=== PATIENT | female | born 1960 | race American Indian/Alaskan Native ===

== ENCOUNTER 2018-07-23 20:44 | Inpatient (IN) | payer MEDICAID ==
--- NOTE | 2018-07-23 21:13 | ED PDOC ---
Arrival/HPI - General Time Seen by Provider: 07/23/18 20:47 Historian: Family, EMS - History of Present Illness Narrative History of Present Illness (Text): 07/23/18 21:05 57 year old female, whose past medical history includes throat cancer, Hypertension, IDDM, hypercholesterolemia, COPD, nonbstructive CAD by cath, presents to the emergency department via EMS s/p witnessed seizure. On route to the ER, patient began seizing for 5-6 minutes and was administered 5mg of Versed. As per family, patient was complaining of a headache all day. HPI and ROS limited due to patient's acuity of condition. Symptom Onset: Sudden Symptom Course: Improving Activities at Onset: Light Context: Home Past Medical History - Provider Review Nursing Documentation Reviewed: Yes - Cardiac Hx Cardiac Disorders: Yes (CAD) Hx Hypertension: Yes - Pulmonary Hx Chronic Obstructive Pulmonary Disease (COPD): Yes - Neurological Hx Neurological Disorder: No - HEENT Hx HEENT Disorder: Yes (hoarseness) Hx Cataracts: Yes Other/Comment: HX: VOVAL CORD LESION - Renal Hx Renal Disorder: No - Endocrine/Metabolic Hx Diabetes Mellitus Type 2: Yes - Hematological/Oncological Hx Blood Disorders: Yes Hx Anemia: Yes Hx Blood Transfusions: Yes Hx Blood Transfusion Reaction: No - Integumentary Hx Dermatological Disorder: No - Musculoskeletal/Rheumatological Hx Musculoskeletal Disorders: Yes Hx Osteoporosis: Yes - Gastrointestinal Hx Gastrointestinal Disorders: Yes Hx Gastroesophageal Reflux: Yes HX Swallowing Problems: Yes - Genitourinary/Gynecological Hx Genitourinary Disorders: No - Psychiatric Hx Psychophysiologic Disorder: No Hx Substance Use: No - Surgical History Hx Cardiac Catheterization: Yes - Anesthesia Hx Anesthesia: Yes Hx Anesthesia Reactions: No Hx Malignant Hyperthermia: No - Suicidal Assessment Feels Threatened In Home Enviroment: No Family/Social History - Physician Review Nursing Documentation Reviewed: Yes Family/Social History: No Known Family HX Smoking Status: Former Smoker Hx Alcohol Use: Yes (stopped drining 5 yrs ago) Hx Substance Use: No Allergies/Home Meds Allergies/Adverse Reactions: Allergies peanut Allergy (Severe, Verified 07/23/18 20:49) SWELLING hydromorphone [From Dilaudid] Allergy (Mild, Verified 07/23/18 20:49) ITCHING Home Medications: Home Meds Medication Instructions Recorded Confirmed RX: Aspirin [Aspirin Chewable] 81 mg PO DAILY 05/22/13 07/23/18 RX: Digoxin 0.25 mg PO DAILY 05/22/13 07/23/18 Review of Systems - Physician Review All systems were reviewed & negative as marked: Yes - Review of Systems Systems not reviewed;Unavailable: Acuity of Condition Neurological: Headache Physical Exam Vital Signs Reviewed: Yes Temperature: Afebrile Blood Pressure: Hypertensive Pulse: Tachycardic Respiratory Rate: Normal Appearance: Positive for: Well-Appearing, Non-Toxic, Comfortable Pain Distress: None Mental Status: Positive for: other (unresponsive, but moving extremities) Finger Stick Blood Glucose: 179 - Systems Exam Head: Present: Atraumatic, Normocephalic Pupils: Present: PERRL Extroacular Muscles: Present: EOMI Conjunctiva: Present: Normal Mouth: Present: Moist Mucous Membranes Neck: Present: Normal Range of Motion, Other (Tracheotomy noted) Respiratory/Chest: Present: Clear to Auscultation, Good Air Exchange. No: Respiratory Distress, Accessory Muscle Use Cardiovascular: Present: Regular Rate and Rhythm, Normal S1, S2. No: Murmurs Abdomen: No: Distention, Peritoneal Signs Back: Present: Normal Inspection Upper Extremity: Present: Normal Inspection. No: Cyanosis, Edema Lower Extremity: Present: Normal Inspection. No: Edema Neurological: Present: GCS=15, CN II-XII Intact Skin: Present: Warm, Dry, Normal Color. No: Rashes Psychiatric: Present: Normal Insight, Normal Concentration, Other (unresponsive, but moving extremities) Medical Decision Making ED Course and Treatment: 07/23/18 21:05 Impression: 57 year old female presents s/p witnessed seizure. Patient was complaining of a headache earlier. Plan: -- CT Head w/o Contrast -- Labs -- EKG -- IV Fluids -- Reassess and disposition Prior Visits: Notes and results from previous visits were reviewed. Progress Notes: 07/23/18 20:47 EMS alerted staff that incoming patient was a code stroke. Code Stroke Called. pt to ctscan on return Patient was seen and evaluated and did not meet code stroke criteria pt was dx with hyponatremia and seizure 07/23/18 21:03 EKG shows Sinus rhythm at 85 BPM with non-specific ST/T segment changes. Interpreted by me EXAM: CT Head without Intravenous Contrast. Electronically signed on Jul 23, 2018 9:09:18 PM EST by: Sulaiman Randolph M.D. IMPRESSION: No acute intracranial abnormality. Basal ganglia calcifications present. 07/23/18 21:49 Patient is noted to be seizing. 1mg Ativan ordered. 07/23/18 22:02 Labs reviewed. Sodium 115. Ordered Hypetonic Saline 07/23/18 22:[address] Javier who is aware and agrees with the plan. Accepts patient. 07/23/18 22:12 Patient noted to have another seizure. Ordered 1mg Ativan. 07/24/18 21:03 - Lab Interpretations I have reviewed the lab results: Yes - RAD Interpretation Radiology Orders: 07/23/18 20:50 HEAD W/O (CODE STROKE) [CT] Stat CHEST ONE VIEW [RAD] Stat - EKG Interpretation Interpreted by ED Physician: Yes Type: 12 lead EKG - Medication Orders Current Medication Orders: Sodium Chloride (Sodium Chloride 0.9%) 1,000 mls @ 100 mls/hr IV .Q10H RENATO - Scribe Statement The provider has reviewed the documentation as recorded by the Yessica Martinez Provider Scribe Attestation: All medical record entries made by the Scribe were at my direction and personally dictated by me. I have reviewed the chart and agree that the record accurately reflects my personal performance of the history, physical exam, medical decision making, and the department course for this patient. I have also personally directed, reviewed, and agree with the discharge instructions and disposition. Disposition/Present on Arrival - Present on Arrival Any Indicators Present on Arrival: No History of DVT/PE: No History of Uncontrolled Diabetes: No Urinary Catheter: No History Surgical Site Infection Following: None - Disposition Have Diagnosis and Disposition been Completed?: Yes Diagnosis: Hyponatremia, Seizure Disposition: HOSPITALIZED Disposition Time: 23:00 Condition: FAIR
[2018-07-23] MEDS: Sodium Chloride 0.9% 1,000 ML IV SCH (21:30)
[2018-07-23 21:50] LABS: BASO # 0.01 K/mm3 (0.0-2.0); BASO % 0.1 % (0.0-3.0); EOS # 0.1 (0.0-0.7); EOS % 0.5 % (1.5-5.0); GRAN # 7.23 (1.4-6.5); GRAN % 73.4 % (50.0-68.0); HEMOGLOBIN 10.3 g/dL (12.0-16.0); LYMPH # 1.7 (1.2-3.4); LYMPH % 17.5 % (22.0-35.0); MEAN CELL VOLUME 70.4 fl (80.0-105.0); MEAN CORPUSCULAR HGB CONC 35.5 g/dl (31.0-37.0); MEAN PLATELET VOLUME 8.7 fl (7.0-11.0); MONO # 0.8 (0.1-0.6); MONO % 8.5 % (1.0-6.0); RBC 4.12 10^6/uL (3.5-6.1); WHITE BLOOD COUNT 9.9 10^3/uL (4.5-11.0)
[2018-07-23 22:00] LABS: INR 0.92; PROTHROMBIN TIME 10.5 SECONDS (9.4-12.5)
[2018-07-23 22:01] LABS: ALB/GLOB RATIO 1.1 (1.1-1.8); ALBUMIN 4.4 g/dL (3.0-4.8); ALT/SGPT 31 U/L (7-56); AST/SGOT 33 U/L (14-36); BLOOD UREA NITROGEN 16 mg/dL (7-21); GFR NON-AFRICAN AMERICAN 51; HDL CHOLESTEROL 68 mg/dL (29-60)
[2018-07-23 22:04] LABS: ARTERIAL BLOOD GAS HCO3 15.6 mmol/L (21-28); ARTERIAL BLOOD GAS O2 CAPACITY 13.8 mL/dl (16-24); ARTERIAL BLOOD GAS O2 SAT 72.6 % (95-98); ARTERIAL BLOOD GAS PCO2 71 mm/Hg (35-45); ARTERIAL BLOOD GAS TCO2 17.8 mmol.L (22-28)
[2018-07-23 22:05] LABS: LDL CHOLESTEROL 123 mg/dL (0-129)
[2018-07-23 22:09] LABS: B-TYPE NATRIURETIC PEPTIDE 246 pg/mL (0-450); TROPONIN I 0.02 ng/mL
[2018-07-23] MEDS ORDERED: Sodium Chloride 3% 500 ML IV SCH (22:15)
[2018-07-23 22:21] LABS: ARTERIAL BLOOD GAS PH 6.95 (7.35-7.45)
[2018-07-23 22:49] LABS: PARTIAL THROMBOPLASTIN TIME 24.7 Seconds (25.1-36.5)
--- NOTE | 2018-07-24 00:12 | CP.PCM.HP ---
History of Present Illness - History of Present Illness History of Present Illness: Alejandro Miller PGY1 History and Physical for Dr Leonel Napier Pt is a 57 yo female, with a PMH which includes throat cancer, HTN, DM, HLD, RAPID OUTSOLE STITCHER D, CAD, presents to the emergency department via EMS after a witnessed seizure. On route to the ER, patient began seizing for 5-6 minutes and was administered 5mg of Versed. Pt has had a history of seizures. Pt unresponsive during the history and physical, most of the information was obtained from the pt sister and nephew. Pt reportedly started shaking, feel off of the bed and hit the side of her face. As per family, patient was complaining of a headache all day. HPI and ROS limited due to patient's acuity of condition. PMH: HTN, IDDM, HLD, COPD, CAD PSH: umbilical hernia repair (2014) SH: pt is a former smoker 2 ppd for more than 30 years, pt quit etoh 5 year ago (drank five 40 oz beers per day), denies illicit drug use Home meds: contact [facility] tomorrow Allergies: peanuts, hydromorphone PMD: [facility] Cardio: [facility] in [place] Present on Admission - Present on Admission Any Indicators Present on Admission: No Review of Systems - Review of Systems Review of Systems: limited due to pt mental status Past Patient History - Past Medical History & Family History Past Medical History?: Yes - Past Social History Smoking Status: Former Smoker - CARDIAC Hx Cardiac Disorders: Yes (CAD) Hx Hypertension: Yes - PULMONARY Hx Chronic Obstructive Pulmonary Disease (COPD): Yes - NEUROLOGICAL Hx Neurological Disorder: No - HEENT Hx HEENT Problems: Yes (hoarseness) Hx Cataracts: Yes Other/Comment: HX: VOVAL CORD LESION - RENAL Hx Chronic Kidney Disease: No - ENDOCRINE/METABOLIC Hx Diabetes Mellitus Type 2: Yes - HEMATOLOGICAL/ONCOLOGICAL Hx Blood Disorders: Yes Hx Anemia: Yes Hx Blood Transfusions: Yes Hx Blood Transfusion Reaction: No - INTEGUMENTARY Hx Dermatological Problems: No - MUSCULOSKELETAL/RHEUMATOLOGICAL Hx Musculoskeletal Disorders: Yes Hx Osteoporosis: Yes - GASTROINTESTINAL Hx Gastrointestinal Disorders: Yes Hx Gastroesophageal Reflux: Yes HX Swallowing Problems: Yes - GENITOURINARY/GYNECOLOGICAL Hx Genitourinary Disorders: No - PSYCHIATRIC Hx Psychophysiologic Disorder: No Hx Substance Use: No - SURGICAL HISTORY Hx Cardiac Catheterization: Yes - ANESTHESIA Hx Anesthesia: Yes Hx Anesthesia Reactions: No Hx Malignant Hyperthermia: No Meds Allergies/Adverse Reactions: Allergies Allergy/AdvReac Type Severity Reaction Status Date / Time peanut Allergy Severe SWELLING Verified 07/23/18 20:49 hydromorphone [From Dilaudid] Allergy Mild ITCHING Verified 07/23/18 20:49 Physical Exam - Head Exam Additional comments: periorbital swelling due to pt falling during seizure - Eye Exam Eye Exam: EOMI, PERRL - ENT Exam ENT Exam: Mucous Membranes Moist - Neck Exam Neck exam: Positive for: Full Rom - Respiratory Exam Respiratory Exam: Clear to Auscultation Bilateral, NORMAL BREATHING PATTERN. a bsent: Accessory Muscle Use, Wheezes, Respiratory Distress - Cardiovascular Exam Cardiovascular Exam: RRR, +S1, +S2. absent: Diastolic murmur, Systolic Murmur - GI/Abdominal Exam GI & Abdominal Exam: Normal Bowel Sounds, Soft - Extremities Exam Extremities exam: Negative for: pedal edema Additional comments: LE no muscle tone - Neurological Exam Neurological exam: Altered - Skin Skin Exam: Dry, Intact, Warm Results - Vital Signs Recent Vital Signs: Last Vital Signs Temp 97.5 F L 07/23/18 20:45 Pulse 89 07/23/18 23:41 Resp 18 07/23/18 23:41 BP 150/95 H 07/23/18 23:41 Pulse Ox 100 07/23/18 23:41 - Labs Result Diagrams: 07/23/18 21:34 07/23/18 21:34 Labs: Laboratory Results - last 24 hr 07/23/18 07/23/18 07/23/18 21:34 21:34 21:34 WBC 9.9 RBC 4.12 Hgb 10.3 L Hct 29.0 L MCV 70.4 L MCH 25.0 MCHC 35.5 RDW 15.0 H Plt Count 404 MPV 8.7 Gran % 73.4 H Lymph % (Auto) 17.5 L [place] % (Auto) 8.5 H Eos % (Auto) 0.5 L Baso % (Auto) 0.1 Gran # 7.23 H Lymph # (Auto) 1.7 [place] # (Auto) 0.8 H Eos # (Auto) 0.1 Baso # (Auto) 0.01 PT 10.5 INR 0.92 APTT 24.7 L pCO2 pO2 HCO3 ABG pH ABG Total CO2 ABG O2 Saturation ABG O2 Content ABG Base Excess ABG Hemoglobin ABG Carboxyhemoglobin POC ABG HHb (Measured) ABG Methemoglobin ABG O2 Capacity Hgb O2 Saturation FiO2 Sodium 115 L* Potassium 4.8 Chloride 75 L D Carbon Dioxide 21 Anion Gap 23 H BUN 16 Creatinine 1.1 Est GFR ( Amer) > 60 Est GFR (Non-Af Amer) 51 Random Glucose 198 H Serum Osmolality Calcium 9.0 Total Bilirubin 0.6 AST 33 ALT 31 Alkaline Phosphatase 80 Troponin I 0.02 NT-Pro-B Natriuret Pep 246 Total Protein 8.3 Albumin 4.4 Globulin 3.9 Albumin/Globulin Ratio 1.1 Triglycerides 164 H Cholesterol 209 H LDL Cholesterol Direct 123 HDL Cholesterol 68 H Blood Type Antibody Screen BBK History Checked 07/23/18 07/23/18 07/23/18 21:34 21:54 22:30 WBC RBC Hgb Hct MCV MCH MCHC RDW Plt Count MPV Gran % Lymph % (Auto) [place] % (Auto) Eos % (Auto) Baso % (Auto) Gran # Lymph # (Auto) [place] # (Auto) Eos # (Auto) Baso # (Auto) PT INR APTT pCO2 71 H* pO2 50.0 L HCO3 15.6 L ABG pH 6.95 L* ABG Total CO2 17.8 L ABG O2 Saturation 72.6 L ABG O2 Content 10.0 L ABG Base Excess -16.4 L ABG Hemoglobin 10.0 L ABG Carboxyhemoglobin 1.4 POC ABG HHb (Measured) 26.9 H ABG Methemoglobin 0.6 ABG O2 Capacity 13.8 L Hgb O2 Saturation 71.1 L FiO2 28.0 Sodium Potassium Chloride Carbon Dioxide Anion Gap BUN Creatinine Est GFR ( Amer) Est GFR (Non-Af Amer) Random Glucose Serum Osmolality 240 L Calcium Total Bilirubin AST ALT Alkaline Phosphatase Troponin I NT-Pro-B Natriuret Pep Total Protein Albumin Globulin Albumin/Globulin Ratio Triglycerides Cholesterol LDL Cholesterol Direct HDL Cholesterol Blood Type AB POSITIVE Antibody Screen Negative BBK History Checked No verified bt Assessment & Plan - Assessment and Plan (Free Text) Assessment: Pt is a 57 yo female, with a PMH which includes throat cancer, HTN, DM, HLD, COPD, CAD, presents to the emergency department via EMS after a witnessed seizure. Plan: Acute Symptomatic Hyponatremia - Na 115 on admission - anion gap 19 - continue 3% Saline, 30ml/hr, will discontinue when Na 135 - follow up BMP Q2 - neuro checks - will try to correct hyponatremia at a rate of 1/ hr - follow up urine osms, Na - follow up serum osm - follow up blood cultures - follow up troponins - head CT shows no abnormalities Vocal Cord Cancer - continue current management - pt receiving daily radiation treatments Respiratory and Metabolic Acidosis - ABG pH 6.95 on admission - pCO2 71 - pO2 50 - pt placed on ventilator: TV400, RR16, PEEP5, FiO2 40 - give 1 amp of bicarb if pH is still under 7 on next ABG - ABG q4 DM - ISS high ACHS - Fingersticks ACHS - HA1C HLD - lipid panel: [id number], TC209, [id number], HDL68 HTN - hydralazine 10mg PRN give if systolic BP over 160 - continue to monitor Anemia - Hgb 10.3, close to pt baseline - continue to follow Ppx - protonix - heparin Pt seen, examined, assessment and plan discussed with Dr Leonel Miller PGY1 Internal Medicine Resident - Date & Time Date: 07/24/18 Time: 00:17
[2018-07-24 01:12] LABS: ARTERIAL BLOOD GAS HCO3 21.1 mmol/L (21-28); ARTERIAL BLOOD GAS HEMOGLOBIN 9.3 g/dL (11.7-17.4); ARTERIAL BLOOD GAS O2 CAPACITY 13.4 mL/dl (16-24); ARTERIAL BLOOD GAS O2 CONTENT 13.4 ML/dl (15-23); ARTERIAL BLOOD GAS O2 SAT 100.1 % (95-98); ARTERIAL BLOOD GAS PCO2 29 mm/Hg (35-45); ARTERIAL BLOOD GAS PH 7.47 (7.35-7.45)
[2018-07-24 01:52] LABS: CALCIUM 8.5 mg/dL (8.4-10.5)
[2018-07-24 01:54] LABS: TROPONIN I 1.68 ng/mL
[2018-07-24] MEDS ORDERED: Sodium Chloride 3% 500 ML IV SCH (02:00)
[2018-07-24] MEDS: Heparin25000 units/250ml 1/2NS 25,000 UNITS/250 ML BAG IV SCH (06:05)
[2018-07-24 06:17] LABS: BLOOD UREA NITROGEN 15 mg/dL (7-21); CALCIUM 8.7 mg/dL (8.4-10.5); GFR NON-AFRICAN AMERICAN 51
[2018-07-24] MEDS: Albuterol-Ipratrop 3 mg / 0.5 (3 ml) UD IH SCH ×3 (08:12→20:17)
[2018-07-24 08:29] VITALS: BMI 22.1
[2018-07-24] MEDS ORDERED: Pneumococcal 23-Valent Vaccine IM ONE (08:29)
[2018-07-24] MEDS ORDERED: Influenza Vaccine 60 mcg/0.5 mL SYR (4YR UP) IM ONE (08:29)
[2018-07-24 09:00] LABS: BLOOD UREA NITROGEN 14 mg/dL (7-21); CALCIUM 8.4 mg/dL (8.4-10.5); GFR NON-AFRICAN AMERICAN 51
--- NOTE | 2018-07-24 09:03 | RAD ---
Date of service: 07/23/2018 PROCEDURE: CHEST RADIOGRAPH, 1 VIEW HISTORY: Code Stroke COMPARISON: None available. FINDINGS: LUNGS: Clear. PLEURA: No pneumothorax or pleural fluid seen. CARDIOVASCULAR: Normal. OSSEOUS STRUCTURES: No significant abnormalities. VISUALIZED UPPER ABDOMEN: Normal. OTHER FINDINGS: Tracheostomy IMPRESSION: No active disease.
--- NOTE | 2018-07-24 09:24 | CT ---
Date of service: 07/23/2018 PROCEDURE: CT HEAD WITHOUT CONTRAST. HISTORY: Code Stroke COMPARISON: None available. TECHNIQUE: Axial computed tomography images were obtained through the head/brain without intravenous contrast. Radiation dose: Total exam DLP = 746.52 mGy-cm. This CT exam was performed using one or more of the following dose reduction techniques: Automated exposure control, adjustment of the mA and/or kV according to patient size, and/or use of iterative reconstruction technique. FINDINGS: HEMORRHAGE: No intracranial hemorrhage. BRAIN: No mass effect or edema. No atrophy or chronic microvascular ischemic changes. VENTRICLES: Unremarkable. No hydrocephalus. CALVARIUM: Unremarkable. PARANASAL SINUSES: Unremarkable as visualized. No significant inflammatory changes. MASTOID AIR CELLS: Unremarkable as visualized. No inflammatory changes. OTHER FINDINGS: The report concurs with the preliminary [facility] report IMPRESSION: No acute findings
[2018-07-24] MEDS ORDERED: Midazolam 2 MG/2 ML VIAL ONE (09:25)
[2018-07-24] MEDS ORDERED: Midazolam 2 MG/2 ML VIAL IVP STA (09:46)
--- NOTE | 2018-07-24 10:08 | CARD ---
APPROVED REPORT Date of service: 07/24/2018 EKG Measurement Heart [id number] <Conclusion> Sinus tachycardia Biatrial enlargement Left anterior fascicular block Left ventricular hypertrophy Inferior infarct, age undetermined Anteroseptal infarct, age undetermined Abnormal ECG
--- NOTE | 2018-07-24 10:10 | CARD ---
APPROVED REPORT Date of service: 07/23/2018 EKG Measurement Heart [id number] <Conclusion> Sinus rhythm with marked sinus arrhythmia Possible Left atrial enlargement Left anterior fascicular block Left ventricular hypertrophy
[2018-07-24] MEDS: Insulin Reg-MEDIUM-Coverage SC SCH ×3 (11:39→22:41)
[2018-07-24 11:40] LABS: OSMOLALITY,URINE 327 mosm/kg (300-1000)
[2018-07-24] MEDS: Sodium Chloride 0.9% 1,000 ML IV SCH ×2 (11:43→17:09)
--- NOTE | 2018-07-24 12:18 | CP.PCM.CON ---
<Berna Dan - Last Filed: 07/24/18 17:38> History of Present Illness - History of Present Illness History of Present Illness: CRITICAL CARE CONSULT NOTE FOR DR. RATNA Dan PGY-1 57 y/o F with PMHx of recently diagnosed laryngeal cancer s/p tracheostomy, alcohol abuse, COPD, HTN, HLD, DM, seizures admitted to [facility] after she sustained a witnessed seizure. EMS was called by her boyfriend. She was brought in to ED and was lethargic, non-responsive to questions and agitated. As per family members, pt had been undergoing radiation therapy with Dr. Carmichael, her oncologist, and was at her 10/24 week. She was instructed to eat a blended food diet after her tracheostomy was placed. She had ate chicken/mashed potatoes when she subsequently experienced a "seizure" episode and developed dyspnea/shortness of breath. EMS was subsequently called and brought in to ED after another seizure episode occurred. She has been followed by Dr. Car, and has been diagnosed with seizures as a child. She was prescribed phenobarbitol but had stopped taking her medications. Per family, she has not drank and smoked in the past 5 years. 12 point ROS in unattainable as patient is not responding to questions. PMH: HTN, IDDM, HLD, COPD, CAD PSH: umbilical hernia repair (2015) SH: pt is a former smoker 2 ppd for more than 30 years, pt quit etoh 5 year ago (drank five 40 oz beers per day), denies illicit drug use Allergies: peanuts, hydromorphone PMD: L[place] Cardio: [place] in [place] Review of Systems - Review of Systems Review of Systems: as per HPI Past Patient History - Past Medical History & Family History Past Medical History?: Yes - Past Social History Smoking Status: Former Smoker - CARDIAC Hx Pacemaker: No - PULMONARY Hx Chronic Obstructive Pulmonary Disease (COPD): Yes - NEUROLOGICAL Hx Neurological Disorder: No - HEENT Hx HEENT Problems: Yes (hoarseness) Hx Cataracts: Yes Other/Comment: HX: VOVAL CORD LESION - RENAL Hx Chronic Kidney Disease: No - ENDOCRINE/METABOLIC Hx Diabetes Mellitus Type 2: Yes - HEMATOLOGICAL/ONCOLOGICAL Hx Cancer: No - INTEGUMENTARY Hx Dermatological Problems: No - MUSCULOSKELETAL/RHEUMATOLOGICAL Hx Musculoskeletal Disorders: Yes Hx Osteoporosis: Yes - GASTROINTESTINAL Hx Gastrointestinal Disorders: Yes Hx Gastroesophageal Reflux: Yes HX Swallowing Problems: Yes - GENITOURINARY/GYNECOLOGICAL Hx Genitourinary Disorders: No - PSYCHIATRIC Hx Psychophysiologic Disorder: No Hx Substance Use: No - SURGICAL HISTORY Hx Mastectomy: No - ANESTHESIA Hx Anesthesia: Yes Hx Anesthesia Reactions: No Hx Malignant Hyperthermia: No Meds Allergies/Adverse Reactions: Allergies Allergy/AdvReac Type Severity Reaction Status Date / Time peanut Allergy Severe SWELLING Verified 07/23/18 20:49 hydromorphone [From Dilaudid] Allergy Mild ITCHING Verified 07/23/18 20:49 - Medications Medications: Current Medications Albuterol/Ipratropium (Duoneb 3 Mg/0.5 Mg (3 Ml) Ud) 3 ml IH TIDRESP [facility] Last Admin: 07/24/18 08:12 Dose: 3 ml Aspirin (Aspirin Chewable) 81 mg PO DAILY [facility] Last Admin: 07/24/18 10:28 Dose: Not Given Aspirin (Aspirin Supp) 300 mg RC DAILY [facility] Last Admin: 07/24/18 11:38 Dose: 300 mg Atorvastatin Calcium (Lipitor) 40 mg PO DIN RENATO Digoxin (Lanoxin) 0.25 mg PO 1400 [facility] Hydralazine HCl (Apresoline) 10 mg IVP Q6H PRN PRN Reason: Systolic Blood Pressure Last Admin: 07/24/18 11:48 Dose: 10 mg Sodium Chloride (Sodium Chloride 0.9%) 1,000 mls @ 100 mls/hr IV .Q10H [facility] Last Admin: 07/24/18 11:43 Dose: 100 mls/hr Heparin Sodium/Sodium Chloride (Heparin 54438 Units/250ml 1/2 Normal Saline) 25,000 units in 250 mls @ 7.457 mls/hr IV .Q24H [facility]; Protocol Last Admin: 07/24/18 06:05 Dose: 12 units/kg/hr, 7.457 mls/hr Acetaminophen (Ofirmev) 1,000 mg in 100 mls @ 400 mls/hr IVPB Q6H PRN PRN Reason: Temperature Stop: 07/26/18 11:06 Last Admin: 07/24/18 11:38 Dose: 400 mls/hr Insulin Human Regular (Humulin R Med) 0 units SC ACHS [facility]; Protocol Last Admin: 07/24/18 11:39 Dose: 5 u Lorazepam (Ativan) 1 mg IVP ONCE PRN; Protocol PRN Reason: Seizure activity Pantoprazole Sodium (Protonix Inj) 40 mg IVP DAILY RENATO Last Admin: 07/24/18 11:42 Dose: 40 mg Physical Exam - Constitutional Appears: Non-toxic, Chronically Ill - Head Exam Head Exam: ATRAUMATIC, NORMOCEPHALIC - Eye Exam Eye Exam: Normal appearance - Neck Exam Neck exam: Positive for: Normal Inspection - Respiratory Exam Respiratory Exam: Clear to Auscultation Bilateral, NORMAL BREATHING PATTERN - Cardiovascular Exam Cardiovascular Exam: Tachycardia, +S1, +S2 - GI/Abdominal Exam GI & Abdominal Exam: Soft. absent: Distended - Extremities Exam Extremities exam: Positive for: normal inspection. Negative for: calf tenderness - Back Exam Back exam: NORMAL INSPECTION Results - Vital Signs Recent Vital Signs: Last Vital Signs Temp 100.8 F H 07/24/18 11:38 Pulse 136 H 07/24/18 11:48 Resp 33 H 07/24/18 08:00 BP 216/84 H 07/24/18 11:48 Pulse Ox 100 07/24/18 08:00 - Labs Result Diagrams: 07/23/18 21:34 07/24/18 16:44 Labs: Laboratory Results - last 24 hr 07/23/18 07/23/18 07/23/18 21:34 21:34 21:34 WBC 9.9 RBC 4.12 Hgb 10.3 L Hct 29.0 L MCV 70.4 L MCH 25.0 MCHC 35.5 RDW 15.0 H Plt Count 404 MPV 8.7 Gran % 73.4 H Lymph % (Auto) 17.5 L Bland % (Auto) 8.5 H Eos % (Auto) 0.5 L Baso % (Auto) 0.1 Gran # 7.23 H Lymph # (Auto) 1.7 Bland # (Auto) 0.8 H Eos # (Auto) 0.1 Baso # (Auto) 0.01 PT 10.5 INR 0.92 APTT 24.7 L pCO2 pO2 HCO3 ABG pH ABG Total CO2 ABG O2 Saturation ABG O2 Content ABG Base Excess ABG Hemoglobin ABG Carboxyhemoglobin POC ABG HHb (Measured) ABG Methemoglobin ABG O2 Capacity Hgb O2 Saturation FiO2 Sodium 115 L* Potassium 4.8 Chloride 75 L D Carbon Dioxide 21 Anion Gap 23 H BUN 16 Creatinine 1.1 Est GFR ( Amer) > 60 Est GFR (Non-Af Amer) 51 POC Glucose (mg/dL) Random Glucose 198 H Hemoglobin A1c Serum Osmolality Calcium 9.0 Total Bilirubin 0.6 AST 33 ALT 31 Alkaline Phosphatase 80 Troponin I 0.02 NT-Pro-B Natriuret Pep 246 Total Protein 8.3 Albumin 4.4 Globulin 3.9 Albumin/Globulin Ratio 1.1 Triglycerides 164 H Cholesterol 209 H LDL Cholesterol Direct 123 HDL Cholesterol 68 H Urine Osmolality Ur Random Sodium Blood Type Blood Type Confirm Antibody Screen BBK History Checked 07/23/18 07/23/18 07/23/18 21:34 21:34 21:54 WBC RBC Hgb Hct MCV MCH MCHC RDW Plt Count MPV Gran % Lymph % (Auto) Bland % (Auto) Eos % (Auto) Baso % (Auto) Gran # Lymph # (Auto) Bland # (Auto) Eos # (Auto) Baso # (Auto) PT INR APTT pCO2 71 H* pO2 50.0 L HCO3 15.6 L ABG pH 6.95 L* ABG Total CO2 17.8 L ABG O2 Saturation 72.6 L ABG O2 Content 10.0 L ABG Base Excess -16.4 L ABG Hemoglobin 10.0 L ABG Carboxyhemoglobin 1.4 POC ABG HHb (Measured) 26.9 H ABG Methemoglobin 0.6 ABG O2 Capacity 13.8 L Hgb O2 Saturation 71.1 L FiO2 28.0 Sodium Potassium Chloride Carbon Dioxide Anion Gap BUN Creatinine Est GFR ( Amer) Est GFR (Non-Af Amer) POC Glucose (mg/dL) Random Glucose Hemoglobin A1c 7.5 H Serum Osmolality 240 L Calcium Total Bilirubin AST ALT Alkaline Phosphatase Troponin I NT-Pro-B Natriuret Pep Total Protein Albumin Globulin Albumin/Globulin Ratio Triglycerides Cholesterol LDL Cholesterol Direct HDL Cholesterol Urine Osmolality Ur Random Sodium Blood Type Blood Type Confirm Antibody Screen BBK History Checked 07/23/18 07/23/18 07/24/18 22:30 23:00 00:50 WBC RBC Hgb Hct MCV MCH MCHC RDW Plt Count MPV Gran % Lymph % (Auto) Bland % (Auto) Eos % (Auto) Baso % (Auto) Gran # Lymph # (Auto) Bland # (Auto) Eos # (Auto) Baso # (Auto) PT INR APTT pCO2 29 L pO2 257.0 H HCO3 21.1 ABG pH 7.47 H ABG Total CO2 22.0 ABG O2 Saturation 100.1 H ABG O2 Content 13.4 L ABG Base Excess -1.9 ABG Hemoglobin 9.3 L ABG Carboxyhemoglobin 1.4 POC ABG HHb (Measured) -0.1 L ABG Methemoglobin 1.1 ABG O2 Capacity 13.4 L Hgb O2 Saturation 97.6 FiO2 28.0 Sodium Potassium Chloride Carbon Dioxide Anion Gap BUN Creatinine Est GFR ( Amer) Est GFR (Non-Af Amer) POC Glucose (mg/dL) Random Glucose Hemoglobin A1c Serum Osmolality Calcium Total Bilirubin AST ALT Alkaline Phosphatase Troponin I NT-Pro-B Natriuret Pep Total Protein Albumin Globulin Albumin/Globulin Ratio Triglycerides Cholesterol LDL Cholesterol Direct HDL Cholesterol Urine Osmolality Ur Random Sodium Blood Type AB POSITIVE Blood Type Confirm AB POSITIVE Antibody Screen Negative BBK History Checked No verified bt 07/24/18 07/24/18 07/24/18 01:13 01:13 05:35 WBC RBC Hgb Hct MCV MCH MCHC RDW Plt Count MPV Gran % Lymph % (Auto) Bland % (Auto) Eos % (Auto) Baso % (Auto) Gran # Lymph # (Auto) Bland # (Auto) Eos # (Auto) Baso # (Auto) PT INR APTT pCO2 pO2 HCO3 ABG pH ABG Total CO2 ABG O2 Saturation ABG O2 Content ABG Base Excess ABG Hemoglobin ABG Carboxyhemoglobin POC ABG HHb (Measured) ABG Methemoglobin ABG O2 Capacity Hgb O2 Saturation FiO2 Sodium 115 L* Potassium 4.5 Chloride 77 L Carbon Dioxide 21 Anion Gap 22 H BUN 15 Creatinine 1.2 Est GFR ( Amer) 56 Est GFR (Non-Af Amer) 46 POC Glucose (mg/dL) Random Glucose 263 H Hemoglobin A1c Serum Osmolality 252 L 256 L Calcium 8.5 Total Bilirubin AST ALT Alkaline Phosphatase Troponin I 1.68 H* D NT-Pro-B Natriuret Pep Total Protein Albumin Globulin Albumin/Globulin Ratio Triglycerides Cholesterol LDL Cholesterol Direct HDL Cholesterol Urine Osmolality Ur Random Sodium Blood Type Blood Type Confirm Antibody Screen BBK History Checked 07/24/18 07/24/18 07/24/18 05:35 07:17 08:30 WBC RBC Hgb Hct MCV MCH MCHC RDW Plt Count MPV Gran % Lymph % (Auto) Bland % (Auto) Eos % (Auto) Baso % (Auto) Gran # Lymph # (Auto) Bland # (Auto) Eos # (Auto) Baso # (Auto) PT INR APTT pCO2 pO2 HCO3 ABG pH ABG Total CO2 ABG O2 Saturation ABG O2 Content ABG Base Excess ABG Hemoglobin ABG Carboxyhemoglobin POC ABG HHb (Measured) ABG Methemoglobin ABG O2 Capacity Hgb O2 Saturation FiO2 Sodium 118 L* Potassium 4.2 Chloride 81 L Carbon Dioxide 17 L Anion Gap 24 H BUN 15 Creatinine 1.1 Est GFR ( Amer) > 60 Est GFR (Non-Af Amer) 51 POC Glucose (mg/dL) 282 H Random Glucose 287 H Hemoglobin A1c Serum Osmolality 253 L Calcium 8.7 Total Bilirubin AST ALT Alkaline Phosphatase Troponin I 4.60 H* D NT-Pro-B Natriuret Pep Total Protein Albumin Globulin Albumin/Globulin Ratio Triglycerides Cholesterol LDL Cholesterol Direct HDL Cholesterol Urine Osmolality Ur Random Sodium Blood Type Blood Type Confirm Antibody Screen BBK History Checked 07/24/18 07/24/18 08:30 10:45 WBC RBC Hgb Hct MCV MCH MCHC RDW Plt Count MPV Gran % Lymph % (Auto) Bland % (Auto) Eos % (Auto) Baso % (Auto) Gran # Lymph # (Auto) Bland # (Auto) Eos # (Auto) Baso # (Auto) PT INR APTT pCO2 pO2 HCO3 ABG pH ABG Total CO2 ABG O2 Saturation ABG O2 Content ABG Base Excess ABG Hemoglobin ABG Carboxyhemoglobin POC ABG HHb (Measured) ABG Methemoglobin ABG O2 Capacity Hgb O2 Saturation FiO2 Sodium 120 L Potassium 3.9 Chloride 85 L Carbon Dioxide 18 L Anion Gap 21 H BUN 14 Creatinine 1.1 Est GFR ( Amer) > 60 Est GFR (Non-Af Amer) 51 POC Glucose (mg/dL) Random Glucose 272 H Hemoglobin A1c Serum Osmolality Calcium 8.4 Total Bilirubin AST ALT Alkaline Phosphatase Troponin I NT-Pro-B Natriuret Pep Total Protein Albumin Globulin Albumin/Globulin Ratio Triglycerides Cholesterol LDL Cholesterol Direct HDL Cholesterol Urine Osmolality 327 Ur Random Sodium 90 Blood Type Blood Type Confirm Antibody Screen BBK History Checked Assessment & Plan - Assessment and Plan (Free Text) Assessment: 57 y/o F admitted to ICU with severe hyponatremia and NSTEMI s/p witnessed fabricio quispe. Plan: Neuro: Pt sedated, arousable but not awake Reorient as necessary Monitor for FND with correction of hyponatremia Hx of seizures loading dose of keppra dilantin/valproate continue anti-epileptics f/u prolactin seizure precautions Consult neurology Head Ct: no acute findings video EEG per neuro recs. r/u status epilepticus/seizures Cardiovascular: Tachycardic Hypertensive Lopressor IVP q6h prn Maintain MAP >65 NSTEMI troponin elevation Trend troponins x 3 overnight continue on heparin drip consult cardiology Pulm: Lungs CTA metabolic acidosis resolved after Na correction repeat ABG tracheostomy collar in place PRVC ventilator prn Oral hygiene pulmonary toilet aspiration precautions GI: Soft/non-distended /Renal Hyponatremia resolving. D/c hypertonic saline Continue IVF with NS goal of correction not more than 6-8 meq/24 hrs. BMP q4h f/u urine studies Supplement lytes prn Maintain MAP>65 Strict I/Os No acute need for renal replacement therapy at this time. Avoid hypotension. Patient not on ACEI/ARB, will consider later once pt stable. Monitor daily weights and renal function with basic metabolic panel Dose meds/antibiotics for reduced GFR. Avoid fleets enema/magnesium based laxatives. Avoid nephrotoxins/NSAIDs/ iodinated contrast (unless needed emergently) Glycemic control ID: Febrile No leukocytosis Empric vancomycin/zosyn f/u blood/urine cultures f/u procalcitonin Endo: Maintain euglycemia Monitor for seizure-like activity Heme: H/H stable transfuse prn Case seen, examined and discussed with attending physician, Dr. Napier <Phil Napier - Last Filed: 07/24/18 18:02> Meds - Medications Medications: Current Medications Albuterol/Ipratropium (Duoneb 3 Mg/0.5 Mg (3 Ml) Ud) 3 ml IH TIDRESP [facility] Last Admin: 07/24/18 13:39 Dose: Not Given Aspirin (Aspirin Chewable) 81 mg PO DAILY [facility] Last Admin: 07/24/18 10:28 Dose: Not Given Aspirin (Aspirin Supp) 300 mg RC DAILY [facility] Last Admin: 07/24/18 11:38 Dose: 300 mg Atorvastatin Calcium (Lipitor) 40 mg PO DIN RENATO Digoxin (Lanoxin) 0.25 mg IVP 1400 RENATO Sodium Chloride (Sodium Chloride 0.9%) 1,000 mls @ 100 mls/hr IV .Q10H R[facility] Last Admin: 07/24/18 17:09 Dose: 100 mls/hr Heparin Sodium/Sodium Chloride (Heparin 99754 Units/250ml 1/2 Normal Saline) 25,000 units in 250 mls @ 7.457 mls/hr IV .Q24H [facility]; Protocol Last Admin: 07/24/18 06:05 Dose: 12 units/kg/hr, 7.457 mls/hr Acetaminophen (Ofirmev) 1,000 mg in 100 mls @ 400 mls/hr IVPB Q6H PRN PRN Reason: Temperature Stop: 07/26/18 11:06 Last Admin: 07/24/18 11:38 Dose: 400 mls/hr Vancomycin HCl (Vancomycin 1gm) 1 gm in 250 mls @ 167 mls/hr IVPB DAILY [facility]; Protocol Last Admin: 07/24/18 17:03 Dose: 167 mls/hr Piperacillin Sod/Tazobactam Sod (Zosyn 3.375 In Ns 100ml) 100 mls @ 25 mls/hr IVPB Q8 [facility]; Protocol Stop: 07/25/18 01:59 Last Admin: 07/24/18 17:08 Dose: 25 mls/hr Valproate Sodium 1,000 mg/ (Sodium Chloride) 110 mls @ 100 mls/hr IVPB Q8 [facility] Last Admin: 07/24/18 13:59 Dose: 100 mls/hr Phenytoin 100 mg/ Sodium (Chloride) 52 mls @ 104 mls/hr IVPB Q8 [facility] Levetiracetam 1,500 mg/ Sodium (Chloride) 115 mls @ 460 mls/hr IV Q12 [facility] Insulin Human Regular (Humulin R Med) 0 units SC ACHS [facility]; Protocol Last Admin: 07/24/18 17:05 Dose: Not Given Lorazepam (Ativan) 1 mg IVP ONCE PRN; Protocol PRN Reason: Seizure activity Lorazepam (Ativan) 2 mg IVP Q6H PRN; Protocol PRN Reason: Anxiety Metoprolol Tartrate (Lopressor) 5 mg IVP Q6H PRN PRN Reason: Systolic Blood Pressure Pantoprazole Sodium (Protonix Inj) 40 mg IVP DAILY R[facility]AT[facility] Last Admin: 07/24/18 11:42 Dose: 40 mg Results - Vital Signs Recent Vital Signs: Last Vital Signs Temp 100.1 F H 07/24/18 16:30 Pulse 128 H 07/24/18 16:30 Resp 31 H 07/24/18 16:30 BP 166/100 H 07/24/18 16:30 Pulse Ox 100 07/24/18 16:30 - Labs Result Diagrams: 07/23/18 21:34 07/24/18 16:44 Labs: Laboratory Results - last 24 hr 07/23/18 07/23/18 07/23/18 21:34 21:34 21:34 WBC 9.9 RBC 4.12 Hgb 10.3 L Hct 29.0 L MCV 70.4 L MCH 25.0 MCHC 35.5 RDW 15.0 H Plt Count 404 MPV 8.7 Gran % 73.4 H Lymph % (Auto) 17.5 L Bland % (Auto) 8.5 H Eos % (Auto) 0.5 L Baso % (Auto) 0.1 Gran # 7.23 H Lymph # (Auto) 1.7 Bland # (Auto) 0.8 H Eos # (Auto) 0.1 Baso # (Auto) 0.01 PT 10.5 INR 0.92 APTT 24.7 L pCO2 pO2 HCO3 ABG pH ABG Total CO2 ABG O2 Saturation ABG O2 Content ABG Base Excess ABG Hemoglobin ABG Carboxyhemoglobin POC ABG HHb (Measured) ABG Methemoglobin ABG O2 Capacity Hgb O2 Saturation FiO2 Sodium 115 L* Potassium 4.8 Chloride 75 L D Carbon Dioxide 21 Anion Gap 23 H BUN 16 Creatinine 1.1 Est GFR ( Amer) > 60 Est GFR (Non-Af Amer) 51 POC Glucose (mg/dL) Random Glucose 198 H Hemoglobin A1c Serum Osmolality Lactic Acid Uric Acid Calcium 9.0 Phosphorus Magnesium Total Bilirubin 0.6 AST 33 ALT 31 Alkaline Phosphatase 80 Total Creatine Kinase CK-MB (CK-2) CK-MB (CK-2) % Troponin I 0.02 NT-Pro-B Natriuret Pep 246 Total Protein 8.3 Albumin 4.4 Globulin 3.9 Albumin/Globulin Ratio 1.1 Triglycerides 164 H Cholesterol 209 H LDL Cholesterol Direct 123 HDL Cholesterol 68 H TSH 3rd Generation Urine Osmolality Ur Random Sodium Salicylates Alcohol, Quantitative Blood Type Blood Type Confirm Antibody Screen BBK History Checked 07/23/18 07/23/18 07/23/18 21:34 21:34 21:54 WBC RBC Hgb Hct MCV MCH MCHC RDW Plt Count MPV Gran % Lymph % (Auto) Bland % (Auto) Eos % (Auto) Baso % (Auto) Gran # Lymph # (Auto) Bland # (Auto) Eos # (Auto) Baso # (Auto) PT INR APTT pCO2 71 H* pO2 50.0 L HCO3 15.6 L ABG pH 6.95 L* ABG Total CO2 17.8 L ABG O2 Saturation 72.6 L ABG O2 Content 10.0 L ABG Base Excess -16.4 L ABG Hemoglobin 10.0 L ABG Carboxyhemoglobin 1.4 POC ABG HHb (Measured) 26.9 H ABG Methemoglobin 0.6 ABG O2 Capacity 13.8 L Hgb O2 Saturation 71.1 L FiO2 28.0 Sodium Potassium Chloride Carbon Dioxide Anion Gap BUN Creatinine Est GFR ( Amer) Est GFR (Non-Af Amer) POC Glucose (mg/dL) Random Glucose Hemoglobin A1c 7.5 H Serum Osmolality 240 L Lactic Acid Uric Acid Calcium Phosphorus Magnesium Total Bilirubin AST ALT Alkaline Phosphatase Total Creatine Kinase CK-MB (CK-2) CK-MB (CK-2) % Troponin I NT-Pro-B Natriuret Pep Total Protein Albumin Globulin Albumin/Globulin Ratio Triglycerides Cholesterol LDL Cholesterol Direct HDL Cholesterol TSH 3rd Generation Urine Osmolality Ur Random Sodium Salicylates Alcohol, Quantitative Blood Type Blood Type Confirm Antibody Screen BBK History Checked 07/23/18 07/23/18 07/24/18 22:30 23:00 00:50 WBC RBC Hgb Hct MCV MCH MCHC RDW Plt Count MPV Gran % Lymph % (Auto) Bland % (Auto) Eos % (Auto) Baso % (Auto) Gran # Lymph # (Auto) Bland # (Auto) Eos # (Auto) Baso # (Auto) PT INR APTT pCO2 29 L pO2 257.0 H HCO3 21.1 ABG pH 7.47 H ABG Total CO2 22.0 ABG O2 Saturation 100.1 H ABG O2 Content 13.4 L ABG Base Excess -1.9 ABG Hemoglobin 9.3 L ABG Carboxyhemoglobin 1.4 POC ABG HHb (Measured) -0.1 L ABG Methemoglobin 1.1 ABG O2 Capacity 13.4 L Hgb O2 Saturation 97.6 FiO2 28.0 Sodium Potassium Chloride Carbon Dioxide Anion Gap BUN Creatinine Est GFR ( Amer) Est GFR (Non-Af Amer) POC Glucose (mg/dL) Random Glucose Hemoglobin A1c Serum Osmolality Lactic Acid Uric Acid Calcium Phosphorus Magnesium Total Bilirubin AST ALT Alkaline Phosphatase Total Creatine Kinase CK-MB (CK-2) CK-MB (CK-2) % Troponin I NT-Pro-B Natriuret Pep Total Protein Albumin Globulin Albumin/Globulin Ratio Triglycerides Cholesterol LDL Cholesterol Direct HDL Cholesterol TSH 3rd Generation Urine Osmolality Ur Random Sodium Salicylates Alcohol, Quantitative Blood Type AB POSITIVE Blood Type Confirm AB POSITIVE Antibody Screen Negative BBK History Checked No verified bt 07/24/18 07/24/18 07/24/18 01:13 01:13 05:35 WBC RBC Hgb Hct MCV MCH MCHC RDW Plt Count MPV Gran % Lymph % (Auto) Bland % (Auto) Eos % (Auto) Baso % (Auto) Gran # Lymph # (Auto) Bland # (Auto) Eos # (Auto) Baso # (Auto) PT INR APTT pCO2 pO2 HCO3 ABG pH ABG Total CO2 ABG O2 Saturation ABG O2 Content ABG Base Excess ABG Hemoglobin ABG Carboxyhemoglobin POC ABG HHb (Measured) ABG Methemoglobin ABG O2 Capacity Hgb O2 Saturation FiO2 Sodium 115 L* Potassium 4.5 Chloride 77 L Carbon Dioxide 21 Anion Gap 22 H BUN 15 Creatinine 1.2 Est GFR ( Amer) 56 Est GFR (Non-Af Amer) 46 POC Glucose (mg/dL) Random Glucose 263 H Hemoglobin A1c Serum Osmolality 252 L 256 L Lactic Acid Uric Acid Calcium 8.5 Phosphorus Magnesium Total Bilirubin AST ALT Alkaline Phosphatase Total Creatine Kinase CK-MB (CK-2) CK-MB (CK-2) % Troponin I 1.68 H* D NT-Pro-B Natriuret Pep Total Protein Albumin Globulin Albumin/Globulin Ratio Triglycerides Cholesterol LDL Cholesterol Direct HDL Cholesterol TSH 3rd Generation Urine Osmolality Ur Random Sodium Salicylates Alcohol, Quantitative Blood Type Blood Type Confirm Antibody Screen BBK History Checked 07/24/18 07/24/18 07/24/18 05:35 07:17 08:30 WBC RBC Hgb Hct MCV MCH MCHC RDW Plt Count MPV Gran % Lymph % (Auto) Bland % (Auto) Eos % (Auto) Baso % (Auto) Gran # Lymph # (Auto) Bland # (Auto) Eos # (Auto) Baso # (Auto) PT INR APTT pCO2 pO2 HCO3 ABG pH ABG Total CO2 ABG O2 Saturation ABG O2 Content ABG Base Excess ABG Hemoglobin ABG Carboxyhemoglobin POC ABG HHb (Measured) ABG Methemoglobin ABG O2 Capacity Hgb O2 Saturation FiO2 Sodium 118 L* Potassium 4.2 Chloride 81 L Carbon Dioxide 17 L Anion Gap 24 H BUN 15 Creatinine 1.1 Est GFR ( Amer) > 60 Est GFR (Non-Af Amer) 51 POC Glucose (mg/dL) 282 H Random Glucose 287 H Hemoglobin A1c Serum Osmolality 253 L Lactic Acid Uric Acid Calcium 8.7 Phosphorus Magnesium Total Bilirubin AST ALT Alkaline Phosphatase Total Creatine Kinase CK-MB (CK-2) CK-MB (CK-2) % Troponin I 4.60 H* D NT-Pro-B Natriuret Pep Total Protein Albumin Globulin Albumin/Globulin Ratio Triglycerides Cholesterol LDL Cholesterol Direct HDL Cholesterol TSH 3rd Generation Urine Osmolality Ur Random Sodium Salicylates Alcohol, Quantitative Blood Type Blood Type Confirm Antibody Screen BBK History Checked 07/24/18 07/24/18 07/24/18 08:30 10:45 11:00 WBC RBC Hgb Hct MCV MCH MCHC RDW Plt Count MPV Gran % Lymph % (Auto) Bland % (Auto) Eos % (Auto) Baso % (Auto) Gran # Lymph # (Auto) Bland # (Auto) Eos # (Auto) Baso # (Auto) PT INR APTT pCO2 pO2 HCO3 ABG pH ABG Total CO2 ABG O2 Saturation ABG O2 Content ABG Base Excess ABG Hemoglobin ABG Carboxyhemoglobin POC ABG HHb (Measured) ABG Methemoglobin ABG O2 Capacity Hgb O2 Saturation FiO2 Sodium 120 L Potassium 3.9 Chloride 85 L Carbon Dioxide 18 L Anion Gap 21 H BUN 14 Creatinine 1.1 Est GFR ( Amer) > 60 Est GFR (Non-Af Amer) 51 POC Glucose (mg/dL) Random Glucose 272 H Hemoglobin A1c Serum Osmolality Lactic Acid Uric Acid Calcium 8.4 Phosphorus Magnesium Total Bilirubin AST ALT Alkaline Phosphatase Total Creatine Kinase CK-MB (CK-2) CK-MB (CK-2) % Troponin I NT-Pro-B Natriuret Pep Total Protein Albumin Globulin Albumin/Globulin Ratio Triglycerides Cholesterol LDL Cholesterol Direct HDL Cholesterol TSH 3rd Generation Urine Osmolality 327 Ur Random Sodium 90 Salicylates < 1 L Alcohol, Quantitative Blood Type Blood Type Confirm Antibody Screen BBK History Checked 07/24/18 07/24/18 07/24/18 11:04 12:00 12:30 WBC RBC Hgb Hct MCV MCH MCHC RDW Plt Count MPV Gran % Lymph % (Auto) Bland % (Auto) Eos % (Auto) Baso % (Auto) Gran # Lymph # (Auto) Bland # (Auto) Eos # (Auto) Baso # (Auto) PT INR APTT pCO2 pO2 HCO3 ABG pH ABG Total CO2 ABG O2 Saturation ABG O2 Content ABG Base Excess ABG Hemoglobin ABG Carboxyhemoglobin POC ABG HHb (Measured) ABG Methemoglobin ABG O2 Capacity Hgb O2 Saturation FiO2 Sodium Cancelled Potassium Cancelled Chloride Cancelled Carbon Dioxide Cancelled Anion Gap Cancelled BUN Cancelled Creatinine Est GFR ( Amer) Cancelled Est GFR (Non-Af Amer) Cancelled POC Glucose (mg/dL) 253 H Random Glucose Cancelled Hemoglobin A1c Serum Osmolality 261 L Lactic Acid Uric Acid 8.1 H Calcium Cancelled Phosphorus Magnesium Total Bilirubin AST ALT Alkaline Phosphatase Total Creatine Kinase 2249 H CK-MB (CK-2) 27.3 H CK-MB (CK-2) % 1.2 L Troponin I 7.89 H* D NT-Pro-B Natriuret Pep Total Protein Albumin Globulin Albumin/Globulin Ratio Triglycerides Cholesterol LDL Cholesterol Direct HDL Cholesterol TSH 3rd Generation Urine Osmolality Ur Random Sodium Salicylates Alcohol, Quantitative Blood Type Blood Type Confirm Antibody Screen BBK History Checked 07/24/18 07/24/18 07/24/18 12:45 12:45 12:45 WBC RBC Hgb Hct MCV MCH MCHC RDW Plt Count MPV Gran % Lymph % (Auto) Bland % (Auto) Eos % (Auto) Baso % (Auto) Gran # Lymph # (Auto) Bland # (Auto) Eos # (Auto) Baso # (Auto) PT INR APTT pCO2 pO2 HCO3 ABG pH ABG Total CO2 ABG O2 Saturation ABG O2 Content ABG Base Excess ABG Hemoglobin ABG Carboxyhemoglobin POC ABG HHb (Measured) ABG Methemoglobin ABG O2 Capacity Hgb O2 Saturation FiO2 Sodium 120 L Potassium 4.0 Chloride 85 L Carbon Dioxide 17 L Anion Gap 21 H BUN 13 Creatinine 1.2 Est GFR ( Amer) 56 Est GFR (Non-Af Amer) 46 POC Glucose (mg/dL) Random Glucose 256 H Hemoglobin A1c Serum Osmolality Lactic Acid 2.4 H Uric Acid Calcium 8.5 Phosphorus 1.7 L Magnesium 0.8 L* Total Bilirubin AST ALT Alkaline Phosphatase Total Creatine Kinase CK-MB (CK-2) CK-MB (CK-2) % Troponin I NT-Pro-B Natriuret Pep Total Protein Albumin Globulin Albumin/Globulin Ratio Triglycerides Cholesterol LDL Cholesterol Direct HDL Cholesterol TSH 3rd Generation 0.13 L Urine Osmolality Ur Random Sodium Salicylates Alcohol, Quantitative < 10 Blood Type Blood Type Confirm Antibody Screen BBK History Checked 07/24/18 07/24/18 07/24/18 12:45 16:23 16:44 WBC RBC Hgb Hct MCV MCH MCHC RDW Plt Count MPV Gran % Lymph % (Auto) [place] % (Auto) Eos % (Auto) Baso % (Auto) Gran # Lymph # (Auto) [place] # (Auto) Eos # (Auto) Baso # (Auto) PT INR APTT 32.2 pCO2 pO2 HCO3 ABG pH ABG Total CO2 ABG O2 Saturation ABG O2 Content ABG Base Excess ABG Hemoglobin ABG Carboxyhemoglobin POC ABG HHb (Measured) ABG Methemoglobin ABG O2 Capacity Hgb O2 Saturation FiO2 Sodium Potassium Chloride Carbon Dioxide Anion Gap BUN Creatinine Est GFR ( Amer) Est GFR (Non-Af Amer) POC Glucose (mg/dL) 124 H Random Glucose Hemoglobin A1c Serum Osmolality 257 L Lactic Acid Uric Acid Calcium Phosphorus Magnesium Total Bilirubin AST ALT Alkaline Phosphatase Total Creatine Kinase CK-MB (CK-2) CK-MB (CK-2) % Troponin I NT-Pro-B Natriuret Pep Total Protein Albumin Globulin Albumin/Globulin Ratio Triglycerides Cholesterol LDL Cholesterol Direct HDL Cholesterol TSH 3rd Generation Urine Osmolality Ur Random Sodium Salicylates Alcohol, Quantitative Blood Type Blood Type Confirm Antibody Screen BBK History Checked 07/24/18 16:44 WBC RBC Hgb Hct MCV MCH MCHC RDW Plt Count MPV Gran % Lymph % (Auto) [place] % (Auto) Eos % (Auto) Baso % (Auto) Gran # Lymph # (Auto) [place] # (Auto) Eos # (Auto) Baso # (Auto) PT INR APTT pCO2 pO2 HCO3 ABG pH ABG Total CO2 ABG O2 Saturation ABG O2 Content ABG Base Excess ABG Hemoglobin ABG Carboxyhemoglobin POC ABG HHb (Measured) ABG Methemoglobin ABG O2 Capacity Hgb O2 Saturation FiO2 Sodium 122 L Potassium 4.2 Chloride 88 L Carbon Dioxide 20 L Anion Gap 19 BUN 13 Creatinine 1.3 H Est GFR ( Amer) 51 Est GFR (Non-Af Amer) 42 POC Glucose (mg/dL) Random Glucose 134 H Hemoglobin A1c Serum Osmolality Lactic Acid Uric Acid Calcium 8.7 Phosphorus Magnesium Total Bilirubin AST ALT Alkaline Phosphatase Total Creatine Kinase CK-MB (CK-2) CK-MB (CK-2) % Troponin I NT-Pro-B Natriuret Pep Total Protein Albumin Globulin Albumin/Globulin Ratio Triglycerides Cholesterol LDL Cholesterol Direct HDL Cholesterol TSH 3rd Generation Urine Osmolality Ur Random Sodium Salicylates Alcohol, Quantitative Blood Type Blood Type Confirm Antibody Screen BBK History Checked Addendum Addendum: 07/24/18 18:02 ICU Attending Addendum Patient seen and examined. Case reviewed on round with housestaff. Agree with resident note above with the following additions/exceptions: 57F admitted to the ICU with severe hypoNa and seizures. She has a hx of COPD, etoh abuse, and most recently dx with laryngeal Ca. She was admitted 04/29 - 05/11 where she has a laryngoscopy done to evaluate a large supra glottic and infra glottic mass. During the procedure, she coded and was intubated via tracheostomy. She remains on trach collar at home. During that admission she also had a cardiac cath done which showed single- vessel disease (no report of stent being placed). On this admission she was severely hyponatremia. Etiology unclear. She appears to be euvolemic. Her calculated serum osm is 261 and measured matches at 260. 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 She was started on 3% NA, Na came up to 120 which is good for now as we do not want to correct more than 8meq over 24 hours. Nephro following managing fluids. 3% was stopped and now on NS @ 100cc/hr During my exam she appeared to be in status. CT Stat ordered with larisa whitten depakote and ortega. Neuro Dr Duckworth at bedside as well managing seizures. Video EEG to be done after CT. For now, resp status is stable however will place her on the vent. Will start with pressue support for now. She has a cuffed trach. Check ABG 1 hour after on PS TNI rising likely from known stenotic lesions. On hep drip. Cont ASA if CT Head neg. tend TNI. Cardio consulted. Low grade temps, empiricallyh over for HCAP follow cultures Replaced Mg and Phos Duonebs for COPD hx DVT ppx - on hep drip GI ppx on PPI Rest of care as above Phil Napier MD Pulmonary, Critical Care and Sleep Medicine Critical Care TIme 47 mins
--- NOTE | 2018-07-24 12:36 | RAD ---
Date of service: 07/24/2018 HISTORY: picc placement COMPARISON: No prior. FINDINGS: LUNGS: No active pulmonary disease. PLEURA: No significant pleural effusion identified, no pneumothorax apparent. CARDIOVASCULAR: Aortic calcification Normal cardiac size. No pulmonary vascular congestion. OSSEOUS STRUCTURES: No significant abnormalities. VISUALIZED UPPER ABDOMEN: Normal. OTHER FINDINGS: Tracheostomy present IMPRESSION: Left-sided PICC line terminates at the junction of the SVC and right atrium.
[2018-07-24] MEDS ORDERED: levETIRAcetam 1,500 MG in Sodium Chloride 0.9% 100 ML IV ONE (12:41)
[2018-07-24 13:09] LABS: CALCIUM 8.5 mg/dL (8.4-10.5)
[2018-07-24] MEDS ORDERED: Metoprolol 1 mg/ml Inj IVP STA (13:17)
[2018-07-24] MEDS ORDERED: Magnesium Sulfate 2 gm/50 ml 2 GM/50 ML BAG IVPB ONE (13:23)
[2018-07-24 13:39] LABS: URIC ACID 8.1 mg/dL (2.5-6.2)
[2018-07-24] MEDS: Valproate 1,000 MG in Sodium Chloride 0.9% 100 ML IVPB SCH ×2 (13:59→23:00)
[2018-07-24 14:00] LABS: TROPONIN I 7.89 ng/mL
[2018-07-24] MEDS ORDERED: Digoxin 250 mcg (0.25 mg) Tab PO SCH (14:00)
--- NOTE | 2018-07-24 14:29 | CP.PCM.CON ---
History of Present Illness - History of Present Illness History of Present Illness: Nephrology Consultation Note: Assessment: critical Hyponatremia hypo-osmolar ? etiology seizure, AMS HAGMA acute respi and metabolic acidosis HTN emergency CA throat, DM, anemia NSTEMI CKD 2 Plan No acute need for renal replacement therapy at this time. . Hypertension control with meds as ordered. Maintain hemodynamics stable. Avoid hypotension. Patient not on ACEI/ARB, will consider later once pt stable. Monitor Input/Output, daily weights and renal function with basic metabolic panel d/c hypertonic saline and continue with IVF as NS. goal of correction not more than 6-8 meq/24 hrs. monitor Na levl q4 supplements lytes as needed respi support as per ICU. work up for hyponatremia and HAGMA as ordered Dose meds/antibiotics for reduced GFR. Avoid fleets enema/magnesium based laxatives. Avoid nephrotoxins/NSAIDs/ iodinated contrast (unless needed emergently) Glycemic control Further work up/management as per primary team Thanks for allowing me to participate in care of your patient. Will follow patient with you. Please call if any Qs. had d/w team Dr Jong Dennis Office: [phone] source of Info; EMR Chief Complaint; seizure Reason for consult: hyponatremia HPI: Pt is a 57 F with hx of diabetes Mellitus ( years), hypertension (years) CA throat, seizure presented with complaints of seizure and AMS. pt was admitted to ICU and renal consult for hyponatremia. she received hypertonic saline overnight no known OTC/herbal meds or NSAIDs No recent iodinated contrast exposure. No obvious episodes of low BP. baseline cr 1.1-1.2 suggestive of CKD 2 ROS: unable to obtain from pt Physical Examination: General Appearance: unresponsive ill appearing Vitals reviewed and noted as below Head; Atraumatic, normocephalic ENT: unable EYES: Pupils are equal, round and reactive to light accommodation. Eye muscles and extraocular movement intact. Sclera is anicteric. Neck; had trach, no thyromegaly or bruit Lungs: Increased respiratory rate/effort. Breath sounds bilateral diminished at bases Heart: Increased rate. s1s2 normal. No rub or gallop. Extremities: no edema. No varicose veins Neurological: Patient is unresponsive and comatose Skin: Warm and dry. Normal turgor. No rash. Palpitation: Normal elasticity for age Abdomen: Abdomen is soft. Bowel sounds +. There is no abdominal tenderness, no guarding/rigidity no organomegaly Psych: unable MSK: no joint tenderness or swelling. Digits and nails normal, no deformity : kidney or bladder not palpable Labs/imaging reviewed. Past medical history, past surgical history, family history, social history, allergy reviewed and noted as below Family hx: no hx of CKD. Rest non-contributory Past Patient History - Past Medical History & Family History Past Medical History?: Yes - Past Social History Smoking Status: Former Smoker - CARDIAC Hx Pacemaker: No - PULMONARY Hx Chronic Obstructive Pulmonary Disease (COPD): Yes - NEUROLOGICAL Hx Neurological Disorder: No - HEENT Hx HEENT Problems: Yes (hoarseness) Hx Cataracts: Yes Other/Comment: HX: VOVAL CORD LESION - RENAL Hx Chronic Kidney Disease: No - ENDOCRINE/METABOLIC Hx Diabetes Mellitus Type 2: Yes - HEMATOLOGICAL/ONCOLOGICAL Hx Cancer: No - INTEGUMENTARY Hx Dermatological Problems: No - MUSCULOSKELETAL/RHEUMATOLOGICAL Hx Musculoskeletal Disorders: Yes Hx Osteoporosis: Yes - GASTROINTESTINAL Hx Gastrointestinal Disorders: Yes Hx Gastroesophageal Reflux: Yes HX Swallowing Problems: Yes - GENITOURINARY/GYNECOLOGICAL Hx Genitourinary Disorders: No - PSYCHIATRIC Hx Psychophysiologic Disorder: No Hx Substance Use: No - SURGICAL HISTORY Hx Mastectomy: No - ANESTHESIA Hx Anesthesia: Yes Hx Anesthesia Reactions: No Hx Malignant Hyperthermia: No Meds Allergies/Adverse Reactions: Allergies Allergy/AdvReac Type Severity Reaction Status Date / Time peanut Allergy Severe SWELLING Verified 07/23/18 20:49 hydromorphone [From Dilaudid] Allergy Mild ITCHING Verified 07/23/18 20:49 - Medications Medications: Current Medications Albuterol/Ipratropium (Duoneb 3 Mg/0.5 Mg (3 Ml) Ud) 3 ml IH TIDRESP [facility] Last Admin: 07/24/18 13:39 Dose: Not Given Aspirin (Aspirin Chewable) 81 mg PO DAILY [facility] Last Admin: 07/24/18 10:28 Dose: Not Given Aspirin (Aspirin Supp) 300 mg RC DAILY [facility] Last Admin: 07/24/18 11:38 Dose: 300 mg Atorvastatin Calcium (Lipitor) 40 mg PO DIN [facility] Digoxin (Lanoxin) 0.25 mg PO 1400 [facility] Hydralazine HCl (Apresoline) 10 mg IVP Q6H PRN PRN Reason: Systolic Blood Pressure Last Admin: 07/24/18 11:48 Dose: 10 mg Sodium Chloride (Sodium Chloride 0.9%) 1,000 mls @ 100 mls/hr IV .Q10H [facility] Last Admin: 07/24/18 11:43 Dose: 100 mls/hr Heparin Sodium/Sodium Chloride (Heparin 73561 Units/250ml 1/2 Normal Saline) 25,000 units in 250 mls @ 7.457 mls/hr IV .Q24H [facility]; Protocol Last Admin: 07/24/18 06:05 Dose: 12 units/kg/hr, 7.457 mls/hr Acetaminophen (Ofirmev) 1,000 mg in 100 mls @ 400 mls/hr IVPB Q6H PRN PRN Reason: Temperature Stop: 07/26/18 11:06 Last Admin: 07/24/18 11:38 Dose: 400 mls/hr Vancomycin HCl (Vancomycin 1gm) 1 gm in 250 mls @ 167 mls/hr IVPB DAILY [facility]; Protocol Piperacillin Sod/Tazobactam Sod (Zosyn 3.375 In Ns 100ml) 100 mls @ 25 mls/hr IVPB Q8 [facility]; Protocol Stop: 07/25/18 01:59 Magnesium Sulfate (Magnesium Sulfate 2 Gm/50 Ml Water) 2 gm in 50 mls @ 50 mls/hr IVPB ONCE ONE Stop: 07/24/18 14:22 Last Admin: 07/24/18 13:34 Dose: 50 mls/hr Valproate Sodium 1,000 mg/ (Sodium Chloride) 110 mls @ 100 mls/hr IVPB Q8 [facility] Last Admin: 07/24/18 13:59 Dose: 100 mls/hr Insulin Human Regular (Humulin R Med) 0 units SC ACHS [facility]; Protocol Last Admin: 07/24/18 11:39 Dose: 5 u Lorazepam (Ativan) 1 mg IVP ONCE PRN; Protocol PRN Reason: Seizure activity Pantoprazole Sodium (Protonix Inj) 40 mg IVP DAILY [facility] Last Admin: 07/24/18 11:42 Dose: 40 mg Results - Vital Signs Recent Vital Signs: Last Vital Signs Temp 100.8 F H 07/24/18 11:38 Pulse 152 H 07/24/18 13:33 Resp 33 H 07/24/18 08:00 BP 189/94 H 07/24/18 13:33 Pulse Ox 100 07/24/18 08:00 - Labs Result Diagrams: 07/23/18 21:34 07/24/18 12:45 Labs: Laboratory Results - last 24 hr 07/23/18 07/23/18 07/23/18 21:34 21:34 21:34 WBC 9.9 RBC 4.12 Hgb 10.3 L Hct 29.0 L MCV 70.4 L MCH 25.0 MCHC 35.5 RDW 15.0 H Plt Count 404 MPV 8.7 Gran % 73.4 H Lymph % (Auto) 17.5 L [place] % (Auto) 8.5 H Eos % (Auto) 0.5 L Baso % (Auto) 0.1 Gran # 7.23 H Lymph # (Auto) 1.7 [place] # (Auto) 0.8 H Eos # (Auto) 0.1 Baso # (Auto) 0.01 PT 10.5 INR 0.92 APTT 24.7 L pCO2 pO2 HCO3 ABG pH ABG Total CO2 ABG O2 Saturation ABG O2 Content ABG Base Excess ABG Hemoglobin ABG Carboxyhemoglobin POC ABG HHb (Measured) ABG Methemoglobin ABG O2 Capacity Hgb O2 Saturation FiO2 Sodium 115 L* Potassium 4.8 Chloride 75 L D Carbon Dioxide 21 Anion Gap 23 H BUN 16 Creatinine 1.1 Est GFR ( Amer) > 60 Est GFR (Non-Af Amer) 51 POC Glucose (mg/dL) Random Glucose 198 H Hemoglobin A1c Serum Osmolality Lactic Acid Uric Acid Calcium 9.0 Phosphorus Magnesium Total Bilirubin 0.6 AST 33 ALT 31 Alkaline Phosphatase 80 Total Creatine Kinase Troponin I 0.02 NT-Pro-B Natriuret Pep 246 Total Protein 8.3 Albumin 4.4 Globulin 3.9 Albumin/Globulin Ratio 1.1 Triglycerides 164 H Cholesterol 209 H LDL Cholesterol Direct 123 HDL Cholesterol 68 H TSH 3rd Generation Urine Osmolality Ur Random Sodium Salicylates Alcohol, Quantitative Blood Type Blood Type Confirm Antibody Screen BBK History Checked 07/23/18 07/23/18 07/23/18 21:34 21:34 21:54 WBC RBC Hgb Hct MCV MCH MCHC RDW Plt Count MPV Gran % Lymph % (Auto) [place] % (Auto) Eos % (Auto) Baso % (Auto) Gran # Lymph # (Auto) [place] # (Auto) Eos # (Auto) Baso # (Auto) PT INR APTT pCO2 71 H* pO2 50.0 L HCO3 15.6 L ABG pH 6.95 L* ABG Total CO2 17.8 L ABG O2 Saturation 72.6 L ABG O2 Content 10.0 L ABG Base Excess -16.4 L ABG Hemoglobin 10.0 L ABG Carboxyhemoglobin 1.4 POC ABG HHb (Measured) 26.9 H ABG Methemoglobin 0.6 ABG O2 Capacity 13.8 L Hgb O2 Saturation 71.1 L FiO2 28.0 Sodium Potassium Chloride Carbon Dioxide Anion Gap BUN Creatinine Est GFR ( Amer) Est GFR (Non-Af Amer) POC Glucose (mg/dL) Random Glucose Hemoglobin A1c 7.5 H Serum Osmolality 240 L Lactic Acid Uric Acid Calcium Phosphorus Magnesium Total Bilirubin AST ALT Alkaline Phosphatase Total Creatine Kinase Troponin I NT-Pro-B Natriuret Pep Total Protein Albumin Globulin Albumin/Globulin Ratio Triglycerides Cholesterol LDL Cholesterol Direct HDL Cholesterol TSH 3rd Generation Urine Osmolality Ur Random Sodium Salicylates Alcohol, Quantitative Blood Type Blood Type Confirm Antibody Screen BBK History Checked 07/23/18 07/23/18 07/24/18 22:30 23:00 00:50 WBC RBC Hgb Hct MCV MCH MCHC RDW Plt Count MPV Gran % Lymph % (Auto) [place] % (Auto) Eos % (Auto) Baso % (Auto) Gran # Lymph # (Auto) [place] # (Auto) Eos # (Auto) Baso # (Auto) PT INR APTT pCO2 29 L pO2 257.0 H HCO3 21.1 ABG pH 7.47 H ABG Total CO2 22.0 ABG O2 Saturation 100.1 H ABG O2 Content 13.4 L ABG Base Excess -1.9 ABG Hemoglobin 9.3 L ABG Carboxyhemoglobin 1.4 POC ABG HHb (Measured) -0.1 L ABG Methemoglobin 1.1 ABG O2 Capacity 13.4 L Hgb O2 Saturation 97.6 FiO2 28.0 Sodium Potassium Chloride Carbon Dioxide Anion Gap BUN Creatinine Est GFR ( Amer) Est GFR (Non-Af Amer) POC Glucose (mg/dL) Random Glucose Hemoglobin A1c Serum Osmolality Lactic Acid Uric Acid Calcium Phosphorus Magnesium Total Bilirubin AST ALT Alkaline Phosphatase Total Creatine Kinase Troponin I NT-Pro-B Natriuret Pep Total Protein Albumin Globulin Albumin/Globulin Ratio Triglycerides Cholesterol LDL Cholesterol Direct HDL Cholesterol TSH 3rd Generation Urine Osmolality Ur Random Sodium Salicylates Alcohol, Quantitative Blood Type AB POSITIVE Blood Type Confirm AB POSITIVE Antibody Screen Negative BBK History Checked No verified bt 07/24/18 07/24/18 07/24/18 01:13 01:13 05:35 WBC RBC Hgb Hct MCV MCH MCHC RDW Plt Count MPV Gran % Lymph % (Auto) [place] % (Auto) Eos % (Auto) Baso % (Auto) Gran # Lymph # (Auto) [place] # (Auto) Eos # (Auto) Baso # (Auto) PT INR APTT pCO2 pO2 HCO3 ABG pH ABG Total CO2 ABG O2 Saturation ABG O2 Content ABG Base Excess ABG Hemoglobin ABG Carboxyhemoglobin POC ABG HHb (Measured) ABG Methemoglobin ABG O2 Capacity Hgb O2 Saturation FiO2 Sodium 115 L* Potassium 4.5 Chloride 77 L Carbon Dioxide 21 Anion Gap 22 H BUN 15 Creatinine 1.2 Est GFR ( Amer) 56 Est GFR (Non-Af Amer) 46 POC Glucose (mg/dL) Random Glucose 263 H Hemoglobin A1c Serum Osmolality 252 L 256 L Lactic Acid Uric Acid Calcium 8.5 Phosphorus Magnesium Total Bilirubin AST ALT Alkaline Phosphatase Total Creatine Kinase Troponin I 1.68 H* D NT-Pro-B Natriuret Pep Total Protein Albumin Globulin Albumin/Globulin Ratio Triglycerides Cholesterol LDL Cholesterol Direct HDL Cholesterol TSH 3rd Generation Urine Osmolality Ur Random Sodium Salicylates Alcohol, Quantitative Blood Type Blood Type Confirm Antibody Screen BBK History Checked 07/24/18 07/24/18 07/24/18 05:35 07:17 08:30 WBC RBC Hgb Hct MCV MCH MCHC RDW Plt Count MPV Gran % Lymph % (Auto) [place] % (Auto) Eos % (Auto) Baso % (Auto) Gran # Lymph # (Auto) [place] # (Auto) Eos # (Auto) Baso # (Auto) PT INR APTT pCO2 pO2 HCO3 ABG pH ABG Total CO2 ABG O2 Saturation ABG O2 Content ABG Base Excess ABG Hemoglobin ABG Carboxyhemoglobin POC ABG HHb (Measured) ABG Methemoglobin ABG O2 Capacity Hgb O2 Saturation FiO2 Sodium 118 L* Potassium 4.2 Chloride 81 L Carbon Dioxide 17 L Anion Gap 24 H BUN 15 Creatinine 1.1 Est GFR ( Amer) > 60 Est GFR (Non-Af Amer) 51 POC Glucose (mg/dL) 282 H Random Glucose 287 H Hemoglobin A1c Serum Osmolality 253 L Lactic Acid Uric Acid Calcium 8.7 Phosphorus Magnesium Total Bilirubin AST ALT Alkaline Phosphatase Total Creatine Kinase Troponin I 4.60 H* D NT-Pro-B Natriuret Pep Total Protein Albumin Globulin Albumin/Globulin Ratio Triglycerides Cholesterol LDL Cholesterol Direct HDL Cholesterol TSH 3rd Generation Urine Osmolality Ur Random Sodium Salicylates Alcohol, Quantitative Blood Type Blood Type Confirm Antibody Screen BBK History Checked 07/24/18 07/24/18 07/24/18 08:30 10:45 11:00 WBC RBC Hgb Hct MCV MCH MCHC RDW Plt Count MPV Gran % Lymph % (Auto) [place] % (Auto) Eos % (Auto) Baso % (Auto) Gran # Lymph # (Auto) [place] # (Auto) Eos # (Auto) Baso # (Auto) PT INR APTT pCO2 pO2 HCO3 ABG pH ABG Total CO2 ABG O2 Saturation ABG O2 Content ABG Base Excess ABG Hemoglobin ABG Carboxyhemoglobin POC ABG HHb (Measured) ABG Methemoglobin ABG O2 Capacity Hgb O2 Saturation FiO2 Sodium 120 L Potassium 3.9 Chloride 85 L Carbon Dioxide 18 L Anion Gap 21 H BUN 14 Creatinine 1.1 Est GFR ( Amer) > 60 Est GFR (Non-Af Amer) 51 POC Glucose (mg/dL) Random Glucose 272 H Hemoglobin A1c Serum Osmolality Lactic Acid Uric Acid Calcium 8.4 Phosphorus Magnesium Total Bilirubin AST ALT Alkaline Phosphatase Total Creatine Kinase Troponin I NT-Pro-B Natriuret Pep Total Protein Albumin Globulin Albumin/Globulin Ratio Triglycerides Cholesterol LDL Cholesterol Direct HDL Cholesterol TSH 3rd Generation Urine Osmolality 327 Ur Random Sodium 90 Salicylates < 1 L Alcohol, Quantitative Blood Type Blood Type Confirm Antibody Screen BBK History Checked 07/24/18 07/24/18 07/24/18 12:00 12:30 12:45 WBC RBC Hgb Hct MCV MCH MCHC RDW Plt Count MPV Gran % Lymph % (Auto) [place] % (Auto) Eos % (Auto) Baso % (Auto) Gran # Lymph # (Auto) [place] # (Auto) Eos # (Auto) Baso # (Auto) PT INR APTT pCO2 pO2 HCO3 ABG pH ABG Total CO2 ABG O2 Saturation ABG O2 Content ABG Base Excess ABG Hemoglobin ABG Carboxyhemoglobin POC ABG HHb (Measured) ABG Methemoglobin ABG O2 Capacity Hgb O2 Saturation FiO2 Sodium Cancelled Potassium Cancelled Chloride Cancelled Carbon Dioxide Cancelled Anion Gap Cancelled BUN Cancelled Creatinine Est GFR ( Amer) Cancelled Est GFR (Non-Af Amer) Cancelled POC Glucose (mg/dL) Random Glucose Cancelled Hemoglobin A1c Serum Osmolality 261 L Lactic Acid 2.4 H Uric Acid 8.1 H Calcium Cancelled Phosphorus Magnesium Total Bilirubin AST ALT Alkaline Phosphatase Total Creatine Kinase 2249 H Troponin I 7.89 H* D NT-Pro-B Natriuret Pep Total Protein Albumin Globulin Albumin/Globulin Ratio Triglycerides Cholesterol LDL Cholesterol Direct HDL Cholesterol TSH 3rd Generation Urine Osmolality Ur Random Sodium Salicylates Alcohol, Quantitative Blood Type Blood Type Confirm Antibody Screen BBK History Checked 07/24/18 07/24/18 07/24/18 12:45 12:45 12:45 WBC RBC Hgb Hct MCV MCH MCHC RDW Plt Count MPV Gran % Lymph % (Auto) [place] % (Auto) Eos % (Auto) Baso % (Auto) Gran # Lymph # (Auto) [place] # (Auto) Eos # (Auto) Baso # (Auto) PT INR APTT 32.2 pCO2 pO2 HCO3 ABG pH ABG Total CO2 ABG O2 Saturation ABG O2 Content ABG Base Excess ABG Hemoglobin ABG Carboxyhemoglobin POC ABG HHb (Measured) ABG Methemoglobin ABG O2 Capacity Hgb O2 Saturation FiO2 Sodium 120 L Potassium 4.0 Chloride 85 L Carbon Dioxide 17 L Anion Gap 21 H BUN 13 Creatinine 1.2 Est GFR ( Amer) 56 Est GFR (Non-Af Amer) 46 POC Glucose (mg/dL) Random Glucose 256 H Hemoglobin A1c Serum Osmolality Lactic Acid Uric Acid Calcium 8.5 Phosphorus 1.7 L Magnesium 0.8 L* Total Bilirubin AST ALT Alkaline Phosphatase Total Creatine Kinase Troponin I NT-Pro-B Natriuret Pep Total Protein Albumin Globulin Albumin/Globulin Ratio Triglycerides Cholesterol LDL Cholesterol Direct HDL Cholesterol TSH 3rd Generation 0.13 L Urine Osmolality Ur Random Sodium Salicylates Alcohol, Quantitative < 10 Blood Type Blood Type Confirm Antibody Screen BBK History Checked
[2018-07-24 14:47] LABS: CK MB% 1.2 % (2.5-3.0); CK-MB 27.3 ng/mL (0.0-3.6)
--- NOTE | 2018-07-24 15:14 | CT ---
Date of service: 07/24/2018 PROCEDURE: CT HEAD WITHOUT CONTRAST. HISTORY: r/o herniation COMPARISON: 07/23/2018 TECHNIQUE: Axial computed tomography images were obtained through the head/brain without intravenous contrast. Radiation dose: Total exam DLP = 1807.58 mGy-cm. This CT exam was performed using one or more of the following dose reduction techniques: Automated exposure control, adjustment of the mA and/or kV according to patient size, and/or use of iterative reconstruction technique. FINDINGS: HEMORRHAGE: No intracranial hemorrhage. BRAIN: No mass effect or edema. No atrophy or chronic microvascular ischemic changes. VENTRICLES: Unremarkable. No hydrocephalus. CALVARIUM: Unremarkable. PARANASAL SINUSES: Unremarkable as visualized. No significant inflammatory changes. MASTOID AIR CELLS: Unremarkable as visualized. No inflammatory changes. OTHER FINDINGS: None. IMPRESSION: No acute intracranial findings
[2018-07-24] MEDS ORDERED: Metoprolol 1 mg/ml Inj IVP PRN (15:59)
[2018-07-24 17:00] LABS: CALCIUM 8.7 mg/dL (8.4-10.5)
[2018-07-24] MEDS: Vancomycin 1gm in NS 250ml 1 GM/250 ML BAG IVPB SCH (17:03)
[2018-07-24] MEDS: Piperacillin/Tazobact 3.375 gm 100 ML IVPB SCH ×2 (17:08→23:23)
[2018-07-24] MEDS ORDERED: Digoxin 500 mcg/2ml (0.5 mg/2ml) Inj IVP SCH (17:42)
[2018-07-24] MEDS ORDERED: Divalproex 250 mg DR (BID formulation) PO SCH (18:00)
[2018-07-24 19:51] LABS: URINE BILIRUBIN NEGATIVE (NEGATIVE); URINE BLOOD MODERATE (NEGATIVE); URINE GLUCOSE (UA) >=1000 mg/dL (NEGATIVE); URINE LEUKOCYTE ESTERASE NEGATIVE Leu/uL (NEGATIVE); URINE PROTEIN 30 mg/dL (<30 mg/dL); URINE UROBILINOGEN 0.2 E.U./dL (<1 E.U./dL)
[2018-07-24 20:10] LABS: URINE APPEARANCE SL CLOUDY (CLEAR); URINE COLOR YELLOW (YELLOW)
[2018-07-24 21:07] LABS: URINE RBC 15 - 20 /hpf (0-2)
[2018-07-24 21:08] LABS: URINE BACTERIA MOD (NEG)
[2018-07-24 21:40] LABS: ARTERIAL BLOOD GAS HCO3 18.5 mmol/L (21-28); ARTERIAL BLOOD GAS PCO2 26 mm/Hg (35-45); ARTERIAL BLOOD GAS PH 7.46 (7.35-7.45); ARTERIAL BLOOD GAS TCO2 19.3 mmol.L (22-28)
[2018-07-24] MEDS: levETIRAcetam 1,500 MG in Sodium Chloride 0.9% 100 ML IV SCH (23:01)
[2018-07-25 00:32] LABS: CALCIUM 8.1 mg/dL (8.4-10.5)
[2018-07-25 00:51] LABS: TROPONIN I 4.75 ng/mL
[2018-07-25 04:31] LABS: BASO # 0.01 K/mm3 (0.0-2.0); BASO % 0.1 % (0.0-3.0); GRAN # 7.91 (1.4-6.5); GRAN % 80.1 % (50.0-68.0); HEMOGLOBIN 9.8 g/dL (12.0-16.0); LYMPH # 0.9 (1.2-3.4); MEAN CELL VOLUME 69.9 fl (80.0-105.0); MEAN CORPUSCULAR HEMOGLOBIN 24.8 pg (25.0-35.0); MEAN CORPUSCULAR HGB CONC 35.5 g/dl (31.0-37.0); MEAN PLATELET VOLUME 8.6 fl (7.0-11.0); MONO # 1.1 (0.1-0.6); MONO % 10.8 % (1.0-6.0); RBC 3.95 10^6/uL (3.5-6.1); RED CELL DISTRIBUTION WIDTH 15.1 % (11.5-14.5); WHITE BLOOD COUNT 9.9 10^3/uL (4.5-11.0)
[2018-07-25 04:39] LABS: CALCIUM 7.9 mg/dL (8.4-10.5)
[2018-07-25] MEDS ORDERED: Valproate 0 MG in Sodium Chloride 0.9% 100 ML IVPB SCH (06:00)
[2018-07-25] MEDS: Valproate 1,000 MG in Sodium Chloride 0.9% 100 ML IVPB SCH ×2 (06:50→22:22)
[2018-07-25] MEDS: Heparin25000 units/250ml 1/2NS 25,000 UNITS/250 ML BAG IV SCH (07:00)
--- NOTE | 2018-07-25 07:10 | CP.PCM.PN ---
<Ronal Riggs - Last Filed: 07/25/18 16:35> Subjective - Date & Time of Evaluation Date of Evaluation: 07/25/18 Time of Evaluation: 07:10 - Subjective Subjective: PGY-1 Medicine Progress Note for Dr. Del Valle Patient seen and examined at bedside this AM in ICU. No acute overnight events reported. Patient remains somnolent, arousable to sternal rub but non-verbal at this time. Overnight video EEG ongoing. ROS unattainable due to patient's clinical status. Objective - Vital Signs/Intake and Output Vital Signs (last 24 hours): Temp Pulse Resp BP Pulse Ox 98.5 F 99 H 20 110/69 100 07/25/18 00:00 07/25/18 04:59 07/25/18 04:59 07/25/18 05:00 07/25/18 04:59 Intake and Output: 07/25/18 07/25/18 06:59 18:59 Intake Total 128 Balance 128 - Medications Medications: Current Medications Albuterol/Ipratropium (Duoneb 3 Mg/0.5 Mg (3 Ml) Ud) 3 ml IH TIDRESP [facility] Last Admin: 07/24/18 20:17 Dose: 3 ml Aspirin (Aspirin Chewable) 81 mg PO DAILY [facility] Last Admin: 07/24/18 10:28 Dose: Not Given Aspirin (Aspirin Supp) 300 mg RC DAILY [facility] Last Admin: 07/24/18 11:38 Dose: 300 mg Atorvastatin Calcium (Lipitor) 40 mg PO DIN [facility] Digoxin (Lanoxin) 0.25 mg IVP 1400 [facility] Sodium Chloride (Sodium Chloride 0.9%) 1,000 mls @ 100 mls/hr IV .Q10H [facility] Last Admin: 07/24/18 17:09 Dose: 100 mls/hr Heparin Sodium/Sodium Chloride (Heparin 75736 Units/250ml 1/2 Normal Saline) 25,000 units in 250 mls @ 7.457 mls/hr IV .Q24H RENATO; Protocol Last Titration: 07/24/18 23:25 Dose: 7 units/kg/hr, 4.35 mls/hr Acetaminophen (Ofirmev) 1,000 mg in 100 mls @ 400 mls/hr IVPB Q6H PRN PRN Reason: Temperature Stop: 07/26/18 11:06 Last Admin: 07/24/18 11:38 Dose: 400 mls/hr Vancomycin HCl (Vancomycin 1gm) 1 gm in 250 mls @ 167 mls/hr IVPB DAILY [facility]; Protocol Last Admin: 07/24/18 17:03 Dose: 167 mls/hr Valproate Sodium 1,000 mg/ (Sodium Chloride) 110 mls @ 100 mls/hr IVPB Q8 [facility] Last Admin: 07/25/18 06:50 Dose: 100 mls/hr Phenytoin 100 mg/ Sodium (Chloride) 52 mls @ 104 mls/hr IVPB Q8 [facility] Last Admin: 07/25/18 06:50 Dose: 104 mls/hr Levetiracetam 1,500 mg/ Sodium (Chloride) 115 mls @ 460 mls/hr IV Q12 [facility] Last Admin: 07/24/18 23:01 Dose: 460 mls/hr Insulin Human Regular (Humulin R Med) 0 units SC ACHS [facility]; Protocol Last Admin: 07/24/18 22:41 Dose: Not Given Lorazepam (Ativan) 2 mg IVP Q6H PRN; Protocol PRN Reason: Anxiety Metoprolol Tartrate (Lopressor) 5 mg IVP Q6H PRN PRN Reason: Systolic Blood Pressure Pantoprazole Sodium (Protonix Inj) 40 mg IVP DAILY [facility] Last Admin: 07/24/18 11:42 Dose: 40 mg - Labs Labs: 07/25/18 04:00 07/25/18 04:00 PT 10.5 SECONDS (9.4-12.5) 07/23/18 21:34 INR 0.92 07/23/18 21:34 APTT 137.5 Seconds (25.1-36.5) H* 07/24/18 21:14 - Eye Exam Eye Exam: Periorbital swelling (R due to patient falling 2/2 seizure) - ENT Exam ENT Exam: Mucous Membranes Moist, Normal Exam - Neck Exam Neck Exam: Normal Inspection - Respiratory Exam Respiratory Exam: NORMAL BREATHING PATTERN - Cardiovascular Exam Cardiovascular Exam: REGULAR RHYTHM, +S1, +S2 - GI/Abdominal Exam GI & Abdominal Exam: Soft, Normal Bowel Sounds. absent: Distended, Firm, Guarding, Tenderness - Extremities Exam Extremities Exam: Normal Capillary Refill, Normal Inspection. absent: Joint Swelling, Pedal Edema - Neurological Exam Additional comments: patient is not awake, not alert, does not respond to verbal stimuli, and does not follow commands - Skin Skin Exam: Dry, Intact, Warm Assessment and Plan - Assessment and Plan (Free Text) Assessment: 57 year old female with a PMHx which includes laryngeal cancer s/p tracheostomy, alcohol abuse, COPD, HTN, HLD, DM, seizures who was admitted for evaluation and treatment of altered mental status secondary to seizure like activity. Plan: Acute Symptomatic Hyponatremia - Na 115 on admission, currently 125 (07/25) - AG 14 - currently on NS IVF @ 100cc/hr, per Nephro recs -Na correction 6-8 mEq/24 hrs -BMP q4h -Supplement lytes prn -Maintain MAP>65 -Strict I/Os -Avoid ACEI/ARB, will consider later once pt stable. -Monitor daily weights and renal function with basic metabolic panel -Dose meds/antibiotics for reduced GFR. -Avoid fleets enema/magnesium based laxatives. -Avoid nephrotoxins/NSAIDs/ iodinated contrast (unless needed emergently) -Glycemic control -Neuro recs (Dr. Duckworth) appreciated -atlarisa walker, harrison -d/c dilantin -overnight video eeg: no seizure activity -ICU recs appreciated -etiology of severe hyponatremia unlcear -appears euvolemic -calculated serum osm 261 matches measured at 260 -urine Na, urine osm high suggesting likely SIADH NSTEMI -Lopressor IVP q6h prn -Maintain MAP >65 -on heparin drip -continue ASA -Cardio recs (Dr. Pettit) appreciated -NSTEMI likely 2/2 hypotension during seizure episode -c/w anticoagulation and treating NSTEMI medically Respiratory and Metabolic Acidosis -metabolic acidosis resolved after Na correction -tracheostomy collar in place -Ventilator prn. Pressure support -Duonebs for hx of COPD -Oral hygiene -pulmonary toilet -aspiration precautions DM - ISS high ACHS - Fingersticks ACHS - HA1C: 7.5 HLD - lipid panel: [id number], TC209, AAI331, HDL68 Anemia - Hb/Hct stable, transfuse prn PPx, Diet, Disposition -GI ppx: protonix -DVT ppx: heparin Case discussed with Dr. Eligio Riggs DO, PGY-1 <Razia Del Valle - Last Filed: 07/25/18 17:08> Objective - Vital Signs/Intake and Output Vital Signs (last 24 hours): Temp Pulse Resp BP Pulse Ox 98.4 F 95 H 21 104/52 L 100 07/25/18 07:00 07/25/18 07:50 07/25/18 07:50 07/25/18 07:00 07/25/18 07:50 Intake and Output: 07/25/18 07/25/18 06:59 18:59 Intake Total 128 94 Balance 128 94 - Medications Medications: Current Medications Albuterol/Ipratropium (Duoneb 3 Mg/0.5 Mg (3 Ml) Ud) 3 ml IH TIDRESP [facility] Last Admin: 07/25/18 13:15 Dose: 3 ml Aspirin (Aspirin Supp) 300 mg RC DAILY [facility] Last Admin: 07/25/18 09:14 Dose: 300 mg Atorvastatin Calcium (Lipitor) 40 mg PO DIN [facility] Digoxin (Lanoxin) 0.25 mg IVP 1400 [facility] Last Admin: 07/25/18 13:49 Dose: 0.25 mg Sodium Chloride (Sodium Chloride 0.9%) 1,000 mls @ 100 mls/hr IV .Q10H [facility] Last Admin: 07/25/18 13:50 Dose: 100 mls/hr Heparin Sodium/Sodium Chloride (Heparin 24720 Units/250ml 1/2 Normal Saline) 25,000 units in 250 mls @ 7.457 mls/hr IV .Q24H [facility]AT[facility]; Protocol Last Titration: 07/25/18 14:00 Dose: 11 units/kg/hr, 6.836 mls/hr Acetaminophen (Ofirmev) 1,000 mg in 100 mls @ 400 mls/hr IVPB Q6H PRN PRN Reason: Temperature Stop: 07/26/18 11:06 Last Admin: 07/24/18 11:38 Dose: 400 mls/hr Vancomycin HCl (Vancomycin 1gm) 1 gm in 250 mls @ 167 mls/hr IVPB DAILY [facility]; Protocol Last Admin: 07/25/18 09:14 Dose: 167 mls/hr Thiamine HCl 100 mg/ Sodium (Chloride) 51 mls @ 102 mls/hr IV DAILY [facility] Stop: 07/31/18 10:01 Last Admin: 07/25/18 13:47 Dose: 102 mls/hr Valproate Sodium 1,000 mg/ (Sodium Chloride) 110 mls @ 100 mls/hr IVPB Q12 [facility] Levetiracetam 1,000 mg/ Sodium (Chloride) 110 mls @ 460 mls/hr IV Q12 [facility] Insulin Human Regular (Humulin R Med) 0 units SC ACHS [facility]; Protocol Last Admin: 07/25/18 13:48 Dose: Not Given Lorazepam (Ativan) 2 mg IVP Q6H PRN; Protocol PRN Reason: Anxiety Metoprolol Tartrate (Lopressor) 5 mg IVP Q6H PRN PRN Reason: Systolic Blood Pressure Pantoprazole Sodium (Protonix Inj) 40 mg IVP DAILY [facility] Last Admin: 07/25/18 09:14 Dose: 40 mg - Labs Labs: 07/25/18 04:00 07/25/18 13:23 PT 10.5 SECONDS (9.4-12.5) 07/23/18 21:34 INR 0.92 07/23/18 21:34 APTT 66.8 Seconds (25.1-36.5) H 07/25/18 13:23 Attending/Attestation - Attestation I have personally seen and examined this patient.: Yes I have fully participated in the care of the patient.: Yes I have reviewed all pertinent clinical information, including history, physical exam and plan: Yes Notes (Text): 07/25/18 17:04 57 year old female with past medical history of laryngeal cancer s/p tracheostomy, alcohol abuse, COPD, hypertension, diabetes and seizures who presented with seizures; found to have significant hyponatremia and NSTEMI. Sodium level has been improving. Continue with fluids as per nephrology. Case was discussed with Dr. Dennis today. Cardiology is following for NSTEMI and patient is currently on aspirin, statin and heparin drip. Neurology evaluation was also appreciated; MRI brain was ordered and patient was on video EEG. She is currently on keppra, depakote and ativan. Dilantin was discontinued. Patient is DNR. Prognosis is guarded. Razia Del Valle MD Hospitalist.
[2018-07-25] MEDS: Insulin Reg-MEDIUM-Coverage SC SCH ×4 (08:27→22:22)
--- NOTE | 2018-07-25 08:47 | CP.CCUPN ---
<Berna Dan - Last Filed: 07/25/18 10:03> CCU Subjective - Physician Review Subjective (Free Text): CRITICAL CARE PROGRESS NOTE FOR DR. RATNA Dan PGY-1 Pt seen and examined at bedside this am. Pt is still somnolent and asleep. She is arousable to sternal rub, however does not wake up to answer questions. She has been on video EEG overnight, which did not show seizures per neurology. She has not been CCU Objective - Vital Signs / Intake & Output Vital Signs (Last 4 hours): Vital Signs Temp Pulse Resp BP Pulse Ox 07/25/18 07:50 95 H 21 100 07/25/18 07:40 95 H 22 100 07/25/18 07:30 97 H 21 100 07/25/18 07:20 94 H 22 100 07/25/18 07:10 98 H 22 100 07/25/18 07:00 98.4 F 98 H 23 104/52 L 100 07/25/18 06:50 100 H 25 H 100 07/25/18 06:40 111 H 18 100 07/25/18 06:30 102 H 23 100 07/25/18 06:20 97 H 22 100 07/25/18 06:10 97 H 23 100 07/25/18 06:00 114/71 07/25/18 05:59 97 H 20 100 07/25/18 05:50 96 H 22 100 07/25/18 05:40 94 H 20 100 07/25/18 05:30 95 H 20 100 07/25/18 05:20 102 H 22 100 07/25/18 05:10 98 H 21 100 07/25/18 05:00 110/69 07/25/18 04:59 99 H 20 100 07/25/18 04:50 102 H 18 100 Intake and Output (Last 8hrs): Intake & Output 07/24/18 07/25/18 07/25/18 22:59 06:59 14:59 Intake Total 1968 0 66 Balance 1968 0 66 Intake: IV 1968 0 66 Left Forearm 1840 Other: # Voids Urethral (Peck) 1,050 # Bowel Movements 0 - Physical Exam Head: Positive for: Atraumatic, Normocephalic Pupils: Positive for: PERRL Extroacular Muscles: Positive for: EOMI Conjunctiva: Positive for: Normal Mouth: Positive for: Moist Mucous Membranes Neck: Positive for: Normal Range of Motion, Other (Tracheotomy noted) Respiratory/Chest: Positive for: Clear to Auscultation, Good Air Exchange. Negative for: Respiratory Distress, Accessory Muscle Use Cardiovascular: Positive for: Regular Rate and Rhythm, Normal S1, S2. Negative for: Murmurs Abdomen: Negative for: Distention, Peritoneal Signs Back: Positive for: Normal Inspection Upper Extremity: Positive for: Normal Inspection. Negative for: Cyanosis, Edema Lower Extremity: Positive for: Normal Inspection. Negative for: Edema Neurological: Positive for: GCS=15, CN II-XII Intact Skin: Positive for: Warm, Dry, Normal Color. Negative for: Rashes Psychiatric: Positive for: Normal Insight, Normal Concentration, Other (unresponsive, but moving extremities) - Medications Active Medications: Active Medications Generic Name Dose Route Start Last Admin Trade Name Freq PRN Reason Stop Dose Admin Albuterol/Ipratropium 3 ml 07/24/18 08:00 07/24/18 20:17 Duoneb 3 Mg/0.5 Mg (3 Ml) Ud IH 3 ml TIDRESP RENATO Administration Aspirin 81 mg 07/24/18 10:00 07/24/18 10:28 Aspirin Chewable PO Not Given DAILY RENATO Aspirin 300 mg 07/24/18 10:45 07/24/18 11:38 Aspirin Supp RC 300 mg DAILY RENATO Administration Atorvastatin Calcium 40 mg 07/26/18 17:00 Lipitor PO DIN RENATO Digoxin 0.25 mg 07/24/18 17:42 Lanoxin IVP 1400 RENATO Sodium Chloride 1,000 mls @ 100 mls/hr 07/23/18 21:00 07/24/18 17:09 Sodium Chloride 0.9% IV 100 mls/hr .Q10H RENATO Administration Heparin Sodium/Sodium Chloride 25,000 units in 250 mls @ 7.457 mls/hr 07/24/18 05:00 07/25/18 07:00 Heparin 10690 Units/250ml 1/2 Normal Saline IV 7 units/kg/hr .Q24H RENATO 4.35 mls/hr Administration Protocol 12 UNITS/KG/HR Acetaminophen 1,000 mg in 100 mls @ 400 mls/hr 07/24/18 11:05 07/24/18 11:38 Ofirmev IVPB 07/26/18 11:06 400 mls/hr Q6H PRN Administration Temperature Vancomycin HCl 1 gm in 250 mls @ 167 mls/hr 07/24/18 13:30 07/24/18 17:03 Vancomycin 1gm IVPB 167 mls/hr DAILY RENATO Administration Protocol Valproate Sodium 1,000 mg/ 110 mls @ 100 mls/hr 07/24/18 14:00 07/25/18 06:50 Sodium Chloride IVPB 100 mls/hr Q8 RENATO Administration Phenytoin 100 mg/ Sodium 52 mls @ 104 mls/hr 07/24/18 22:00 07/25/18 06:50 Chloride IVPB 104 mls/hr Q8 RENATO Administration Levetiracetam 1,500 mg/ Sodium 115 mls @ 460 mls/hr 07/24/18 22:00 07/24/18 23:01 Chloride IV 460 mls/hr Q12 RENATO Administration Insulin Human Regular 0 units 07/24/18 11:30 07/25/18 08:27 Humulin R Med SC Not Given ACHS RENATO Protocol Lorazepam 2 mg 07/24/18 17:25 Ativan IVP Q6H PRN Anxiety Protocol Metoprolol Tartrate 5 mg 07/24/18 15:59 Lopressor IVP Q6H PRN Systolic Blood Pressure Pantoprazole Sodium 40 mg 07/24/18 10:00 07/24/18 11:42 Protonix Inj IVP 40 mg DAILY RENATO Administration - Patient Studies Lab Studies: Microbiology Studies 07/24/18 00:00 Blood Culture - Preliminary Blood NO GROWTH AFTER 24 HOURS 07/23/18 23:45 Blood Culture - Preliminary Blood NO GROWTH AFTER 24 HOURS Lab Studies 07/25/18 07/25/18 07/25/18 Range/Units 07:43 05:10 04:00 WBC (4.5-11.0) 10^3/uL RBC (3.5-6.1) 10^6/uL Hgb (12.0-16.0) g/dL Hct (36.0-48.0) % MCV (80.0-105.0) fl MCH (25.0-35.0) pg MCHC (31.0-37.0) g/dl RDW (11.5-14.5) % Plt Count (120.0-450.0) 10^3/uL MPV (7.0-11.0) fl Gran % (50.0-68.0) % Lymph % (Auto) (22.0-35.0) % Barren % (Auto) (1.0-6.0) % Eos % (Auto) (1.5-5.0) % Baso % (Auto) (0.0-3.0) % Gran # (1.4-6.5) Lymph # (Auto) (1.2-3.4) Barren # (Auto) (0.1-0.6) Eos # (Auto) (0.0-0.7) Baso # (Auto) (0.0-2.0) K/mm3 APTT 25.9 (25.1-36.5) Seconds pCO2 (35-45) mm/Hg pO2 (80-100) mm/Hg HCO3 (21-28) mmol/L ABG pH (7.35-7.45) ABG Total CO2 (22-28) mmol.L ABG O2 Saturation (95-98) % ABG Base Excess (-2.0-3.0) mmol/L ABG Potassium (3.6-5.2) mmol/L Glucose (65-105) mg/dl Lactate (0.7-2.1) mmol/L FiO2 % Sodium (132-148) mmol/L Potassium (3.6-5.0) mmol/L Chloride (98-107) mmol/L Carbon Dioxide (21-33) mmol/L Anion Gap (10-20) BUN (7-21) mg/dL Creatinine (0.7-1.2) mg/dl Est GFR ( Amer) Est GFR (Non-Af Amer) POC Glucose (mg/dL) 178 H (65-110) mg/dL Random Glucose (70-110) mg/dL Hemoglobin A1c (4.2-6.5) % Serum Osmolality (272-300) mosm/kg Lactic Acid (0.7-2.1) mmol/L Uric Acid (2.5-6.2) mg/dL Calcium (8.4-10.5) mg/dL Phosphorus 2.1 L (2.5-4.5) mg/dL Magnesium 1.6 L (1.7-2.2) mg/dL Total Creatine Kinase (35-230) U/L CK-MB (CK-2) (0.0-3.6) ng/mL CK-MB (CK-2) % (2.5-3.0) % Troponin I 3.00 H* D ng/mL TSH 3rd Generation (0.46-4.68) mIU/mL Arterial Blood Potassium (3.6-5.2) mmol/L Urine Color (YELLOW) Urine Appearance (CLEAR) Urine pH (4.7-8.0) Ur Specific [place] (1.005-1.035) Urine Protein (<30 mg/dL) mg/dL Urine Glucose (UA) (NEGATIVE) mg/dL Urine Ketones (NEGATIVE) mg/dL Urine Blood (NEGATIVE) Urine Nitrate (NEGATIVE) Urine Bilirubin (NEGATIVE) Urine Urobilinogen (<1 E.U./dL) E.U./dL Ur Leukocyte Esterase (NEGATIVE) Katerine/uL Urine RBC (0-2) /hpf Urine WBC (0-6) /hpf Ur Epithelial Cells (0-5) /hpf Urine Bacteria (NEG) Urine Osmolality (300-1000) mosm/kg Ur Random Sodium meq/L Salicylates (2.0-20.0) mg/dL Alcohol, Quantitative (0-10) mg/dL 07/25/18 07/25/18 07/25/18 Range/Units 04:00 04:00 00:10 WBC 9.9 (4.5-11.0) 10^3/uL RBC 3.95 (3.5-6.1) 10^6/uL Hgb 9.8 L (12.0-16.0) g/dL Hct 27.6 L (36.0-48.0) % MCV 69.9 L (80.0-105.0) fl MCH 24.8 L (25.0-35.0) pg MCHC 35.5 (31.0-37.0) g/dl RDW 15.1 H (11.5-14.5) % Plt Count 314 (120.0-450.0) 10^3/uL MPV 8.6 (7.0-11.0) fl Gran % 80.1 H (50.0-68.0) % Lymph % (Auto) 9.0 L (22.0-35.0) % Barren % (Auto) 10.8 H (1.0-6.0) % Eos % (Auto) 0.0 L (1.5-5.0) % Baso % (Auto) 0.1 (0.0-3.0) % Gran # 7.91 H (1.4-6.5) Lymph # (Auto) 0.9 L (1.2-3.4) Barren # (Auto) 1.1 H (0.1-0.6) Eos # (Auto) 0.0 (0.0-0.7) Baso # (Auto) 0.01 (0.0-2.0) K/mm3 APTT (25.1-36.5) Seconds pCO2 (35-45) mm/Hg pO2 (80-100) mm/Hg HCO3 (21-28) mmol/L ABG pH (7.35-7.45) ABG Total CO2 (22-28) mmol.L ABG O2 Saturation (95-98) % ABG Base Excess (-2.0-3.0) mmol/L ABG Potassium (3.6-5.2) mmol/L Glucose (65-105) mg/dl Lactate (0.7-2.1) mmol/L FiO2 % Sodium 125 L 123 L (132-148) mmol/L Potassium 4.0 3.9 (3.6-5.0) mmol/L Chloride 93 L 91 L (98-107) mmol/L Carbon Dioxide 21 21 (21-33) mmol/L Anion Gap 14 15 (10-20) BUN 11 12 (7-21) mg/dL Creatinine 1.3 H 1.3 H (0.7-1.2) mg/dl Est GFR ( Amer) 51 51 Est GFR (Non-Af Amer) 42 42 POC Glucose (mg/dL) (65-110) mg/dL Random Glucose 181 H 212 H (70-110) mg/dL Hemoglobin A1c (4.2-6.5) % Serum Osmolality (272-300) mosm/kg Lactic Acid (0.7-2.1) mmol/L Uric Acid (2.5-6.2) mg/dL Calcium 7.9 L 8.1 L (8.4-10.5) mg/dL Phosphorus (2.5-4.5) mg/dL Magnesium (1.7-2.2) mg/dL Total Creatine Kinase (35-230) U/L CK-MB (CK-2) (0.0-3.6) ng/mL CK-MB (CK-2) % (2.5-3.0) % Troponin I 4.75 H* D ng/mL TSH 3rd Generation (0.46-4.68) mIU/mL Arterial Blood Potassium (3.6-5.2) mmol/L Urine Color (YELLOW) Urine Appearance (CLEAR) Urine pH (4.7-8.0) Ur Specific [place] (1.005-1.035) Urine Protein (<30 mg/dL) mg/dL Urine Glucose (UA) (NEGATIVE) mg/dL Urine Ketones (NEGATIVE) mg/dL Urine Blood (NEGATIVE) Urine Nitrate (NEGATIVE) Urine Bilirubin (NEGATIVE) Urine Urobilinogen (<1 E.U./dL) E.U./dL Ur Leukocyte Esterase (NEGATIVE) Katerine/uL Urine RBC (0-2) /hpf Urine WBC (0-6) /hpf Ur Epithelial Cells (0-5) /hpf Urine Bacteria (NEG) Urine Osmolality (300-1000) mosm/kg Ur Random Sodium meq/L Salicylates (2.0-20.0) mg/dL Alcohol, Quantitative (0-10) mg/dL 07/24/18 07/24/18 07/24/18 Range/Units 21:36 21:34 21:14 WBC (4.5-11.0) 10^3/uL RBC (3.5-6.1) 10^6/uL Hgb (12.0-16.0) g/dL Hct (36.0-48.0) % MCV (80.0-105.0) fl MCH (25.0-35.0) pg MCHC (31.0-37.0) g/dl RDW (11.5-14.5) % Plt Count (120.0-450.0) 10^3/uL MPV (7.0-11.0) fl Gran % (50.0-68.0) % Lymph % (Auto) (22.0-35.0) % Barren % (Auto) (1.0-6.0) % Eos % (Auto) (1.5-5.0) % Baso % (Auto) (0.0-3.0) % Gran # (1.4-6.5) Lymph # (Auto) (1.2-3.4) Barren # (Auto) (0.1-0.6) Eos # (Auto) (0.0-0.7) Baso # (Auto) (0.0-2.0) K/mm3 APTT 137.5 H* (25.1-36.5) Seconds pCO2 26 L (35-45) mm/Hg pO2 115.0 H (80-100) mm/Hg HCO3 18.5 L (21-28) mmol/L ABG pH 7.46 H (7.35-7.45) ABG Total CO2 19.3 L (22-28) mmol.L ABG O2 Saturation 100.0 H (95-98) % ABG Base Excess -3.8 L (-2.0-3.0) mmol/L ABG Potassium 3.9 (3.6-5.2) mmol/L Glucose 221 H (65-105) mg/dl Lactate 1.9 (0.7-2.1) mmol/L FiO2 28.0 % Sodium 124.0 L (132-148) mmol/L Potassium (3.6-5.0) mmol/L Chloride 95.0 L (98-107) mmol/L Carbon Dioxide (21-33) mmol/L Anion Gap (10-20) BUN (7-21) mg/dL Creatinine (0.7-1.2) mg/dl Est GFR ( Amer) Est GFR (Non-Af Amer) POC Glucose (mg/dL) 231 H (65-110) mg/dL Random Glucose (70-110) mg/dL Hemoglobin A1c (4.2-6.5) % Serum Osmolality (272-300) mosm/kg Lactic Acid (0.7-2.1) mmol/L Uric Acid (2.5-6.2) mg/dL Calcium (8.4-10.5) mg/dL Phosphorus (2.5-4.5) mg/dL Magnesium (1.7-2.2) mg/dL Total Creatine Kinase (35-230) U/L CK-MB (CK-2) (0.0-3.6) ng/mL CK-MB (CK-2) % (2.5-3.0) % Troponin I ng/mL TSH 3rd Generation (0.46-4.68) mIU/mL Arterial Blood Potassium 3.9 (3.6-5.2) mmol/L Urine Color (YELLOW) Urine Appearance (CLEAR) Urine pH (4.7-8.0) Ur Specific [place] (1.005-1.035) Urine Protein (<30 mg/dL) mg/dL Urine Glucose (UA) (NEGATIVE) mg/dL Urine Ketones (NEGATIVE) mg/dL Urine Blood (NEGATIVE) Urine Nitrate (NEGATIVE) Urine Bilirubin (NEGATIVE) Urine Urobilinogen (<1 E.U./dL) E.U./dL Ur Leukocyte Esterase (NEGATIVE) Katerine/uL Urine RBC (0-2) /hpf Urine WBC (0-6) /hpf Ur Epithelial Cells (0-5) /hpf Urine Bacteria (NEG) Urine Osmolality (300-1000) mosm/kg Ur Random Sodium meq/L Salicylates (2.0-20.0) mg/dL Alcohol, Quantitative (0-10) mg/dL 07/24/18 07/24/18 07/24/18 Range/Units 21:14 19:45 16:44 WBC (4.5-11.0) 10^3/uL RBC (3.5-6.1) 10^6/uL Hgb (12.0-16.0) g/dL Hct (36.0-48.0) % MCV (80.0-105.0) fl MCH (25.0-35.0) pg MCHC (31.0-37.0) g/dl RDW (11.5-14.5) % Plt Count (120.0-450.0) 10^3/uL MPV (7.0-11.0) fl Gran % (50.0-68.0) % Lymph % (Auto) (22.0-35.0) % Barren % (Auto) (1.0-6.0) % Eos % (Auto) (1.5-5.0) % Baso % (Auto) (0.0-3.0) % Gran # (1.4-6.5) Lymph # (Auto) (1.2-3.4) Barren # (Auto) (0.1-0.6) Eos # (Auto) (0.0-0.7) Baso # (Auto) (0.0-2.0) K/mm3 APTT (25.1-36.5) Seconds pCO2 (35-45) mm/Hg pO2 (80-100) mm/Hg HCO3 (21-28) mmol/L ABG pH (7.35-7.45) ABG Total CO2 (22-28) mmol.L ABG O2 Saturation (95-98) % ABG Base Excess (-2.0-3.0) mmol/L ABG Potassium (3.6-5.2) mmol/L Glucose (65-105) mg/dl Lactate (0.7-2.1) mmol/L FiO2 % Sodium (132-148) mmol/L Potassium (3.6-5.0) mmol/L Chloride (98-107) mmol/L Carbon Dioxide (21-33) mmol/L Anion Gap (10-20) BUN (7-21) mg/dL Creatinine (0.7-1.2) mg/dl Est GFR ( Amer) Est GFR (Non-Af Amer) POC Glucose (mg/dL) (65-110) mg/dL Random Glucose (70-110) mg/dL Hemoglobin A1c (4.2-6.5) % Serum Osmolality 260 L (272-300) mosm/kg Lactic Acid (0.7-2.1) mmol/L Uric Acid (2.5-6.2) mg/dL Calcium (8.4-10.5) mg/dL Phosphorus (2.5-4.5) mg/dL Magnesium (1.7-2.2) mg/dL Total Creatine Kinase (35-230) U/L CK-MB (CK-2) (0.0-3.6) ng/mL CK-MB (CK-2) % (2.5-3.0) % Troponin I 8.35 H* ng/mL TSH 3rd Generation (0.46-4.68) mIU/mL Arterial Blood Potassium (3.6-5.2) mmol/L Urine Color Yellow (YELLOW) Urine Appearance Sl cloudy (CLEAR) Urine pH 6.0 (4.7-8.0) Ur Specific [place] 1.015 (1.005-1.035) Urine Protein 30 H (<30 mg/dL) mg/dL Urine Glucose (UA) >=1000 (NEGATIVE) mg/dL Urine Ketones 15 H (NEGATIVE) mg/dL Urine Blood Moderate H (NEGATIVE) Urine Nitrate Negative (NEGATIVE) Urine Bilirubin Negative (NEGATIVE) Urine Urobilinogen 0.2 (<1 E.U./dL) E.U./dL Ur Leukocyte Esterase Negative (NEGATIVE) Katerine/uL Urine RBC 15 - 20 (0-2) /hpf Urine WBC 5 - 10 (0-6) /hpf Ur Epithelial Cells 6 - 8 (0-5) /hpf Urine Bacteria Mod (NEG) Urine Osmolality (300-1000) mosm/kg Ur Random Sodium meq/L Salicylates (2.0-20.0) mg/dL Alcohol, Quantitative (0-10) mg/dL 07/24/18 07/24/18 07/24/18 Range/Units 16:44 16:44 16:23 WBC (4.5-11.0) 10^3/uL RBC (3.5-6.1) 10^6/uL Hgb (12.0-16.0) g/dL Hct (36.0-48.0) % MCV (80.0-105.0) fl MCH (25.0-35.0) pg MCHC (31.0-37.0) g/dl RDW (11.5-14.5) % Plt Count (120.0-450.0) 10^3/uL MPV (7.0-11.0) fl Gran % (50.0-68.0) % Lymph % (Auto) (22.0-35.0) % Barren % (Auto) (1.0-6.0) % Eos % (Auto) (1.5-5.0) % Baso % (Auto) (0.0-3.0) % Gran # (1.4-6.5) Lymph # (Auto) (1.2-3.4) Barren # (Auto) (0.1-0.6) Eos # (Auto) (0.0-0.7) Baso # (Auto) (0.0-2.0) K/mm3 APTT (25.1-36.5) Seconds pCO2 (35-45) mm/Hg pO2 (80-100) mm/Hg HCO3 (21-28) mmol/L ABG pH (7.35-7.45) ABG Total CO2 (22-28) mmol.L ABG O2 Saturation (95-98) % ABG Base Excess (-2.0-3.0) mmol/L ABG Potassium (3.6-5.2) mmol/L Glucose (65-105) mg/dl Lactate (0.7-2.1) mmol/L FiO2 % Sodium 122 L (132-148) mmol/L Potassium 4.2 (3.6-5.0) mmol/L Chloride 88 L (98-107) mmol/L Carbon Dioxide 20 L (21-33) mmol/L Anion Gap 19 (10-20) BUN 13 (7-21) mg/dL Creatinine 1.3 H (0.7-1.2) mg/dl Est GFR ( Amer) 51 Est GFR (Non-Af Amer) 42 POC Glucose (mg/dL) 124 H (65-110) mg/dL Random Glucose 134 H (70-110) mg/dL Hemoglobin A1c (4.2-6.5) % Serum Osmolality 257 L (272-300) mosm/kg Lactic Acid (0.7-2.1) mmol/L Uric Acid (2.5-6.2) mg/dL Calcium 8.7 (8.4-10.5) mg/dL Phosphorus (2.5-4.5) mg/dL Magnesium (1.7-2.2) mg/dL Total Creatine Kinase (35-230) U/L CK-MB (CK-2) (0.0-3.6) ng/mL CK-MB (CK-2) % (2.5-3.0) % Troponin I ng/mL TSH 3rd Generation (0.46-4.68) mIU/mL Arterial Blood Potassium (3.6-5.2) mmol/L Urine Color (YELLOW) Urine Appearance (CLEAR) Urine pH (4.7-8.0) Ur Specific [place] (1.005-1.035) Urine Protein (<30 mg/dL) mg/dL Urine Glucose (UA) (NEGATIVE) mg/dL Urine Ketones (NEGATIVE) mg/dL Urine Blood (NEGATIVE) Urine Nitrate (NEGATIVE) Urine Bilirubin (NEGATIVE) Urine Urobilinogen (<1 E.U./dL) E.U./dL Ur Leukocyte Esterase (NEGATIVE) Katerine/uL Urine RBC (0-2) /hpf Urine WBC (0-6) /hpf Ur Epithelial Cells (0-5) /hpf Urine Bacteria (NEG) Urine Osmolality (300-1000) mosm/kg Ur Random Sodium meq/L Salicylates (2.0-20.0) mg/dL Alcohol, Quantitative (0-10) mg/dL 07/24/18 07/24/18 07/24/18 Range/Units 12:45 12:45 12:45 WBC (4.5-11.0) 10^3/uL RBC (3.5-6.1) 10^6/uL Hgb (12.0-16.0) g/dL Hct (36.0-48.0) % MCV (80.0-105.0) fl MCH (25.0-35.0) pg MCHC (31.0-37.0) g/dl RDW (11.5-14.5) % Plt Count (120.0-450.0) 10^3/uL MPV (7.0-11.0) fl Gran % (50.0-68.0) % Lymph % (Auto) (22.0-35.0) % Barren % (Auto) (1.0-6.0) % Eos % (Auto) (1.5-5.0) % Baso % (Auto) (0.0-3.0) % Gran # (1.4-6.5) Lymph # (Auto) (1.2-3.4) Barren # (Auto) (0.1-0.6) Eos # (Auto) (0.0-0.7) Baso # (Auto) (0.0-2.0) K/mm3 APTT 32.2 (25.1-36.5) Seconds pCO2 (35-45) mm/Hg pO2 (80-100) mm/Hg HCO3 (21-28) mmol/L ABG pH (7.35-7.45) ABG Total CO2 (22-28) mmol.L ABG O2 Saturation (95-98) % ABG Base Excess (-2.0-3.0) mmol/L ABG Potassium (3.6-5.2) mmol/L Glucose (65-105) mg/dl Lactate (0.7-2.1) mmol/L FiO2 % Sodium 120 L (132-148) mmol/L Potassium 4.0 (3.6-5.0) mmol/L Chloride 85 L (98-107) mmol/L Carbon Dioxide 17 L (21-33) mmol/L Anion Gap 21 H (10-20) BUN 13 (7-21) mg/dL Creatinine 1.2 (0.7-1.2) mg/dl Est GFR ( Amer) 56 Est GFR (Non-Af Amer) 46 POC Glucose (mg/dL) (65-110) mg/dL Random Glucose 256 H (70-110) mg/dL Hemoglobin A1c (4.2-6.5) % Serum Osmolality (272-300) mosm/kg Lactic Acid (0.7-2.1) mmol/L Uric Acid (2.5-6.2) mg/dL Calcium 8.5 (8.4-10.5) mg/dL Phosphorus 1.7 L (2.5-4.5) mg/dL Magnesium 0.8 L* (1.7-2.2) mg/dL Total Creatine Kinase (35-230) U/L CK-MB (CK-2) (0.0-3.6) ng/mL CK-MB (CK-2) % (2.5-3.0) % Troponin I ng/mL TSH 3rd Generation 0.13 L (0.46-4.68) mIU/mL Arterial Blood Potassium (3.6-5.2) mmol/L Urine Color (YELLOW) Urine Appearance (CLEAR) Urine pH (4.7-8.0) Ur Specific [place] (1.005-1.035) Urine Protein (<30 mg/dL) mg/dL Urine Glucose (UA) (NEGATIVE) mg/dL Urine Ketones (NEGATIVE) mg/dL Urine Blood (NEGATIVE) Urine Nitrate (NEGATIVE) Urine Bilirubin (NEGATIVE) Urine Urobilinogen (<1 E.U./dL) E.U./dL Ur Leukocyte Esterase (NEGATIVE) Katerine/uL Urine RBC (0-2) /hpf Urine WBC (0-6) /hpf Ur Epithelial Cells (0-5) /hpf Urine Bacteria (NEG) Urine Osmolality (300-1000) mosm/kg Ur Random Sodium meq/L Salicylates (2.0-20.0) mg/dL Alcohol, Quantitative < 10 (0-10) mg/dL 07/24/18 07/24/18 07/24/18 Range/Units 12:45 12:30 12:00 WBC (4.5-11.0) 10^3/uL RBC (3.5-6.1) 10^6/uL Hgb (12.0-16.0) g/dL Hct (36.0-48.0) % MCV (80.0-105.0) fl MCH (25.0-35.0) pg MCHC (31.0-37.0) g/dl RDW (11.5-14.5) % Plt Count (120.0-450.0) 10^3/uL MPV (7.0-11.0) fl Gran % (50.0-68.0) % Lymph % (Auto) (22.0-35.0) % Barren % (Auto) (1.0-6.0) % Eos % (Auto) (1.5-5.0) % Baso % (Auto) (0.0-3.0) % Gran # (1.4-6.5) Lymph # (Auto) (1.2-3.4) Barren # (Auto) (0.1-0.6) Eos # (Auto) (0.0-0.7) Baso # (Auto) (0.0-2.0) K/mm3 APTT (25.1-36.5) Seconds pCO2 (35-45) mm/Hg pO2 (80-100) mm/Hg HCO3 (21-28) mmol/L ABG pH (7.35-7.45) ABG Total CO2 (22-28) mmol.L ABG O2 Saturation (95-98) % ABG Base Excess (-2.0-3.0) mmol/L ABG Potassium (3.6-5.2) mmol/L Glucose (65-105) mg/dl Lactate (0.7-2.1) mmol/L FiO2 % Sodium Cancelled (132-148) mmol/L Potassium Cancelled (3.6-5.0) mmol/L Chloride Cancelled (98-107) mmol/L Carbon Dioxide Cancelled (21-33) mmol/L Anion Gap Cancelled (10-20) BUN Cancelled (7-21) mg/dL Creatinine (0.7-1.2) mg/dl Est GFR ( Amer) Cancelled Est GFR (Non-Af Amer) Cancelled POC Glucose (mg/dL) (65-110) mg/dL Random Glucose Cancelled (70-110) mg/dL Hemoglobin A1c (4.2-6.5) % Serum Osmolality 261 L (272-300) mosm/kg Lactic Acid 2.4 H (0.7-2.1) mmol/L Uric Acid 8.1 H (2.5-6.2) mg/dL Calcium Cancelled (8.4-10.5) mg/dL Phosphorus (2.5-4.5) mg/dL Magnesium (1.7-2.2) mg/dL Total Creatine Kinase 2249 H (35-230) U/L CK-MB (CK-2) 27.3 H (0.0-3.6) ng/mL CK-MB (CK-2) % 1.2 L (2.5-3.0) % Troponin I 7.89 H* D ng/mL TSH 3rd Generation (0.46-4.68) mIU/mL Arterial Blood Potassium (3.6-5.2) mmol/L Urine Color (YELLOW) Urine Appearance (CLEAR) Urine pH (4.7-8.0) Ur Specific [place] (1.005-1.035) Urine Protein (<30 mg/dL) mg/dL Urine Glucose (UA) (NEGATIVE) mg/dL Urine Ketones (NEGATIVE) mg/dL Urine Blood (NEGATIVE) Urine Nitrate (NEGATIVE) Urine Bilirubin (NEGATIVE) Urine Urobilinogen (<1 E.U./dL) E.U./dL Ur Leukocyte Esterase (NEGATIVE) Katerine/uL Urine RBC (0-2) /hpf Urine WBC (0-6) /hpf Ur Epithelial Cells (0-5) /hpf Urine Bacteria (NEG) Urine Osmolality (300-1000) mosm/kg Ur Random Sodium meq/L Salicylates (2.0-20.0) mg/dL Alcohol, Quantitative (0-10) mg/dL 07/24/18 07/24/18 07/24/18 Range/Units 11:04 11:00 10:45 WBC (4.5-11.0) 10^3/uL RBC (3.5-6.1) 10^6/uL Hgb (12.0-16.0) g/dL Hct (36.0-48.0) % MCV (80.0-105.0) fl MCH (25.0-35.0) pg MCHC (31.0-37.0) g/dl RDW (11.5-14.5) % Plt Count (120.0-450.0) 10^3/uL MPV (7.0-11.0) fl Gran % (50.0-68.0) % Lymph % (Auto) (22.0-35.0) % Barren % (Auto) (1.0-6.0) % Eos % (Auto) (1.5-5.0) % Baso % (Auto) (0.0-3.0) % Gran # (1.4-6.5) Lymph # (Auto) (1.2-3.4) Barren # (Auto) (0.1-0.6) Eos # (Auto) (0.0-0.7) Baso # (Auto) (0.0-2.0) K/mm3 APTT (25.1-36.5) Seconds pCO2 (35-45) mm/Hg pO2 (80-100) mm/Hg HCO3 (21-28) mmol/L ABG pH (7.35-7.45) ABG Total CO2 (22-28) mmol.L ABG O2 Saturation (95-98) % ABG Base Excess (-2.0-3.0) mmol/L ABG Potassium (3.6-5.2) mmol/L Glucose (65-105) mg/dl Lactate (0.7-2.1) mmol/L FiO2 % Sodium (132-148) mmol/L Potassium (3.6-5.0) mmol/L Chloride (98-107) mmol/L Carbon Dioxide (21-33) mmol/L Anion Gap (10-20) BUN (7-21) mg/dL Creatinine (0.7-1.2) mg/dl Est GFR ( Amer) Est GFR (Non-Af Amer) POC Glucose (mg/dL) 253 H (65-110) mg/dL Random Glucose (70-110) mg/dL Hemoglobin A1c (4.2-6.5) % Serum Osmolality (272-300) mosm/kg Lactic Acid (0.7-2.1) mmol/L Uric Acid (2.5-6.2) mg/dL Calcium (8.4-10.5) mg/dL Phosphorus (2.5-4.5) mg/dL Magnesium (1.7-2.2) mg/dL Total Creatine Kinase (35-230) U/L CK-MB (CK-2) (0.0-3.6) ng/mL CK-MB (CK-2) % (2.5-3.0) % Troponin I ng/mL TSH 3rd Generation (0.46-4.68) mIU/mL Arterial Blood Potassium (3.6-5.2) mmol/L Urine Color (YELLOW) Urine Appearance (CLEAR) Urine pH (4.7-8.0) Ur Specific [place] (1.005-1.035) Urine Protein (<30 mg/dL) mg/dL Urine Glucose (UA) (NEGATIVE) mg/dL Urine Ketones (NEGATIVE) mg/dL Urine Blood (NEGATIVE) Urine Nitrate (NEGATIVE) Urine Bilirubin (NEGATIVE) Urine Urobilinogen (<1 E.U./dL) E.U./dL Ur Leukocyte Esterase (NEGATIVE) Katerine/uL Urine RBC (0-2) /hpf Urine WBC (0-6) /hpf Ur Epithelial Cells (0-5) /hpf Urine Bacteria (NEG) Urine Osmolality 327 (300-1000) mosm/kg Ur Random Sodium 90 meq/L Salicylates < 1 L (2.0-20.0) mg/dL Alcohol, Quantitative (0-10) mg/dL 07/24/18 07/24/18 07/24/18 Range/Units 08:30 08:30 07:17 WBC (4.5-11.0) 10^3/uL RBC (3.5-6.1) 10^6/uL Hgb (12.0-16.0) g/dL Hct (36.0-48.0) % MCV (80.0-105.0) fl MCH (25.0-35.0) pg MCHC (31.0-37.0) g/dl RDW (11.5-14.5) % Plt Count (120.0-450.0) 10^3/uL MPV (7.0-11.0) fl Gran % (50.0-68.0) % Lymph % (Auto) (22.0-35.0) % Barren % (Auto) (1.0-6.0) % Eos % (Auto) (1.5-5.0) % Baso % (Auto) (0.0-3.0) % Gran # (1.4-6.5) Lymph # (Auto) (1.2-3.4) Barren # (Auto) (0.1-0.6) Eos # (Auto) (0.0-0.7) Baso # (Auto) (0.0-2.0) K/mm3 APTT (25.1-36.5) Seconds pCO2 (35-45) mm/Hg pO2 (80-100) mm/Hg HCO3 (21-28) mmol/L ABG pH (7.35-7.45) ABG Total CO2 (22-28) mmol.L ABG O2 Saturation (95-98) % ABG Base Excess (-2.0-3.0) mmol/L ABG Potassium (3.6-5.2) mmol/L Glucose (65-105) mg/dl Lactate (0.7-2.1) mmol/L FiO2 % Sodium 120 L (132-148) mmol/L Potassium 3.9 (3.6-5.0) mmol/L Chloride 85 L (98-107) mmol/L Carbon Dioxide 18 L (21-33) mmol/L Anion Gap 21 H (10-20) BUN 14 (7-21) mg/dL Creatinine 1.1 (0.7-1.2) mg/dl Est GFR ( Amer) > 60 Est GFR (Non-Af Amer) 51 POC Glucose (mg/dL) 282 H (65-110) mg/dL Random Glucose 272 H (70-110) mg/dL Hemoglobin A1c (4.2-6.5) % Serum Osmolality 253 L (272-300) mosm/kg Lactic Acid (0.7-2.1) mmol/L Uric Acid (2.5-6.2) mg/dL Calcium 8.4 (8.4-10.5) mg/dL Phosphorus (2.5-4.5) mg/dL Magnesium (1.7-2.2) mg/dL Total Creatine Kinase (35-230) U/L CK-MB (CK-2) (0.0-3.6) ng/mL CK-MB (CK-2) % (2.5-3.0) % Troponin I ng/mL TSH 3rd Generation (0.46-4.68) mIU/mL Arterial Blood Potassium (3.6-5.2) mmol/L Urine Color (YELLOW) Urine Appearance (CLEAR) Urine pH (4.7-8.0) Ur Specific [place] (1.005-1.035) Urine Protein (<30 mg/dL) mg/dL Urine Glucose (UA) (NEGATIVE) mg/dL Urine Ketones (NEGATIVE) mg/dL Urine Blood (NEGATIVE) Urine Nitrate (NEGATIVE) Urine Bilirubin (NEGATIVE) Urine Urobilinogen (<1 E.U./dL) E.U./dL Ur Leukocyte Esterase (NEGATIVE) Katerine/uL Urine RBC (0-2) /hpf Urine WBC (0-6) /hpf Ur Epithelial Cells (0-5) /hpf Urine Bacteria (NEG) Urine Osmolality (300-1000) mosm/kg Ur Random Sodium meq/L Salicylates (2.0-20.0) mg/dL Alcohol, Quantitative (0-10) mg/dL 07/23/18 Range/Units 21:34 WBC (4.5-11.0) 10^3/uL RBC (3.5-6.1) 10^6/uL Hgb (12.0-16.0) g/dL Hct (36.0-48.0) % MCV (80.0-105.0) fl MCH (25.0-35.0) pg MCHC (31.0-37.0) g/dl RDW (11.5-14.5) % Plt Count (120.0-450.0) 10^3/uL MPV (7.0-11.0) fl Gran % (50.0-68.0) % Lymph % (Auto) (22.0-35.0) % Barren % (Auto) (1.0-6.0) % Eos % (Auto) (1.5-5.0) % Baso % (Auto) (0.0-3.0) % Gran # (1.4-6.5) Lymph # (Auto) (1.2-3.4) Barren # (Auto) (0.1-0.6) Eos # (Auto) (0.0-0.7) Baso # (Auto) (0.0-2.0) K/mm3 APTT (25.1-36.5) Seconds pCO2 (35-45) mm/Hg pO2 (80-100) mm/Hg HCO3 (21-28) mmol/L ABG pH (7.35-7.45) ABG Total CO2 (22-28) mmol.L ABG O2 Saturation (95-98) % ABG Base Excess (-2.0-3.0) mmol/L ABG Potassium (3.6-5.2) mmol/L Glucose (65-105) mg/dl Lactate (0.7-2.1) mmol/L FiO2 % Sodium (132-148) mmol/L Potassium (3.6-5.0) mmol/L Chloride (98-107) mmol/L Carbon Dioxide (21-33) mmol/L Anion Gap (10-20) BUN (7-21) mg/dL Creatinine (0.7-1.2) mg/dl Est GFR ( Amer) Est GFR (Non-Af Amer) POC Glucose (mg/dL) (65-110) mg/dL Random Glucose (70-110) mg/dL Hemoglobin A1c 7.5 H (4.2-6.5) % Serum Osmolality (272-300) mosm/kg Lactic Acid (0.7-2.1) mmol/L Uric Acid (2.5-6.2) mg/dL Calcium (8.4-10.5) mg/dL Phosphorus (2.5-4.5) mg/dL Magnesium (1.7-2.2) mg/dL Total Creatine Kinase (35-230) U/L CK-MB (CK-2) (0.0-3.6) ng/mL CK-MB (CK-2) % (2.5-3.0) % Troponin I ng/mL TSH 3rd Generation (0.46-4.68) mIU/mL Arterial Blood Potassium (3.6-5.2) mmol/L Urine Color (YELLOW) Urine Appearance (CLEAR) Urine pH (4.7-8.0) Ur Specific [place] (1.005-1.035) Urine Protein (<30 mg/dL) mg/dL Urine Glucose (UA) (NEGATIVE) mg/dL Urine Ketones (NEGATIVE) mg/dL Urine Blood (NEGATIVE) Urine Nitrate (NEGATIVE) Urine Bilirubin (NEGATIVE) Urine Urobilinogen (<1 E.U./dL) E.U./dL Ur Leukocyte Esterase (NEGATIVE) Katerine/uL Urine RBC (0-2) /hpf Urine WBC (0-6) /hpf Ur Epithelial Cells (0-5) /hpf Urine Bacteria (NEG) Urine Osmolality (300-1000) mosm/kg Ur Random Sodium meq/L Salicylates (2.0-20.0) mg/dL Alcohol, Quantitative (0-10) mg/dL Laboratory Results - last 24 hr 07/23/18 07/24/18 07/24/18 21:34 07:17 08:30 WBC RBC Hgb Hct MCV MCH MCHC RDW Plt Count MPV Gran % Lymph % (Auto) Barren % (Auto) Eos % (Auto) Baso % (Auto) Gran # Lymph # (Auto) Barren # (Auto) Eos # (Auto) Baso # (Auto) APTT pCO2 pO2 HCO3 ABG pH ABG Total CO2 ABG O2 Saturation ABG Base Excess ABG Potassium Glucose Lactate FiO2 Sodium Potassium Chloride Carbon Dioxide Anion Gap BUN Creatinine Est GFR ( Amer) Est GFR (Non-Af Amer) POC Glucose (mg/dL) 282 H Random Glucose Hemoglobin A1c 7.5 H Serum Osmolality 253 L Lactic Acid Uric Acid Calcium Phosphorus Magnesium Total Creatine Kinase CK-MB (CK-2) CK-MB (CK-2) % Troponin I TSH 3rd Generation Arterial Blood Potassium Urine Color Urine Appearance Urine pH Ur Specific [place] Urine Protein Urine Glucose (UA) Urine Ketones Urine Blood Urine Nitrate Urine Bilirubin Urine Urobilinogen Ur Leukocyte Esterase Urine RBC Urine WBC Ur Epithelial Cells Urine Bacteria Urine Osmolality Ur Random Sodium Salicylates Alcohol, Quantitative 07/24/18 07/24/18 07/24/18 08:30 10:45 11:00 WBC RBC Hgb Hct MCV MCH MCHC RDW Plt Count MPV Gran % Lymph % (Auto) Barren % (Auto) Eos % (Auto) Baso % (Auto) Gran # Lymph # (Auto) Barren # (Auto) Eos # (Auto) Baso # (Auto) APTT pCO2 pO2 HCO3 ABG pH ABG Total CO2 ABG O2 Saturation ABG Base Excess ABG Potassium Glucose Lactate FiO2 Sodium 120 L Potassium 3.9 Chloride 85 L Carbon Dioxide 18 L Anion Gap 21 H BUN 14 Creatinine 1.1 Est GFR ( Amer) > 60 Est GFR (Non-Af Amer) 51 POC Glucose (mg/dL) Random Glucose 272 H Hemoglobin A1c Serum Osmolality Lactic Acid Uric Acid Calcium 8.4 Phosphorus Magnesium Total Creatine Kinase CK-MB (CK-2) CK-MB (CK-2) % Troponin I TSH 3rd Generation Arterial Blood Potassium Urine Color Urine Appearance Urine pH Ur Specific [place] Urine Protein Urine Glucose (UA) Urine Ketones Urine Blood Urine Nitrate Urine Bilirubin Urine Urobilinogen Ur Leukocyte Esterase Urine RBC Urine WBC Ur Epithelial Cells Urine Bacteria Urine Osmolality 327 Ur Random Sodium 90 Salicylates < 1 L Alcohol, Quantitative 07/24/18 07/24/18 07/24/18 11:04 12:00 12:30 WBC RBC Hgb Hct MCV MCH MCHC RDW Plt Count MPV Gran % Lymph % (Auto) Barren % (Auto) Eos % (Auto) Baso % (Auto) Gran # Lymph # (Auto) Barren # (Auto) Eos # (Auto) Baso # (Auto) APTT pCO2 pO2 HCO3 ABG pH ABG Total CO2 ABG O2 Saturation ABG Base Excess ABG Potassium Glucose Lactate FiO2 Sodium Cancelled Potassium Cancelled Chloride Cancelled Carbon Dioxide Cancelled Anion Gap Cancelled BUN Cancelled Creatinine Est GFR ( Amer) Cancelled Est GFR (Non-Af Amer) Cancelled POC Glucose (mg/dL) 253 H Random Glucose Cancelled Hemoglobin A1c Serum Osmolality 261 L Lactic Acid Uric Acid 8.1 H Calcium Cancelled Phosphorus Magnesium Total Creatine Kinase 2249 H CK-MB (CK-2) 27.3 H CK-MB (CK-2) % 1.2 L Troponin I 7.89 H* D TSH 3rd Generation Arterial Blood Potassium Urine Color Urine Appearance Urine pH Ur Specific [place] Urine Protein Urine Glucose (UA) Urine Ketones Urine Blood Urine Nitrate Urine Bilirubin Urine Urobilinogen Ur Leukocyte Esterase Urine RBC Urine WBC Ur Epithelial Cells Urine Bacteria Urine Osmolality Ur Random Sodium Salicylates Alcohol, Quantitative 07/24/18 07/24/18 07/24/18 12:45 12:45 12:45 WBC RBC Hgb Hct MCV MCH MCHC RDW Plt Count MPV Gran % Lymph % (Auto) Barren % (Auto) Eos % (Auto) Baso % (Auto) Gran # Lymph # (Auto) Barren # (Auto) Eos # (Auto) Baso # (Auto) APTT pCO2 pO2 HCO3 ABG pH ABG Total CO2 ABG O2 Saturation ABG Base Excess ABG Potassium Glucose Lactate FiO2 Sodium 120 L Potassium 4.0 Chloride 85 L Carbon Dioxide 17 L Anion Gap 21 H BUN 13 Creatinine 1.2 Est GFR ( Amer) 56 Est GFR (Non-Af Amer) 46 POC Glucose (mg/dL) Random Glucose 256 H Hemoglobin A1c Serum Osmolality Lactic Acid 2.4 H Uric Acid Calcium 8.5 Phosphorus 1.7 L Magnesium 0.8 L* Total Creatine Kinase CK-MB (CK-2) CK-MB (CK-2) % Troponin I TSH 3rd Generation 0.13 L Arterial Blood Potassium Urine Color Urine Appearance Urine pH Ur Specific [place] Urine Protein Urine Glucose (UA) Urine Ketones Urine Blood Urine Nitrate Urine Bilirubin Urine Urobilinogen Ur Leukocyte Esterase Urine RBC Urine WBC Ur Epithelial Cells Urine Bacteria Urine Osmolality Ur Random Sodium Salicylates Alcohol, Quantitative < 10 07/24/18 07/24/18 07/24/18 12:45 16:23 16:44 WBC RBC Hgb Hct MCV MCH MCHC RDW Plt Count MPV Gran % Lymph % (Auto) Barren % (Auto) Eos % (Auto) Baso % (Auto) Gran # Lymph # (Auto) Barren # (Auto) Eos # (Auto) Baso # (Auto) APTT 32.2 pCO2 pO2 HCO3 ABG pH ABG Total CO2 ABG O2 Saturation ABG Base Excess ABG Potassium Glucose Lactate FiO2 Sodium Potassium Chloride Carbon Dioxide Anion Gap BUN Creatinine Est GFR ( Amer) Est GFR (Non-Af Amer) POC Glucose (mg/dL) 124 H Random Glucose Hemoglobin A1c Serum Osmolality 257 L Lactic Acid Uric Acid Calcium Phosphorus Magnesium Total Creatine Kinase CK-MB (CK-2) CK-MB (CK-2) % Troponin I TSH 3rd Generation Arterial Blood Potassium Urine Color Urine Appearance Urine pH Ur Specific [place] Urine Protein Urine Glucose (UA) Urine Ketones Urine Blood Urine Nitrate Urine Bilirubin Urine Urobilinogen Ur Leukocyte Esterase Urine RBC Urine WBC Ur Epithelial Cells Urine Bacteria Urine Osmolality Ur Random Sodium Salicylates Alcohol, Quantitative 07/24/18 07/24/18 07/24/18 16:44 16:44 19:45 WBC RBC Hgb Hct MCV MCH MCHC RDW Plt Count MPV Gran % Lymph % (Auto) Barren % (Auto) Eos % (Auto) Baso % (Auto) Gran # Lymph # (Auto) Barren # (Auto) Eos # (Auto) Baso # (Auto) APTT pCO2 pO2 HCO3 ABG pH ABG Total CO2 ABG O2 Saturation ABG Base Excess ABG Potassium Glucose Lactate FiO2 Sodium 122 L Potassium 4.2 Chloride 88 L Carbon Dioxide 20 L Anion Gap 19 BUN 13 Creatinine 1.3 H Est GFR ( Amer) 51 Est GFR (Non-Af Amer) 42 POC Glucose (mg/dL) Random Glucose 134 H Hemoglobin A1c Serum Osmolality Lactic Acid Uric Acid Calcium 8.7 Phosphorus Magnesium Total Creatine Kinase CK-MB (CK-2) CK-MB (CK-2) % Troponin I 8.35 H* TSH 3rd Generation Arterial Blood Potassium Urine Color Yellow Urine Appearance Sl cloudy Urine pH 6.0 Ur Specific [place] 1.015 Urine Protein 30 H Urine Glucose (UA) >=1000 Urine Ketones 15 H Urine Blood Moderate H Urine Nitrate Negative Urine Bilirubin Negative Urine Urobilinogen 0.2 Ur Leukocyte Esterase Negative Urine RBC 15 - 20 Urine WBC 5 - 10 Ur Epithelial Cells 6 - 8 Urine Bacteria Mod Urine Osmolality Ur Random Sodium Salicylates Alcohol, Quantitative 07/24/18 07/24/18 07/24/18 21:14 21:14 21:34 WBC RBC Hgb Hct MCV MCH MCHC RDW Plt Count MPV Gran % Lymph % (Auto) Barren % (Auto) Eos % (Auto) Baso % (Auto) Gran # Lymph # (Auto) Barren # (Auto) Eos # (Auto) Baso # (Auto) APTT 137.5 H* pCO2 pO2 HCO3 ABG pH ABG Total CO2 ABG O2 Saturation ABG Base Excess ABG Potassium Glucose Lactate FiO2 Sodium Potassium Chloride Carbon Dioxide Anion Gap BUN Creatinine Est GFR ( Amer) Est GFR (Non-Af Amer) POC Glucose (mg/dL) 231 H Random Glucose Hemoglobin A1c Serum Osmolality 260 L Lactic Acid Uric Acid Calcium Phosphorus Magnesium Total Creatine Kinase CK-MB (CK-2) CK-MB (CK-2) % Troponin I TSH 3rd Generation Arterial Blood Potassium Urine Color Urine Appearance Urine pH Ur Specific [place] Urine Protein Urine Glucose (UA) Urine Ketones Urine Blood Urine Nitrate Urine Bilirubin Urine Urobilinogen Ur Leukocyte Esterase Urine RBC Urine WBC Ur Epithelial Cells Urine Bacteria Urine Osmolality Ur Random Sodium Salicylates Alcohol, Quantitative 07/24/18 07/25/18 07/25/18 21:36 00:10 04:00 WBC RBC Hgb Hct MCV MCH MCHC RDW Plt Count MPV Gran % Lymph % (Auto) Barren % (Auto) Eos % (Auto) Baso % (Auto) Gran # Lymph # (Auto) Barren # (Auto) Eos # (Auto) Baso # (Auto) APTT pCO2 26 L pO2 115.0 H HCO3 18.5 L ABG pH 7.46 H ABG Total CO2 19.3 L ABG O2 Saturation 100.0 H ABG Base Excess -3.8 L ABG Potassium 3.9 Glucose 221 H Lactate 1.9 FiO2 28.0 Sodium 124.0 L 123 L 125 L Potassium 3.9 4.0 Chloride 95.0 L 91 L 93 L Carbon Dioxide 21 21 Anion Gap 15 14 BUN 12 11 Creatinine 1.3 H 1.3 H Est GFR ( Amer) 51 51 Est GFR (Non-Af Amer) 42 42 POC Glucose (mg/dL) Random Glucose 212 H 181 H Hemoglobin A1c Serum Osmolality Lactic Acid Uric Acid Calcium 8.1 L 7.9 L Phosphorus Magnesium Total Creatine Kinase CK-MB (CK-2) CK-MB (CK-2) % Troponin I 4.75 H* D TSH 3rd Generation Arterial Blood Potassium 3.9 Urine Color Urine Appearance Urine pH Ur Specific [place] Urine Protein Urine Glucose (UA) Urine Ketones Urine Blood Urine Nitrate Urine Bilirubin Urine Urobilinogen Ur Leukocyte Esterase Urine RBC Urine WBC Ur Epithelial Cells Urine Bacteria Urine Osmolality Ur Random Sodium Salicylates Alcohol, Quantitative 07/25/18 07/25/18 07/25/18 04:00 04:00 05:10 WBC 9.9 RBC 3.95 Hgb 9.8 L Hct 27.6 L MCV 69.9 L MCH 24.8 L MCHC 35.5 RDW 15.1 H Plt Count 314 MPV 8.6 Gran % 80.1 H Lymph % (Auto) 9.0 L Barren % (Auto) 10.8 H Eos % (Auto) 0.0 L Baso % (Auto) 0.1 Gran # 7.91 H Lymph # (Auto) 0.9 L Barren # (Auto) 1.1 H Eos # (Auto) 0.0 Baso # (Auto) 0.01 APTT 25.9 pCO2 pO2 HCO3 ABG pH ABG Total CO2 ABG O2 Saturation ABG Base Excess ABG Potassium Glucose Lactate FiO2 Sodium Potassium Chloride Carbon Dioxide Anion Gap BUN Creatinine Est GFR ( Amer) Est GFR (Non-Af Amer) POC Glucose (mg/dL) Random Glucose Hemoglobin A1c Serum Osmolality Lactic Acid Uric Acid Calcium Phosphorus 2.1 L Magnesium 1.6 L Total Creatine Kinase CK-MB (CK-2) CK-MB (CK-2) % Troponin I 3.00 H* D TSH 3rd Generation Arterial Blood Potassium Urine Color Urine Appearance Urine pH Ur Specific [place] Urine Protein Urine Glucose (UA) Urine Ketones Urine Blood Urine Nitrate Urine Bilirubin Urine Urobilinogen Ur Leukocyte Esterase Urine RBC Urine WBC Ur Epithelial Cells Urine Bacteria Urine Osmolality Ur Random Sodium Salicylates Alcohol, Quantitative 07/25/18 07:43 WBC RBC Hgb Hct MCV MCH MCHC RDW Plt Count MPV Gran % Lymph % (Auto) Barren % (Auto) Eos % (Auto) Baso % (Auto) Gran # Lymph # (Auto) Barren # (Auto) Eos # (Auto) Baso # (Auto) APTT pCO2 pO2 HCO3 ABG pH ABG Total CO2 ABG O2 Saturation ABG Base Excess ABG Potassium Glucose Lactate FiO2 Sodium Potassium Chloride Carbon Dioxide Anion Gap BUN Creatinine Est GFR ( Amer) Est GFR (Non-Af Amer) POC Glucose (mg/dL) 178 H Random Glucose Hemoglobin A1c Serum Osmolality Lactic Acid Uric Acid Calcium Phosphorus Magnesium Total Creatine Kinase CK-MB (CK-2) CK-MB (CK-2) % Troponin I TSH 3rd Generation Arterial Blood Potassium Urine Color Urine Appearance Urine pH Ur Specific [place] Urine Protein Urine Glucose (UA) Urine Ketones Urine Blood Urine Nitrate Urine Bilirubin Urine Urobilinogen Ur Leukocyte Esterase Urine RBC Urine WBC Ur Epithelial Cells Urine Bacteria Urine Osmolality Ur Random Sodium Salicylates Alcohol, Quantitative EKG/Cardiology Studies: Cardiology / EKG Studies 07/24/18 20:49 EKG [ELECTROCARDIOGRAM] Stat Comment: Reason For Exam: troponin increasing Fingerstick Blood Sugar Results: 178 Assessment/Plan - Assessment and Plan (Free Text) Assessment: 57 y/o F with PMHx of COPD, etoh abuse, 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 Plan: Neuro: Pt sedated, arousable but not awake Video EEG overnight revealed no seizures per neurology Monitor for FND with correction of hyponatremia Hx of seizures loading dose of keppra dilantin/valproate empiric anti-epileptics for tx of status epilepticus f/u prolactin seizure precautions Consult neurology Head Ct: no acute findings Cardiovascular: Tachycardic Hypertensive Lopressor IVP q6h prn Maintain MAP >65 NSTEMI troponin downtrending continue on heparin drip continue aspirin trend troponin likely secondary from known stenotic lesion consult cardiology Pulm: Lungs CTA metabolic acidosis resolved after Na correction repeat ABG tracheostomy collar in place Ventilator prn. Pressure support Duoneb for hx of COPD Oral hygiene pulmonary toilet aspiration precautions GI: Soft/non-distended /Renal Severe hyponatremia resolving, etiology unknown. D/c hypertonic saline Appears euvolemic Measured serum osm: 261, calculated serum osm: 260 Urine Na: 90, increased. Urine osm increased. Likely SIADH Continue IVF with NS goal of correction not more than 6-8 meq/24 hrs. BMP q4h Supplement lytes prn Maintain MAP>65 Strict I/Os No acute need for renal replacement therapy at this time. Avoid hypotension. Patient not on ACEI/ARB, will consider later once pt stable. Monitor daily weights and renal function with basic metabolic panel Dose meds/antibiotics for reduced GFR. Avoid fleets enema/magnesium based laxatives. Avoid nephrotoxins/NSAIDs/ iodinated contrast (unless needed emergently) Glycemic control ID: Current afebrile No leukocytosis Empric coverage for HCAP vancomycin/zosyn f/u blood/urine cultures. NG @ 24 hrs lactate wnl f/u procalcitonin Endo: Maintain euglycemia Monitor for seizure-like activity Heme: H/H stable transfuse prn DVT/GI PPx: Hep drip/protonix IVP Case seen, examined and discussed with attending physician, Dr. Napier <Phil Napier - Last Filed: 07/25/18 17:18> CCU Objective - Vital Signs / Intake & Output Intake and Output (Last 8hrs): Intake & Output 07/25/18 07/25/18 07/25/18 06:59 14:59 22:59 Intake Total 0 94 Balance 0 94 Intake: IV 0 94 - Medications Active Medications: Active Medications Generic Name Dose Route Start Last Admin Trade Name Freq PRN Reason Stop Dose Admin Albuterol/Ipratropium 3 ml 07/24/18 08:00 07/25/18 13:15 Duoneb 3 Mg/0.5 Mg (3 Ml) Ud IH 3 ml TIDRESP RENATO Administration Aspirin 300 mg 07/24/18 10:45 07/25/18 09:14 Aspirin Supp RC 300 mg DAILY RENATO Administration Atorvastatin Calcium 40 mg 07/26/18 17:00 Lipitor PO DIN RENATO Digoxin 0.25 mg 07/24/18 17:42 07/25/18 13:49 Lanoxin IVP 0.25 mg 1400 RENATO Administration Sodium Chloride 1,000 mls @ 100 mls/hr 07/23/18 21:00 07/25/18 13:50 Sodium Chloride 0.9% IV 100 mls/hr .Q10H RENATO Administration Heparin Sodium/Sodium Chloride 25,000 units in 250 mls @ 7.457 mls/hr 07/24/18 05:00 07/25/18 14:00 Heparin 36805 Units/250ml 1/2 Normal Saline IV 11 units/kg/hr .Q24H RENATO 6.836 mls/hr Titration Protocol 12 UNITS/KG/HR Acetaminophen 1,000 mg in 100 mls @ 400 mls/hr 07/24/18 11:05 07/24/18 11:38 Ofirmev IVPB 07/26/18 11:06 400 mls/hr Q6H PRN Administration Temperature Vancomycin HCl 1 gm in 250 mls @ 167 mls/hr 07/24/18 13:30 07/25/18 09:14 Vancomycin 1gm IVPB 167 mls/hr DAILY RENATO Administration Protocol Thiamine HCl 100 mg/ Sodium 51 mls @ 102 mls/hr 07/25/18 11:00 07/25/18 13:47 Chloride IV 07/31/18 10:01 102 mls/hr DAILY RENATO Administration Valproate Sodium 1,000 mg/ 110 mls @ 100 mls/hr 07/25/18 22:00 Sodium Chloride IVPB Q12 RENATO Levetiracetam 1,000 mg/ Sodium 110 mls @ 460 mls/hr 07/25/18 12:42 Chloride IV Q12 RENATO Insulin Human Regular 0 units 07/24/18 11:30 07/25/18 17:03 Humulin R Med SC Not Given ACHS RENATO Protocol Lorazepam 2 mg 07/24/18 17:25 Ativan IVP Q6H PRN Anxiety Protocol Metoprolol Tartrate 5 mg 07/24/18 15:59 Lopressor IVP Q6H PRN Systolic Blood Pressure Pantoprazole Sodium 40 mg 07/24/18 10:00 07/25/18 09:14 Protonix Inj IVP 40 mg DAILY RENATO Administration - Patient Studies Lab Studies: Microbiology Studies 07/24/18 01:30 MRSA Culture (Admit) - Final Nose MRSA NOT DETECTED 07/24/18 00:00 Blood Culture - Preliminary Blood NO GROWTH AFTER 24 HOURS 07/23/18 23:45 Blood Culture - Preliminary Blood NO GROWTH AFTER 24 HOURS Lab Studies 07/25/18 07/25/18 07/25/18 Range/Units 17:02 13:23 13:23 WBC (4.5-11.0) 10^3/uL RBC (3.5-6.1) 10^6/uL Hgb (12.0-16.0) g/dL Hct (36.0-48.0) % MCV (80.0-105.0) fl MCH (25.0-35.0) pg MCHC (31.0-37.0) g/dl RDW (11.5-14.5) % Plt Count (120.0-450.0) 10^3/uL MPV (7.0-11.0) fl Gran % (50.0-68.0) % Lymph % (Auto) (22.0-35.0) % Barren % (Auto) (1.0-6.0) % Eos % (Auto) (1.5-5.0) % Baso % (Auto) (0.0-3.0) % Gran # (1.4-6.5) Lymph # (Auto) (1.2-3.4) Barren # (Auto) (0.1-0.6) Eos # (Auto) (0.0-0.7) Baso # (Auto) (0.0-2.0) K/mm3 APTT (25.1-36.5) Seconds pCO2 (35-45) mm/Hg pO2 (80-100) mm/Hg HCO3 (21-28) mmol/L ABG pH (7.35-7.45) ABG Total CO2 (22-28) mmol.L ABG O2 Saturation (95-98) % ABG Base Excess (-2.0-3.0) mmol/L ABG Potassium (3.6-5.2) mmol/L Sodium (132-148) mmol/L Chloride (98-107) mmol/L Glucose (65-105) mg/dl Lactate (0.7-2.1) mmol/L FiO2 % Potassium (3.6-5.0) mmol/L Carbon Dioxide (21-33) mmol/L Anion Gap (10-20) BUN (7-21) mg/dL Creatinine (0.7-1.2) mg/dl Est GFR ( Amer) Est GFR (Non-Af Amer) POC Glucose (mg/dL) 143 H (65-110) mg/dL Random Glucose (70-110) mg/dL Serum Osmolality (272-300) mosm/kg Calcium (8.4-10.5) mg/dL Phosphorus (2.5-4.5) mg/dL Magnesium (1.7-2.2) mg/dL Troponin I ng/mL TSH 3rd Generation (0.46-4.68) mIU/mL Prolactin (3.0-18.9) ng/mL Arterial Blood Potassium (3.6-5.2) mmol/L Urine Color (YELLOW) Urine Appearance (CLEAR) Urine pH (4.7-8.0) Ur Specific [place] (1.005-1.035) Urine Protein (<30 mg/dL) mg/dL Urine Glucose (UA) (NEGATIVE) mg/dL Urine Ketones (NEGATIVE) mg/dL Urine Blood (NEGATIVE) Urine Nitrate (NEGATIVE) Urine Bilirubin (NEGATIVE) Urine Urobilinogen (<1 E.U./dL) E.U./dL Ur Leukocyte Esterase (NEGATIVE) Katerine/uL Urine RBC (0-2) /hpf Urine WBC (0-6) /hpf Ur Epithelial Cells (0-5) /hpf Urine Bacteria (NEG) Digoxin 0.5 L (0.8-2.0) ng/mL Valproic Acid 60 (50.0-100.0) ug/mL 07/25/18 07/25/18 07/25/18 Range/Units 13:23 13:23 13:23 WBC (4.5-11.0) 10^3/uL RBC (3.5-6.1) 10^6/uL Hgb (12.0-16.0) g/dL Hct (36.0-48.0) % MCV (80.0-105.0) fl MCH (25.0-35.0) pg MCHC (31.0-37.0) g/dl RDW (11.5-14.5) % Plt Count (120.0-450.0) 10^3/uL MPV (7.0-11.0) fl Gran % (50.0-68.0) % Lymph % (Auto) (22.0-35.0) % Barren % (Auto) (1.0-6.0) % Eos % (Auto) (1.5-5.0) % Baso % (Auto) (0.0-3.0) % Gran # (1.4-6.5) Lymph # (Auto) (1.2-3.4) Barren # (Auto) (0.1-0.6) Eos # (Auto) (0.0-0.7) Baso # (Auto) (0.0-2.0) K/mm3 APTT 66.8 H (25.1-36.5) Seconds pCO2 (35-45) mm/Hg pO2 (80-100) mm/Hg HCO3 (21-28) mmol/L ABG pH (7.35-7.45) ABG Total CO2 (22-28) mmol.L ABG O2 Saturation (95-98) % ABG Base Excess (-2.0-3.0) mmol/L ABG Potassium (3.6-5.2) mmol/L Sodium 128 L (132-148) mmol/L Chloride 98 (98-107) mmol/L Glucose (65-105) mg/dl Lactate (0.7-2.1) mmol/L FiO2 % Potassium 4.0 (3.6-5.0) mmol/L Carbon Dioxide 22 (21-33) mmol/L Anion Gap 12 (10-20) BUN 12 (7-21) mg/dL Creatinine 1.3 H (0.7-1.2) mg/dl Est GFR ( Amer) 51 Est GFR (Non-Af Amer) 42 POC Glucose (mg/dL) (65-110) mg/dL Random Glucose 133 H (70-110) mg/dL Serum Osmolality (272-300) mosm/kg Calcium 7.6 L (8.4-10.5) mg/dL Phosphorus (2.5-4.5) mg/dL Magnesium (1.7-2.2) mg/dL Troponin I ng/mL TSH 3rd Generation 0.15 L (0.46-4.68) mIU/mL Prolactin (3.0-18.9) ng/mL Arterial Blood Potassium (3.6-5.2) mmol/L Urine Color (YELLOW) Urine Appearance (CLEAR) Urine pH (4.7-8.0) Ur Specific [place] (1.005-1.035) Urine Protein (<30 mg/dL) mg/dL Urine Glucose (UA) (NEGATIVE) mg/dL Urine Ketones (NEGATIVE) mg/dL Urine Blood (NEGATIVE) Urine Nitrate (NEGATIVE) Urine Bilirubin (NEGATIVE) Urine Urobilinogen (<1 E.U./dL) E.U./dL Ur Leukocyte Esterase (NEGATIVE) Katerine/uL Urine RBC (0-2) /hpf Urine WBC (0-6) /hpf Ur Epithelial Cells (0-5) /hpf Urine Bacteria (NEG) Digoxin (0.8-2.0) ng/mL Valproic Acid (50.0-100.0) ug/mL 07/25/18 07/25/18 07/25/18 Range/Units 11:26 07:43 05:10 WBC (4.5-11.0) 10^3/uL RBC (3.5-6.1) 10^6/uL Hgb (12.0-16.0) g/dL Hct (36.0-48.0) % MCV (80.0-105.0) fl MCH (25.0-35.0) pg MCHC (31.0-37.0) g/dl RDW (11.5-14.5) % Plt Count (120.0-450.0) 10^3/uL MPV (7.0-11.0) fl Gran % (50.0-68.0) % Lymph % (Auto) (22.0-35.0) % Barren % (Auto) (1.0-6.0) % Eos % (Auto) (1.5-5.0) % Baso % (Auto) (0.0-3.0) % Gran # (1.4-6.5) Lymph # (Auto) (1.2-3.4) Barren # (Auto) (0.1-0.6) Eos # (Auto) (0.0-0.7) Baso # (Auto) (0.0-2.0) K/mm3 APTT 25.9 (25.1-36.5) Seconds pCO2 (35-45) mm/Hg pO2 (80-100) mm/Hg HCO3 (21-28) mmol/L ABG pH (7.35-7.45) ABG Total CO2 (22-28) mmol.L ABG O2 Saturation (95-98) % ABG Base Excess (-2.0-3.0) mmol/L ABG Potassium (3.6-5.2) mmol/L Sodium (132-148) mmol/L Chloride (98-107) mmol/L Glucose (65-105) mg/dl Lactate (0.7-2.1) mmol/L FiO2 % Potassium (3.6-5.0) mmol/L Carbon Dioxide (21-33) mmol/L Anion Gap (10-20) BUN (7-21) mg/dL Creatinine (0.7-1.2) mg/dl Est GFR ( Amer) Est GFR (Non-Af Amer) POC Glucose (mg/dL) 156 H 178 H (65-110) mg/dL Random Glucose (70-110) mg/dL Serum Osmolality (272-300) mosm/kg Calcium (8.4-10.5) mg/dL Phosphorus (2.5-4.5) mg/dL Magnesium (1.7-2.2) mg/dL Troponin I ng/mL TSH 3rd Generation (0.46-4.68) mIU/mL Prolactin (3.0-18.9) ng/mL Arterial Blood Potassium (3.6-5.2) mmol/L Urine Color (YELLOW) Urine Appearance (CLEAR) Urine pH (4.7-8.0) Ur Specific [place] (1.005-1.035) Urine Protein (<30 mg/dL) mg/dL Urine Glucose (UA) (NEGATIVE) mg/dL Urine Ketones (NEGATIVE) mg/dL Urine Blood (NEGATIVE) Urine Nitrate (NEGATIVE) Urine Bilirubin (NEGATIVE) Urine Urobilinogen (<1 E.U./dL) E.U./dL Ur Leukocyte Esterase (NEGATIVE) Katerine/uL Urine RBC (0-2) /hpf Urine WBC (0-6) /hpf Ur Epithelial Cells (0-5) /hpf Urine Bacteria (NEG) Digoxin (0.8-2.0) ng/mL Valproic Acid (50.0-100.0) ug/mL 07/25/18 07/25/18 07/25/18 Range/Units 04:00 04:00 04:00 WBC 9.9 (4.5-11.0) 10^3/uL RBC 3.95 (3.5-6.1) 10^6/uL Hgb 9.8 L (12.0-16.0) g/dL Hct 27.6 L (36.0-48.0) % MCV 69.9 L (80.0-105.0) fl MCH 24.8 L (25.0-35.0) pg MCHC 35.5 (31.0-37.0) g/dl RDW 15.1 H (11.5-14.5) % Plt Count 314 (120.0-450.0) 10^3/uL MPV 8.6 (7.0-11.0) fl Gran % 80.1 H (50.0-68.0) % Lymph % (Auto) 9.0 L (22.0-35.0) % Barren % (Auto) 10.8 H (1.0-6.0) % Eos % (Auto) 0.0 L (1.5-5.0) % Baso % (Auto) 0.1 (0.0-3.0) % Gran # 7.91 H (1.4-6.5) Lymph # (Auto) 0.9 L (1.2-3.4) Barren # (Auto) 1.1 H (0.1-0.6) Eos # (Auto) 0.0 (0.0-0.7) Baso # (Auto) 0.01 (0.0-2.0) K/mm3 APTT (25.1-36.5) Seconds pCO2 (35-45) mm/Hg pO2 (80-100) mm/Hg HCO3 (21-28) mmol/L ABG pH (7.35-7.45) ABG Total CO2 (22-28) mmol.L ABG O2 Saturation (95-98) % ABG Base Excess (-2.0-3.0) mmol/L ABG Potassium (3.6-5.2) mmol/L Sodium 125 L (132-148) mmol/L Chloride 93 L (98-107) mmol/L Glucose (65-105) mg/dl Lactate (0.7-2.1) mmol/L FiO2 % Potassium 4.0 (3.6-5.0) mmol/L Carbon Dioxide 21 (21-33) mmol/L Anion Gap 14 (10-20) BUN 11 (7-21) mg/dL Creatinine 1.3 H (0.7-1.2) mg/dl Est GFR ( Amer) 51 Est GFR (Non-Af Amer) 42 POC Glucose (mg/dL) (65-110) mg/dL Random Glucose 181 H (70-110) mg/dL Serum Osmolality (272-300) mosm/kg Calcium 7.9 L (8.4-10.5) mg/dL Phosphorus 2.1 L (2.5-4.5) mg/dL Magnesium 1.6 L (1.7-2.2) mg/dL Troponin I 3.00 H* D ng/mL TSH 3rd Generation (0.46-4.68) mIU/mL Prolactin (3.0-18.9) ng/mL Arterial Blood Potassium (3.6-5.2) mmol/L Urine Color (YELLOW) Urine Appearance (CLEAR) Urine pH (4.7-8.0) Ur Specific [place] (1.005-1.035) Urine Protein (<30 mg/dL) mg/dL Urine Glucose (UA) (NEGATIVE) mg/dL Urine Ketones (NEGATIVE) mg/dL Urine Blood (NEGATIVE) Urine Nitrate (NEGATIVE) Urine Bilirubin (NEGATIVE) Urine Urobilinogen (<1 E.U./dL) E.U./dL Ur Leukocyte Esterase (NEGATIVE) Katerine/uL Urine RBC (0-2) /hpf Urine WBC (0-6) /hpf Ur Epithelial Cells (0-5) /hpf Urine Bacteria (NEG) Digoxin (0.8-2.0) ng/mL Valproic Acid (50.0-100.0) ug/mL 07/25/18 07/24/18 07/24/18 Range/Units 00:10 21:36 21:34 WBC (4.5-11.0) 10^3/uL RBC (3.5-6.1) 10^6/uL Hgb (12.0-16.0) g/dL Hct (36.0-48.0) % MCV (80.0-105.0) fl MCH (25.0-35.0) pg MCHC (31.0-37.0) g/dl RDW (11.5-14.5) % Plt Count (120.0-450.0) 10^3/uL MPV (7.0-11.0) fl Gran % (50.0-68.0) % Lymph % (Auto) (22.0-35.0) % Barren % (Auto) (1.0-6.0) % Eos % (Auto) (1.5-5.0) % Baso % (Auto) (0.0-3.0) % Gran # (1.4-6.5) Lymph # (Auto) (1.2-3.4) Barren # (Auto) (0.1-0.6) Eos # (Auto) (0.0-0.7) Baso # (Auto) (0.0-2.0) K/mm3 APTT (25.1-36.5) Seconds pCO2 26 L (35-45) mm/Hg pO2 115.0 H (80-100) mm/Hg HCO3 18.5 L (21-28) mmol/L ABG pH 7.46 H (7.35-7.45) ABG Total CO2 19.3 L (22-28) mmol.L ABG O2 Saturation 100.0 H (95-98) % ABG Base Excess -3.8 L (-2.0-3.0) mmol/L ABG Potassium 3.9 (3.6-5.2) mmol/L Sodium 123 L 124.0 L (132-148) mmol/L Chloride 91 L 95.0 L (98-107) mmol/L Glucose 221 H (65-105) mg/dl Lactate 1.9 (0.7-2.1) mmol/L FiO2 28.0 % Potassium 3.9 (3.6-5.0) mmol/L Carbon Dioxide 21 (21-33) mmol/L Anion Gap 15 (10-20) BUN 12 (7-21) mg/dL Creatinine 1.3 H (0.7-1.2) mg/dl Est GFR ( Amer) 51 Est GFR (Non-Af Amer) 42 POC Glucose (mg/dL) 231 H (65-110) mg/dL Random Glucose 212 H (70-110) mg/dL Serum Osmolality (272-300) mosm/kg Calcium 8.1 L (8.4-10.5) mg/dL Phosphorus (2.5-4.5) mg/dL Magnesium (1.7-2.2) mg/dL Troponin I 4.75 H* D ng/mL TSH 3rd Generation (0.46-4.68) mIU/mL Prolactin (3.0-18.9) ng/mL Arterial Blood Potassium 3.9 (3.6-5.2) mmol/L Urine Color (YELLOW) Urine Appearance (CLEAR) Urine pH (4.7-8.0) Ur Specific [place] (1.005-1.035) Urine Protein (<30 mg/dL) mg/dL Urine Glucose (UA) (NEGATIVE) mg/dL Urine Ketones (NEGATIVE) mg/dL Urine Blood (NEGATIVE) Urine Nitrate (NEGATIVE) Urine Bilirubin (NEGATIVE) Urine Urobilinogen (<1 E.U./dL) E.U./dL Ur Leukocyte Esterase (NEGATIVE) Katerine/uL Urine RBC (0-2) /hpf Urine WBC (0-6) /hpf Ur Epithelial Cells (0-5) /hpf Urine Bacteria (NEG) Digoxin (0.8-2.0) ng/mL Valproic Acid (50.0-100.0) ug/mL 07/24/18 07/24/18 07/24/18 Range/Units 21:14 21:14 19:45 WBC (4.5-11.0) 10^3/uL RBC (3.5-6.1) 10^6/uL Hgb (12.0-16.0) g/dL Hct (36.0-48.0) % MCV (80.0-105.0) fl MCH (25.0-35.0) pg MCHC (31.0-37.0) g/dl RDW (11.5-14.5) % Plt Count (120.0-450.0) 10^3/uL MPV (7.0-11.0) fl Gran % (50.0-68.0) % Lymph % (Auto) (22.0-35.0) % Barren % (Auto) (1.0-6.0) % Eos % (Auto) (1.5-5.0) % Baso % (Auto) (0.0-3.0) % Gran # (1.4-6.5) Lymph # (Auto) (1.2-3.4) Barren # (Auto) (0.1-0.6) Eos # (Auto) (0.0-0.7) Baso # (Auto) (0.0-2.0) K/mm3 APTT 137.5 H* (25.1-36.5) Seconds pCO2 (35-45) mm/Hg pO2 (80-100) mm/Hg HCO3 (21-28) mmol/L ABG pH (7.35-7.45) ABG Total CO2 (22-28) mmol.L ABG O2 Saturation (95-98) % ABG Base Excess (-2.0-3.0) mmol/L ABG Potassium (3.6-5.2) mmol/L Sodium (132-148) mmol/L Chloride (98-107) mmol/L Glucose (65-105) mg/dl Lactate (0.7-2.1) mmol/L FiO2 % Potassium (3.6-5.0) mmol/L Carbon Dioxide (21-33) mmol/L Anion Gap (10-20) BUN (7-21) mg/dL Creatinine (0.7-1.2) mg/dl Est GFR ( Amer) Est GFR (Non-Af Amer) POC Glucose (mg/dL) (65-110) mg/dL Random Glucose (70-110) mg/dL Serum Osmolality 260 L (272-300) mosm/kg Calcium (8.4-10.5) mg/dL Phosphorus (2.5-4.5) mg/dL Magnesium (1.7-2.2) mg/dL Troponin I ng/mL TSH 3rd Generation (0.46-4.68) mIU/mL Prolactin (3.0-18.9) ng/mL Arterial Blood Potassium (3.6-5.2) mmol/L Urine Color Yellow (YELLOW) Urine Appearance Sl cloudy (CLEAR) Urine pH 6.0 (4.7-8.0) Ur Specific [place] 1.015 (1.005-1.035) Urine Protein 30 H (<30 mg/dL) mg/dL Urine Glucose (UA) >=1000 (NEGATIVE) mg/dL Urine Ketones 15 H (NEGATIVE) mg/dL Urine Blood Moderate H (NEGATIVE) Urine Nitrate Negative (NEGATIVE) Urine Bilirubin Negative (NEGATIVE) Urine Urobilinogen 0.2 (<1 E.U./dL) E.U./dL Ur Leukocyte Esterase Negative (NEGATIVE) Katerine/uL Urine RBC 15 - 20 (0-2) /hpf Urine WBC 5 - 10 (0-6) /hpf Ur Epithelial Cells 6 - 8 (0-5) /hpf Urine Bacteria Mod (NEG) Digoxin (0.8-2.0) ng/mL Valproic Acid (50.0-100.0) ug/mL 07/24/18 07/24/18 07/24/18 Range/Units 16:44 16:44 16:23 WBC (4.5-11.0) 10^3/uL RBC (3.5-6.1) 10^6/uL Hgb (12.0-16.0) g/dL Hct (36.0-48.0) % MCV (80.0-105.0) fl MCH (25.0-35.0) pg MCHC (31.0-37.0) g/dl RDW (11.5-14.5) % Plt Count (120.0-450.0) 10^3/uL MPV (7.0-11.0) fl Gran % (50.0-68.0) % Lymph % (Auto) (22.0-35.0) % Barren % (Auto) (1.0-6.0) % Eos % (Auto) (1.5-5.0) % Baso % (Auto) (0.0-3.0) % Gran # (1.4-6.5) Lymph # (Auto) (1.2-3.4) Barren # (Auto) (0.1-0.6) Eos # (Auto) (0.0-0.7) Baso # (Auto) (0.0-2.0) K/mm3 APTT (25.1-36.5) Seconds pCO2 (35-45) mm/Hg pO2 (80-100) mm/Hg HCO3 (21-28) mmol/L ABG pH (7.35-7.45) ABG Total CO2 (22-28) mmol.L ABG O2 Saturation (95-98) % ABG Base Excess (-2.0-3.0) mmol/L ABG Potassium (3.6-5.2) mmol/L Sodium (132-148) mmol/L Chloride (98-107) mmol/L Glucose (65-105) mg/dl Lactate (0.7-2.1) mmol/L FiO2 % Potassium (3.6-5.0) mmol/L Carbon Dioxide (21-33) mmol/L Anion Gap (10-20) BUN (7-21) mg/dL Creatinine (0.7-1.2) mg/dl Est GFR ( Amer) Est GFR (Non-Af Amer) POC Glucose (mg/dL) 124 H (65-110) mg/dL Random Glucose (70-110) mg/dL Serum Osmolality 257 L (272-300) mosm/kg Calcium (8.4-10.5) mg/dL Phosphorus (2.5-4.5) mg/dL Magnesium (1.7-2.2) mg/dL Troponin I 8.35 H* ng/mL TSH 3rd Generation (0.46-4.68) mIU/mL Prolactin (3.0-18.9) ng/mL Arterial Blood Potassium (3.6-5.2) mmol/L Urine Color (YELLOW) Urine Appearance (CLEAR) Urine pH (4.7-8.0) Ur Specific [place] (1.005-1.035) Urine Protein (<30 mg/dL) mg/dL Urine Glucose (UA) (NEGATIVE) mg/dL Urine Ketones (NEGATIVE) mg/dL Urine Blood (NEGATIVE) Urine Nitrate (NEGATIVE) Urine Bilirubin (NEGATIVE) Urine Urobilinogen (<1 E.U./dL) E.U./dL Ur Leukocyte Esterase (NEGATIVE) Katerine/uL Urine RBC (0-2) /hpf Urine WBC (0-6) /hpf Ur Epithelial Cells (0-5) /hpf Urine Bacteria (NEG) Digoxin (0.8-2.0) ng/mL Valproic Acid (50.0-100.0) ug/mL 07/24/18 Range/Units 12:45 WBC (4.5-11.0) 10^3/uL RBC (3.5-6.1) 10^6/uL Hgb (12.0-16.0) g/dL Hct (36.0-48.0) % MCV (80.0-105.0) fl MCH (25.0-35.0) pg MCHC (31.0-37.0) g/dl RDW (11.5-14.5) % Plt Count (120.0-450.0) 10^3/uL MPV (7.0-11.0) fl Gran % (50.0-68.0) % Lymph % (Auto) (22.0-35.0) % Barren % (Auto) (1.0-6.0) % Eos % (Auto) (1.5-5.0) % Baso % (Auto) (0.0-3.0) % Gran # (1.4-6.5) Lymph # (Auto) (1.2-3.4) Barren # (Auto) (0.1-0.6) Eos # (Auto) (0.0-0.7) Baso # (Auto) (0.0-2.0) K/mm3 APTT (25.1-36.5) Seconds pCO2 (35-45) mm/Hg pO2 (80-100) mm/Hg HCO3 (21-28) mmol/L ABG pH (7.35-7.45) ABG Total CO2 (22-28) mmol.L ABG O2 Saturation (95-98) % ABG Base Excess (-2.0-3.0) mmol/L ABG Potassium (3.6-5.2) mmol/L Sodium (132-148) mmol/L Chloride (98-107) mmol/L Glucose (65-105) mg/dl Lactate (0.7-2.1) mmol/L FiO2 % Potassium (3.6-5.0) mmol/L Carbon Dioxide (21-33) mmol/L Anion Gap (10-20) BUN (7-21) mg/dL Creatinine (0.7-1.2) mg/dl Est GFR ( Amer) Est GFR (Non-Af Amer) POC Glucose (mg/dL) (65-110) mg/dL Random Glucose (70-110) mg/dL Serum Osmolality (272-300) mosm/kg Calcium (8.4-10.5) mg/dL Phosphorus (2.5-4.5) mg/dL Magnesium (1.7-2.2) mg/dL Troponin I ng/mL TSH 3rd Generation (0.46-4.68) mIU/mL Prolactin 8.4 (3.0-18.9) ng/mL Arterial Blood Potassium (3.6-5.2) mmol/L Urine Color (YELLOW) Urine Appearance (CLEAR) Urine pH (4.7-8.0) Ur Specific [place] (1.005-1.035) Urine Protein (<30 mg/dL) mg/dL Urine Glucose (UA) (NEGATIVE) mg/dL Urine Ketones (NEGATIVE) mg/dL Urine Blood (NEGATIVE) Urine Nitrate (NEGATIVE) Urine Bilirubin (NEGATIVE) Urine Urobilinogen (<1 E.U./dL) E.U./dL Ur Leukocyte Esterase (NEGATIVE) Katerine/uL Urine RBC (0-2) /hpf Urine WBC (0-6) /hpf Ur Epithelial Cells (0-5) /hpf Urine Bacteria (NEG) Digoxin (0.8-2.0) ng/mL Valproic Acid (50.0-100.0) ug/mL Laboratory Results - last 24 hr 07/24/18 07/24/18 07/24/18 12:45 16:23 16:44 WBC RBC Hgb Hct MCV MCH MCHC RDW Plt Count MPV Gran % Lymph % (Auto) Barren % (Auto) Eos % (Auto) Baso % (Auto) Gran # Lymph # (Auto) Barren # (Auto) Eos # (Auto) Baso # (Auto) APTT pCO2 pO2 HCO3 ABG pH ABG Total CO2 ABG O2 Saturation ABG Base Excess ABG Potassium Sodium Chloride Glucose Lactate FiO2 Potassium Carbon Dioxide Anion Gap BUN Creatinine Est GFR ( Amer) Est GFR (Non-Af Amer) POC Glucose (mg/dL) 124 H Random Glucose Serum Osmolality 257 L Calcium Phosphorus Magnesium Troponin I TSH 3rd Generation Prolactin 8.4 Arterial Blood Potassium Urine Color Urine Appearance Urine pH Ur Specific [place] Urine Protein Urine Glucose (UA) Urine Ketones Urine Blood Urine Nitrate Urine Bilirubin Urine Urobilinogen Ur Leukocyte Esterase Urine RBC Urine WBC Ur Epithelial Cells Urine Bacteria Digoxin Valproic Acid 07/24/18 07/24/18 07/24/18 16:44 19:45 21:14 WBC RBC Hgb Hct MCV MCH MCHC RDW Plt Count MPV Gran % Lymph % (Auto) Barren % (Auto) Eos % (Auto) Baso % (Auto) Gran # Lymph # (Auto) Barren # (Auto) Eos # (Auto) Baso # (Auto) APTT pCO2 pO2 HCO3 ABG pH ABG Total CO2 ABG O2 Saturation ABG Base Excess ABG Potassium Sodium Chloride Glucose Lactate FiO2 Potassium Carbon Dioxide Anion Gap BUN Creatinine Est GFR ( Amer) Est GFR (Non-Af Amer) POC Glucose (mg/dL) Random Glucose Serum Osmolality 260 L Calcium Phosphorus Magnesium Troponin I 8.35 H* TSH 3rd Generation Prolactin Arterial Blood Potassium Urine Color Yellow Urine Appearance Sl cloudy Urine pH 6.0 Ur Specific [place] 1.015 Urine Protein 30 H Urine Glucose (UA) >=1000 Urine Ketones 15 H Urine Blood Moderate H Urine Nitrate Negative Urine Bilirubin Negative Urine Urobilinogen 0.2 Ur Leukocyte Esterase Negative Urine RBC 15 - 20 Urine WBC 5 - 10 Ur Epithelial Cells 6 - 8 Urine Bacteria Mod Digoxin Valproic Acid 07/24/18 07/24/18 07/24/18 21:14 21:34 21:36 WBC RBC Hgb Hct MCV MCH MCHC RDW Plt Count MPV Gran % Lymph % (Auto) Barren % (Auto) Eos % (Auto) Baso % (Auto) Gran # Lymph # (Auto) Barren # (Auto) Eos # (Auto) Baso # (Auto) APTT 137.5 H* pCO2 26 L pO2 115.0 H HCO3 18.5 L ABG pH 7.46 H ABG Total CO2 19.3 L ABG O2 Saturation 100.0 H ABG Base Excess -3.8 L ABG Potassium 3.9 Sodium 124.0 L Chloride 95.0 L Glucose 221 H Lactate 1.9 FiO2 28.0 Potassium Carbon Dioxide Anion Gap BUN Creatinine Est GFR ( Amer) Est GFR (Non-Af Amer) POC Glucose (mg/dL) 231 H Random Glucose Serum Osmolality Calcium Phosphorus Magnesium Troponin I TSH 3rd Generation Prolactin Arterial Blood Potassium 3.9 Urine Color Urine Appearance Urine pH Ur Specific [place] Urine Protein Urine Glucose (UA) Urine Ketones Urine Blood Urine Nitrate Urine Bilirubin Urine Urobilinogen Ur Leukocyte Esterase Urine RBC Urine WBC Ur Epithelial Cells Urine Bacteria Digoxin Valproic Acid 07/25/18 07/25/18 07/25/18 00:10 04:00 04:00 WBC 9.9 RBC 3.95 Hgb 9.8 L Hct 27.6 L MCV 69.9 L MCH 24.8 L MCHC 35.5 RDW 15.1 H Plt Count 314 MPV 8.6 Gran % 80.1 H Lymph % (Auto) 9.0 L Barren % (Auto) 10.8 H Eos % (Auto) 0.0 L Baso % (Auto) 0.1 Gran # 7.91 H Lymph # (Auto) 0.9 L Barren # (Auto) 1.1 H Eos # (Auto) 0.0 Baso # (Auto) 0.01 APTT pCO2 pO2 HCO3 ABG pH ABG Total CO2 ABG O2 Saturation ABG Base Excess ABG Potassium Sodium 123 L 125 L Chloride 91 L 93 L Glucose Lactate FiO2 Potassium 3.9 4.0 Carbon Dioxide 21 21 Anion Gap 15 14 BUN 12 11 Creatinine 1.3 H 1.3 H Est GFR ( Amer) 51 51 Est GFR (Non-Af Amer) 42 42 POC Glucose (mg/dL) Random Glucose 212 H 181 H Serum Osmolality Calcium 8.1 L 7.9 L Phosphorus Magnesium Troponin I 4.75 H* D TSH 3rd Generation Prolactin Arterial Blood Potassium Urine Color Urine Appearance Urine pH Ur Specific [place] Urine Protein Urine Glucose (UA) Urine Ketones Urine Blood Urine Nitrate Urine Bilirubin Urine Urobilinogen Ur Leukocyte Esterase Urine RBC Urine WBC Ur Epithelial Cells Urine Bacteria Digoxin Valproic Acid 07/25/18 07/25/18 07/25/18 04:00 05:10 07:43 WBC RBC Hgb Hct MCV MCH MCHC RDW Plt Count MPV Gran % Lymph % (Auto) Barren % (Auto) Eos % (Auto) Baso % (Auto) Gran # Lymph # (Auto) Barren # (Auto) Eos # (Auto) Baso # (Auto) APTT 25.9 pCO2 pO2 HCO3 ABG pH ABG Total CO2 ABG O2 Saturation ABG Base Excess ABG Potassium Sodium Chloride Glucose Lactate FiO2 Potassium Carbon Dioxide Anion Gap BUN Creatinine Est GFR ( Amer) Est GFR (Non-Af Amer) POC Glucose (mg/dL) 178 H Random Glucose Serum Osmolality Calcium Phosphorus 2.1 L Magnesium 1.6 L Troponin I 3.00 H* D TSH 3rd Generation Prolactin Arterial Blood Potassium Urine Color Urine Appearance Urine pH Ur Specific [place] Urine Protein Urine Glucose (UA) Urine Ketones Urine Blood Urine Nitrate Urine Bilirubin Urine Urobilinogen Ur Leukocyte Esterase Urine RBC Urine WBC Ur Epithelial Cells Urine Bacteria Digoxin Valproic Acid 07/25/18 07/25/18 07/25/18 11:26 13:23 13:23 WBC RBC Hgb Hct MCV MCH MCHC RDW Plt Count MPV Gran % Lymph % (Auto) Barren % (Auto) Eos % (Auto) Baso % (Auto) Gran # Lymph # (Auto) Barren # (Auto) Eos # (Auto) Baso # (Auto) APTT 66.8 H pCO2 pO2 HCO3 ABG pH ABG Total CO2 ABG O2 Saturation ABG Base Excess ABG Potassium Sodium 128 L Chloride 98 Glucose Lactate FiO2 Potassium 4.0 Carbon Dioxide 22 Anion Gap 12 BUN 12 Creatinine 1.3 H Est GFR ( Amer) 51 Est GFR (Non-Af Amer) 42 POC Glucose (mg/dL) 156 H Random Glucose 133 H Serum Osmolality Calcium 7.6 L Phosphorus Magnesium Troponin I TSH 3rd Generation Prolactin Arterial Blood Potassium Urine Color Urine Appearance Urine pH Ur Specific [place] Urine Protein Urine Glucose (UA) Urine Ketones Urine Blood Urine Nitrate Urine Bilirubin Urine Urobilinogen Ur Leukocyte Esterase Urine RBC Urine WBC Ur Epithelial Cells Urine Bacteria Digoxin Valproic Acid 07/25/18 07/25/18 07/25/18 13:23 13:23 13:23 WBC RBC Hgb Hct MCV MCH MCHC RDW Plt Count MPV Gran % Lymph % (Auto) Barren % (Auto) Eos % (Auto) Baso % (Auto) Gran # Lymph # (Auto) Barren # (Auto) Eos # (Auto) Baso # (Auto) APTT pCO2 pO2 HCO3 ABG pH ABG Total CO2 ABG O2 Saturation ABG Base Excess ABG Potassium Sodium Chloride Glucose Lactate FiO2 Potassium Carbon Dioxide Anion Gap BUN Creatinine Est GFR ( Amer) Est GFR (Non-Af Amer) POC Glucose (mg/dL) Random Glucose Serum Osmolality Calcium Phosphorus Magnesium Troponin I TSH 3rd Generation 0.15 L Prolactin Arterial Blood Potassium Urine Color Urine Appearance Urine pH Ur Specific [place] Urine Protein Urine Glucose (UA) Urine Ketones Urine Blood Urine Nitrate Urine Bilirubin Urine Urobilinogen Ur Leukocyte Esterase Urine RBC Urine WBC Ur Epithelial Cells Urine Bacteria Digoxin 0.5 L Valproic Acid 60 07/25/18 17:02 WBC RBC Hgb Hct MCV MCH MCHC RDW Plt Count MPV Gran % Lymph % (Auto) Barren % (Auto) Eos % (Auto) Baso % (Auto) Gran # Lymph # (Auto) Barren # (Auto) Eos # (Auto) Baso # (Auto) APTT pCO2 pO2 HCO3 ABG pH ABG Total CO2 ABG O2 Saturation ABG Base Excess ABG Potassium Sodium Chloride Glucose Lactate FiO2 Potassium Carbon Dioxide Anion Gap BUN Creatinine Est GFR ( Amer) Est GFR (Non-Af Amer) POC Glucose (mg/dL) 143 H Random Glucose Serum Osmolality Calcium Phosphorus Magnesium Troponin I TSH 3rd Generation Prolactin Arterial Blood Potassium Urine Color Urine Appearance Urine pH Ur Specific [place] Urine Protein Urine Glucose (UA) Urine Ketones Urine Blood Urine Nitrate Urine Bilirubin Urine Urobilinogen Ur Leukocyte Esterase Urine RBC Urine WBC Ur Epithelial Cells Urine Bacteria Digoxin Valproic Acid EKG/Cardiology Studies: Cardiology / EKG Studies 07/24/18 20:49 EKG [ELECTROCARDIOGRAM] Stat Comment: Reason For Exam: troponin increasing Addendum Addendum: 07/25/18 17:14 ICU Attending Addendum Patient seen and examined. Case reviewed on round with housestaff. Agree with resident note above with the following additions/exceptions: [id number] admitted to the ICU with severe hypoNa and seizures. She has a hx of COPD, etoh abuse, and most recently dx with laryngeal Ca. She was admitted 04/29 - 05/11 where she has a laryngoscopy done to evaluate a large supra glottic and infra glottic mass. During the procedure, she coded and was intubated via tracheostomy. She remains on trach collar at home. During that admission she also had a cardiac cath done which showed single- vessel disease (no report of stent being placed). On this admission she was severely hyponatremia. Etiology unclear. 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 She was started on 3% NA, then switched to NS @ 100, has been running at 50cc today. Sodium appropriately improving. Nephro on board managing hypo. Yesterday concern for status eplipticus and given ativan, keppra, depakote and dilantin. CT did not show stroke. Neuro Dr Duckworth on consult managing seizures. She is more responsive today. Responds to pain which she did not yesterday. For now, resp status is stable based on blood gas. TNI elevated stenotic lesions. On hep drip. Cont ASA . Cardio managing. Low grade temps, empirically over for HCAP follow cultures Replaced Mg and Phos Duonebs for COPD hx DVT ppx - on hep drip GI ppx on PPI Rest of care as above Phil Napier MD Pulmonary, Critical Care and Sleep Medicine Critical Care TIme 31 mins
[2018-07-25] MEDS: Albuterol-Ipratrop 3 mg / 0.5 (3 ml) UD IH SCH ×3 (08:48→20:08)
--- NOTE | 2018-07-25 09:01 | CP.PCM.CON ---
<Ever Sanchez - Last Filed: 07/25/18 14:47> History of Present Illness - History of Present Illness History of Present Illness: Ever Sanchez- Internal Medicine Resident- Consult Note on Behalf of Neurology Team Subjective: Patient is a 70 year old female with a PMHx which includes laryngeal cancer s/p tracheostomy, alcohol abuse, COPD, HTN, HLD, DM, seizures who was admitted for evaluation and treatment of altered mental status secondary to seizure like activity. Neurology was consulted for aforementioned symptoms. As per records, the patient's boyfriend noted that she rolled off the bed and experienced uncontrolled shaking of the body. Patient was brought in by ambulance and was found to have severe hyponatremia. Further subjective data cannot be ascertained at this time secondary to AMS. 12 point ROS cannot be ascertained secondary to ams PMH: HTN, IDDM, HLD, COPD, CAD PSH: umbilical hernia repair (2014) SH: pt is a former smoker 2 ppd for more than 30 years, pt quit etoh 5 year ago (drank five 40 oz beers per day), denies illicit drug use Home meds: contact [facility] tomorrow Allergies: peanuts, hydromorphone PMD: [place] Cardio: [facility] in [place] Physical Examination: - Head Exam Head Exam: R periorbital swelling - Eye Exam Eye Exam: right pupil < left pupil, both reactive to light - ENT Exam ENT Exam: Mucous Membranes Moist - Neck Exam Neck exam: Positive for: Full Rom - Respiratory Exam Respiratory Exam: Clear to Auscultation Bilateral, NORMAL BREATHING PATTERN. absent: Accessory Muscle Use, Wheezes, Respiratory Distress - Cardiovascular Exam Cardiovascular Exam: RRR, +S1, +S2. absent: Diastolic murmur, Systolic Murmur - GI/Abdominal Exam GI & Abdominal Exam: Normal Bowel Sounds, Soft - Extremities Exam Extremities exam: no cyanosis, no clubbing - Neurological Exam Neurological exam: patient is not awake, (can be awakened with sternal rub), is not alert, does not respond to verbal stimuli, grimaces to painful stimuli, and does not follow commands - Skin Skin Exam: Dry, Intact, Warm Assessment and Plan: Patient is a 57 year old female with a PMHx which includes laryngeal cancer s/p tracheostomy, alcohol abuse, COPD, HTN, HLD, DM, seizures who was admitted for evaluation and treatment of altered mental status secondary to seizure like activity. Seizures - EEG- no seizure like activity noted - 07/23/2018 CT Head without contrast- No acute findings - 07/24/2018 CT Head without contrast- No acute findings - 07/25/2018 MRI without contrast ordered and pending - depacon 100mg IVP q8h changed to q12h - keppra 1500mg q12h changed to 1000mg q12, change to 500mg q12 on 07/26/18, change to 500mg daily on 07/27/2018, discontinue on 07/28/2018 - discontinue dilantin - continue correcting sodium at 0.25-0.50mol/l/hr until within normal range Patient seen, case discussed with, and plan approved by attending physician, Dr. Wu. Past Patient History - Past Medical History & Family History Past Medical History?: Yes - Past Social History Smoking Status: Former Smoker - CARDIAC Hx Cardiac Disorders: Yes (CAD) Hx Hypertension: Yes - PULMONARY Hx Chronic Obstructive Pulmonary Disease (COPD): Yes - NEUROLOGICAL Hx Neurological Disorder: No - HEENT Hx HEENT Problems: Yes (hoarseness) Hx Cataracts: Yes Other/Comment: HX: VOVAL CORD LESION - RENAL Hx Chronic Kidney Disease: No - ENDOCRINE/METABOLIC Hx Diabetes Mellitus Type 2: Yes - HEMATOLOGICAL/ONCOLOGICAL Hx Blood Disorders: Yes Hx Anemia: Yes Hx Blood Transfusions: Yes Hx Blood Transfusion Reaction: No - INTEGUMENTARY Hx Dermatological Problems: No - MUSCULOSKELETAL/RHEUMATOLOGICAL Hx Musculoskeletal Disorders: Yes Hx Osteoporosis: Yes - GASTROINTESTINAL Hx Gastrointestinal Disorders: Yes Hx Gastroesophageal Reflux: Yes HX Swallowing Problems: Yes - GENITOURINARY/GYNECOLOGICAL Hx Genitourinary Disorders: No - PSYCHIATRIC Hx Psychophysiologic Disorder: No Hx Substance Use: No - SURGICAL HISTORY Hx Cardiac Catheterization: Yes - ANESTHESIA Hx Anesthesia: Yes Hx Anesthesia Reactions: No Hx Malignant Hyperthermia: No Meds Allergies/Adverse Reactions: Allergies Allergy/AdvReac Type Severity Reaction Status Date / Time peanut Allergy Severe SWELLING Verified 07/23/18 20:49 hydromorphone [From Dilaudid] Allergy Mild ITCHING Verified 07/23/18 20:49 - Medications Medications: Current Medications Albuterol/Ipratropium (Duoneb 3 Mg/0.5 Mg (3 Ml) Ud) 3 ml IH TIDRESP [facility] Last Admin: 07/24/18 20:17 Dose: 3 ml Aspirin (Aspirin Chewable) 81 mg PO DAILY [facility] Last Admin: 07/24/18 10:28 Dose: Not Given Aspirin (Aspirin Supp) 300 mg RC DAILY [facility] Last Admin: 07/24/18 11:38 Dose: 300 mg Atorvastatin Calcium (Lipitor) 40 mg PO DIN [facility] Digoxin (Lanoxin) 0.25 mg IVP 1400 [facility] Sodium Chloride (Sodium Chloride 0.9%) 1,000 mls @ 100 mls/hr IV .Q10H [facility] Last Admin: 07/24/18 17:09 Dose: 100 mls/hr Heparin Sodium/Sodium Chloride (Heparin 47936 Units/250ml 1/2 Normal Saline) 25,000 units in 250 mls @ 7.457 mls/hr IV .Q24H [facility]; Protocol Last Admin: 07/25/18 07:00 Dose: 7 units/kg/hr, 4.35 mls/hr Acetaminophen (Ofirmev) 1,000 mg in 100 mls @ 400 mls/hr IVPB Q6H PRN PRN Reason: Temperature Stop: 07/26/18 11:06 Last Admin: 07/24/18 11:38 Dose: 400 mls/hr Vancomycin HCl (Vancomycin 1gm) 1 gm in 250 mls @ 167 mls/hr IVPB DAILY [facility]; Protocol Last Admin: 07/24/18 17:03 Dose: 167 mls/hr Valproate Sodium 1,000 mg/ (Sodium Chloride) 110 mls @ 100 mls/hr IVPB Q8 [facility] Last Admin: 07/25/18 06:50 Dose: 100 mls/hr Phenytoin 100 mg/ Sodium (Chloride) 52 mls @ 104 mls/hr IVPB Q8 [facility] Last Admin: 07/25/18 06:50 Dose: 104 mls/hr Levetiracetam 1,500 mg/ Sodium (Chloride) 115 mls @ 460 mls/hr IV Q12 [facility] Last Admin: 07/24/18 23:01 Dose: 460 mls/hr Insulin Human Regular (Humulin R Med) 0 units SC ACHS [facility]; Protocol Last Admin: 07/25/18 08:27 Dose: Not Given Lorazepam (Ativan) 2 mg IVP Q6H PRN; Protocol PRN Reason: Anxiety Metoprolol Tartrate (Lopressor) 5 mg IVP Q6H PRN PRN Reason: Systolic Blood Pressure Pantoprazole Sodium (Protonix Inj) 40 mg IVP DAILY [facility] Last Admin: 07/24/18 11:42 Dose: 40 mg Results - Vital Signs Recent Vital Signs: Last Vital Signs Temp 98.4 F 07/25/18 07:00 Pulse 95 H 07/25/18 07:50 Resp 21 07/25/18 07:50 BP 104/52 L 07/25/18 07:00 Pulse Ox 100 07/25/18 07:50 - Labs Result Diagrams: 07/25/18 04:00 07/25/18 13:23 Labs: Laboratory Results - last 24 hr 07/23/18 07/24/18 07/24/18 21:34 07:17 08:30 WBC RBC Hgb Hct MCV MCH MCHC RDW Plt Count MPV Gran % Lymph % (Auto) Dade % (Auto) Eos % (Auto) Baso % (Auto) Gran # Lymph # (Auto) Dade # (Auto) Eos # (Auto) Baso # (Auto) APTT pCO2 pO2 HCO3 ABG pH ABG Total CO2 ABG O2 Saturation ABG Base Excess ABG Potassium Glucose Lactate FiO2 Sodium Potassium Chloride Carbon Dioxide Anion Gap BUN Creatinine Est GFR ( Amer) Est GFR (Non-Af Amer) POC Glucose (mg/dL) 282 H Random Glucose Hemoglobin A1c 7.5 H Serum Osmolality 253 L Lactic Acid Uric Acid Calcium Phosphorus Magnesium Total Creatine Kinase CK-MB (CK-2) CK-MB (CK-2) % Troponin I TSH 3rd Generation Arterial Blood Potassium Urine Color Urine Appearance Urine pH Ur Specific Bruni Urine Protein Urine Glucose (UA) Urine Ketones Urine Blood Urine Nitrate Urine Bilirubin Urine Urobilinogen Ur Leukocyte Esterase Urine RBC Urine WBC Ur Epithelial Cells Urine Bacteria Urine Osmolality Ur Random Sodium Salicylates Alcohol, Quantitative 07/24/18 07/24/18 07/24/18 08:30 10:45 11:00 WBC RBC Hgb Hct MCV MCH MCHC RDW Plt Count MPV Gran % Lymph % (Auto) Dade % (Auto) Eos % (Auto) Baso % (Auto) Gran # Lymph # (Auto) Dade # (Auto) Eos # (Auto) Baso # (Auto) APTT pCO2 pO2 HCO3 ABG pH ABG Total CO2 ABG O2 Saturation ABG Base Excess ABG Potassium Glucose Lactate FiO2 Sodium 120 L Potassium 3.9 Chloride 85 L Carbon Dioxide 18 L Anion Gap 21 H BUN 14 Creatinine 1.1 Est GFR ( Amer) > 60 Est GFR (Non-Af Amer) 51 POC Glucose (mg/dL) Random Glucose 272 H Hemoglobin A1c Serum Osmolality Lactic Acid Uric Acid Calcium 8.4 Phosphorus Magnesium Total Creatine Kinase CK-MB (CK-2) CK-MB (CK-2) % Troponin I TSH 3rd Generation Arterial Blood Potassium Urine Color Urine Appearance Urine pH Ur Specific Bruni Urine Protein Urine Glucose (UA) Urine Ketones Urine Blood Urine Nitrate Urine Bilirubin Urine Urobilinogen Ur Leukocyte Esterase Urine RBC Urine WBC Ur Epithelial Cells Urine Bacteria Urine Osmolality 327 Ur Random Sodium 90 Salicylates < 1 L Alcohol, Quantitative 07/24/18 07/24/18 07/24/18 11:04 12:00 12:30 WBC RBC Hgb Hct MCV MCH MCHC RDW Plt Count MPV Gran % Lymph % (Auto) Dade % (Auto) Eos % (Auto) Baso % (Auto) Gran # Lymph # (Auto) Dade # (Auto) Eos # (Auto) Baso # (Auto) APTT pCO2 pO2 HCO3 ABG pH ABG Total CO2 ABG O2 Saturation ABG Base Excess ABG Potassium Glucose Lactate FiO2 Sodium Cancelled Potassium Cancelled Chloride Cancelled Carbon Dioxide Cancelled Anion Gap Cancelled BUN Cancelled Creatinine Est GFR ( Amer) Cancelled Est GFR (Non-Af Amer) Cancelled POC Glucose (mg/dL) 253 H Random Glucose Cancelled Hemoglobin A1c Serum Osmolality 261 L Lactic Acid Uric Acid 8.1 H Calcium Cancelled Phosphorus Magnesium Total Creatine Kinase 2249 H CK-MB (CK-2) 27.3 H CK-MB (CK-2) % 1.2 L Troponin I 7.89 H* D TSH 3rd Generation Arterial Blood Potassium Urine Color Urine Appearance Urine pH Ur Specific Bruni Urine Protein Urine Glucose (UA) Urine Ketones Urine Blood Urine Nitrate Urine Bilirubin Urine Urobilinogen Ur Leukocyte Esterase Urine RBC Urine WBC Ur Epithelial Cells Urine Bacteria Urine Osmolality Ur Random Sodium Salicylates Alcohol, Quantitative 07/24/18 07/24/18 07/24/18 12:45 12:45 12:45 WBC RBC Hgb Hct MCV MCH MCHC RDW Plt Count MPV Gran % Lymph % (Auto) Dade % (Auto) Eos % (Auto) Baso % (Auto) Gran # Lymph # (Auto) Dade # (Auto) Eos # (Auto) Baso # (Auto) APTT pCO2 pO2 HCO3 ABG pH ABG Total CO2 ABG O2 Saturation ABG Base Excess ABG Potassium Glucose Lactate FiO2 Sodium 120 L Potassium 4.0 Chloride 85 L Carbon Dioxide 17 L Anion Gap 21 H BUN 13 Creatinine 1.2 Est GFR ( Amer) 56 Est GFR (Non-Af Amer) 46 POC Glucose (mg/dL) Random Glucose 256 H Hemoglobin A1c Serum Osmolality Lactic Acid 2.4 H Uric Acid Calcium 8.5 Phosphorus 1.7 L Magnesium 0.8 L* Total Creatine Kinase CK-MB (CK-2) CK-MB (CK-2) % Troponin I TSH 3rd Generation 0.13 L Arterial Blood Potassium Urine Color Urine Appearance Urine pH Ur Specific Bruni Urine Protein Urine Glucose (UA) Urine Ketones Urine Blood Urine Nitrate Urine Bilirubin Urine Urobilinogen Ur Leukocyte Esterase Urine RBC Urine WBC Ur Epithelial Cells Urine Bacteria Urine Osmolality Ur Random Sodium Salicylates Alcohol, Quantitative < 10 07/24/18 07/24/18 07/24/18 12:45 16:23 16:44 WBC RBC Hgb Hct MCV MCH MCHC RDW Plt Count MPV Gran % Lymph % (Auto) Dade % (Auto) Eos % (Auto) Baso % (Auto) Gran # Lymph # (Auto) Dade # (Auto) Eos # (Auto) Baso # (Auto) APTT 32.2 pCO2 pO2 HCO3 ABG pH ABG Total CO2 ABG O2 Saturation ABG Base Excess ABG Potassium Glucose Lactate FiO2 Sodium Potassium Chloride Carbon Dioxide Anion Gap BUN Creatinine Est GFR ( Amer) Est GFR (Non-Af Amer) POC Glucose (mg/dL) 124 H Random Glucose Hemoglobin A1c Serum Osmolality 257 L Lactic Acid Uric Acid Calcium Phosphorus Magnesium Total Creatine Kinase CK-MB (CK-2) CK-MB (CK-2) % Troponin I TSH 3rd Generation Arterial Blood Potassium Urine Color Urine Appearance Urine pH Ur Specific Bruni Urine Protein Urine Glucose (UA) Urine Ketones Urine Blood Urine Nitrate Urine Bilirubin Urine Urobilinogen Ur Leukocyte Esterase Urine RBC Urine WBC Ur Epithelial Cells Urine Bacteria Urine Osmolality Ur Random Sodium Salicylates Alcohol, Quantitative 07/24/18 07/24/18 07/24/18 16:44 16:44 19:45 WBC RBC Hgb Hct MCV MCH MCHC RDW Plt Count MPV Gran % Lymph % (Auto) Dade % (Auto) Eos % (Auto) Baso % (Auto) Gran # Lymph # (Auto) Dade # (Auto) Eos # (Auto) Baso # (Auto) APTT pCO2 pO2 HCO3 ABG pH ABG Total CO2 ABG O2 Saturation ABG Base Excess ABG Potassium Glucose Lactate FiO2 Sodium 122 L Potassium 4.2 Chloride 88 L Carbon Dioxide 20 L Anion Gap 19 BUN 13 Creatinine 1.3 H Est GFR ( Amer) 51 Est GFR (Non-Af Amer) 42 POC Glucose (mg/dL) Random Glucose 134 H Hemoglobin A1c Serum Osmolality Lactic Acid Uric Acid Calcium 8.7 Phosphorus Magnesium Total Creatine Kinase CK-MB (CK-2) CK-MB (CK-2) % Troponin I 8.35 H* TSH 3rd Generation Arterial Blood Potassium Urine Color Yellow Urine Appearance Sl cloudy Urine pH 6.0 Ur Specific Bruni 1.015 Urine Protein 30 H Urine Glucose (UA) >=1000 Urine Ketones 15 H Urine Blood Moderate H Urine Nitrate Negative Urine Bilirubin Negative Urine Urobilinogen 0.2 Ur Leukocyte Esterase Negative Urine RBC 15 - 20 Urine WBC 5 - 10 Ur Epithelial Cells 6 - 8 Urine Bacteria Mod Urine Osmolality Ur Random Sodium Salicylates Alcohol, Quantitative 07/24/18 07/24/18 07/24/18 21:14 21:14 21:34 WBC RBC Hgb Hct MCV MCH MCHC RDW Plt Count MPV Gran % Lymph % (Auto) Dade % (Auto) Eos % (Auto) Baso % (Auto) Gran # Lymph # (Auto) Dade # (Auto) Eos # (Auto) Baso # (Auto) APTT 137.5 H* pCO2 pO2 HCO3 ABG pH ABG Total CO2 ABG O2 Saturation ABG Base Excess ABG Potassium Glucose Lactate FiO2 Sodium Potassium Chloride Carbon Dioxide Anion Gap BUN Creatinine Est GFR ( Amer) Est GFR (Non-Af Amer) POC Glucose (mg/dL) 231 H Random Glucose Hemoglobin A1c Serum Osmolality 260 L Lactic Acid Uric Acid Calcium Phosphorus Magnesium Total Creatine Kinase CK-MB (CK-2) CK-MB (CK-2) % Troponin I TSH 3rd Generation Arterial Blood Potassium Urine Color Urine Appearance Urine pH Ur Specific Bruni Urine Protein Urine Glucose (UA) Urine Ketones Urine Blood Urine Nitrate Urine Bilirubin Urine Urobilinogen Ur Leukocyte Esterase Urine RBC Urine WBC Ur Epithelial Cells Urine Bacteria Urine Osmolality Ur Random Sodium Salicylates Alcohol, Quantitative 07/24/18 07/25/18 07/25/18 21:36 00:10 04:00 WBC RBC Hgb Hct MCV MCH MCHC RDW Plt Count MPV Gran % Lymph % (Auto) Dade % (Auto) Eos % (Auto) Baso % (Auto) Gran # Lymph # (Auto) Dade # (Auto) Eos # (Auto) Baso # (Auto) APTT pCO2 26 L pO2 115.0 H HCO3 18.5 L ABG pH 7.46 H ABG Total CO2 19.3 L ABG O2 Saturation 100.0 H ABG Base Excess -3.8 L ABG Potassium 3.9 Glucose 221 H Lactate 1.9 FiO2 28.0 Sodium 124.0 L 123 L 125 L Potassium 3.9 4.0 Chloride 95.0 L 91 L 93 L Carbon Dioxide 21 21 Anion Gap 15 14 BUN 12 11 Creatinine 1.3 H 1.3 H Est GFR ( Amer) 51 51 Est GFR (Non-Af Amer) 42 42 POC Glucose (mg/dL) Random Glucose 212 H 181 H Hemoglobin A1c Serum Osmolality Lactic Acid Uric Acid Calcium 8.1 L 7.9 L Phosphorus Magnesium Total Creatine Kinase CK-MB (CK-2) CK-MB (CK-2) % Troponin I 4.75 H* D TSH 3rd Generation Arterial Blood Potassium 3.9 Urine Color Urine Appearance Urine pH Ur Specific Bruni Urine Protein Urine Glucose (UA) Urine Ketones Urine Blood Urine Nitrate Urine Bilirubin Urine Urobilinogen Ur Leukocyte Esterase Urine RBC Urine WBC Ur Epithelial Cells Urine Bacteria Urine Osmolality Ur Random Sodium Salicylates Alcohol, Quantitative 07/25/18 07/25/18 07/25/18 04:00 04:00 05:10 WBC 9.9 RBC 3.95 Hgb 9.8 L Hct 27.6 L MCV 69.9 L MCH 24.8 L MCHC 35.5 RDW 15.1 H Plt Count 314 MPV 8.6 Gran % 80.1 H Lymph % (Auto) 9.0 L Dade % (Auto) 10.8 H Eos % (Auto) 0.0 L Baso % (Auto) 0.1 Gran # 7.91 H Lymph # (Auto) 0.9 L Dade # (Auto) 1.1 H Eos # (Auto) 0.0 Baso # (Auto) 0.01 APTT 25.9 pCO2 pO2 HCO3 ABG pH ABG Total CO2 ABG O2 Saturation ABG Base Excess ABG Potassium Glucose Lactate FiO2 Sodium Potassium Chloride Carbon Dioxide Anion Gap BUN Creatinine Est GFR ( Amer) Est GFR (Non-Af Amer) POC Glucose (mg/dL) Random Glucose Hemoglobin A1c Serum Osmolality Lactic Acid Uric Acid Calcium Phosphorus 2.1 L Magnesium 1.6 L Total Creatine Kinase CK-MB (CK-2) CK-MB (CK-2) % Troponin I 3.00 H* D TSH 3rd Generation Arterial Blood Potassium Urine Color Urine Appearance Urine pH Ur Specific Bruni Urine Protein Urine Glucose (UA) Urine Ketones Urine Blood Urine Nitrate Urine Bilirubin Urine Urobilinogen Ur Leukocyte Esterase Urine RBC Urine WBC Ur Epithelial Cells Urine Bacteria Urine Osmolality Ur Random Sodium Salicylates Alcohol, Quantitative 07/25/18 07:43 WBC RBC Hgb Hct MCV MCH MCHC RDW Plt Count MPV Gran % Lymph % (Auto) Dade % (Auto) Eos % (Auto) Baso % (Auto) Gran # Lymph # (Auto) Dade # (Auto) Eos # (Auto) Baso # (Auto) APTT pCO2 pO2 HCO3 ABG pH ABG Total CO2 ABG O2 Saturation ABG Base Excess ABG Potassium Glucose Lactate FiO2 Sodium Potassium Chloride Carbon Dioxide Anion Gap BUN Creatinine Est GFR ( Amer) Est GFR (Non-Af Amer) POC Glucose (mg/dL) 178 H Random Glucose Hemoglobin A1c Serum Osmolality Lactic Acid Uric Acid Calcium Phosphorus Magnesium Total Creatine Kinase CK-MB (CK-2) CK-MB (CK-2) % Troponin I TSH 3rd Generation Arterial Blood Potassium Urine Color Urine Appearance Urine pH Ur Specific Bruni Urine Protein Urine Glucose (UA) Urine Ketones Urine Blood Urine Nitrate Urine Bilirubin Urine Urobilinogen Ur Leukocyte Esterase Urine RBC Urine WBC Ur Epithelial Cells Urine Bacteria Urine Osmolality Ur Random Sodium Salicylates Alcohol, Quantitative <[email or web address] - Last Filed: 07/26/18 21:25> Meds - Medications Medications: Current Medications Albuterol/Ipratropium (Duoneb 3 Mg/0.5 Mg (3 Ml) Ud) 3 ml IH TIDRESP [facility] Last Admin: 07/26/18 20:19 Dose: 3 ml Aspirin (Aspirin Supp) 300 mg RC DAILY [facility] Last Admin: 07/26/18 11:15 Dose: 300 mg Atorvastatin Calcium (Lipitor) 40 mg PO DIN [facility] Last Admin: 07/26/18 17:00 Dose: 40 mg Clopidogrel Bisulfate (Plavix) 75 mg NG DAILY [facility] Sodium Chloride (Sodium Chloride 0.9%) 1,000 mls @ 100 mls/hr IV .Q10H [facility] Last Admin: 07/26/18 18:21 Dose: 100 mls/hr Vancomycin HCl (Vancomycin 1gm) 1 gm in 250 mls @ 167 mls/hr IVPB DAILY [facility]; Protocol Last Admin: 07/26/18 11:16 Dose: 167 mls/hr Thiamine HCl 100 mg/ Sodium (Chloride) 51 mls @ 102 mls/hr IV DAILY [facility] Stop: 07/31/18 10:01 Last Admin: 07/26/18 11:17 Dose: 102 mls/hr Valproate Sodium 1,000 mg/ (Sodium Chloride) 110 mls @ 100 mls/hr IVPB Q12 [facility] Last Admin: 07/26/18 11:15 Dose: 100 mls/hr NOREPINEPHRINE BIT/0.9 % NACL (Levophed 4 Mg/ 250 Ml Ns Premixed) 4 mg in 250 mls @ 15 mls/hr IV .[id number] PRN; Protocol PRN Reason: TITRATE PER MD ORDER Last Titration: 07/26/18 19:00 Dose: 4 mcg/min, 15 mls/hr Levetiracetam (Keppra 500mg Ivpb) 500 mg in 100 mls @ 460 mls/hr IV Q12 [facility] Last Admin: 07/26/18 11:16 Dose: 460 mls/hr Dexmedetomidine HCl (Precedex 400mcg/100ml) 400 mcg in 100 mls @ 3.139 mls/hr IV .Q24H PRN; Protocol PRN Reason: Agitation Last Admin: 07/26/18 18:20 Dose: 0.2 mcg/kg/hr, 3.139 mls/hr Insulin Human Regular (Humulin R Med) 0 units SC ACHS [facility]; Protocol Last Admin: 07/26/18 17:57 Dose: Not Given Lorazepam (Ativan) 2 mg IVP Q6H PRN; Protocol PRN Reason: Anxiety Metoprolol Tartrate (Lopressor) 5 mg IVP Q6H PRN PRN Reason: Systolic Blood Pressure Pantoprazole Sodium (Protonix Inj) 40 mg IVP DAILY [facility] Last Admin: 07/26/18 11:17 Dose: 40 mg Results - Vital Signs Recent Vital Signs: Last Vital Signs Temp 97.0 F L 07/26/18 13:46 Pulse 87 07/26/18 20:10 Resp 18 07/26/18 20:10 BP 149/81 07/26/18 20:00 Pulse Ox 100 07/26/18 20:10 - Labs Result Diagrams: 07/26/18 04:00 07/26/18 04:00 Labs: Laboratory Results - last 24 hr 07/25/18 07/25/18 07/26/18 20:45 22:03 04:00 WBC 9.2 RBC 3.57 Hgb 8.8 L Hct 25.2 L MCV 70.6 L MCH 24.6 L MCHC 34.9 RDW 15.3 H Plt Count 270 MPV 8.8 Gran % 78.6 H Lymph % (Auto) 10.8 L Dade % (Auto) 10.5 H Eos % (Auto) 0.0 L Baso % (Auto) 0.1 Gran # 7.19 H Lymph # (Auto) 1.0 L Dade # (Auto) 1.0 H Eos # (Auto) 0.0 Baso # (Auto) 0.01 APTT 19.2 L Sodium Potassium Chloride Carbon Dioxide Anion Gap BUN Creatinine Est GFR ( Amer) Est GFR (Non-Af Amer) POC Glucose (mg/dL) 155 H Random Glucose Calcium Phosphorus Magnesium Homocysteine Digoxin 07/26/18 07/26/18 07/26/18 04:00 12:20 17:51 WBC RBC Hgb Hct MCV MCH MCHC RDW Plt Count MPV Gran % Lymph % (Auto) Dade % (Auto) Eos % (Auto) Baso % (Auto) Gran # Lymph # (Auto) Dade # (Auto) Eos # (Auto) Baso # (Auto) APTT Sodium 131 L Potassium 4.1 Chloride 101 Carbon Dioxide 22 Anion Gap 12 BUN 12 Creatinine 1.2 Est GFR ( Amer) 56 Est GFR (Non-Af Amer) 46 POC Glucose (mg/dL) 126 H Random Glucose 125 H Calcium 8.1 L Phosphorus 2.8 Magnesium 2.3 H Homocysteine 12.2 Digoxin 07/26/18 20:45 WBC RBC Hgb Hct MCV MCH MCHC RDW Plt Count MPV Gran % Lymph % (Auto) Dade % (Auto) Eos % (Auto) Baso % (Auto) Gran # Lymph # (Auto) Dade # (Auto) Eos # (Auto) Baso # (Auto) APTT Sodium Potassium Chloride Carbon Dioxide Anion Gap BUN Creatinine Est GFR ( Amer) Est GFR (Non-Af Amer) POC Glucose (mg/dL) Random Glucose Calcium Phosphorus Magnesium Homocysteine Digoxin 0.8 Assessment & Plan - Assessment and Plan (Free Text) Assessment: All medical record entries made by the Resident were at my direction and p ersonally dictated by me. I have reviewed the chart and agree that the record accurately reflects my personal performance of the history, physical exam, medical decision making, and the department course for this patient. I have also personally directed, reviewed, and agree with the discharge instructions and disposition. Dr. wu
[2018-07-25] MEDS: Sodium Chloride 0.9% 1,000 ML IV SCH ×2 (09:11→13:50)
[2018-07-25] MEDS: Vancomycin 1gm in NS 250ml 1 GM/250 ML BAG IVPB SCH (09:14)
[2018-07-25] MEDS: levETIRAcetam 1,500 MG in Sodium Chloride 0.9% 100 ML IV SCH (09:24)
[2018-07-25] MEDS ORDERED: Magnesium Sulfate 2 gm/50 ml 2 GM/50 ML BAG IVPB ONE (09:48)
[2018-07-25] MEDS ORDERED: Potassium Phosphate 3 mmol/ml Inj IV STA (09:49)
--- NOTE | 2018-07-25 09:59 | CARD ---
APPROVED REPORT Date of service: 07/24/2018 EKG Measurement Heart [id number] <Conclusion> Sinus tachycardia Possible Left atrial enlargement Left ventricular hypertrophy Anterior infarct, age undetermined T wave abnormality, consider inferior ischemia Abnormal ECG
[2018-07-25] MEDS ORDERED: Potassium Phosphate 15 MMOLE in Sodium Chloride 0.9% 250 ML IVPB ONE (10:00)
[2018-07-25] MEDS ORDERED: Thiamine 100 mg/ml Inj IV SCH (11:15)
[2018-07-25] MEDS ORDERED: levETIRAcetam 1,000 MG in Sodium Chloride 0.9% 100 ML IV SCH (12:42)
--- NOTE | 2018-07-25 12:42 | CON ---
CARDIOLOGY CONSULTATION DATE: 07/25/2018 HISTORY OF PRESENT ILLNESS: The patient is a 57-year-old woman with a history of hypertension, diabetes mellitus, COPD and CAD as well as a history of throat CA who presented with seizures which were witnessed. The patient currently has altered mental status and unable to give a history. She was found to have elevated troponins on admission. EKG shows diffuse ST depressions. SOCIAL HISTORY AND REVIEW OF SYSTEMS: Unavailable. PHYSICAL EXAMINATION: GENERAL: The patient is currently obtunded without unable to carry a conversation. VITAL SIGNS: Blood pressure is 104 systolic and heart rates in the 90s. NECK: Negative JVD. LUNGS: Without rales. HEART: S1 and S2. EXTREMITIES: Without edema. LABORATORY DATA: Hemoglobin is 9.8. Chemistries, BUN and creatinine is 11 and 1.3. Troponins peaked at 4.75 and is on a downward trend. Glucose is 181. EKG shows normal sinus rhythm with diffuse ST-T changes. IMPRESSION: 1. Non-ST elevation myocardial infarction likely due to her hypotension during her seizure episode. 2. It is unclear whether hypotension is the cause of her seizures or seizures is the precipitating factor. 3. Diabetes mellitus. 4. High probability for coronary artery disease. 9. Five history of throat cancer. Given these findings, currently the patient's anticoagulated and would be treating her non-STEMI medically. Continue neurologic followup. Avel Pettit MD
[2018-07-25 13:44] LABS: CALCIUM 7.6 mg/dL (8.4-10.5)
[2018-07-25] MEDS: Thiamine 100 MG in Sodium Chloride 0.9% 50 ML IV SCH (13:47)
[2018-07-25 13:52] VITALS: PULSE 106
[2018-07-25] MEDS ORDERED: Digoxin 500 mcg/2ml (0.5 mg/2ml) Inj IVP SCH (14:00)
--- NOTE | 2018-07-25 15:08 | CP.PCM.PN ---
Subjective - Date & Time of Evaluation Date of Evaluation: 07/25/18 Time of Evaluation: 15:05 - Subjective Subjective: Nephrology Consultation Note: Assessment: critical Hyponatremia hypo-osmolar ? etiology, likely pre-renal/hypovolemia as better with NS seizure, AMS HAGMA due to starvation ketoacidosis acute respi and metabolic acidosis HTN emergency CA throat, DM, anemia NSTEMI CKD 2 Plan No acute need for renal replacement therapy at this time. . Hypertension control with meds as ordered. Maintain hemodynamics stable. Avoid hypotension. Patient not on ACEI/ARB, will consider later once pt stable. okay with prn lopressor for now Monitor Input/Output, daily weights and renal function with basic metabolic pane l continue with IVF as NS. goal of correction not more than 6-8 meq/24 hrs. supplements lytes as needed respi support as per ICU. started thiamine supplements work up for hyponatremia and HAGMA as ordered Dose meds/antibiotics for reduced GFR. Avoid fleets enema/magnesium based laxatives. Avoid nephrotoxins/NSAIDs/ iodinated contrast (unless needed emergently) Glycemic control Further work up/management as per primary team Thanks for allowing me to participate in care of your patient. Will follow patient with you. Please call if any Qs. had d/w team Dr Jong Dennis Office: [phone] source of Info; EMR Chief Complaint; seizure Reason for consult: hyponatremia HPI: Pt is a 57 F with hx of diabetes Mellitus ( years), hypertension (years) CA throat, seizure presented with complaints of seizure and AMS. pt was admitted to ICU and renal consult for hyponatremia. she received hypertonic saline overnight no known OTC/herbal meds or NSAIDs No recent iodinated contrast exposure. No obvious episodes of low BP. baseline cr 1.1-1.2 suggestive of CKD 2 ROS: unable to obtain from pt Physical Examination: General Appearance: not responsive ill appearing Vitals reviewed and noted as below Head; Atraumatic, normocephalic ENT: unable EYES: Pupils are equal, round and reactive to light accommodation. Eye muscles and extraocular movement intact. Sclera is anicteric. Neck; had trach, no thyromegaly or bruit Lungs: Increased respiratory rate/effort. Breath sounds bilateral diminished at bases Heart: Increased rate. s1s2 normal. No rub or gallop. Extremities: no edema. No varicose veins Neurological: Patient is unresponsive to commands or stimuli Skin: Warm and dry. Normal turgor. No rash. Palpitation: Normal elasticity for age Abdomen: Abdomen is soft. Bowel sounds +. There is no abdominal tenderness, no guarding/rigidity no organomegaly Psych: unable MSK: no joint tenderness or swelling. Digits and nails normal, no deformity : kidney or bladder not palpable Labs/imaging reviewed. Past medical history, past surgical history, family history, social history, allergy reviewed and noted as below Family hx: no hx of CKD. Rest non-contributory Objective - Vital Signs/Intake and Output Vital Signs (last 24 hours): Temp Pulse Resp BP Pulse Ox 98.4 F 95 H 21 104/52 L 100 07/25/18 07:00 07/25/18 07:50 07/25/18 07:50 07/25/18 07:00 07/25/18 07:50 Intake and Output: 07/25/18 07/25/18 06:59 18:59 Intake Total 128 66 Balance 128 66 - Medications Medications: Current Medications Albuterol/Ipratropium (Duoneb 3 Mg/0.5 Mg (3 Ml) Ud) 3 ml IH TIDRESP [facility] Last Admin: 07/25/18 13:15 Dose: 3 ml Aspirin (Aspirin Supp) 300 mg RC DAILY [facility] Last Admin: 07/25/18 09:14 Dose: 300 mg Atorvastatin Calcium (Lipitor) 40 mg PO DIN [facility] Digoxin (Lanoxin) 0.25 mg IVP 1400 [facility] Last Admin: 07/25/18 13:49 Dose: 0.25 mg Sodium Chloride (Sodium Chloride 0.9%) 1,000 mls @ 100 mls/hr IV .Q10H [facility] Last Admin: 07/25/18 13:50 Dose: 100 mls/hr Heparin Sodium/Sodium Chloride (Heparin 36140 Units/250ml 1/2 Normal Saline) 25,000 units in 250 mls @ 7.457 mls/hr IV .Q24H [facility]; Protocol Last Admin: 07/25/18 07:00 Dose: 7 units/kg/hr, 4.35 mls/hr Acetaminophen (Ofirmev) 1,000 mg in 100 mls @ 400 mls/hr IVPB Q6H PRN PRN Reason: Temperature Stop: 07/26/18 11:06 Last Admin: 07/24/18 11:38 Dose: 400 mls/hr Vancomycin HCl (Vancomycin 1gm) 1 gm in 250 mls @ 167 mls/hr IVPB DAILY [facility]; Protocol Last Admin: 07/25/18 09:14 Dose: 167 mls/hr Potassium Phosphate 15 mmole/ (Sodium Chloride) 255 mls @ 42.5 mls/hr IVPB ONCE ONE Stop: 07/25/18 15:59 Last Admin: 07/25/18 10:49 Dose: 42.5 mls/hr Thiamine HCl 100 mg/ Sodium (Chloride) 51 mls @ 102 mls/hr IV DAILY [facility] Stop: 07/31/18 10:01 Last Admin: 07/25/18 13:47 Dose: 102 mls/hr Valproate Sodium 1,000 mg/ (Sodium Chloride) 110 mls @ 100 mls/hr IVPB Q12 [facility] Levetiracetam 1,000 mg/ Sodium (Chloride) 110 mls @ 460 mls/hr IV Q12 [facility] Insulin Human Regular (Humulin R Med) 0 units SC ACHS [facility]; Protocol Last Admin: 07/25/18 13:48 Dose: Not Given Lorazepam (Ativan) 2 mg IVP Q6H PRN; Protocol PRN Reason: Anxiety Metoprolol Tartrate (Lopressor) 5 mg IVP Q6H PRN PRN Reason: Systolic Blood Pressure Pantoprazole Sodium (Protonix Inj) 40 mg IVP DAILY [facility] Last Admin: 07/25/18 09:14 Dose: 40 mg - Labs Labs: 07/25/18 04:00 07/25/18 13:23 PT 10.5 SECONDS (9.4-12.5) 07/23/18 21:34 INR 0.92 07/23/18 21:34 APTT 66.8 Seconds (25.1-36.5) H 07/25/18 13:23
--- NOTE | 2018-07-25 16:53 | MRI ---
Date of service: 07/25/2018 PROCEDURE: MRI BRAIN WITHOUT CONTRAST HISTORY: Altered mental status COMPARISON: Noncontrast head CT from 07/24/2018. TECHNIQUE: Multiplanar, multisequence MR images of the brain were obtained without intravenous contrast enhancement. FINDINGS: HEMORRHAGE: None DWI: There are multifocal areas of restricted diffusion in bilateral temporal lobes and small areas of restricted diffusion in bilateral frontal and parietal cortex. BRAIN PARENCHYMA: There is T2/FLAIR hyperintensity corresponding to the areas of restricted diffusion. There is no mass, mass effect or abnormal extra-axial fluid collection. VENTRICLES: The ventricles are normal in size, shape and configuration. CRANIUM: There is normal bone marrow signal pattern. ORBITS: Grossly unremarkable. PARANASAL SINUSES/MASTOIDS: Clear VASCULAR SYSTEM: There are normal signal voids in the larger intracranial arteries. OTHER FINDINGS: None. IMPRESSION: Late acute/early subacute MCA territory infarctions involving bilateral temporal lobes and to a lesser extent frontal and parietal cortex. Important findings were discussed with hospital medical assistant nurse market research senior project manager Analia in the ICU on 07/25/2018 at 4:45 p.m.
[2018-07-25] MEDS ORDERED: levETIRAcetam 1000mg/100ml NS 100 ML IV SCH (17:55)
[2018-07-25] MEDS: NOREPINEPHRINE BIT/0.9 % NACL 4 MG/250 ML BAG IV PRN (19:02)
[2018-07-25 21:06] LABS: CALCIUM 8.2 mg/dL (8.4-10.5)
[2018-07-26] MEDS: NOREPINEPHRINE BIT/0.9 % NACL 4 MG/250 ML BAG IV PRN (03:28)
[2018-07-26 04:41] LABS: CALCIUM 8.1 mg/dL (8.4-10.5)
[2018-07-26 04:46] LABS: BASO # 0.01 K/mm3 (0.0-2.0); BASO % 0.1 % (0.0-3.0); GRAN # 7.19 (1.4-6.5); GRAN % 78.6 % (50.0-68.0); HEMOGLOBIN 8.8 g/dL (12.0-16.0); LYMPH % 10.8 % (22.0-35.0); MEAN CELL VOLUME 70.6 fl (80.0-105.0); MEAN CORPUSCULAR HEMOGLOBIN 24.6 pg (25.0-35.0); MEAN CORPUSCULAR HGB CONC 34.9 g/dl (31.0-37.0); MEAN PLATELET VOLUME 8.8 fl (7.0-11.0); MONO % 10.5 % (1.0-6.0); RBC 3.57 10^6/uL (3.5-6.1); RED CELL DISTRIBUTION WIDTH 15.3 % (11.5-14.5); WHITE BLOOD COUNT 9.2 10^3/uL (4.5-11.0)
--- NOTE | 2018-07-26 07:13 | CP.PCM.PN ---
<Ronal Riggs - Last Filed: 07/26/18 16:59> Subjective - Date & Time of Evaluation Date of Evaluation: 07/26/18 Time of Evaluation: 07:13 - Subjective Subjective: PGY-1 Medicine Progress Note for Dr. Del Valle Patient seen and examined at bedside in ICU this AM. No acute overnight events reported. Patient more awake and alert this morning, responding to tactile and verbal stimuli. Continues to be non-verbal. ROS unattainable due to clinical status. Objective - Vital Signs/Intake and Output Vital Signs (last 24 hours): Temp Pulse Resp BP Pulse Ox 99.0 F 114 H 24 123/98 H 100 07/26/18 05:31 07/26/18 06:00 07/26/18 05:30 07/26/18 05:30 07/26/18 05:36 Intake and Output: 07/26/18 07/26/18 06:59 18:59 Intake Total 1172 Output Total 850 Balance 322 - Medications Medications: Current Medications Albuterol/Ipratropium (Duoneb 3 Mg/0.5 Mg (3 Ml) Ud) 3 ml IH TIDRESP [facility] Last Admin: 07/25/18 20:08 Dose: 3 ml Aspirin (Aspirin Supp) 300 mg RC DAILY [facility] Last Admin: 07/25/18 09:14 Dose: 300 mg Atorvastatin Calcium (Lipitor) 40 mg PO DIN [facility] Digoxin (Lanoxin) 0.25 mg IVP 1400 [facility] Last Admin: 07/25/18 13:49 Dose: 0.25 mg Sodium Chloride (Sodium Chloride 0.9%) 1,000 mls @ 100 mls/hr IV .Q10H [facility] Last Admin: 07/25/18 13:50 Dose: 100 mls/hr Acetaminophen (Ofirmev) 1,000 mg in 100 mls @ 400 mls/hr IVPB Q6H PRN PRN Reason: Temperature Stop: 07/26/18 11:06 Last Admin: 07/24/18 11:38 Dose: 400 mls/hr Vancomycin HCl (Vancomycin 1gm) 1 gm in 250 mls @ 167 mls/hr IVPB DAILY [facility]; Protocol Last Admin: 07/25/18 09:14 Dose: 167 mls/hr Thiamine HCl 100 mg/ Sodium (Chloride) 51 mls @ 102 mls/hr IV DAILY [facility] Stop: 07/31/18 10:01 Last Admin: 07/25/18 13:47 Dose: 102 mls/hr Valproate Sodium 1,000 mg/ (Sodium Chloride) 110 mls @ 100 mls/hr IVPB Q12 [facility] Last Admin: 07/25/18 22:22 Dose: 100 mls/hr Levetiracetam (Keppra 1000mg/100ml Ns) 100 mls @ 460 mls/hr IV Q12 [facility] Last Admin: 07/25/18 22:21 Dose: 460 mls/hr NOREPINEPHRINE BIT/0.9 % NACL (Levophed 4 Mg/ 250 Ml Ns Premixed) 4 mg in 250 mls @ 15 mls/hr IV .[id number] PRN; Protocol PRN Reason: TITRATE PER MD ORDER Last Titration: 07/26/18 05:33 Dose: 8 mcg/min, 30 mls/hr Insulin Human Regular (Humulin R Med) 0 units SC ACHS [facility]; Protocol Last Admin: 07/25/18 22:22 Dose: 1 u Lorazepam (Ativan) 2 mg IVP Q6H PRN; Protocol PRN Reason: Anxiety Metoprolol Tartrate (Lopressor) 5 mg IVP Q6H PRN PRN Reason: Systolic Blood Pressure Pantoprazole Sodium (Protonix Inj) 40 mg IVP DAILY [facility] Last Admin: 07/25/18 09:14 Dose: 40 mg - Labs Labs: 07/26/18 04:00 07/26/18 04:00 PT 10.5 SECONDS (9.4-12.5) 07/23/18 21:34 INR 0.92 07/23/18 21:34 APTT 19.2 Seconds (25.1-36.5) L 07/25/18 20:45 - Constitutional Appears: Chronically Ill - Eye Exam Eye Exam: Periorbital swelling (Right) - ENT Exam ENT Exam: Mucous Membranes Moist, Normal Exam - Neck Exam Neck Exam: Full ROM Additional comments: tracheostomy in place - Respiratory Exam Respiratory Exam: Clear to Ausculation Bilateral, NORMAL BREATHING PATTERN. absent: Accessory Muscle Use, Rales, Rhonchi, Wheezes, Respiratory Distress - Cardiovascular Exam Cardiovascular Exam: REGULAR RHYTHM, +S1, +S2 - GI/Abdominal Exam GI & Abdominal Exam: Soft, Normal Bowel Sounds. absent: Distended, Firm, Guarding, Rigid, Tenderness, Rebound - Extremities Exam Extremities Exam: Normal Capillary Refill. absent: Calf Tenderness, Pedal Edema - Back Exam Back Exam: NORMAL INSPECTION - Neurological Exam Neurological Exam: Alert, Awake Additional comments: non-verbal; responds to verbal stimuli, including hand race car mechanic and leg raise, responds to tactile stimuli - Skin Skin Exam: Dry, Intact, Normal Color, Warm Assessment and Plan - Assessment and Plan (Free Text) Assessment: 57 year old female with a PMHx which includes laryngeal cancer s/p tracheostomy, alcohol abuse, COPD, HTN, HLD, DM, seizures who was admitted for evaluation and treatment of altered mental status secondary to seizure like activity. Plan: Acute Symptomatic Hyponatremia - Na 115 on admission, currently 131 (07/26) - AG 12 - currently on NS IVF @ 100cc/hr, per Nephro recs -Na correction 6-8 mEq/24 hrs -BMP q4h -Supplement lytes prn -Maintain MAP>65 -Strict I/Os -Avoid ACEI/ARB, will consider later once pt stable. -Monitor daily weights and renal function with basic metabolic panel -Dose meds/antibiotics for reduced GFR. -Avoid fleets enema/magnesium based laxatives. -Avoid nephrotoxins/NSAIDs/ iodinated contrast (unless needed emergently) -Glycemic control Hx seizures, witnessed seizure -Neuro recs (Dr. Duckworth) appreciated -continue depacon 100mg IVP q8h changed to q12h -keppra changed to 500mg q12 on 07/26/18, change to 500mg daily on 07/27/2018, discontinue on 07/28/2018 -c/w ativan -d/c dilantin -MRI brain: L acute/early subacute MCA infarct involving b/l temporal lobes -CTA head/neck: no acute findings -ICU recs (Dr. Napier) appreciated -heparin drip held b/c of concerns for hemorrhagic conversion -continue BP support with levophed -ASA -f/u stroke workup with echo w/ bubble study NSTEMI -Cardio recs (Dr. Acharya covering Dr. Pettit) appreciated -c/w ASA, keppra, lipitor, lopressor, plavix -heparin drip d/c'd -d/c digitalis Respiratory and Metabolic Acidosis -metabolic acidosis resolved after Na correction -tracheostomy collar in place -Ventilator prn. Pressure support -Duonebs for hx of COPD -Oral hygiene -pulmonary toilet -aspiration precautions DM - ISS high ACHS - Fingersticks ACHS - HA1C: 7.5 HLD - lipid panel: [id number], TC209, DLJ376, HDL68 Anemia - Hb/Hct stable, transfuse prn PPx, Diet, Disposition -GI ppx: protonix -DVT ppx: heparin -Palliative care on board Case discussed with Dr. Eligio Riggs DO, PGY-1 <Razia Del Valle - Last Filed: 07/27/18 07:50> Objective - Vital Signs/Intake and Output Vital Signs (last 24 hours): Temp Pulse Resp BP Pulse Ox 95.7 F L 83 25 H 174/79 H 96 07/27/18 05:54 07/27/18 06:40 07/27/18 06:40 07/27/18 06:30 07/27/18 06:40 Intake and Output: 07/27/18 07/27/18 06:59 18:59 Intake Total 1714 Output Total 700 Balance 1014 - Medications Medications: Current Medications Albuterol/Ipratropium (Duoneb 3 Mg/0.5 Mg (3 Ml) Ud) 3 ml IH TIDRESP [facility] Last Admin: 07/26/18 20:19 Dose: 3 ml Aspirin (Aspirin Supp) 300 mg RC DAILY [facility] Last Admin: 07/26/18 11:15 Dose: 300 mg Atorvastatin Calcium (Lipitor) 40 mg PO DIN [facility] Last Admin: 07/26/18 17:00 Dose: 40 mg Clopidogrel Bisulfate (Plavix) 75 mg NG DAILY [facility] Sodium Chloride (Sodium Chloride 0.9%) 1,000 mls @ 100 mls/hr IV .Q10H [facility] Last Admin: 07/26/18 18:21 Dose: 100 mls/hr Vancomycin HCl (Vancomycin 1gm) 1 gm in 250 mls @ 167 mls/hr IVPB DAILY [facility]; Protocol Last Admin: 07/26/18 11:16 Dose: 167 mls/hr Thiamine HCl 100 mg/ Sodium (Chloride) 51 mls @ 102 mls/hr IV DAILY [facility] Stop: 07/31/18 10:01 Last Admin: 07/26/18 11:17 Dose: 102 mls/hr Valproate Sodium 1,000 mg/ (Sodium Chloride) 110 mls @ 100 mls/hr IVPB Q12 [facility] Last Admin: 07/26/18 21:24 Dose: 100 mls/hr NOREPINEPHRINE BIT/0.9 % NACL (Levophed 4 Mg/ 250 Ml Ns Premixed) 4 mg in 250 mls @ 15 mls/hr IV .[id number] PRN; Protocol PRN Reason: TITRATE PER MD ORDER Last Titration: 07/27/18 06:11 Dose: Infused Levetiracetam (Keppra 500mg Ivpb) 500 mg in 100 mls @ 460 mls/hr IV Q12 [facility] Last Admin: 07/26/18 21:26 Dose: 460 mls/hr Dexmedetomidine HCl (Precedex 400mcg/100ml) 400 mcg in 100 mls @ 3.139 mls/hr IV .Q24H [facility]; Protocol PRN Reason: Agitation Last Admin: 07/26/18 18:20 Dose: 0.2 mcg/kg/hr, 3.139 mls/hr Insulin Human Regular (Humulin R Med) 0 units SC ACHS [facility]; Protocol Last Admin: 07/26/18 21:32 Dose: Not Given Lorazepam (Ativan) 2 mg IVP Q6H PRN; Protocol PRN Reason: Anxiety Metoprolol Tartrate (Lopressor) 5 mg IVP Q6H PRN PRN Reason: Systolic Blood Pressure Pantoprazole Sodium (Protonix Inj) 40 mg IVP DAILY [facility] Last Admin: 07/26/18 11:17 Dose: 40 mg - Labs Labs: 07/27/18 06:00 07/27/18 06:00 PT 10.5 SECONDS (9.4-12.5) 07/23/18 21:34 INR 0.92 07/23/18 21:34 APTT 19.2 Seconds (25.1-36.5) L 07/25/18 20:45 Attending/Attestation - Attestation I have personally seen and examined this patient.: Yes I have fully participated in the care of the patient.: Yes I have reviewed all pertinent clinical information, including history, physical exam and plan: Yes Notes (Text): 07/27/18 07:41 57 year old female with past medical history of laryngeal cancer s/p tracheostomy, alcohol abuse, COPD, hypertension, diabetes and seizures who presented with seizures; found to have significant hyponatremia, NSTEMI and CVA. MRI brain showed large acute / early subacute MCA infarct involving bilateral temporal lobes. Neurology is following. Patient is on aspirin, plavix and statin. Video EEG was also done. Patient is currently on valproic acid, keppra and ativan. Dilantin was discontinued. Hypercoagulable workup is ordered. Will follow up with neurology recommendations. Cardiology is following as well for possible NSTEMI. Echocardiogram was reviewed. Continue with aspirin, plavix and statin as well. Heparin drip was discontinued. Sodium level has been improving. Nephrology is following; will follow up with recommendations. Patient is DNR. Palliative care evaluation was appreciated. Prognosis is guarded. Razia Del Valle MD Hospitalist.
[2018-07-26] MEDS: Albuterol-Ipratrop 3 mg / 0.5 (3 ml) UD IH SCH ×3 (07:21→20:19)
[2018-07-26] MEDS: Insulin Reg-MEDIUM-Coverage SC SCH ×4 (07:30→21:32)
--- NOTE | 2018-07-26 07:55 | CP.PCM.PN ---
<Ever Sanchez - Last Filed: 07/26/18 12:32> Subjective - Date & Time of Evaluation Date of Evaluation: 07/26/18 Time of Evaluation: 09:30 - Subjective Subjective: Ever Sanchez- Internal Medicine Resident- Progress Note on Behalf of Neurology Team Subjective: Patient seen and examined at bedside. No acute events overnight. Patient is more awake and alert. Able to follow commands. Does not appropriately gesture to answer questions appropriately. 12 point ROS cannot be ascertained at this time due to altered mental status Physical Examination: - Head Exam Head Exam: R periorbital swelling - Eye Exam Eye Exam: right pupil < left pupil, both reactive to light - ENT Exam ENT Exam: Mucous Membranes Moist - Neck Exam Neck exam: Positive for: Full Rom - Respiratory Exam Respiratory Exam: Clear to Auscultation Bilateral, NORMAL BREATHING PATTERN. absent: Accessory Muscle Use, Wheezes, Respiratory Distress - Cardiovascular Exam Cardiovascular Exam: RRR, +S1, +S2. absent: Diastolic murmur, Systolic Murmur - GI/Abdominal Exam GI & Abdominal Exam: Normal Bowel Sounds, Soft - Extremities Exam Extremities exam: no cyanosis, no clubbing - Neurological Exam Neurological exam: patient is can be awakened with verbal stimuli, follow co mmands however does not complete all tasks asked of her - Skin Skin Exam: Dry, Intact, Warm Assessment and Plan: Patient is a 57 year old female with a PMHx which includes laryngeal cancer s/p tracheostomy, alcohol abuse, COPD, HTN, HLD, DM, seizures who was admitted for evaluation and treatment of altered mental status secondary to seizure like activity. Seizures - EEG- no seizure like activity noted - 07/23/2018 CT Head without contrast- No acute findings - 07/24/2018 CT Head without contrast- No acute findings - 07/25/2018 MRI without contrast- Late acute/early subacute MCA territory infarctions involving bilateral temporal lobes and to a lesser extent frontal and parietal cortex - 07/26/2018 CT Head and Neck- Calcified intra cavernous segments of the internal carotid arteries - continue depacon 100mg IVP q8h changed to q12h - keppra changed to 500mg q12 on 07/26/18, change to 500mg daily on 07/27/2018, discontinue on 07/28/2018 - continue correcting sodium at 0.25-0.50mol/l/hr until within normal range - plavix load 150mg PO x 1 followed by plavix 75mg PO daily Patient seen, case discussed with, and plan approved by attending physician, Dr. Wu. Objective - Vital Signs/Intake and Output Vital Signs (last 24 hours): Temp Pulse Resp BP Pulse Ox 99.0 F 114 H 24 123/98 H 100 07/26/18 05:31 07/26/18 06:00 07/26/18 05:30 07/26/18 05:30 07/26/18 05:36 Intake and Output: 07/26/18 07/26/18 06:59 18:59 Intake Total 1052 Output Total 850 Balance 202 - Medications Medications: Current Medications Albuterol/Ipratropium (Duoneb 3 Mg/0.5 Mg (3 Ml) Ud) 3 ml IH TIDRESP [facility] Last Admin: 07/26/18 07:21 Dose: 3 ml Aspirin (Aspirin Supp) 300 mg RC DAILY [facility] [place] Last Admin: 07/25/18 09:14 Dose: 300 mg Atorvastatin Calcium (Lipitor) 40 mg PO DIN [facility] Digoxin (Lanoxin) 0.25 mg IVP 1400 [facility] [place] Last Admin: 07/25/18 13:49 Dose: 0.25 mg Sodium Chloride (Sodium Chloride 0.9%) 1,000 mls @ 100 mls/hr IV .Q10H [facility] [place] Last Admin: 07/25/18 13:50 Dose: 100 mls/hr Acetaminophen (Ofirmev) 1,000 mg in 100 mls @ 400 mls/hr IVPB Q6H PRN PRN Reason: Temperature Stop: 07/26/18 11:06 Last Admin: 07/24/18 11:38 Dose: 400 mls/hr Vancomycin HCl (Vancomycin 1gm) 1 gm in 250 mls @ 167 mls/hr IVPB DAILY [facility] [place]; Protocol Last Admin: 07/25/18 09:14 Dose: 167 mls/hr Thiamine HCl 100 mg/ Sodium (Chloride) 51 mls @ 102 mls/hr IV DAILY [facility] Stop: 07/31/18 10:01 Last Admin: 07/25/18 13:47 Dose: 102 mls/hr Valproate Sodium 1,000 mg/ (Sodium Chloride) 110 mls @ 100 mls/hr IVPB Q12 [facility] Last Admin: 07/25/18 22:22 Dose: 100 mls/hr Levetiracetam (Keppra 1000mg/100ml Ns) 100 mls @ 460 mls/hr IV Q12 [facility] Last Admin: 07/25/18 22:21 Dose: 460 mls/hr NOREPINEPHRINE BIT/0.9 % NACL (Levophed 4 Mg/ 250 Ml Ns Premixed) 4 mg in 250 mls @ 15 mls/hr IV .[id number] PRN; Protocol PRN Reason: TITRATE PER MD ORDER Last Titration: 07/26/18 05:33 Dose: 8 mcg/min, 30 mls/hr Insulin Human Regular (Humulin R Med) 0 units SC ACHS [facility] [place]; Protocol Last Admin: 07/25/18 22:22 Dose: 1 u Lorazepam (Ativan) 2 mg IVP Q6H PRN; Protocol PRN Reason: Anxiety Metoprolol Tartrate (Lopressor) 5 mg IVP Q6H PRN PRN Reason: Systolic Blood Pressure Pantoprazole Sodium (Protonix Inj) 40 mg IVP DAILY [facility] [place] Last Admin: 07/25/18 09:14 Dose: 40 mg - Labs Labs: 07/26/18 04:00 07/26/18 04:00 PT 10.5 SECONDS (9.4-12.5) 07/23/18 21:34 INR 0.92 07/23/18 21:34 APTT 19.2 Seconds (25.1-36.5) L 07/25/18 20:45 <Jennifer Wu - Last Filed: 07/26/18 21:23> Objective - Vital Signs/Intake and Output Vital Signs (last 24 hours): Temp Pulse Resp BP Pulse Ox 97.0 F L 87 18 149/81 100 07/26/18 13:46 07/26/18 20:10 07/26/18 20:10 07/26/18 20:00 07/26/18 20:10 Intake and Output: 07/26/18 07/27/18 18:59 06:59 Intake Total 1170 0 Output Total 250 Balance 920 0 - Medications Medications: Current Medications Albuterol/Ipratropium (Duoneb 3 Mg/0.5 Mg (3 Ml) Ud) 3 ml IH TIDRESP [facility] [place] Last Admin: 07/26/18 20:19 Dose: 3 ml Aspirin (Aspirin Supp) 300 mg RC DAILY [facility] [place] Last Admin: 07/26/18 11:15 Dose: 300 mg Atorvastatin Calcium (Lipitor) 40 mg PO DIN [facility] [place] Last Admin: 07/26/18 17:00 Dose: 40 mg Clopidogrel Bisulfate (Plavix) 75 mg NG DAILY [facility] Sodium Chloride (Sodium Chloride 0.9%) 1,000 mls @ 100 mls/hr IV .Q10H [facility] Last Admin: 07/26/18 18:21 Dose: 100 mls/hr Vancomycin HCl (Vancomycin 1gm) 1 gm in 250 mls @ 167 mls/hr IVPB DAILY [facility] [place]; Protocol Last Admin: 07/26/18 11:16 Dose: 167 mls/hr Thiamine HCl 100 mg/ Sodium (Chloride) 51 mls @ 102 mls/hr IV DAILY [facility] [place] Stop: 07/31/18 10:01 Last Admin: 07/26/18 11:17 Dose: 102 mls/hr Valproate Sodium 1,000 mg/ (Sodium Chloride) 110 mls @ 100 mls/hr IVPB Q12 [facility] Last Admin: 07/26/18 11:15 Dose: 100 mls/hr NOREPINEPHRINE BIT/0.9 % NACL (Levophed 4 Mg/ 250 Ml Ns Premixed) 4 mg in 250 mls @ 15 mls/hr IV .[id number] PRN; Protocol PRN Reason: TITRATE PER MD ORDER Last Titration: 07/26/18 19:00 Dose: 4 mcg/min, 15 mls/hr Levetiracetam (Keppra 500mg Ivpb) 500 mg in 100 mls @ 460 mls/hr IV Q12 [facility] Last Admin: 07/26/18 11:16 Dose: 460 mls/hr Dexmedetomidine HCl (Precedex 400mcg/100ml) 400 mcg in 100 mls @ 3.139 mls/hr IV .Q24H PRN; Protocol PRN Reason: Agitation Last Admin: 07/26/18 18:20 Dose: 0.2 mcg/kg/hr, 3.139 mls/hr Insulin Human Regular (Humulin R Med) 0 units SC ACHS [facility] [place]; Protocol Last Admin: 07/26/18 17:57 Dose: Not Given Lorazepam (Ativan) 2 mg IVP Q6H PRN; Protocol PRN Reason: Anxiety Metoprolol Tartrate (Lopressor) 5 mg IVP Q6H PRN PRN Reason: Systolic Blood Pressure Pantoprazole Sodium (Protonix Inj) 40 mg IVP DAILY [facility] Last Admin: 07/26/18 11:17 Dose: 40 mg - Labs Labs: 07/26/18 04:00 07/26/18 04:00 PT 10.5 SECONDS (9.4-12.5) 07/23/18 21:34 INR 0.92 07/23/18 21:34 APTT 19.2 Seconds (25.1-36.5) L 07/25/18 20:45 Assessment and Plan - Assessment and Plan (Free Text) Assessment: MRI Brain shows multiple bilateral embolic strokes in the biparietal and bitemporal regions with higher cortical areas as well. Stroke workup: Hypercoagulable workup CTA head and neck. start aspirin and plavix Agree with the assessment and plan in residents note. Thank you DR. wu
--- NOTE | 2018-07-26 09:41 | CT ---
Date of service: 07/25/2018 PROCEDURE: CT Angiography of the neck with contrast HISTORY: evaluate bl infarcts seen on MRA COMPARISON: None. TECHNIQUE: Contiguous axial images of the neck were obtained from the level of the skull-base to the superior mediastinum in the arteriographic phase of enhancement. Coronal and sagittal reformats or also generated. IV contrast dose: 120 cc of Omni 350 Radiation dose: Total exam DLP = 391.22 mGy-cm. This CT exam was performed using one or more of the following dose reduction techniques: Automated exposure control, adjustment of the mA and/or kV according to patient size, and/or use of iterative reconstruction technique. FINDINGS: RIGHT CAROTID ARTERIES: Common Carotid Artery: Normal. Carotid Bifurcation: Normal. Internal Carotid Artery:Calcified plaques in the internal carotids without significant stenosis External Carotid Artery (proximal branches): Normal. LEFT CAROTID ARTERIES: Common Carotid Artery: Normal. Carotid Bifurcation: Normal. Internal Carotid Artery:Calcified plaques in the internal carotids without significant stenosis External Carotid Artery (proximal branches): Normal. VERTEBRAL ARTERIES: Right Vertebral Artery: Normal. Left Vertebral Artery: Normal. OTHER FINDINGS: Aortic calcification IMPRESSION: Calcified plaques in the internal carotids without significant stenosis CT Angiography of the Brain. HISTORY: evaluate bl infarcts seen on MRA COMPARISON: MRI 07/25/2018 TECHNIQUE: CT angiography of the intracranial arteries was performed. Coronal and sagittal maximum intensity projection reformated images were generated. Radiation dose: Total exam DLP = 391.22 mGy-cm. This CT exam was performed using one or more of the following dose reduction techniques: Automated exposure control, adjustment of the mA and/or kV according to patient size, and/or use of iterative reconstruction technique. FINDINGS: INTERNAL CEREBRAL ARTERIES: Unremarkable. The skull base, petrous, cavernous and supraclinoid segments are bilaterally widely patent. The intra cavernous carotid arteries are heavily calcified ANTERIOR CEREBRAL ARTERIES: Unremarkable. A1 and A2 segments are widely patent. Smaller distal branches unremarkable, as visualized. MIDDLE CEREBRAL ARTERIES: Unremarkable. M1 and M2 segments are widely patent. Perisylvian branches grossly symmetric. POSTERIOR CIRCULATION: Basilar Artery: Unremarkable. Distal Vertebral Arteries: Unremarkable. Posterior Cerebral Arteries: Unremarkable. Posterior Inferior Cerebellar Arteries: Unremarkable. ANEURYSM/ VASCULAR MALFORMATIONS: None. OTHER FINDINGS: None. IMPRESSION: Calcified intra cavernous segments of the internal carotid arteries
--- NOTE | 2018-07-26 10:05 | CP.CCUPN ---
<Berna Dan - Last Filed: 07/26/18 10:57> CCU Subjective - Physician Review Subjective (Free Text): CRITICAL CARE PROGRESS NOTE FOR DR. RATNA Dan PGY-1 Pt seen and examined at bedside this am. MRI last night revealed bilateral infarcts in temporal region with frontal/pariental involvement. Per neurology recs, pt to undergo CTA head/neck, stop heparin drip to prevent hemorrhagic conversion, echo with bubble study. She is more awake and arousable this am. She responds to commands, including hand psychologist counseling and leg raise. She shakes her head to 12 point ROS. CCU Objective - Vital Signs / Intake & Output Vital Signs (Last 4 hours): Vital Signs Temp Pulse Resp BP Pulse Ox 07/26/18 08:32 99.0 F 108 H 20 07/26/18 08:31 99.0 F 105 H 28 H 07/26/18 08:30 119/74 07/26/18 08:29 99.0 F 107 H 24 07/26/18 08:28 99.0 F 110 H 21 07/26/18 08:26 99.0 F 113 H 28 H 07/26/18 08:25 99.0 F 114 H 46 H 07/26/18 08:24 99.0 F 116 H 25 H 07/26/18 08:23 99.0 F 116 H 77 H 07/26/18 08:22 98.8 F 120 H 07/26/18 08:21 98.8 F 123 H 07/26/18 08:20 98.8 F 113 H 31 H 07/26/18 08:18 98.8 F 112 H 41 H 07/26/18 08:17 98.8 F 109 H 07/26/18 08:16 98.8 F 105 H 22 07/26/18 08:15 98.8 F 107 H 16 07/26/18 08:10 99.0 F 105 H 23 84 L 07/26/18 08:00 99.0 F 110 H 17 123/73 97 07/26/18 07:58 99.0 F 114 H 14 07/26/18 07:57 99.0 F 114 H 94 L 07/26/18 07:51 99.0 F 116 H 82 L 07/26/18 07:50 99.0 F 116 H 25 H 07/26/18 07:49 99.0 F 114 H 36 H 07/26/18 07:40 99.0 F 105 H 18 100 07/26/18 07:39 129/72 07/26/18 07:38 99.0 F 110 H 23 100 07/26/18 07:32 99.0 F 34 H 173/96 H 100 07/26/18 07:31 99.0 F 100 07/26/18 07:30 98.8 F 90 L 07/26/18 07:29 98.8 F 100 07/26/18 07:28 98.8 F 98 07/26/18 07:27 98.8 F 113 H 100 07/26/18 07:26 98.8 F 110 H 96 07/26/18 07:22 98.8 F 103 H 100 07/26/18 07:20 98.8 F 108 H 19 100 07/26/18 07:10 99.0 F 100 H 21 100 07/26/18 07:00 99.0 F 103 H 21 131/70 100 07/26/18 06:50 99.1 F 111 H 18 99 07/26/18 06:48 99.1 F 99 07/26/18 06:47 99.1 F 100 07/26/18 06:46 99.1 F 100 07/26/18 06:45 99.1 F 100 07/26/18 06:44 99.1 F 100 07/26/18 06:43 99.1 F 100 07/26/18 06:42 99.1 F 100 07/26/18 06:41 99.1 F 99 07/26/18 06:40 99.1 F 107 H 100 07/26/18 06:00 114 H Intake and Output (Last 8hrs): Intake & Output 07/25/18 07/26/18 07/26/18 22:59 06:59 14:59 Intake Total 732 1052 Output Total 600 850 Balance 132 202 Weight 62.777 kg Intake: IV 732 1052 0.9 Normal Saline 600 600 Heparin 132 132 Left 290 Oral 0 Tube Feeding 0 TPN/PPN 0 Blood Product 0 Lipid 0 Albumin 0 Other 0 Output: Urine 600 850 Urethral (Peck) 600 850 Emesis 0 Oral Regurgitation 0 Other 0 Other: # Bowel Movements 0 0 - Physical Exam Head: Positive for: Atraumatic, Normocephalic Pupils: Positive for: PERRL Extroacular Muscles: Positive for: EOMI Conjunctiva: Positive for: Normal Mouth: Positive for: Moist Mucous Membranes Neck: Positive for: Normal Range of Motion, Other (Tracheotomy noted) Respiratory/Chest: Positive for: Clear to Auscultation, Good Air Exchange. Negative for: Respiratory Distress, Accessory Muscle Use Cardiovascular: Positive for: Regular Rate and Rhythm, Normal S1, S2. Negative for: Murmurs Abdomen: Negative for: Distention, Peritoneal Signs Back: Positive for: Normal Inspection Upper Extremity: Positive for: Normal Inspection. Negative for: Cyanosis, Edema Lower Extremity: Positive for: Normal Inspection. Negative for: Edema Neurological: Positive for: GCS=15, CN II-XII Intact Skin: Positive for: Warm, Dry, Normal Color. Negative for: Rashes Psychiatric: Positive for: Normal Insight, Normal Concentration, Other (unresponsive, but moving extremities) - Medications Active Medications: Active Medications Generic Name Dose Route Start Last Admin Trade Name Freq PRN Reason Stop Dose Admin Albuterol/Ipratropium 3 ml 07/24/18 08:00 07/26/18 07:21 Duoneb 3 Mg/0.5 Mg (3 Ml) Ud IH 3 ml TIDRESP RENATO Administration Aspirin 300 mg 07/24/18 10:45 07/25/18 09:14 Aspirin Supp RC 300 mg DAILY RENATO Administration Atorvastatin Calcium 40 mg 07/26/18 17:00 Lipitor PO DIN RENATO Digoxin 0.25 mg 07/24/18 17:42 07/25/18 13:49 Lanoxin IVP 0.25 mg 1400 RENATO Administration Sodium Chloride 1,000 mls @ 100 mls/hr 07/23/18 21:00 07/25/18 13:50 Sodium Chloride 0.9% IV 100 mls/hr .Q10H RENATO Administration Acetaminophen 1,000 mg in 100 mls @ 400 mls/hr 07/24/18 11:05 07/24/18 11:38 Ofirmev IVPB 07/26/18 11:06 400 mls/hr Q6H PRN Administration Temperature Vancomycin HCl 1 gm in 250 mls @ 167 mls/hr 07/24/18 13:30 07/25/18 09:14 Vancomycin 1gm IVPB 167 mls/hr DAILY RENATO Administration Protocol Thiamine HCl 100 mg/ Sodium 51 mls @ 102 mls/hr 07/25/18 11:00 07/25/18 13:47 Chloride IV 07/31/18 10:01 102 mls/hr DAILY RENATO Administration Valproate Sodium 1,000 mg/ 110 mls @ 100 mls/hr 07/25/18 22:00 07/25/18 22:22 Sodium Chloride IVPB 100 mls/hr Q12 RENATO Administration NOREPINEPHRINE BIT/0.9 % NACL 4 mg in 250 mls @ 15 mls/hr 07/25/18 18:28 07/26/18 05:33 Levophed 4 Mg/ 250 Ml Ns Premixed IV 8 mcg/min .[id number] PRN 30 mls/hr TITRATE PER MD ORDER Titration Protocol 4 MCG/MIN Levetiracetam 500 mg in 100 mls @ 460 mls/hr 07/26/18 10:00 Keppra 500mg Ivpb IV Q12 RENATO Insulin Human Regular 0 units 07/24/18 11:30 07/25/18 22:22 Humulin R Med SC 1 u ACHS RENATO Administration Protocol Lorazepam 2 mg 07/24/18 17:25 Ativan IVP Q6H PRN Anxiety Protocol Metoprolol Tartrate 5 mg 07/24/18 15:59 Lopressor IVP Q6H PRN Systolic Blood Pressure Pantoprazole Sodium 40 mg 07/24/18 10:00 07/25/18 09:14 Protonix Inj IVP 40 mg DAILY RENATO Administration - Patient Studies Lab Studies: Microbiology Studies 07/24/18 00:00 Blood Culture - Preliminary Blood NO GROWTH AFTER 48 HOURS 07/23/18 23:45 Blood Culture - Preliminary Blood NO GROWTH AFTER 48 HOURS 07/24/18 01:30 MRSA Culture (Admit) - Final Nose MRSA NOT DETECTED Lab Studies 07/26/18 07/26/18 07/25/18 Range/Units 04:00 04:00 22:03 WBC 9.2 (4.5-11.0) 10^3/uL RBC 3.57 (3.5-6.1) 10^6/uL Hgb 8.8 L (12.0-16.0) g/dL Hct 25.2 L (36.0-48.0) % MCV 70.6 L (80.0-105.0) fl MCH 24.6 L (25.0-35.0) pg MCHC 34.9 (31.0-37.0) g/dl RDW 15.3 H (11.5-14.5) % Plt Count 270 (120.0-450.0) 10^3/uL MPV 8.8 (7.0-11.0) fl Gran % 78.6 H (50.0-68.0) % Lymph % (Auto) 10.8 L (22.0-35.0) % [place] % (Auto) 10.5 H (1.0-6.0) % Eos % (Auto) 0.0 L (1.5-5.0) % Baso % (Auto) 0.1 (0.0-3.0) % Gran # 7.19 H (1.4-6.5) Lymph # (Auto) 1.0 L (1.2-3.4) [place] # (Auto) 1.0 H (0.1-0.6) Eos # (Auto) 0.0 (0.0-0.7) Baso # (Auto) 0.01 (0.0-2.0) K/mm3 APTT (25.1-36.5) Seconds Sodium 131 L (132-148) mmol/L Potassium 4.1 (3.6-5.0) mmol/L Chloride 101 (98-107) mmol/L Carbon Dioxide 22 (21-33) mmol/L Anion Gap 12 (10-20) BUN 12 (7-21) mg/dL Creatinine 1.2 (0.7-1.2) mg/dl Est GFR ( Amer) 56 Est GFR (Non-Af Amer) 46 POC Glucose (mg/dL) 155 H (65-110) mg/dL Random Glucose 125 H (70-110) mg/dL Calcium 8.1 L (8.4-10.5) mg/dL Phosphorus 2.8 (2.5-4.5) mg/dL Magnesium 2.3 H (1.7-2.2) mg/dL Triglycerides (35-160) mg/dL Cholesterol (130-200) mg/dL LDL Cholesterol Direct (0-129) mg/dL HDL Cholesterol (29-60) mg/dL Procalcitonin (0.19-0.49) NG/ML TSH 3rd Generation (0.46-4.68) mIU/mL Prolactin (3.0-18.9) ng/mL Digoxin (0.8-2.0) ng/mL Valproic Acid (50.0-100.0) ug/mL 07/25/18 07/25/18 07/25/18 Range/Units 20:45 20:45 17:02 WBC (4.5-11.0) 10^3/uL RBC (3.5-6.1) 10^6/uL Hgb (12.0-16.0) g/dL Hct (36.0-48.0) % MCV (80.0-105.0) fl MCH (25.0-35.0) pg MCHC (31.0-37.0) g/dl RDW (11.5-14.5) % Plt Count (120.0-450.0) 10^3/uL MPV (7.0-11.0) fl Gran % (50.0-68.0) % Lymph % (Auto) (22.0-35.0) % [place] % (Auto) (1.0-6.0) % Eos % (Auto) (1.5-5.0) % Baso % (Auto) (0.0-3.0) % Gran # (1.4-6.5) Lymph # (Auto) (1.2-3.4) [place] # (Auto) (0.1-0.6) Eos # (Auto) (0.0-0.7) Baso # (Auto) (0.0-2.0) K/mm3 APTT 19.2 L (25.1-36.5) Seconds Sodium 129 L (132-148) mmol/L Potassium 4.0 (3.6-5.0) mmol/L Chloride 99 (98-107) mmol/L Carbon Dioxide 21 (21-33) mmol/L Anion Gap 13 (10-20) BUN 12 (7-21) mg/dL Creatinine 1.2 (0.7-1.2) mg/dl Est GFR ( Amer) 56 Est GFR (Non-Af Amer) 46 POC Glucose (mg/dL) 143 H (65-110) mg/dL Random Glucose 137 H (70-110) mg/dL Calcium 8.2 L (8.4-10.5) mg/dL Phosphorus (2.5-4.5) mg/dL Magnesium (1.7-2.2) mg/dL Triglycerides 162 H (35-160) mg/dL Cholesterol 190 (130-200) mg/dL LDL Cholesterol Direct 116 (0-129) mg/dL HDL Cholesterol 55 (29-60) mg/dL Procalcitonin (0.19-0.49) NG/ML TSH 3rd Generation (0.46-4.68) mIU/mL Prolactin (3.0-18.9) ng/mL Digoxin (0.8-2.0) ng/mL Valproic Acid (50.0-100.0) ug/mL 07/25/18 07/25/18 07/25/18 Range/Units 13:23 13:23 13:23 WBC (4.5-11.0) 10^3/uL RBC (3.5-6.1) 10^6/uL Hgb (12.0-16.0) g/dL Hct (36.0-48.0) % MCV (80.0-105.0) fl MCH (25.0-35.0) pg MCHC (31.0-37.0) g/dl RDW (11.5-14.5) % Plt Count (120.0-450.0) 10^3/uL MPV (7.0-11.0) fl Gran % (50.0-68.0) % Lymph % (Auto) (22.0-35.0) % [place] % (Auto) (1.0-6.0) % Eos % (Auto) (1.5-5.0) % Baso % (Auto) (0.0-3.0) % Gran # (1.4-6.5) Lymph # (Auto) (1.2-3.4) [place] # (Auto) (0.1-0.6) Eos # (Auto) (0.0-0.7) Baso # (Auto) (0.0-2.0) K/mm3 APTT (25.1-36.5) Seconds Sodium (132-148) mmol/L Potassium (3.6-5.0) mmol/L Chloride (98-107) mmol/L Carbon Dioxide (21-33) mmol/L Anion Gap (10-20) BUN (7-21) mg/dL Creatinine (0.7-1.2) mg/dl Est GFR ( Amer) Est GFR (Non-Af Amer) POC Glucose (mg/dL) (65-110) mg/dL Random Glucose (70-110) mg/dL Calcium (8.4-10.5) mg/dL Phosphorus (2.5-4.5) mg/dL Magnesium (1.7-2.2) mg/dL Triglycerides (35-160) mg/dL Cholesterol (130-200) mg/dL LDL Cholesterol Direct (0-129) mg/dL HDL Cholesterol (29-60) mg/dL Procalcitonin (0.19-0.49) NG/ML TSH 3rd Generation 0.15 L (0.46-4.68) mIU/mL Prolactin (3.0-18.9) ng/mL Digoxin 0.5 L (0.8-2.0) ng/mL Valproic Acid 60 (50.0-100.0) ug/mL 07/25/18 07/25/18 07/25/18 Range/Units 13:23 13:23 11:26 WBC (4.5-11.0) 10^3/uL RBC (3.5-6.1) 10^6/uL Hgb (12.0-16.0) g/dL Hct (36.0-48.0) % MCV (80.0-105.0) fl MCH (25.0-35.0) pg MCHC (31.0-37.0) g/dl RDW (11.5-14.5) % Plt Count (120.0-450.0) 10^3/uL MPV (7.0-11.0) fl Gran % (50.0-68.0) % Lymph % (Auto) (22.0-35.0) % [place] % (Auto) (1.0-6.0) % Eos % (Auto) (1.5-5.0) % Baso % (Auto) (0.0-3.0) % Gran # (1.4-6.5) Lymph # (Auto) (1.2-3.4) [place] # (Auto) (0.1-0.6) Eos # (Auto) (0.0-0.7) Baso # (Auto) (0.0-2.0) K/mm3 APTT 66.8 H (25.1-36.5) Seconds Sodium 128 L (132-148) mmol/L Potassium 4.0 (3.6-5.0) mmol/L Chloride 98 (98-107) mmol/L Carbon Dioxide 22 (21-33) mmol/L Anion Gap 12 (10-20) BUN 12 (7-21) mg/dL Creatinine 1.3 H (0.7-1.2) mg/dl Est GFR ( Amer) 51 Est GFR (Non-Af Amer) 42 POC Glucose (mg/dL) 156 H (65-110) mg/dL Random Glucose 133 H (70-110) mg/dL Calcium 7.6 L (8.4-10.5) mg/dL Phosphorus (2.5-4.5) mg/dL Magnesium (1.7-2.2) mg/dL Triglycerides (35-160) mg/dL Cholesterol (130-200) mg/dL LDL Cholesterol Direct (0-129) mg/dL HDL Cholesterol (29-60) mg/dL Procalcitonin (0.19-0.49) NG/ML TSH 3rd Generation (0.46-4.68) mIU/mL Prolactin (3.0-18.9) ng/mL Digoxin (0.8-2.0) ng/mL Valproic Acid (50.0-100.0) ug/mL 07/25/18 07/24/18 Range/Units 04:00 12:45 WBC (4.5-11.0) 10^3/uL RBC (3.5-6.1) 10^6/uL Hgb (12.0-16.0) g/dL Hct (36.0-48.0) % MCV (80.0-105.0) fl MCH (25.0-35.0) pg MCHC (31.0-37.0) g/dl RDW (11.5-14.5) % Plt Count (120.0-450.0) 10^3/uL MPV (7.0-11.0) fl Gran % (50.0-68.0) % Lymph % (Auto) (22.0-35.0) % [place] % (Auto) (1.0-6.0) % Eos % (Auto) (1.5-5.0) % Baso % (Auto) (0.0-3.0) % Gran # (1.4-6.5) Lymph # (Auto) (1.2-3.4) [place] # (Auto) (0.1-0.6) Eos # (Auto) (0.0-0.7) Baso # (Auto) (0.0-2.0) K/mm3 APTT (25.1-36.5) Seconds Sodium (132-148) mmol/L Potassium (3.6-5.0) mmol/L Chloride (98-107) mmol/L Carbon Dioxide (21-33) mmol/L Anion Gap (10-20) BUN (7-21) mg/dL Creatinine (0.7-1.2) mg/dl Est GFR ( Amer) Est GFR (Non-Af Amer) POC Glucose (mg/dL) (65-110) mg/dL Random Glucose (70-110) mg/dL Calcium (8.4-10.5) mg/dL Phosphorus (2.5-4.5) mg/dL Magnesium (1.7-2.2) mg/dL Triglycerides (35-160) mg/dL Cholesterol (130-200) mg/dL LDL Cholesterol Direct (0-129) mg/dL HDL Cholesterol (29-60) mg/dL Procalcitonin 1.98 H (0.19-0.49) NG/ML TSH 3rd Generation (0.46-4.68) mIU/mL Prolactin 8.4 (3.0-18.9) ng/mL Digoxin (0.8-2.0) ng/mL Valproic Acid (50.0-100.0) ug/mL Laboratory Results - last 24 hr 07/24/18 07/25/18 07/25/18 12:45 04:00 11:26 WBC RBC Hgb Hct MCV MCH MCHC RDW Plt Count MPV Gran % Lymph % (Auto) [place] % (Auto) Eos % (Auto) Baso % (Auto) Gran # Lymph # (Auto) [place] # (Auto) Eos # (Auto) Baso # (Auto) APTT Sodium Potassium Chloride Carbon Dioxide Anion Gap BUN Creatinine Est GFR ( Amer) Est GFR (Non-Af Amer) POC Glucose (mg/dL) 156 H Random Glucose Calcium Phosphorus Magnesium Triglycerides Cholesterol LDL Cholesterol Direct HDL Cholesterol Procalcitonin 1.98 H TSH 3rd Generation Prolactin 8.4 Digoxin Valproic Acid 07/25/18 07/25/18 07/25/18 13:23 13:23 13:23 WBC RBC Hgb Hct MCV MCH MCHC RDW Plt Count MPV Gran % Lymph % (Auto) [place] % (Auto) Eos % (Auto) Baso % (Auto) Gran # Lymph # (Auto) [place] # (Auto) Eos # (Auto) Baso # (Auto) APTT 66.8 H Sodium 128 L Potassium 4.0 Chloride 98 Carbon Dioxide 22 Anion Gap 12 BUN 12 Creatinine 1.3 H Est GFR ( Amer) 51 Est GFR (Non-Af Amer) 42 POC Glucose (mg/dL) Random Glucose 133 H Calcium 7.6 L Phosphorus Magnesium Triglycerides Cholesterol LDL Cholesterol Direct HDL Cholesterol Procalcitonin TSH 3rd Generation 0.15 L Prolactin Digoxin Valproic Acid 07/25/18 07/25/18 07/25/18 13:23 13:23 17:02 WBC RBC Hgb Hct MCV MCH MCHC RDW Plt Count MPV Gran % Lymph % (Auto) [place] % (Auto) Eos % (Auto) Baso % (Auto) Gran # Lymph # (Auto) [place] # (Auto) Eos # (Auto) Baso # (Auto) APTT Sodium Potassium Chloride Carbon Dioxide Anion Gap BUN Creatinine Est GFR ( Amer) Est GFR (Non-Af Amer) POC Glucose (mg/dL) 143 H Random Glucose Calcium Phosphorus Magnesium Triglycerides Cholesterol LDL Cholesterol Direct HDL Cholesterol Procalcitonin TSH 3rd Generation Prolactin Digoxin 0.5 L Valproic Acid 60 07/25/18 07/25/18 07/25/18 20:45 20:45 22:03 WBC RBC Hgb Hct MCV MCH MCHC RDW Plt Count MPV Gran % Lymph % (Auto) [place] % (Auto) Eos % (Auto) Baso % (Auto) Gran # Lymph # (Auto) [place] # (Auto) Eos # (Auto) Baso # (Auto) APTT 19.2 L Sodium 129 L Potassium 4.0 Chloride 99 Carbon Dioxide 21 Anion Gap 13 BUN 12 Creatinine 1.2 Est GFR ( Amer) 56 Est GFR (Non-Af Amer) 46 POC Glucose (mg/dL) 155 H Random Glucose 137 H Calcium 8.2 L Phosphorus Magnesium Triglycerides 162 H Cholesterol 190 LDL Cholesterol Direct 116 HDL Cholesterol 55 Procalcitonin TSH 3rd Generation Prolactin Digoxin Valproic Acid 07/26/18 07/26/18 04:00 04:00 WBC 9.2 RBC 3.57 Hgb 8.8 L Hct 25.2 L MCV 70.6 L MCH 24.6 L MCHC 34.9 RDW 15.3 H Plt Count 270 MPV 8.8 Gran % 78.6 H Lymph % (Auto) 10.8 L [place] % (Auto) 10.5 H Eos % (Auto) 0.0 L Baso % (Auto) 0.1 Gran # 7.19 H Lymph # (Auto) 1.0 L [place] # (Auto) 1.0 H Eos # (Auto) 0.0 Baso # (Auto) 0.01 APTT Sodium 131 L Potassium 4.1 Chloride 101 Carbon Dioxide 22 Anion Gap 12 BUN 12 Creatinine 1.2 Est GFR ( Amer) 56 Est GFR (Non-Af Amer) 46 POC Glucose (mg/dL) Random Glucose 125 H Calcium 8.1 L Phosphorus 2.8 Magnesium 2.3 H Triglycerides Cholesterol LDL Cholesterol Direct HDL Cholesterol Procalcitonin TSH 3rd Generation Prolactin Digoxin Valproic Acid Fingerstick Blood Sugar Results: 155 Review of Systems - Review of Systems Review of Systems: per HPI Assessment/Plan - Assessment and Plan (Free Text) Assessment: 57 y/o F with PMHx of COPD, etoh abuse, 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 Plan: Plan: Neuro: Pt more awake and alert this am. AxO x 1. Responds to commands and ROS by shaking head Video EEG revealed no seizures Monitor for FND with correction of hyponatremia Hx of seizures keppra/valproate per neurology recs f/u prolactin seizure precautions Consult neurology Head Ct: no acute findings Head/neck CTA: calcifications in cavernous portion of ICAs. No significant stenosis MRI brain: b/l infarcts of temporal region, with frontal/parietal involvement Cardiovascular: Tachycardic Hypertensive Currently on levophed @ 8mcg/min F/u with neurology, see if they still consider this a stroke/permissive hypertension? Maintain MAP >65 NSTEMI troponin downtrending discontinue heparin drip, risk for hemorrhagic conversion continue aspirin likely secondary from known stenotic lesion consult cardiology Pulm: Lungs CTA metabolic acidosis resolved after Na correction repeat ABG tracheostomy collar in place Does not require ventilator support Duoneb for hx of COPD Oral hygiene pulmonary toilet aspiration precautions swallow evaluation GI: Soft/non-distended /Renal Severe hyponatremia resolving, etiology unknown. D/c hypertonic saline Appears euvolemic Likely SIADH Na today 131 Continue IVF with NS goal of correction not more than 6-8 meq/24 hrs. BMP q4h Supplement lytes prn Maintain MAP>65 Strict I/Os No acute need for renal replacement therapy at this time. Avoid hypotension. Patient not on ACEI/ARB, will consider later once pt stable. Monitor daily weights and renal function with basic metabolic panel Dose meds/antibiotics for reduced GFR. Avoid fleets enema/magnesium based laxatives. Avoid nephrotoxins/NSAIDs/ iodinated contrast (unless needed emergently) Glycemic control ID: Current afebrile No leukocytosis Empric coverage for HCAP vancomycin/zosyn f/u blood/urine cultures. NG @ 24 hrs lactate wnl procalcitonin 1.98 Endo: Maintain euglycemia Monitor for seizure-like activity Heme: discontinue heparin drip H/H stable transfuse prn DVT/GI PPx: SCDs/protonix IVP Case seen, examined and discussed with attending physician, Dr. Napier <Phil Napier - Last Filed: 07/26/18 15:46> CCU Objective - Vital Signs / Intake & Output Vital Signs (Last 4 hours): Vital Signs Temp Resp BP Pulse Ox 07/26/18 12:30 151/72 H 07/26/18 12:29 97.3 F L 15 99 07/26/18 12:20 97.3 F L 30 H 100 07/26/18 12:18 97.3 F L 99 07/26/18 12:16 97.3 F L 98 07/26/18 12:15 97.3 F L 100 07/26/18 12:10 97.5 F L 18 99 07/26/18 12:00 97.5 F L 18 158/80 H 99 07/26/18 11:52 97.7 F 19 133/79 100 07/26/18 11:50 97.7 F 13 99 07/26/18 11:46 97.9 F 99 07/26/18 11:45 97.9 F 100 Intake and Output (Last 8hrs): Intake & Output 07/26/18 07/26/18 07/26/18 06:59 14:59 22:59 Intake Total 1052 Output Total 850 Balance 202 Weight 62.777 kg Intake: IV 1052 0.9 Normal Saline 600 Heparin 132 Left 290 Oral 0 Tube Feeding 0 TPN/PPN 0 Blood Product 0 Lipid 0 Albumin 0 Other 0 Output: Urine 850 Urethral (Peck) 850 Emesis 0 Oral Regurgitation 0 Other 0 Other: # Bowel Movements 0 - Medications Active Medications: Active Medications Generic Name Dose Route Start Last Admin Trade Name Freq PRN Reason Stop Dose Admin Albuterol/Ipratropium 3 ml 07/24/18 08:00 07/26/18 13:07 Duoneb 3 Mg/0.5 Mg (3 Ml) Ud IH 3 ml TIDRESP RENATO Administration Aspirin 300 mg 07/24/18 10:45 07/26/18 11:15 Aspirin Supp RC 300 mg DAILY RENATO Administration Atorvastatin Calcium 40 mg 07/26/18 17:00 Lipitor PO DIN RENATO Clopidogrel Bisulfate 75 mg 07/27/18 10:00 Plavix NG DAILY RENATO Sodium Chloride 1,000 mls @ 100 mls/hr 07/23/18 21:00 07/25/18 13:50 Sodium Chloride 0.9% IV 100 mls/hr .Q10H RENATO Administration Vancomycin HCl 1 gm in 250 mls @ 167 mls/hr 07/24/18 13:30 07/26/18 11:16 Vancomycin 1gm IVPB 167 mls/hr DAILY RENATO Administration Protocol Thiamine HCl 100 mg/ Sodium 51 mls @ 102 mls/hr 07/25/18 11:00 07/26/18 11:17 Chloride IV 07/31/18 10:01 102 mls/hr DAILY RENATO Administration Valproate Sodium 1,000 mg/ 110 mls @ 100 mls/hr 07/25/18 22:00 07/26/18 11:15 Sodium Chloride IVPB 100 mls/hr Q12 RENATO Administration NOREPINEPHRINE BIT/0.9 % NACL 4 mg in 250 mls @ 15 mls/hr 07/25/18 18:28 07/26/18 05:33 Levophed 4 Mg/ 250 Ml Ns Premixed IV 8 mcg/min .[id number] PRN 30 mls/hr TITRATE PER MD ORDER Titration Protocol 4 MCG/MIN Levetiracetam 500 mg in 100 mls @ 460 mls/hr 07/26/18 10:00 07/26/18 11:16 Keppra 500mg Ivpb IV 460 mls/hr Q12 RENATO Administration Dexmedetomidine HCl 400 mcg in 100 mls @ 3.139 mls/hr 07/26/18 14:10 Precedex 400mcg/100ml IV .Q24H PRN Agitation Protocol 0.2 MCG/KG/HR Insulin Human Regular 0 units 07/24/18 11:30 07/25/18 22:22 Humulin R Med SC 1 u ACHS RENATO Administration Protocol Lorazepam 2 mg 07/24/18 17:25 Ativan IVP Q6H PRN Anxiety Protocol Metoprolol Tartrate 5 mg 07/24/18 15:59 Lopressor IVP Q6H PRN Systolic Blood Pressure Pantoprazole Sodium 40 mg 07/24/18 10:00 07/26/18 11:17 Protonix Inj IVP 40 mg DAILY RENATO Administration - Patient Studies Lab Studies: Microbiology Studies 07/24/18 00:00 Blood Culture - Preliminary Blood NO GROWTH AFTER 48 HOURS 07/23/18 23:45 Blood Culture - Preliminary Blood NO GROWTH AFTER 48 HOURS 07/24/18 01:30 MRSA Culture (Admit) - Final Nose MRSA NOT DETECTED Lab Studies 07/26/18 07/26/18 07/25/18 Range/Units 04:00 04:00 22:03 WBC 9.2 (4.5-11.0) 10^3/uL RBC 3.57 (3.5-6.1) 10^6/uL Hgb 8.8 L (12.0-16.0) g/dL Hct 25.2 L (36.0-48.0) % MCV 70.6 L (80.0-105.0) fl MCH 24.6 L (25.0-35.0) pg MCHC 34.9 (31.0-37.0) g/dl RDW 15.3 H (11.5-14.5) % Plt Count 270 (120.0-450.0) 10^3/uL MPV 8.8 (7.0-11.0) fl Gran % 78.6 H (50.0-68.0) % Lymph % (Auto) 10.8 L (22.0-35.0) % [place] % (Auto) 10.5 H (1.0-6.0) % Eos % (Auto) 0.0 L (1.5-5.0) % Baso % (Auto) 0.1 (0.0-3.0) % Gran # 7.19 H (1.4-6.5) Lymph # (Auto) 1.0 L (1.2-3.4) [place] # (Auto) 1.0 H (0.1-0.6) Eos # (Auto) 0.0 (0.0-0.7) Baso # (Auto) 0.01 (0.0-2.0) K/mm3 APTT (25.1-36.5) Seconds Sodium 131 L (132-148) mmol/L Potassium 4.1 (3.6-5.0) mmol/L Chloride 101 (98-107) mmol/L Carbon Dioxide 22 (21-33) mmol/L Anion Gap 12 (10-20) BUN 12 (7-21) mg/dL Creatinine 1.2 (0.7-1.2) mg/dl Est GFR ( Amer) 56 Est GFR (Non-Af Amer) 46 POC Glucose (mg/dL) 155 H (65-110) mg/dL Random Glucose 125 H (70-110) mg/dL Calcium 8.1 L (8.4-10.5) mg/dL Phosphorus 2.8 (2.5-4.5) mg/dL Magnesium 2.3 H (1.7-2.2) mg/dL Triglycerides (35-160) mg/dL Cholesterol (130-200) mg/dL LDL Cholesterol Direct (0-129) mg/dL HDL Cholesterol (29-60) mg/dL Procalcitonin (0.19-0.49) NG/ML 07/25/18 07/25/18 07/25/18 Range/Units 20:45 20:45 17:02 WBC (4.5-11.0) 10^3/uL RBC (3.5-6.1) 10^6/uL Hgb (12.0-16.0) g/dL Hct (36.0-48.0) % MCV (80.0-105.0) fl MCH (25.0-35.0) pg MCHC (31.0-37.0) g/dl RDW (11.5-14.5) % Plt Count (120.0-450.0) 10^3/uL MPV (7.0-11.0) fl Gran % (50.0-68.0) % Lymph % (Auto) (22.0-35.0) % [place] % (Auto) (1.0-6.0) % Eos % (Auto) (1.5-5.0) % Baso % (Auto) (0.0-3.0) % Gran # (1.4-6.5) Lymph # (Auto) (1.2-3.4) [place] # (Auto) (0.1-0.6) Eos # (Auto) (0.0-0.7) Baso # (Auto) (0.0-2.0) K/mm3 APTT 19.2 L (25.1-36.5) Seconds Sodium 129 L (132-148) mmol/L Potassium 4.0 (3.6-5.0) mmol/L Chloride 99 (98-107) mmol/L Carbon Dioxide 21 (21-33) mmol/L Anion Gap 13 (10-20) BUN 12 (7-21) mg/dL Creatinine 1.2 (0.7-1.2) mg/dl Est GFR ( Amer) 56 Est GFR (Non-Af Amer) 46 POC Glucose (mg/dL) 143 H (65-110) mg/dL Random Glucose 137 H (70-110) mg/dL Calcium 8.2 L (8.4-10.5) mg/dL Phosphorus (2.5-4.5) mg/dL Magnesium (1.7-2.2) mg/dL Triglycerides 162 H (35-160) mg/dL Cholesterol 190 (130-200) mg/dL LDL Cholesterol Direct 116 (0-129) mg/dL HDL Cholesterol 55 (29-60) mg/dL Procalcitonin (0.19-0.49) NG/ML 07/25/18 07/25/18 Range/Units 11:26 04:00 WBC (4.5-11.0) 10^3/uL RBC (3.5-6.1) 10^6/uL Hgb (12.0-16.0) g/dL Hct (36.0-48.0) % MCV (80.0-105.0) fl MCH (25.0-35.0) pg MCHC (31.0-37.0) g/dl RDW (11.5-14.5) % Plt Count (120.0-450.0) 10^3/uL MPV (7.0-11.0) fl Gran % (50.0-68.0) % Lymph % (Auto) (22.0-35.0) % [place] % (Auto) (1.0-6.0) % Eos % (Auto) (1.5-5.0) % Baso % (Auto) (0.0-3.0) % Gran # (1.4-6.5) Lymph # (Auto) (1.2-3.4) [place] # (Auto) (0.1-0.6) Eos # (Auto) (0.0-0.7) Baso # (Auto) (0.0-2.0) K/mm3 APTT (25.1-36.5) Seconds Sodium (132-148) mmol/L Potassium (3.6-5.0) mmol/L Chloride (98-107) mmol/L Carbon Dioxide (21-33) mmol/L Anion Gap (10-20) BUN (7-21) mg/dL Creatinine (0.7-1.2) mg/dl Est GFR ( Amer) Est GFR (Non-Af Amer) POC Glucose (mg/dL) 156 H (65-110) mg/dL Random Glucose (70-110) mg/dL Calcium (8.4-10.5) mg/dL Phosphorus (2.5-4.5) mg/dL Magnesium (1.7-2.2) mg/dL Triglycerides (35-160) mg/dL Cholesterol (130-200) mg/dL LDL Cholesterol Direct (0-129) mg/dL HDL Cholesterol (29-60) mg/dL Procalcitonin 1.98 H (0.19-0.49) NG/ML Laboratory Results - last 24 hr 07/25/18 07/25/18 07/25/18 04:00 11:26 17:02 WBC RBC Hgb Hct MCV MCH MCHC RDW Plt Count MPV Gran % Lymph % (Auto) [place] % (Auto) Eos % (Auto) Baso % (Auto) Gran # Lymph # (Auto) [place] # (Auto) Eos # (Auto) Baso # (Auto) APTT Sodium Potassium Chloride Carbon Dioxide Anion Gap BUN Creatinine Est GFR ( Amer) Est GFR (Non-Af Amer) POC Glucose (mg/dL) 156 H 143 H Random Glucose Calcium Phosphorus Magnesium Triglycerides Cholesterol LDL Cholesterol Direct HDL Cholesterol Procalcitonin 1.98 H 07/25/18 07/25/18 07/25/18 20:45 20:45 22:03 WBC RBC Hgb Hct MCV MCH MCHC RDW Plt Count MPV Gran % Lymph % (Auto) [place] % (Auto) Eos % (Auto) Baso % (Auto) Gran # Lymph # (Auto) [place] # (Auto) Eos # (Auto) Baso # (Auto) APTT 19.2 L Sodium 129 L Potassium 4.0 Chloride 99 Carbon Dioxide 21 Anion Gap 13 BUN 12 Creatinine 1.2 Est GFR ( Amer) 56 Est GFR (Non-Af Amer) 46 POC Glucose (mg/dL) 155 H Random Glucose 137 H Calcium 8.2 L Phosphorus Magnesium Triglycerides 162 H Cholesterol 190 LDL Cholesterol Direct 116 HDL Cholesterol 55 Procalcitonin 07/26/18 07/26/18 04:00 04:00 WBC 9.2 RBC 3.57 Hgb 8.8 L Hct 25.2 L MCV 70.6 L MCH 24.6 L MCHC 34.9 RDW 15.3 H Plt Count 270 MPV 8.8 Gran % 78.6 H Lymph % (Auto) 10.8 L [place] % (Auto) 10.5 H Eos % (Auto) 0.0 L Baso % (Auto) 0.1 Gran # 7.19 H Lymph # (Auto) 1.0 L [place] # (Auto) 1.0 H Eos # (Auto) 0.0 Baso # (Auto) 0.01 APTT Sodium 131 L Potassium 4.1 Chloride 101 Carbon Dioxide 22 Anion Gap 12 BUN 12 Creatinine 1.2 Est GFR ( Amer) 56 Est GFR (Non-Af Amer) 46 POC Glucose (mg/dL) Random Glucose 125 H Calcium 8.1 L Phosphorus 2.8 Magnesium 2.3 H Triglycerides Cholesterol LDL Cholesterol Direct HDL Cholesterol Procalcitonin Addendum Addendum: 07/26/18 15:41 ICU Attending Addendum Patient seen and examined. Case reviewed on round with housestaff. Agree with resident note above with the following additions/exceptions: 57F admitted to the ICU with severe hypoNa and seizures also being worked up for NSTEMI and possible stroke. She has a hx of COPD, etoh abuse, and most recently dx with laryngeal Ca. She was admitted 04/29 - 05/11 where she has a laryngoscopy done to evaluate a large supra glottic and infra glottic mass. During the procedure, she coded and was intubated via tracheostomy. She remains on trach collar at home. During that admission she also had a cardiac cath done which showed single-vessel disease (no report of stent being placed). HypoNa now resolved. Likely SIADH. Mentation much improved. - On tx for seziures, EEG did not show seziure activity, neuro managing antiepileptics - MRI and CTA has discordant findings as no stroke seen on CTA however MRI does show BL infaracts - cont BP support with levophed -ASA - held heparin -stroke workup with echo w/bubble study -swallow eval, if fails will need NG tube for feeding TNI elevated stenotic lesions. On hep drip. Cont ASA . Cardio managing. held heparin because concern for hemorrghic conversion of infarcts Low grade temps, empirically over for HCAP follow cultures Replaced Mg and Phos Duonebs for COPD hx DVT ppx - SCDs , will add hep sq GI ppx on PPI Rest of care as above Phil Napier MD Pulmonary, Critical Care and Sleep Medicine Critical Care Time 31 mins
[2018-07-26] MEDS: Valproate 1,000 MG in Sodium Chloride 0.9% 100 ML IVPB SCH ×2 (11:15→21:24)
[2018-07-26] MEDS: levETIRAcetam 500mg IVPB 500 MG/100 ML BAG IV SCH ×2 (11:16→21:26)
[2018-07-26] MEDS: Vancomycin 1gm in NS 250ml 1 GM/250 ML BAG IVPB SCH (11:16)
[2018-07-26] MEDS: Thiamine 100 MG in Sodium Chloride 0.9% 50 ML IV SCH (11:17)
[2018-07-26] MEDS ORDERED: Dexmedetomidine 400mcg/100mL 400 MCG/100 ML BOTTLE IV PRN (14:10)
--- NOTE | 2018-07-26 14:41 | CP.PCM.CON ---
History of Present Illness - History of Present Illness History of Present Illness: Palliative consult requested by Dr Prema Del Valle Reason: Goals of care 57 year old female, whose past medical history includes throat cancer, HTN, IDDM,HLD, COPD, non obstructive CAD by cath, presented to the ED on 07/23/18 via EMS s/p witnessed seizure. En route to the ER, patient began seizing for 5-6 minutes. As per family, patient was complaining of a headache all day. Labs: Wbc , Hgb, Plt, Na 120, K 4.0, BUN 13, Asp Net Mvc Developer 1.2, , Tox screen negative for alcohol, EKG: NSR,diffuse ST wave depressions Head CT 07/23 and 07/24 showed no acute findings Brain MRI: acute/early sub acute MCA territory infarctions involving bilateral temporal lobes Head/Neck MRA 07/25: calcified intra cavernous segments in the internal carotid arteries Video EEG: No seizure activity PMHX: COPD, IDDM,HLD,HTN,CAD, throat cancer s/p chemo , XRT PSHx: Tracheotomy, umbilical hernia repair Social History: Former smoker 30yr /2pk smoker, past ETOH abuse, denied illicit drug use.Lives independently Family History:Non contributory Advance Care Planning: The patient has an Advanced Health Directive, a health care POA is not named. Review of Systems: As per HPI, patient is altered unable to obtain. Past Patient History - Past Medical History & Family History Past Medical History?: Yes - Past Social History Smoking Status: Former Smoker - CARDIAC Hx Cardiac Disorders: Yes (CAD) Hx Hypertension: Yes - PULMONARY Hx Chronic Obstructive Pulmonary Disease (COPD): Yes - NEUROLOGICAL Hx Neurological Disorder: No - HEENT Hx HEENT Problems: Yes (hoarseness) Hx Cataracts: Yes Other/Comment: HX: VOVAL CORD LESION - RENAL Hx Chronic Kidney Disease: No - ENDOCRINE/METABOLIC Hx Diabetes Mellitus Type 2: Yes - HEMATOLOGICAL/ONCOLOGICAL Hx Blood Disorders: Yes Hx Anemia: Yes Hx Blood Transfusions: Yes Hx Blood Transfusion Reaction: No - INTEGUMENTARY Hx Dermatological Problems: No - MUSCULOSKELETAL/RHEUMATOLOGICAL Hx Musculoskeletal Disorders: Yes Hx Osteoporosis: Yes - GASTROINTESTINAL Hx Gastrointestinal Disorders: Yes Hx Gastroesophageal Reflux: Yes HX Swallowing Problems: Yes - GENITOURINARY/GYNECOLOGICAL Hx Genitourinary Disorders: No - PSYCHIATRIC Hx Psychophysiologic Disorder: No Hx Substance Use: No - SURGICAL HISTORY Hx Cardiac Catheterization: Yes - ANESTHESIA Hx Anesthesia: Yes Hx Anesthesia Reactions: No Hx Malignant Hyperthermia: No Meds Allergies/Adverse Reactions: Allergies Allergy/AdvReac Type Severity Reaction Status Date / Time peanut Allergy Severe SWELLING Verified 07/23/18 20:49 hydromorphone [From Dilaudid] Allergy Mild ITCHING Verified 07/23/18 20:49 - Medications Medications: Current Medications Albuterol/Ipratropium (Duoneb 3 Mg/0.5 Mg (3 Ml) Ud) 3 ml IH TIDRESP [facility] Last Admin: 07/26/18 13:07 Dose: 3 ml Aspirin (Aspirin Supp) 300 mg RC DAILY [facility] Last Admin: 07/26/18 11:15 Dose: 300 mg Atorvastatin Calcium (Lipitor) 40 mg PO DIN [facility] Clopidogrel Bisulfate (Plavix) 75 mg NG DAILY [facility] Sodium Chloride (Sodium Chloride 0.9%) 1,000 mls @ 100 mls/hr IV .Q10H [facility] Last Admin: 07/25/18 13:50 Dose: 100 mls/hr Vancomycin HCl (Vancomycin 1gm) 1 gm in 250 mls @ 167 mls/hr IVPB DAILY [facility]; Protocol Last Admin: 07/26/18 11:16 Dose: 167 mls/hr Thiamine HCl 100 mg/ Sodium (Chloride) 51 mls @ 102 mls/hr IV DAILY [facility] Stop: 07/31/18 10:01 Last Admin: 07/26/18 11:17 Dose: 102 mls/hr Valproate Sodium 1,000 mg/ (Sodium Chloride) 110 mls @ 100 mls/hr IVPB Q12 [facility] Last Admin: 07/26/18 11:15 Dose: 100 mls/hr NOREPINEPHRINE BIT/0.9 % NACL (Levophed 4 Mg/ 250 Ml Ns Premixed) 4 mg in 250 mls @ 15 mls/hr IV .[id number] PRN; Protocol PRN Reason: TITRATE PER MD ORDER Last Titration: 07/26/18 05:33 Dose: 8 mcg/min, 30 mls/hr Levetiracetam (Keppra 500mg Ivpb) 500 mg in 100 mls @ 460 mls/hr IV Q12 [facility] Last Admin: 07/26/18 11:16 Dose: 460 mls/hr Dexmedetomidine HCl (Precedex 400mcg/100ml) 400 mcg in 100 mls @ 3.139 mls/hr IV .Q24H PRN; Protocol PRN Reason: Agitation Insulin Human Regular (Humulin R Med) 0 units SC ACHS [facility]; Protocol Last Admin: 07/25/18 22:22 Dose: 1 u Lorazepam (Ativan) 2 mg IVP Q6H PRN; Protocol PRN Reason: Anxiety Metoprolol Tartrate (Lopressor) 5 mg IVP Q6H PRN PRN Reason: Systolic Blood Pressure Pantoprazole Sodium (Protonix Inj) 40 mg IVP DAILY [facility] Last Admin: 07/26/18 11:17 Dose: 40 mg Results - Vital Signs Recent Vital Signs: Last Vital Signs Temp 97.3 F L 07/26/18 12:29 Pulse 95 H 07/26/18 11:29 Resp 15 07/26/18 12:29 BP 151/72 H 07/26/18 12:30 Pulse Ox 99 07/26/18 12:29 - Labs Result Diagrams: 07/26/18 04:00 07/26/18 04:00 Labs: Laboratory Results - last 24 hr 07/25/18 07/25/18 07/25/18 04:00 11:26 13:23 WBC RBC Hgb Hct MCV MCH MCHC RDW Plt Count MPV Gran % Lymph % (Auto) [place] % (Auto) Eos % (Auto) Baso % (Auto) Gran # Lymph # (Auto) [place] # (Auto) Eos # (Auto) Baso # (Auto) APTT Sodium Potassium Chloride Carbon Dioxide Anion Gap BUN Creatinine Est GFR ( Amer) Est GFR (Non-Af Amer) POC Glucose (mg/dL) 156 H Random Glucose Calcium Phosphorus Magnesium Triglycerides Cholesterol LDL Cholesterol Direct HDL Cholesterol Procalcitonin 1.98 H Valproic Acid 60 07/25/18 07/25/18 07/25/18 17:02 20:45 20:45 WBC RBC Hgb Hct MCV MCH MCHC RDW Plt Count MPV Gran % Lymph % (Auto) [place] % (Auto) Eos % (Auto) Baso % (Auto) Gran # Lymph # (Auto) [place] # (Auto) Eos # (Auto) Baso # (Auto) APTT 19.2 L Sodium 129 L Potassium 4.0 Chloride 99 Carbon Dioxide 21 Anion Gap 13 BUN 12 Creatinine 1.2 Est GFR ( Amer) 56 Est GFR (Non-Af Amer) 46 POC Glucose (mg/dL) 143 H Random Glucose 137 H Calcium 8.2 L Phosphorus Magnesium Triglycerides 162 H Cholesterol 190 LDL Cholesterol Direct 116 HDL Cholesterol 55 Procalcitonin Valproic Acid 07/25/18 07/26/18 07/26/18 22:03 04:00 04:00 WBC 9.2 RBC 3.57 Hgb 8.8 L Hct 25.2 L MCV 70.6 L MCH 24.6 L MCHC 34.9 RDW 15.3 H Plt Count 270 MPV 8.8 Gran % 78.6 H Lymph % (Auto) 10.8 L [place] % (Auto) 10.5 H Eos % (Auto) 0.0 L Baso % (Auto) 0.1 Gran # 7.19 H Lymph # (Auto) 1.0 L [place] # (Auto) 1.0 H Eos # (Auto) 0.0 Baso # (Auto) 0.01 APTT Sodium 131 L Potassium 4.1 Chloride 101 Carbon Dioxide 22 Anion Gap 12 BUN 12 Creatinine 1.2 Est GFR ( Amer) 56 Est GFR (Non-Af Amer) 46 POC Glucose (mg/dL) 155 H Random Glucose 125 H Calcium 8.1 L Phosphorus 2.8 Magnesium 2.3 H Triglycerides Cholesterol LDL Cholesterol Direct HDL Cholesterol Procalcitonin Valproic Acid Assessment & Plan - Assessment and Plan (Free Text) Assessment: 57 year old female with history of laryngeal cancer, COPD, CAD who was brought in by EMS after suffering a seizure at home She is admitted with AMS, hyponatremia, hypotension, metabolic acidosis, N STEMI I spoke with patients sister Charlotte Cummings via phone She e mailed copy of patient's Advanced Directive. She does not want to be resuscitated, nor does she want dialysis. The patient did not appoint a health care surrogate. Sho states that the patients daughters can make decisions regarding health needs. Charlotte indicated that family will work work together if need be. Charlotte states hat her sister was receiving chemotherapy at a practice in [place]. She was also receiving XRT here in [facility] [place]. Charlotte states that the patient was very independent and was tolerating her treatments well. Family hoping that she will rebound from current situation and be able to resume treatment. Charlotte is appreciative of palliative interaction. Time spent with family member in goals of care and advance care planning , 15 mi nutes Plan: Goals of care and advance care planning Cardio/N STEMI: maintain MAP> 65. Continue ASA,Norepinephrine, Plavix. cardiology following Seizures: Keppra ,Valproate, seizure precautions. Neuro following Agitation: Precedex Hyponatremia:, Continue NS IVF's. Renal following IDDM: Fingersticks , Humulin as needed
--- NOTE | 2018-07-26 16:00 | PN ---
DATE: 07/26/2018 CARDIOLOGY FOLLOWUP COVERING FOR: Avel Pettit MD. SUBJECTIVE: The patient is currently on trach collar and currently on Levophed infusion at 8 mcg per minute. PHYSICAL EXAMINATION: VITAL SIGNS: Blood pressure 151/72, heart rate 95, temperature 97.9. HEENT: Pale conjunctivae. CHEST: Minimal rhonchi. HEART: S1 and S2, regular. EXTREMITIES: No edema. Chest x-ray revealed right lower lobe infiltrate. Head and neck CT angio, calcified cavernous segment of the internal carotid arteries. Brain MRI, late acute/early subacute mid cerebral artery territory infarct involving the bilateral temporal lobes and to a lesser extent the frontal and parietal cortex. EKG revealed sinus tachycardia rate of 140, LVH, left atrial enlargement, anterior infarct age indeterminate, T wave abnormality, consider inferior ischemia. LABORATORY DATA: Hemoglobin and hematocrit of 8.8 and 25.2. Today's white count and platelet count are within normal limit. Today's SMA-7 is within normal limits except for sodium of 131 and glucose 125. Echocardiography study in 04/2018 revealed normal left ventricular systolic function and mild mitral insufficiency. Cardiac catheterization performed in 04/2018 revealed single-vessel coronary artery disease with normal left ventricular systolic function and PCI was recommended at that time to the 90% mid LAD disease. ASSESSMENT: 1. Bilateral mid cerebral artery territory infarct. 2. Seizure activity. 3. Hypotension. RECOMMENDATIONS: Continue current aspirin, IV Keppra. Continue Lipitor, Lopressor, and Plavix, if Plavix is approved by the neurologist. Heparin was discontinued. In the meantime, I will discontinue digitalis. Yoshi Acharya MD
--- NOTE | 2018-07-26 17:27 | CARD ---
APPROVED REPORT Date of service: 07/26/2018 EXAM: Two-dimensional and M-mode echocardiogram with Doppler and color Doppler. INDICATION R/O PFO...BL CEREBRAL INFARCTS 2D DIMENSIONS Left Atrium (2D)3.6 (1.6-4.0cm)IVSd1.2 (0.7-1.1cm) LVDd3.8 (3.9-5.9cm)PWd1.4 (0.7-1.1cm) LVDs2.5 (2.5-4.0cm)FS (%) 32.9 % LVEF (%)62.2 (>50%) M-Mode DIMENSIONS Aortic Root3.10 (2.2-3.7cm)Aortic Cusp Exc.1.60 (1.5-2.0cm) Aortic Valve AoV Peak Lssfrjyz730.0cm/Roxi Peak GR.12mmHg Mitral Valve MV E Bwijazgz59.5cm/sMV A Cjdmwswo95.3cm/sE/A ratio0.7 TDI Lateral E' Peak V6.24cm/sMedial E' Peak V5.36cm/sE/Lateral E'10.0 E/Medial E'11.7 Pulmonary Valve PV Peak Gceczbxo973.0cm/sPV Peak Grad.9mmHg Tricuspid Valve TR Peak [id number]/sRAP [id number] Peak Gr.28mmHg [id number] LEFT VENTRICLE The left ventricle is normal size. There is mild concentric left ventricular hypertrophy. The left ventricular function is normal. The left ventricular ejection fraction is within the normal range. Ej.Fr: 60-65%. Tissue Doppler imaging reveals mild left ventricular diastolic dysfunction. RIGHT VENTRICLE The right ventricle is normal size. The right ventricular systolic function is normal. ATRIA The left atrium size is normal. The right atrium size is normal. AORTIC VALVE Thickened Aortic Valve but Opening is Normal. MITRAL VALVE Mitral Leaflets are Thickened But Valve Opening is Normal. Mitral regurgitation is trace. TRICUSPID VALVE The tricuspid valve is normal in structure. There is trace tricuspid regurgitation. RVSP: 38mm Hg.Minimal Pulmonary Hypertension. PERICARDIAL EFFUSION In Some views very small Echo Free Space Seen Suggestive of a very small Pericardial Effusion. <Conclusion> The left ventricle is normal size. There is mild concentric left ventricular hypertrophy. The left ventricular function is normal. The left ventricular ejection fraction is within the normal range. Ej.Fr: 60-65%. Tissue Doppler imaging reveals mild left ventricular diastolic dysfunction. The right ventricle is normal size. The right ventricular systolic function is normal. The left atrium size is normal. The right atrium size is normal. Thickened Aortic Valve but Opening is Normal. Mitral Leaflets are Thickened But Valve Opening is Normal. Mitral regurgitation is trace. The tricuspid valve is normal in structure. There is trace tricuspid regurgitation. RVSP: 38mm Hg.Minimal Pulmonary Hypertension. In Some views very small Echo Free Space Seen Suggestive of a very small Pericardial Effusion.
[2018-07-26] MEDS: Sodium Chloride 0.9% 1,000 ML IV SCH (18:21)
[2018-07-27 06:49] LABS: BASO # 0.01 K/mm3 (0.0-2.0); BASO % 0.2 % (0.0-3.0); EOS % 0.3 % (1.5-5.0); GRAN # 4.77 (1.4-6.5); HEMOGLOBIN 8.3 g/dL (12.0-16.0); LYMPH # 0.8 (1.2-3.4); LYMPH % 12.3 % (22.0-35.0); MEAN CELL VOLUME 71.5 fl (80.0-105.0); MEAN CORPUSCULAR HEMOGLOBIN 24.4 pg (25.0-35.0); MEAN CORPUSCULAR HGB CONC 34.2 g/dl (31.0-37.0); MONO # 0.6 (0.1-0.6); MONO % 10.2 % (1.0-6.0); RBC 3.4 10^6/uL (3.5-6.1); RED CELL DISTRIBUTION WIDTH 15.5 % (11.5-14.5); WHITE BLOOD COUNT 6.2 10^3/uL (4.5-11.0)
[2018-07-27 07:16] LABS: BLOOD UREA NITROGEN 10 mg/dL (7-21); CALCIUM 8.6 mg/dL (8.4-10.5); GFR NON-AFRICAN AMERICAN 57
[2018-07-27] MEDS: Albuterol-Ipratrop 3 mg / 0.5 (3 ml) UD IH SCH ×3 (08:08→21:20)
[2018-07-27] MEDS: Insulin Reg-MEDIUM-Coverage SC SCH ×4 (09:02→22:12)
--- NOTE | 2018-07-27 10:29 | CP.PCM.PN ---
Subjective - Date & Time of Evaluation Date of Evaluation: 07/27/18 Time of Evaluation: 10:28 - Subjective Subjective: Nephrology Consultation Note: Assessment: critical Hyponatremia hypo-osmolar ? etiology, likely pre-renal/hypovolemia as better with NS seizure, AMS HAGMA due to starvation ketoacidosis acute respi and metabolic acidosis HTN emergency CA throat, DM, anemia NSTEMI CKD 2 acute CVA Plan No acute need for renal replacement therapy at this time. . Hypertension control with meds as ordered. Maintain hemodynamics stable. Avoid hypotension. Monitor Input/Output, daily weights and renal function with basic metabolic panel continue with IVF as NS. goal of correction not more than 6-8 meq/24 hrs. supplements lytes as needed respi support as per ICU. started thiamine supplements Dose meds/antibiotics for improved GFR. Glycemic control Further work up/management as per primary team Thanks for allowing me to participate in care of your patient. Will sign off and follow patient with you further PRN basis. Please call if any Qs. had d/w team Dr Jong Dennis Office: [phone] source of Info; EMR Chief Complaint; seizure Reason for consult: hyponatremia HPI: Pt is a 57 F with hx of diabetes Mellitus ( years), hypertension (years) CA throat, seizure presented with complaints of seizure and AMS. pt was admitted to ICU and renal consult for hyponatremia. she received hypertonic saline overnight no known OTC/herbal meds or NSAIDs No recent iodinated contrast exposure. No obvious episodes of low BP. baseline cr 1.1-1.2 suggestive of CKD 2 ROS: unable to obtain from pt Physical Examination: General Appearance: not responsive ill appearing Vitals reviewed and noted as below Head; Atraumatic, normocephalic ENT: unable EYES: Pupils are equal, round and reactive to light accommodation. Eye muscles and extraocular movement intact. Sclera is anicteric. Neck; had trach, no thyromegaly or bruit Lungs: normal respiratory rate/effort. Breath sounds bilateral diminished at bases Heart: normal rate. s1s2 normal. No rub or gallop. Extremities: no edema. No varicose veins Neurological: Patient is unresponsive to commands or stimuli Skin: Warm and dry. Normal turgor. No rash. Palpitation: Normal elasticity for age Abdomen: Abdomen is soft. Bowel sounds +. There is no abdominal tenderness, no guarding/rigidity no organomegaly Psych: unable MSK: no joint tenderness or swelling. Digits and nails normal, no deformity : kidney or bladder not palpable Labs/imaging reviewed. Past medical history, past surgical history, family history, social history, allergy reviewed and noted as below Family hx: no hx of CKD. Rest non-contributory Objective - Vital Signs/Intake and Output Vital Signs (last 24 hours): Temp Pulse Resp BP Pulse Ox 97.3 F L 98 H 24 127/58 L 100 07/27/18 08:00 07/27/18 08:40 07/27/18 08:40 07/27/18 08:30 07/27/18 08:40 Intake and Output: 07/27/18 07/27/18 06:59 18:59 Intake Total 1714 Output Total 700 Balance 1014 - Medications Medications: Current Medications Albuterol/Ipratropium (Duoneb 3 Mg/0.5 Mg (3 Ml) Ud) 3 ml IH TIDRESP [facility] Last Admin: 07/27/18 08:08 Dose: 3 ml Aspirin (Aspirin Supp) 300 mg RC DAILY [facility] Last Admin: 07/26/18 11:15 Dose: 300 mg Atorvastatin Calcium (Lipitor) 40 mg PO DIN [facility] Last Admin: 07/26/18 17:00 Dose: 40 mg Clopidogrel Bisulfate (Plavix) 75 mg NG DAILY [facility] Thiamine HCl 100 mg/ Sodium (Chloride) 51 mls @ 102 mls/hr IV DAILY [facility] Stop: 07/31/18 10:01 Last Admin: 07/26/18 11:17 Dose: 102 mls/hr Valproate Sodium 1,000 mg/ (Sodium Chloride) 110 mls @ 100 mls/hr IVPB Q12 [facility] Last Admin: 07/26/18 21:24 Dose: 100 mls/hr NOREPINEPHRINE BIT/0.9 % NACL (Levophed 4 Mg/ 250 Ml Ns Premixed) 4 mg in 250 mls @ 15 mls/hr IV .[id number] PRN; Protocol PRN Reason: TITRATE PER MD ORDER Last Titration: 07/27/18 06:11 Dose: Infused Levetiracetam (Keppra 500mg Ivpb) 500 mg in 100 mls @ 460 mls/hr IV Q12 [facility] Last Admin: 07/26/18 21:26 Dose: 460 mls/hr Insulin Human Regular (Humulin R Med) 0 units SC ACHS [facility]; Protocol Last Admin: 07/27/18 09:02 Dose: Not Given Lorazepam (Ativan) 2 mg IVP Q6H PRN; Protocol PRN Reason: Anxiety Pantoprazole Sodium (Protonix Inj) 40 mg IVP DAILY [facility] Last Admin: 07/26/18 11:17 Dose: 40 mg - Labs Labs: 07/27/18 06:00 07/27/18 06:00 PT 10.5 SECONDS (9.4-12.5) 07/23/18 21:34 INR 0.92 07/23/18 21:34 APTT 19.2 Seconds (25.1-36.5) L 07/25/18 20:45
--- NOTE | 2018-07-27 10:37 | RAD ---
Date of service: 07/26/2018 HISTORY: picc line COMPARISON: 07/24/2018. FINDINGS: The right PICC line terminates in the SVC. The nasogastric tube terminates in the stomach. There is stable position of the tracheostomy tube. LUNGS: The lungs are well inflated. There is subsegmental atelectasis in the right lower lobe. The left lung is clear. There is lucency in the right apex which is likely artifactual. PLEURA: No pleural effusions or pneumothorax. CARDIOVASCULAR: The heart is normal in size. No aortic atherosclerotic calcification present. OSSEOUS STRUCTURES: Within normal limits for the patient's age. VISUALIZED UPPER ABDOMEN: Normal. OTHER FINDINGS: None. IMPRESSION: Right PICC line terminates in the SVC. Right apical lucency is likely artifactual however repeat PA radiograph is recommended to exclude pneumothorax. Stable position of tracheostomy tube. Nasogastric tube terminates in the stomach. Right basilar atelectasis.
--- NOTE | 2018-07-27 11:48 | CP.CCUPN ---
<Berna Dan - Last Filed: 07/27/18 12:16> CCU Subjective - Physician Review Subjective (Free Text): CRITICAL CARE PROGRESS NOTE FOR DR. RATNA Dan PGY-1 Pt seen and examined at bedside this am. She had a small amount of blood around tracheostomy site, but no signs of respiratory distress or active bleeding. No acute nursing events overnight. She is arousable, lethargic but responds to commands awakens upon verbal/tactile stimulation. She shakes her head to 12 point ROS questions. CCU Objective - Vital Signs / Intake & Output Vital Signs (Last 4 hours): Vital Signs Temp Pulse Resp BP Pulse Ox 07/27/18 08:40 98 H 24 100 07/27/18 08:30 93 H 24 127/58 L 100 07/27/18 08:27 88 24 137/64 100 07/27/18 08:20 87 23 100 07/27/18 08:10 83 21 92 L 07/27/18 08:00 97.3 F L 83 19 139/68 100 07/27/18 07:50 82 21 100 Intake and Output (Last 8hrs): Intake & Output 07/26/18 07/27/18 07/27/18 22:59 06:59 14:59 Intake Total 1170 1714 Output Total 250 700 Balance 920 1014 Weight 63.503 kg Intake: IV 1170 1714 0.9 Normal Saline 1200 Right Upper arm 1100 364 Oral 0 Tube Feeding 0 TPN/PPN 0 Blood Product 0 Lipid 0 Albumin 0 Other 0 Output: Urine 250 700 Urethral (Peck) 250 Urine, Voided 0 700 Emesis 0 Oral Regurgitation 0 Other 0 Other: # Bowel Movements 0 0 - Physical Exam Head: Positive for: Atraumatic, Normocephalic Pupils: Positive for: PERRL Extroacular Muscles: Positive for: EOMI Conjunctiva: Positive for: Normal Mouth: Positive for: Moist Mucous Membranes Neck: Positive for: Normal Range of Motion, Other (Tracheotomy noted) Respiratory/Chest: Positive for: Clear to Auscultation, Good Air Exchange. Negative for: Respiratory Distress, Accessory Muscle Use Cardiovascular: Positive for: Regular Rate and Rhythm, Normal S1, S2. Negative for: Murmurs Abdomen: Negative for: Distention, Peritoneal Signs Back: Positive for: Normal Inspection Upper Extremity: Positive for: Normal Inspection. Negative for: Cyanosis, Edema Lower Extremity: Positive for: Normal Inspection. Negative for: Edema Neurological: Positive for: GCS=15, CN II-XII Intact Skin: Positive for: Warm, Dry, Normal Color. Negative for: Rashes Psychiatric: Positive for: Normal Insight, Normal Concentration, Other (unresponsive, but moving extremities) - Medications Active Medications: Active Medications Generic Name Dose Route Start Last Admin Trade Name Freq PRN Reason Stop Dose Admin Albuterol/Ipratropium 3 ml 07/24/18 08:00 07/27/18 08:08 Duoneb 3 Mg/0.5 Mg (3 Ml) Ud IH 3 ml TIDRESP RENATO Administration Aspirin 300 mg 07/24/18 10:45 07/26/18 11:15 Aspirin Supp RC 300 mg DAILY RENATO Administration Atorvastatin Calcium 40 mg 07/26/18 17:00 07/26/18 17:00 Lipitor PO 40 mg DIN RENATO Administration Clopidogrel Bisulfate 75 mg 07/27/18 10:00 Plavix NG DAILY RENATO Heparin Sodium (Porcine) 5,000 units 07/27/18 14:00 Heparin SC Q8 RENATO Protocol Thiamine HCl 100 mg/ Sodium 51 mls @ 102 mls/hr 07/25/18 11:00 07/26/18 11:17 Chloride IV 07/31/18 10:01 102 mls/hr DAILY RENATO Administration Valproate Sodium 1,000 mg/ 110 mls @ 100 mls/hr 07/25/18 22:00 07/26/18 21:24 Sodium Chloride IVPB 100 mls/hr Q12 RENATO Administration NOREPINEPHRINE BIT/0.9 % NACL 4 mg in 250 mls @ 15 mls/hr 07/25/18 18:28 07/27/18 06:11 Levophed 4 Mg/ 250 Ml Ns Premixed IV Infused .[id number] PRN Titration TITRATE PER MD ORDER Protocol 4 MCG/MIN Levetiracetam 500 mg in 100 mls @ 460 mls/hr 07/26/18 10:00 07/26/18 21:26 Keppra 500mg Ivpb IV 460 mls/hr Q12 RENATO Administration Insulin Human Regular 0 units 07/24/18 11:30 07/27/18 09:02 Humulin R Med SC Not Given ACHS RENATO Protocol Lorazepam 2 mg 07/24/18 17:25 Ativan IVP Q6H PRN Anxiety Protocol Pantoprazole Sodium 40 mg 07/24/18 10:00 07/26/18 11:17 Protonix Inj IVP 40 mg DAILY RENATO Administration - Patient Studies Lab Studies: Microbiology Studies 07/24/18 00:00 Blood Culture - Preliminary Blood NO GROWTH AFTER 3 DAYS 07/23/18 23:45 Blood Culture - Preliminary Blood NO GROWTH AFTER 3 DAYS Lab Studies 07/27/18 07/27/18 07/26/18 Range/Units 06:00 06:00 21:28 WBC 6.2 D (4.5-11.0) 10^3/uL RBC 3.40 L (3.5-6.1) 10^6/uL Hgb 8.3 L (12.0-16.0) g/dL Hct 24.3 L (36.0-48.0) % MCV 71.5 L (80.0-105.0) fl MCH 24.4 L (25.0-35.0) pg MCHC 34.2 (31.0-37.0) g/dl RDW 15.5 H (11.5-14.5) % Plt Count 227 (120.0-450.0) 10^3/uL MPV 9.0 (7.0-11.0) fl Gran % 77.0 H (50.0-68.0) % Lymph % (Auto) 12.3 L (22.0-35.0) % [place] % (Auto) 10.2 H (1.0-6.0) % Eos % (Auto) 0.3 L (1.5-5.0) % Baso % (Auto) 0.2 (0.0-3.0) % Gran # 4.77 (1.4-6.5) Lymph # (Auto) 0.8 L (1.2-3.4) [place] # (Auto) 0.6 (0.1-0.6) Eos # (Auto) 0.0 (0.0-0.7) Baso # (Auto) 0.01 (0.0-2.0) K/mm3 Sodium 139 (132-148) mmol/L Potassium 4.0 (3.6-5.0) mmol/L Chloride 111 H (98-107) mmol/L Carbon Dioxide 22 (21-33) mmol/L Anion Gap 10 (10-20) BUN 10 (7-21) mg/dL Creatinine 1.0 (0.7-1.2) mg/dl Est GFR ( Amer) > 60 Est GFR (Non-Af Amer) 57 POC Glucose (mg/dL) 129 H (65-110) mg/dL Random Glucose 103 (70-110) mg/dL Calcium 8.6 (8.4-10.5) mg/dL Phosphorus 2.8 (2.5-4.5) mg/dL Magnesium 1.9 (1.7-2.2) mg/dL Homocysteine (4.7-12.6) umol/L Digoxin (0.8-2.0) ng/mL 07/26/18 07/26/18 07/26/18 Range/Units 20:45 17:51 12:20 WBC (4.5-11.0) 10^3/uL RBC (3.5-6.1) 10^6/uL Hgb (12.0-16.0) g/dL Hct (36.0-48.0) % MCV (80.0-105.0) fl MCH (25.0-35.0) pg MCHC (31.0-37.0) g/dl RDW (11.5-14.5) % Plt Count (120.0-450.0) 10^3/uL MPV (7.0-11.0) fl Gran % (50.0-68.0) % Lymph % (Auto) (22.0-35.0) % [place] % (Auto) (1.0-6.0) % Eos % (Auto) (1.5-5.0) % Baso % (Auto) (0.0-3.0) % Gran # (1.4-6.5) Lymph # (Auto) (1.2-3.4) [place] # (Auto) (0.1-0.6) Eos # (Auto) (0.0-0.7) Baso # (Auto) (0.0-2.0) K/mm3 Sodium (132-148) mmol/L Potassium (3.6-5.0) mmol/L Chloride (98-107) mmol/L Carbon Dioxide (21-33) mmol/L Anion Gap (10-20) BUN (7-21) mg/dL Creatinine (0.7-1.2) mg/dl Est GFR ( Amer) Est GFR (Non-Af Amer) POC Glucose (mg/dL) 126 H (65-110) mg/dL Random Glucose (70-110) mg/dL Calcium (8.4-10.5) mg/dL Phosphorus (2.5-4.5) mg/dL Magnesium (1.7-2.2) mg/dL Homocysteine 12.2 (4.7-12.6) umol/L Digoxin 0.8 (0.8-2.0) ng/mL Laboratory Results - last 24 hr 07/26/18 07/26/18 07/26/18 12:20 17:51 20:45 WBC RBC Hgb Hct MCV MCH MCHC RDW Plt Count MPV Gran % Lymph % (Auto) [place] % (Auto) Eos % (Auto) Baso % (Auto) Gran # Lymph # (Auto) [place] # (Auto) Eos # (Auto) Baso # (Auto) Sodium Potassium Chloride Carbon Dioxide Anion Gap BUN Creatinine Est GFR ( Amer) Est GFR (Non-Af Amer) POC Glucose (mg/dL) 126 H Random Glucose Calcium Phosphorus Magnesium Homocysteine 12.2 Digoxin 0.8 07/26/18 07/27/18 07/27/18 21:28 06:00 06:00 WBC 6.2 D RBC 3.40 L Hgb 8.3 L Hct 24.3 L MCV 71.5 L MCH 24.4 L MCHC 34.2 RDW 15.5 H Plt Count 227 MPV 9.0 Gran % 77.0 H Lymph % (Auto) 12.3 L [place] % (Auto) 10.2 H Eos % (Auto) 0.3 L Baso % (Auto) 0.2 Gran # 4.77 Lymph # (Auto) 0.8 L [place] # (Auto) 0.6 Eos # (Auto) 0.0 Baso # (Auto) 0.01 Sodium 139 Potassium 4.0 Chloride 111 H Carbon Dioxide 22 Anion Gap 10 BUN 10 Creatinine 1.0 Est GFR ( Amer) > 60 Est GFR (Non-Af Amer) 57 POC Glucose (mg/dL) 129 H Random Glucose 103 Calcium 8.6 Phosphorus 2.8 Magnesium 1.9 Homocysteine Digoxin Fingerstick Blood Sugar Results: 109 Review of Systems - Review of Systems Review of Systems: per HPI Assessment/Plan - Assessment and Plan (Free Text) Assessment: 57 y/o F with PMHx of COPD, etoh abuse, 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 Plan: Neuro: Pt more awake and alert this am. AxO x 1. Responds to commands and ROS by shaking head Video EEG revealed no seizures Na wnl now Hx of seizures keppra/valproate per neurology recs Ativan 2mg q6h f/u prolactin seizure precautions Consult neurology Head Ct: no acute findings Head/neck CTA: calcifications in cavernous portion of ICAs. No significant stenosis MRI brain: b/l infarcts of temporal region, with frontal/parietal involvement Cardiovascular: Tachycardic Permissive hypertension: discontinue levophed today Currently on levophed @ 8mcg/min F/u with neurology, see if they still consider this a stroke/permissive hypertension? Maintain MAP >65 NSTEMI troponin downtrending discontinue heparin drip, risk for hemorrhagic conversion continue aspirin, plavix, atorvastatin likely secondary from known stenotic lesion consult cardiology Pulm: Lungs CTA metabolic acidosis resolved after Na correction repeat ABG tracheostomy collar in place Does not require ventilator support Duoneb for hx of COPD Oral hygiene pulmonary toilet aspiration precautions swallow evaluation GI: Soft/non-distended Start tube-feedings today /Renal Hyponatremia resolved. D/c NS fluids Appears euvolemic Likely SIADH Na today 139 Supplement lytes prn Maintain MAP>65 Strict I/Os No acute need for renal replacement therapy at this time. Avoid hypotension. Patient not on ACEI/ARB, will consider later once pt stable. Monitor daily weights and renal function with basic metabolic panel Dose meds/antibiotics for reduced GFR. Avoid fleets enema/magnesium based laxatives. Avoid nephrotoxins/NSAIDs/ iodinated contrast (unless needed emergently) Glycemic control ID: Current afebrile No leukocytosis Discontinue antibiotics blood/urine culture negative lactate wnl procalcitonin 1.98 Endo: Maintain euglycemia Monitor for seizure-like activity Heme: discontinue heparin drip H/H stable transfuse prn DVT/GI PPx: Hep SC/protonix IVP Dispo: Pt's mental status has improved since admission. Her vital are stable, she is hemodynamically stable. Her hyponatremia has resolved. She has been titrated off of precedex and vasopressors. She no longer requires ICU care. She is stable to discharge to telemetry floor. Case seen, examined and discussed with attending physician, Dr. Napier <Phil Napier - Last Filed: 07/27/18 12:17> CCU Subjective - Physician Review Events Since Last Encounter (Free Text): 07/27/18 12:16 ---- ICU Attending Addendum Patient seen and examined. Case reviewed on round with housestaff. Agree with resident note above with the following additions/exceptions: 57F admitted to the ICU with severe hypoNa and seizures also being worked up for NSTEMI and possible stroke. She has a hx of COPD, etoh abuse, and most recently dx with laryngeal Ca. She was admitted 04/29 - 05/11 where she has a laryngoscopy done to evaluate a large supra glottic and infra glottic mass. During the procedure, she coded and was intubated via tracheostomy. She remains on trach collar at home. During that admission she also had a cardiac cath done which showed single-vessel disease (no report of stent being placed). HypoNa now resolved. Likely SIADH. Mentation much improved. D/c IV fluids On tx for seziures, EEG did not show seziure activity, neuro managing anti epileptics MRI and CTA has discordant findings as no stroke seen on CTA however MRI does show BL infaracts. Is on ASA and Statin. D/c levophed stroke workup with echo w/bubble study PENDING (was not completed?) NSTEMI with known stenotic lesions. Cont ASA, plavix started as per cards. Cardio managing. Dig was d/c. Cuffed trach on collar; Duonebs for COPD hx Started tube feeding today No signs of infection. D/C abx today. Replaced Mg and Phos DVT ppx - hep sq GI ppx on PPI Rest of care as above Phil Napier MD Pulmonary, Critical Care and Sleep Medicine Critical Care Time 31 mins CCU Objective - Vital Signs / Intake & Output Vital Signs (Last 4 hours): Vital Signs Pulse Resp BP Pulse Ox 07/27/18 08:40 98 H 24 100 07/27/18 08:30 93 H 24 127/58 L 100 07/27/18 08:27 88 24 137/64 100 07/27/18 08:20 87 23 100 Intake and Output (Last 8hrs): Intake & Output 07/26/18 07/27/18 07/27/18 22:59 06:59 14:59 Intake Total 1170 1714 Output Total 250 700 Balance 920 1014 Weight 63.503 kg Intake: IV 1170 1714 0.9 Normal Saline 1200 Right Upper arm 1100 364 Oral 0 Tube Feeding 0 TPN/PPN 0 Blood Product 0 Lipid 0 Albumin 0 Other 0 Output: Urine 250 700 Urethral (Peck) 250 Urine, Voided 0 700 Emesis 0 Oral Regurgitation 0 Other 0 Other: # Bowel Movements 0 0 - Medications Active Medications: Active Medications Generic Name Dose Route Start Last Admin Trade Name Freq PRN Reason Stop Dose Admin Albuterol/Ipratropium 3 ml 07/24/18 08:00 07/27/18 08:08 Duoneb 3 Mg/0.5 Mg (3 Ml) Ud IH 3 ml TIDRESP RENATO Administration Aspirin 300 mg 07/24/18 10:45 07/26/18 11:15 Aspirin Supp RC 300 mg DAILY RENATO Administration Atorvastatin Calcium 40 mg 07/26/18 17:00 07/26/18 17:00 Lipitor PO 40 mg DIN RENATO Administration Clopidogrel Bisulfate 75 mg 07/27/18 10:00 Plavix NG DAILY RENATO Heparin Sodium (Porcine) 5,000 units 07/27/18 14:00 Heparin SC Q8 [facility] Protocol Thiamine HCl 100 mg/ Sodium 51 mls @ 102 mls/hr 07/25/18 11:00 07/26/18 11:17 Chloride IV 07/31/18 10:01 102 mls/hr DAILY RENATO Administration Valproate Sodium 1,000 mg/ 110 mls @ 100 mls/hr 07/25/18 22:00 07/26/18 21:24 Sodium Chloride IVPB 100 mls/hr Q12 RENATO Administration Levetiracetam 500 mg in 100 mls @ 460 mls/hr 07/26/18 10:00 07/26/18 21:26 Keppra 500mg Ivpb IV 460 mls/hr Q12 RENATO Administration Insulin Human Regular 0 units 07/24/18 11:30 07/27/18 09:02 Humulin R Med SC Not Given ACHS RENATO Protocol Lorazepam 2 mg 07/24/18 17:25 Ativan IVP Q6H PRN Anxiety Protocol Pantoprazole Sodium 40 mg 07/24/18 10:00 07/26/18 11:17 Protonix Inj IVP 40 mg DAILY RENATO Administration - Patient Studies Lab Studies: Microbiology Studies 07/24/18 00:00 Blood Culture - Preliminary Blood NO GROWTH AFTER 3 DAYS 07/23/18 23:45 Blood Culture - Preliminary Blood NO GROWTH AFTER 3 DAYS Lab Studies 07/27/18 07/27/18 07/26/18 Range/Units 06:00 06:00 21:28 WBC 6.2 D (4.5-11.0) 10^3/uL RBC 3.40 L (3.5-6.1) 10^6/uL Hgb 8.3 L (12.0-16.0) g/dL Hct 24.3 L (36.0-48.0) % MCV 71.5 L (80.0-105.0) fl MCH 24.4 L (25.0-35.0) pg MCHC 34.2 (31.0-37.0) g/dl RDW 15.5 H (11.5-14.5) % Plt Count 227 (120.0-450.0) 10^3/uL MPV 9.0 (7.0-11.0) fl Gran % 77.0 H (50.0-68.0) % Lymph % (Auto) 12.3 L (22.0-35.0) % [place] % (Auto) 10.2 H (1.0-6.0) % Eos % (Auto) 0.3 L (1.5-5.0) % Baso % (Auto) 0.2 (0.0-3.0) % Gran # 4.77 (1.4-6.5) Lymph # (Auto) 0.8 L (1.2-3.4) [place] # (Auto) 0.6 (0.1-0.6) Eos # (Auto) 0.0 (0.0-0.7) Baso # (Auto) 0.01 (0.0-2.0) K/mm3 Sodium 139 (132-148) mmol/L Potassium 4.0 (3.6-5.0) mmol/L Chloride 111 H (98-107) mmol/L Carbon Dioxide 22 (21-33) mmol/L Anion Gap 10 (10-20) BUN 10 (7-21) mg/dL Creatinine 1.0 (0.7-1.2) mg/dl Est GFR ( Amer) > 60 Est GFR (Non-Af Amer) 57 POC Glucose (mg/dL) 129 H (65-110) mg/dL Random Glucose 103 (70-110) mg/dL Calcium 8.6 (8.4-10.5) mg/dL Phosphorus 2.8 (2.5-4.5) mg/dL Magnesium 1.9 (1.7-2.2) mg/dL Homocysteine (4.7-12.6) umol/L Digoxin (0.8-2.0) ng/mL 07/26/18 07/26/18 07/26/18 Range/Units 20:45 17:51 12:20 WBC (4.5-11.0) 10^3/uL RBC (3.5-6.1) 10^6/uL Hgb (12.0-16.0) g/dL Hct (36.0-48.0) % MCV (80.0-105.0) fl MCH (25.0-35.0) pg MCHC (31.0-37.0) g/dl RDW (11.5-14.5) % Plt Count (120.0-450.0) 10^3/uL MPV (7.0-11.0) fl Gran % (50.0-68.0) % Lymph % (Auto) (22.0-35.0) % [place] % (Auto) (1.0-6.0) % Eos % (Auto) (1.5-5.0) % Baso % (Auto) (0.0-3.0) % Gran # (1.4-6.5) Lymph # (Auto) (1.2-3.4) [place] # (Auto) (0.1-0.6) Eos # (Auto) (0.0-0.7) Baso # (Auto) (0.0-2.0) K/mm3 Sodium (132-148) mmol/L Potassium (3.6-5.0) mmol/L Chloride (98-107) mmol/L Carbon Dioxide (21-33) mmol/L Anion Gap (10-20) BUN (7-21) mg/dL Creatinine (0.7-1.2) mg/dl Est GFR ( Amer) Est GFR (Non-Af Amer) POC Glucose (mg/dL) 126 H (65-110) mg/dL Random Glucose (70-110) mg/dL Calcium (8.4-10.5) mg/dL Phosphorus (2.5-4.5) mg/dL Magnesium (1.7-2.2) mg/dL Homocysteine 12.2 (4.7-12.6) umol/L Digoxin 0.8 (0.8-2.0) ng/mL Laboratory Results - last 24 hr 07/26/18 07/26/18 07/26/18 12:20 17:51 20:45 WBC RBC Hgb Hct MCV MCH MCHC RDW Plt Count MPV Gran % Lymph % (Auto) [place] % (Auto) Eos % (Auto) Baso % (Auto) Gran # Lymph # (Auto) [place] # (Auto) Eos # (Auto) Baso # (Auto) Sodium Potassium Chloride Carbon Dioxide Anion Gap BUN Creatinine Est GFR ( Amer) Est GFR (Non-Af Amer) POC Glucose (mg/dL) 126 H Random Glucose Calcium Phosphorus Magnesium Homocysteine 12.2 Digoxin 0.8 07/26/18 07/27/18 07/27/18 21:28 06:00 06:00 WBC 6.2 D RBC 3.40 L Hgb 8.3 L Hct 24.3 L MCV 71.5 L MCH 24.4 L MCHC 34.2 RDW 15.5 H Plt Count 227 MPV 9.0 Gran % 77.0 H Lymph % (Auto) 12.3 L [place] % (Auto) 10.2 H Eos % (Auto) 0.3 L Baso % (Auto) 0.2 Gran # 4.77 Lymph # (Auto) 0.8 L [place] # (Auto) 0.6 Eos # (Auto) 0.0 Baso # (Auto) 0.01 Sodium 139 Potassium 4.0 Chloride 111 H Carbon Dioxide 22 Anion Gap 10 BUN 10 Creatinine 1.0 Est GFR ( Amer) > 60 Est GFR (Non-Af Amer) 57 POC Glucose (mg/dL) 129 H Random Glucose 103 Calcium 8.6 Phosphorus 2.8 Magnesium 1.9 Homocysteine Digoxin
[2018-07-27] MEDS: Valproate 1,000 MG in Sodium Chloride 0.9% 100 ML IVPB SCH ×2 (12:23→22:20)
[2018-07-27] MEDS: Thiamine 100 MG in Sodium Chloride 0.9% 50 ML IV SCH (12:23)
[2018-07-27] MEDS: levETIRAcetam 500mg IVPB 500 MG/100 ML BAG IV SCH ×2 (12:26→22:21)
--- NOTE | 2018-07-27 12:45 | CP.PCM.PN ---
<Manny Lazaro - Last Filed: 07/27/18 12:42> Subjective - Date & Time of Evaluation Date of Evaluation: 07/27/18 Time of Evaluation: 07:00 - Subjective Subjective: Manny Lazaro PGY1 Medicine Progress Note for Dr. Del Valle Patient was seen and examined at bedside this morning. Patient was more awake this morning and responsive to verbal stimuli. She was unable to provide an adequate ROS due to patient's status. No overnight events. Vital signs stable. Objective - Vital Signs/Intake and Output Vital Signs (last 24 hours): Temp Pulse Resp BP Pulse Ox 97.3 F L 98 H 24 127/58 L 100 07/27/18 08:00 07/27/18 08:40 07/27/18 08:40 07/27/18 08:30 07/27/18 08:40 Intake and Output: 07/27/18 07/27/18 06:59 18:59 Intake Total 1714 Output Total 700 Balance 1014 - Medications Medications: Current Medications Albuterol/Ipratropium (Duoneb 3 Mg/0.5 Mg (3 Ml) Ud) 3 ml IH TIDRESP [facility] Last Admin: 07/27/18 08:08 Dose: 3 ml Aspirin (Aspirin Supp) 300 mg RC DAILY [facility] Last Admin: 07/26/18 11:15 Dose: 300 mg Atorvastatin Calcium (Lipitor) 40 mg PO DIN [facility] Last Admin: 07/26/18 17:00 Dose: 40 mg Clopidogrel Bisulfate (Plavix) 75 mg NG DAILY [facility] Heparin Sodium (Porcine) (Heparin) 5,000 units SC Q8 [facility]; Protocol Thiamine HCl 100 mg/ Sodium (Chloride) 51 mls @ 102 mls/hr IV DAILY [facility] Stop: 07/31/18 10:01 Last Admin: 07/26/18 11:17 Dose: 102 mls/hr Valproate Sodium 1,000 mg/ (Sodium Chloride) 110 mls @ 100 mls/hr IVPB Q12 [facility] Last Admin: 07/26/18 21:24 Dose: 100 mls/hr Levetiracetam (Keppra 500mg Ivpb) 500 mg in 100 mls @ 460 mls/hr IV Q12 [facility] Last Admin: 07/26/18 21:26 Dose: 460 mls/hr Insulin Human Regular (Humulin R Med) 0 units SC ACHS [facility]; Protocol Last Admin: 07/27/18 09:02 Dose: Not Given Lorazepam (Ativan) 2 mg IVP Q6H PRN; Protocol PRN Reason: Anxiety Pantoprazole Sodium (Protonix Inj) 40 mg IVP DAILY [facility] Last Admin: 07/26/18 11:17 Dose: 40 mg - Labs Labs: 07/27/18 06:00 07/27/18 06:00 PT 10.5 SECONDS (9.4-12.5) 07/23/18 21:34 INR 0.92 07/23/18 21:34 APTT 19.2 Seconds (25.1-36.5) L 07/25/18 20:45 - Constitutional Appears: Chronically Ill - Head Exam Head Exam: ATRAUMATIC, NORMAL INSPECTION, NORMOCEPHALIC - ENT Exam ENT Exam: Mucous Membranes Moist, Normal Exam - Neck Exam Additional comments: tracheostomy tube in place - Respiratory Exam Respiratory Exam: Clear to Ausculation Bilateral, NORMAL BREATHING PATTERN. absent: Rales, Rhonchi, Wheezes - Cardiovascular Exam Cardiovascular Exam: REGULAR RHYTHM, +S1, +S2. absent: Murmur - GI/Abdominal Exam GI & Abdominal Exam: Soft, Normal Bowel Sounds. absent: Guarding, Rigid, Tenderness - Extremities Exam Extremities Exam: Full ROM, Normal Capillary Refill. absent: Calf Tenderness, Joint Swelling, Pedal Edema - Neurological Exam Neurological Exam: Alert, Awake. absent: Oriented x3 Additional comments: Patient is awake. Responds to verbal stimuli. Moves extremities. - Skin Skin Exam: Dry, Intact, Normal Color, Warm Assessment and Plan - Assessment and Plan (Free Text) Assessment: Patient is a 57 year old female with a PMHx which includes laryngeal cancer s/p tracheostomy, alcohol abuse, COPD, HTN, HLD, DM, seizures who was admitted for evaluation and treatment of altered mental status secondary to seizure like activity. Plan: AMS 2/2 Acute/Subacute MCA Infarct of the bilateral temporal lobes - Patient is more alert and awake today - c/w ASA, plavix, statin - Neuro recs appreciated - EEG: no seizure activity noted - MRI brain: L acute/early subacute MCA infarct involving b/l temporal lobes - CTA head/neck: no acute findings Seizures 2/2 stroke vs hyponatremia vs sepsis - c/w depacon - c/w keppra - c/w ativan - d/c dilantin - EEG: no seizure activity noted - Neurology recs appreciated - d/c heparin gtt due to risk of hemorrhagic conversion NSTEMI - Cardio recs appreciated - c/w ASA, plavix, statin - heparin drip d/c'd due to risk of hemorrhagic conversion - Echo: EF 62%. Mitral leaflets are thickened but normal valve opening. Mild L- ventricular diastolic dysfunction. Trace TR. Minimal pulm HTN. Hyponatremia - improved - Current Na is 139 - Na 115 on admission - ICU recs appreciated. - Nephro recs appreciated. Hx DM - ISS high ACHS - Fingersticks ACHS - HA1C: 7.5 HLD - lipid panel: [id number], TC209, HIN155, HDL68 Anemia - H/H is 8.3/24 today - Hb/Hct stable, transfuse prn PPx, Diet, Disposition -GI ppx: protonix -DVT ppx: heparin Dispo: Continue to monitor patient in the ICU. Palliative care is following the case. Case discussed and reviewed with Attending Physician, Dr. Del Valle <Razia Del Valle - Last Filed: 07/27/18 16:36> Objective - Vital Signs/Intake and Output Vital Signs (last 24 hours): Temp Pulse Resp BP Pulse Ox 97.3 F L 98 H 24 127/58 L 100 07/27/18 08:00 07/27/18 08:40 07/27/18 08:40 07/27/18 08:30 07/27/18 08:40 Intake and Output: 07/27/18 07/27/18 06:59 18:59 Intake Total 1714 Output Total 700 Balance 1014 - Medications Medications: Current Medications Albuterol/Ipratropium (Duoneb 3 Mg/0.5 Mg (3 Ml) Ud) 3 ml IH TIDRESP [facility] Last Admin: 07/27/18 13:23 Dose: 3 ml Aspirin (Aspirin Supp) 300 mg RC DAILY [facility] Last Admin: 07/27/18 12:27 Dose: 300 mg Atorvastatin Calcium (Lipitor) 40 mg PO DIN [facility] Last Admin: 07/26/18 17:00 Dose: 40 mg Clopidogrel Bisulfate (Plavix) 75 mg NG DAILY [facility] Last Admin: 07/27/18 12:28 Dose: 75 mg Heparin Sodium (Porcine) (Heparin) 5,000 units SC Q8 [facility]; Protocol Thiamine HCl 100 mg/ Sodium (Chloride) 51 mls @ 102 mls/hr IV DAILY [facility] Stop: 07/31/18 10:01 Last Admin: 07/27/18 12:23 Dose: 102 mls/hr Valproate Sodium 1,000 mg/ (Sodium Chloride) 110 mls @ 100 mls/hr IVPB Q12 [facility] Last Admin: 07/27/18 12:23 Dose: 100 mls/hr Levetiracetam (Keppra 500mg Ivpb) 500 mg in 100 mls @ 460 mls/hr IV Q12 [facility] Last Admin: 07/27/18 12:26 Dose: 460 mls/hr Insulin Human Regular (Humulin R Med) 0 units SC ACHS [facility]; Protocol Last Admin: 07/27/18 12:24 Dose: Not Given Lorazepam (Ativan) 2 mg IVP Q6H PRN; Protocol PRN Reason: Anxiety Pantoprazole Sodium (Protonix Inj) 40 mg IVP DAILY [facility] Last Admin: 07/27/18 12:28 Dose: 40 mg - Labs Labs: 07/27/18 06:00 07/27/18 06:00 PT 10.5 SECONDS (9.4-12.5) 07/23/18 21:34 INR 0.92 07/23/18 21:34 APTT 21.8 Seconds (25.1-36.5) L 07/27/18 14:00 Attending/Attestation - Attestation I have personally seen and examined this patient.: Yes I have fully participated in the care of the patient.: Yes I have reviewed all pertinent clinical information, including history, physical exam and plan: Yes Notes (Text): 07/27/18 16:27 57 year old female with past medical history of laryngeal cancer s/p tracheostomy, alcohol abuse, COPD, hypertension, diabetes and seizures who presented with seizures; found to have significant hyponatremia, NSTEMI and CVA. MRI brain showed large acute / early subacute MCA infarct involving bilateral temporal lobes. Neurology is following. Patient is on aspirin, plavix and statin. Video EEG was also done. Patient is currently on valproic acid, keppra and ativan. Dilantin was discontinued. Hypercoagulable workup is ordered. Will follow up with neurology recommendations. Mental status is slowly improvin g. PT evaluation is requested. Cardiology is following as well for possible NSTEMI. Echocardiogram was reviewed. Continue with aspirin, plavix and statin as above. Heparin drip was discontinued. Sodium level has improved and hyponatremia has resolved. Patient is DNR. Palliative care evaluation was appreciated. Prognosis is guarded. Razia Del Valle MD Hospitalist.
--- NOTE | 2018-07-27 13:12 | PN ---
DATE: 07/27/2018 SUBJECTIVE: The patient is being weaned off pressors, monitor reveals sinus tachycardia. OBJECTIVE: VITAL SIGNS: Blood pressure 127/68, heart rate 93, respirations 24, temperature 97.3. HEENT: Pale conjunctivae. CHEST: Bilateral rhonchi. HEART: S1, S2 regular. EXTREMITIES: Trace leg edema. LABORATORY DATA: Hemoglobin and hematocrit 8.3 and 24.3, white count and platelet count are within normal limits. The SMA-7 is within normal limits except for chloride of 111. ASSESSMENT: 1. Bilateral mid cerebral artery territory infarct. 2. Improving hypotension. 3. Seizure activity. 4. History of throat cancer, status post tracheostomy. The patient's case was this was discussed with Dr. Del Valle the hospitalist. Continue current aspirin, subcutaneous heparin, Lipitor, Plavix and IV thiamine as well as IV valproate. Yoshi Acharya MD MTDD
--- NOTE | 2018-07-27 15:53 | PCM.STROKE ---
Interval History Critical Care Time Spent (in minutes): 15 Stroke Date: 07/22/18 Interval History: Patient more awake and alert, following 2 step commands, nonverbal but has trach in place. No other interval changes in current, PMHx, FHx, SocHx, ROS: other than documen leonides above - Treatment DVT Prophylaxis: Sequential compression device in place bilaterally Antiplatelet: Acetylsalicylic acid (ASA), Plavix - Education Written Stroke Education provided regarding: personal risk factors, stroke warning sign/symptoms, how to activate emergency medical services, need to follow up after discharge Hx Atrial Fibrillation: No Hx Atrial Flutter: No NIHSS Stroke Scale - Date/Time Evaluation Performed Date Performed: 07/27/18 Time Performed: 15:48 When Was NIHSS Performed: 7-10 days - How Severe is the Stroke Level of Consciousness: 0=Alert LOC to Questions: 2=Neither correct LOC to commands: 0=Obeys both correctly Best Gaze: 0=Normal Visual: 0=No visual loss Facial: 0=Normal Motor Arm - Left: 0=No drift Motor Arm - Right: 0=No drift Motor Leg - Left: 0=No drift Motor Leg - Right: 0=No drift Limb Ataxia: 0=Absent Sensory: 0=Normal Best Language: 1=Mild to moderate aphasia Dysarthia: 2=Severe, near unintelligible or worse Extinction & Inattention (Neglect): 1=Partial neglect (mild [place]-attention) Score: 6 Exam - Vital Sign Vital Signs: Temp Pulse Resp BP Pulse Ox 97.3 F L 98 H 24 127/58 L 100 07/27/18 08:00 07/27/18 08:40 07/27/18 08:40 07/27/18 08:30 07/27/18 08:40 Right Pupil: Reactive Left Pupil: Reactive Left Pupil Size (in mm): 2 Cardiovascular: Regular rate & rhythm Mental Status: Normal: Orientation, Memory, Attention, Language, Fund of Knowledge, Other Neuro motor strength exam: Left Upper Extremity: 4, Right Upper Extremity: 4, Left Lower Extremity: 4, Right Lower Extremity: 4 Sensation: Propriception throughout DTR: Achilles Tendon Left: 2+, Achilles Tendon Right: 2+, Bicep Left: 2+, Bicep Right: 2+, Brachioradialis Left: 2+, Brachioradialis Right: 2+, Patellar Left: 2+, Patellar Right: 2+, Tricep Left: 2+, Tricep Right: 2+ Flexor Plantar Reflex: Normal Gait: Other (Not able to test ) Vascular Risk: Hypertension, Age - Data reviewed Laboratory results: 07/27/18 06:00 07/27/18 06:00 Triglycerides 162 mg/dL (35-160) H 07/25/18 20:45 Cholesterol 190 mg/dL (130-200) 07/25/18 20:45 LDL Cholesterol Direct 116 mg/dL (0-129) 07/25/18 20:45 HDL Cholesterol 55 mg/dL (29-60) 07/25/18 20:45 Hemoglobin A1c 7.5 % (4.2-6.5) H 07/23/18 21:34 Echo: Bubble study not done and cancelled. Assessment and Plan - Assessment and Plan (Free Text) Assessment: 57 yr old woman with biparietal strokes, ischemic who is now undergoing stroke workup. Her NIHHS is 6, and she is much improved from yesterday, but will need therapy, physical occupational and speech. Plan: 1. Bubble study echo needed to evaluate for pFO 2. Lipid profiel pending. 3. hypercoagulable workup pending. 4. PT ST OT Thank you Dr. wu
[2018-07-27 17:14] LABS: HDL CHOLESTEROL 72 mg/dL (29-60); LDL CHOLESTEROL 124 mg/dL (0-129)
[2018-07-28 05:58] LABS: BASO # 0.01 K/mm3 (0.0-2.0); BASO % 0.1 % (0.0-3.0); EOS % 0.3 % (1.5-5.0); GRAN # 7.32 (1.4-6.5); GRAN % 83.2 % (50.0-68.0); HEMOGLOBIN 9.4 g/dL (12.0-16.0); LYMPH # 0.8 (1.2-3.4); MEAN CELL VOLUME 74.1 fl (80.0-105.0); MEAN CORPUSCULAR HEMOGLOBIN 25.4 pg (25.0-35.0); MEAN CORPUSCULAR HGB CONC 34.3 g/dl (31.0-37.0); MEAN PLATELET VOLUME 8.7 fl (7.0-11.0); MONO # 0.7 (0.1-0.6); MONO % 7.4 % (1.0-6.0); RBC 3.7 10^6/uL (3.5-6.1); RED CELL DISTRIBUTION WIDTH 17.2 % (11.5-14.5); WHITE BLOOD COUNT 8.8 10^3/uL (4.5-11.0)
[2018-07-28 06:00] LABS: CALCIUM 9.2 mg/dL (8.4-10.5)
[2018-07-28] MEDS: Insulin Reg-MEDIUM-Coverage SC SCH ×4 (08:23→21:38)
[2018-07-28] MEDS: Albuterol-Ipratrop 3 mg / 0.5 (3 ml) UD IH SCH ×3 (08:35→20:41)
[2018-07-28] MEDS: levETIRAcetam 500mg IVPB 500 MG/100 ML BAG IV SCH ×2 (09:52→21:38)
[2018-07-28] MEDS: Thiamine 100 MG in Sodium Chloride 0.9% 50 ML IV SCH (10:28)
[2018-07-28] MEDS: Valproate 1,000 MG in Sodium Chloride 0.9% 100 ML IVPB SCH ×2 (11:06→22:19)
--- NOTE | 2018-07-28 11:20 | CP.PCM.PN ---
<Manny Lazaro - Last Filed: 07/28/18 11:16> Subjective - Date & Time of Evaluation Date of Evaluation: 07/28/18 Time of Evaluation: 07:00 - Subjective Subjective: Manny Lazaro PGY1 Medicine Progress Note for Dr. Del Valle Patient seen and examined at bedside this morning. Patient is more alert and awake. She responds to verbal stimuli. Moves extremities. Vital signs showed BP 157/93 this morning. No adverse overnight events. Objective - Vital Signs/Intake and Output Vital Signs (last 24 hours): Temp Pulse Resp BP Pulse Ox 99.4 F 90 27 H 157/93 H 100 07/27/18 23:40 07/28/18 10:00 07/28/18 09:20 07/28/18 09:00 07/28/18 09:20 Intake and Output: 07/28/18 07/28/18 06:59 18:59 Intake Total 845 Output Total 300 Balance 545 - Medications Medications: Current Medications Albuterol/Ipratropium (Duoneb 3 Mg/0.5 Mg (3 Ml) Ud) 3 ml IH TIDRESP [facility] Last Admin: 07/28/18 08:35 Dose: 3 ml Aspirin (Aspirin Supp) 300 mg RC DAILY [facility] Last Admin: 07/28/18 09:53 Dose: 300 mg Atorvastatin Calcium (Lipitor) 40 mg PO DIN [facility] Last Admin: 07/27/18 17:09 Dose: 40 mg Clopidogrel Bisulfate (Plavix) 75 mg NG DAILY [facility] Last Admin: 07/28/18 09:53 Dose: 75 mg Heparin Sodium (Porcine) (Heparin) 5,000 units SC Q8 [facility]; Protocol Last Admin: 07/28/18 06:07 Dose: 5,000 units Hydralazine HCl (Apresoline) 10 mg IVP ONCE PRN PRN Reason: hypertension Thiamine HCl 100 mg/ Sodium (Chloride) 51 mls @ 102 mls/hr IV DAILY [facility] Stop: 07/31/18 10:01 Last Admin: 07/28/18 10:28 Dose: 102 mls/hr Valproate Sodium 1,000 mg/ (Sodium Chloride) 110 mls @ 100 mls/hr IVPB Q12 [facility] Last Admin: 07/28/18 11:06 Dose: 100 mls/hr Levetiracetam (Keppra 500mg Ivpb) 500 mg in 100 mls @ 460 mls/hr IV Q12 [facility] Last Admin: 07/28/18 09:52 Dose: 460 mls/hr Insulin Human Regular (Humulin R Med) 0 units SC ACHS [facility]; Protocol Last Admin: 07/28/18 08:23 Dose: Not Given Lorazepam (Ativan) 2 mg IVP Q6H PRN; Protocol PRN Reason: Anxiety Pantoprazole Sodium (Protonix Inj) 40 mg IVP DAILY [facility] Last Admin: 07/28/18 09:51 Dose: 40 mg - Labs Labs: 07/28/18 05:30 07/28/18 05:30 PT 10.5 SECONDS (9.4-12.5) 07/23/18 21:34 INR 0.92 07/23/18 21:34 APTT 21.8 Seconds (25.1-36.5) L 07/27/18 14:00 - Constitutional Appears: Chronically Ill - Head Exam Head Exam: ATRAUMATIC, NORMAL INSPECTION, NORMOCEPHALIC - Eye Exam Eye Exam: EOMI, Normal appearance, PERRL - ENT Exam ENT Exam: Mucous Membranes Moist Additional comments: Trach is in place. - Neck Exam Neck Exam: Full ROM - Respiratory Exam Respiratory Exam: Clear to Ausculation Bilateral, NORMAL BREATHING PATTERN. absent: Rales, Rhonchi, Wheezes - Cardiovascular Exam Cardiovascular Exam: RRR, +S1, +S2 - GI/Abdominal Exam GI & Abdominal Exam: Soft, Normal Bowel Sounds. absent: Tenderness - Extremities Exam Extremities Exam: Full ROM, Normal Capillary Refill, Normal Inspection. absent: Joint Swelling, Pedal Edema - Neurological Exam Neurological Exam: Awake - Skin Skin Exam: Dry, Intact, Normal Color, Warm Assessment and Plan - Assessment and Plan (Free Text) Assessment: Patient is a 57 year old female with a PMHx which includes laryngeal cancer s/p tracheostomy, alcohol abuse, COPD, HTN, HLD, DM, seizures who was admitted for evaluation and treatment of altered mental status secondary to seizure like activity. Patient found to have L-acute/subacute MCA stroke involving bilateral temporal lobes. Patient also had hypernatremia, which has resolved. Plan: AMS 2/2 Acute/Subacute MCA Infarct of the bilateral temporal lobes - Neuro recommendations appreciated: Bubble study echo to evaluate for pFO. Lipid panel. PT/ST/OT. - Improving mental status - MRI brain: L acute/early subacute MCA infarct involving b/l temporal lobes - CTA head/neck: no acute findings Seizures 2/2 stroke vs hyponatremia vs sepsis - c/w valproic acid, keppra and ativan - EEG: no seizure activity noted - Neurology recs appreciated NSTEMI - Cardio recs appreciated. - c/w ASA, plavix, statin - heparin drip was d/c'd due to risk of hemorrhagic conversion - Echo: EF 62%. Mitral leaflets are thickened but normal valve opening. Mild L- ventricular diastolic dysfunction. Trace TR. Minimal pulm HTN. Hyponatremia - improved - IVF d/c by ICU - Current Na is 141 - Na 115 on admission - Nephro recs appreciated. Hx DM - ISS high ACHS - Fingersticks ACHS - HA1C: 7.5 HLD - Lipitor 40mg PO - lipid panel: [id number], TC209, [id number], HDL68 Anemia - H/H is 9.4/27 - Hb/Hct stable PPx, Diet, Disposition -GI ppx: protonix -DVT ppx: heparin sc -Palliative care is following case. Dispo: Continue to monitor patient in the ICU. Follow up recs as per neurology for Echo with Bubble Study and Cardio recs. PT recommends [facility] and may be candidate for acute rehab. Case discussed and reviewed with Attending Physician, Dr. Del Valle <Razia Del Valle - Last Filed: 07/28/18 16:22> Objective - Vital Signs/Intake and Output Vital Signs (last 24 hours): Temp Pulse Resp BP Pulse Ox 99.4 F 111 H 20 160/80 H 100 07/27/18 23:40 07/28/18 14:00 07/28/18 13:40 07/28/18 13:00 07/28/18 13:40 Intake and Output: 07/28/18 07/28/18 06:59 18:59 Intake Total 845 Output Total 300 Balance 545 - Medications Medications: Current Medications Albuterol/Ipratropium (Duoneb 3 Mg/0.5 Mg (3 Ml) Ud) 3 ml IH TIDRESP [facility] Last Admin: 07/28/18 14:25 Dose: 3 ml Aspirin (Ecotrin) 81 mg PO DAILY [facility] Last Admin: 07/28/18 11:46 Dose: 81 mg Atorvastatin Calcium (Lipitor) 40 mg PO DIN [facility] Last Admin: 07/27/18 17:09 Dose: 40 mg Clopidogrel Bisulfate (Plavix) 75 mg NG DAILY [facility] Last Admin: 07/28/18 09:53 Dose: 75 mg Heparin Sodium (Porcine) (Heparin) 5,000 units SC Q8 [facility]; Protocol Last Admin: 07/28/18 14:25 Dose: 5,000 units Hydralazine HCl (Apresoline) 10 mg IVP ONCE PRN PRN Reason: hypertension Thiamine HCl 100 mg/ Sodium (Chloride) 51 mls @ 102 mls/hr IV DAILY [facility] Stop: 07/31/18 10:01 Last Admin: 07/28/18 10:28 Dose: 102 mls/hr Valproate Sodium 1,000 mg/ (Sodium Chloride) 110 mls @ 100 mls/hr IVPB Q12 [facility] Last Admin: 07/28/18 11:06 Dose: 100 mls/hr Levetiracetam (Keppra 500mg Ivpb) 500 mg in 100 mls @ 460 mls/hr IV Q12 [facility] Last Admin: 07/28/18 09:52 Dose: 460 mls/hr Insulin Human Regular (Humulin R Med) 0 units SC ACHS [facility]; Protocol Last Admin: 07/28/18 11:44 Dose: 3 u Lorazepam (Ativan) 2 mg IVP Q6H [facility]; Protocol PRN Reason: Anxiety Pantoprazole Sodium (Protonix Inj) 40 mg IVP DAILY [facility] Last Admin: 07/28/18 09:51 Dose: 40 mg - Labs Labs: 07/28/18 05:30 07/28/18 05:30 PT 10.5 SECONDS (9.4-12.5) 07/23/18 21:34 INR 0.92 07/23/18 21:34 APTT 21.8 Seconds (25.1-36.5) L 07/27/18 14:00 Attending/Attestation - Attestation I have personally seen and examined this patient.: Yes I have fully participated in the care of the patient.: Yes I have reviewed all pertinent clinical information, including history, physical exam and plan: Yes Notes (Text): 07/28/18 16:20 57 year old female with past medical history of laryngeal cancer s/p tracheostomy, alcohol abuse, COPD, hypertension, diabetes and seizures who presented with seizures; found to have significant hyponatremia, NSTEMI and CVA. MRI brain showed large acute / early subacute MCA infarct involving bilateral temporal lobes. Neurology is following. Patient is on aspirin, plavix and statin. Video EEG was also done. Patient is currently on valproic acid, keppra and ativan. Dilantin was discontinued. Hypercoagulable workup is ordered. Will follow up with neurology recommendations. Mental status is slowly improving. PT evaluation was appreciated; recommended [facility] or acute rehab. Cardiology is following as well for possible NSTEMI. Echocardiogram was reviewed. Continue with aspirin, plavix and statin as above. Sodium level has improved and hyponatremia has resolved. Patient is DNR. Palliative care evaluation was appreciated. Prognosis is guarded. Razia Del Valle MD Hospitalist.
--- NOTE | 2018-07-28 15:42 | PN ---
DATE: 07/28/2018 SUBJECTIVE: The patient denies any chest pain. She is off pressors. PHYSICAL EXAMINATION: VITAL SIGNS: Blood pressure 159/93, heart rate is 129, respirations 19 and temperature 99.4. HEENT: Pale conjunctivae. CHEST: Minimal rhonchi. HEART: S1 and S2 regular. EXTREMITIES: No edema. LABORATORY DATA: Hemoglobin and hematocrit are 9.4 and 27.4, white count and platelet count are within normal limits. Today's SMA-7 is within normal limits except for glucose of 122 and chloride of 111. ASSESSMENT: 1. History of throat cancer status post tracheostomy. 2. Bilateral mid cerebral artery territory infarct. 3. Improved hypertension. 4. Seizure activity. RECOMMENDATIONS: Continue subcutaneous heparin 5000 units every 8 hours, aspirin 81 mg once a day, hydralazine 10 mg intravenously p.r.n., Lipitor 20 mg once a day, Keppra 500 mg every 6 hours, Plavix 75 mg once a day, thiamine 100 mg intravenously daily. Yoshi Acharya MD
[2018-07-28 21:56] LABS: URINE BILIRUBIN NEGATIVE (NEGATIVE); URINE BLOOD MODERATE (NEGATIVE); URINE GLUCOSE (UA) 100 mg/dL (NEGATIVE); URINE LEUKOCYTE ESTERASE MODERATE Leu/uL (NEGATIVE); URINE PROTEIN TRACE mg/dL (<30 mg/dL)
[2018-07-28 22:07] LABS: URINE APPEARANCE CLOUDY (CLEAR); URINE COLOR YELLOW (YELLOW)
[2018-07-28 22:08] LABS: URINE BACTERIA MANY (NEG); URINE WBC 15 - 20 /hpf (0-6)
[2018-07-28] MEDS: cefTRIAXone 1 gm 1 GM/100 ML BAG IVPB SCH (23:37)
[2018-07-29 07:04] LABS: BASO # 0.01 K/mm3 (0.0-2.0); BASO % 0.1 % (0.0-3.0); EOS % 0.1 % (1.5-5.0); GRAN # 13.72 (1.4-6.5); GRAN % 90.7 % (50.0-68.0); HEMOGLOBIN 9.6 g/dL (12.0-16.0); LYMPH # 0.8 (1.2-3.4); MEAN CELL VOLUME 74.1 fl (80.0-105.0); MEAN CORPUSCULAR HEMOGLOBIN 25.6 pg (25.0-35.0); MEAN CORPUSCULAR HGB CONC 34.5 g/dl (31.0-37.0); MEAN PLATELET VOLUME 8.5 fl (7.0-11.0); MONO # 0.6 (0.1-0.6); MONO % 4.1 % (1.0-6.0); PLATELET COUNT 171 10^3/uL (120.0-450.0); RBC 3.75 10^6/uL (3.5-6.1); RED CELL DISTRIBUTION WIDTH 17.4 % (11.5-14.5); WHITE BLOOD COUNT 15.1 10^3/uL (4.5-11.0)
[2018-07-29 07:17] LABS: CALCIUM 9.5 mg/dL (8.4-10.5)
--- NOTE | 2018-07-29 07:39 | CP.PCM.PN ---
<Ronal Riggs - Last Filed: 07/29/18 15:58> Subjective - Date & Time of Evaluation Date of Evaluation: 07/29/18 Time of Evaluation: 07:39 - Subjective Subjective: PGY-1 Medicine Progress Note for Dr. Del Valle Patient seen and examined at bedside this AM, in soft restraints to wrist b/l. Per nurse, patient was agitated this morning, attempted to pull at her trach tube.Restraints ordered, patient given ativan. Patient more alert, responds to verbal and tactile stimuli, responds appropriately to questions by nodding/shaking her head. No acute complaints at this time. Objective - Vital Signs/Intake and Output Vital Signs (last 24 hours): Temp Pulse Resp BP Pulse Ox 99.3 F 127 H 20 167/99 H 100 07/29/18 06:00 07/29/18 06:00 07/29/18 06:00 07/29/18 06:00 07/29/18 06:00 Intake and Output: 07/29/18 07/29/18 06:59 18:59 Intake Total 1220 Balance 1220 - Medications Medications: Current Medications Albuterol/Ipratropium (Duoneb 3 Mg/0.5 Mg (3 Ml) Ud) 3 ml IH TIDRESP [facility] Last Admin: 07/28/18 20:41 Dose: 3 ml Aspirin (Ecotrin) 81 mg PO DAILY [facility] Last Admin: 07/28/18 11:46 Dose: 81 mg Atorvastatin Calcium (Lipitor) 40 mg PO DIN [facility] Last Admin: 07/28/18 16:37 Dose: 40 mg Clopidogrel Bisulfate (Plavix) 75 mg NG DAILY [facility] Last Admin: 07/28/18 09:53 Dose: 75 mg Heparin Sodium (Porcine) (Heparin) 5,000 units SC Q8 [facility]; Protocol Last Admin: 07/29/18 06:02 Dose: 5,000 units Hydralazine HCl (Apresoline) 10 mg IVP ONCE PRN PRN Reason: hypertension Last Admin: 07/28/18 20:28 Dose: 10 mg Thiamine HCl 100 mg/ Sodium (Chloride) 51 mls @ 102 mls/hr IV DAILY [facility] Stop: 07/31/18 10:01 Last Admin: 07/28/18 10:28 Dose: 102 mls/hr Valproate Sodium 1,000 mg/ (Sodium Chloride) 110 mls @ 100 mls/hr IVPB Q12 [facility] Last Admin: 07/28/18 22:19 Dose: 100 mls/hr Levetiracetam (Keppra 500mg Ivpb) 500 mg in 100 mls @ 460 mls/hr IV Q12 [facility] Last Admin: 07/28/18 21:38 Dose: 460 mls/hr Ceftriaxone Sodium (Rocephin 1 Gram Ivpb) 1 gm in 100 mls @ 100 mls/hr IVPB DAILY [facility]; Protocol Last Admin: 07/28/18 23:37 Dose: 100 mls/hr Insulin Human Regular (Humulin R Med) 0 units SC ACHS [facility]; Protocol Last Admin: 07/28/18 21:38 Dose: Not Given Lorazepam (Ativan) 2 mg IVP Q6H PRN; Protocol PRN Reason: Anxiety Last Admin: 07/28/18 18:23 Dose: 2 mg Pantoprazole Sodium (Protonix Inj) 40 mg IVP DAILY [facility] Last Admin: 07/28/18 09:51 Dose: 40 mg - Labs Labs: 07/29/18 05:35 07/29/18 05:35 PT 10.5 SECONDS (9.4-12.5) 07/23/18 21:34 INR 0.92 07/23/18 21:34 APTT 21.8 Seconds (25.1-36.5) L 07/27/18 14:00 - Constitutional Appears: No Acute Distress, Chronically Ill - Head Exam Head Exam: ATRAUMATIC, NORMAL INSPECTION, NORMOCEPHALIC - Eye Exam Eye Exam: EOMI, Normal appearance - ENT Exam ENT Exam: Mucous Membranes Moist, Normal Exam - Neck Exam Additional comments: trach collar in place patent and functional, blood-tinged sputum secretions noted - Respiratory Exam Respiratory Exam: Clear to Ausculation Bilateral, NORMAL BREATHING PATTERN. absent: Accessory Muscle Use, Rales, Rhonchi, Wheezes, Respiratory Distress, Stridor - Cardiovascular Exam Cardiovascular Exam: REGULAR RHYTHM, +S1, +S2 - GI/Abdominal Exam GI & Abdominal Exam: Soft, Normal Bowel Sounds. absent: Distended, Firm, Guarding, Rigid, Tenderness, Organomegaly - Extremities Exam Extremities Exam: Normal Capillary Refill, Normal Inspection. absent: Calf Tenderness, Pedal Edema, Tenderness - Neurological Exam Neurological Exam: Alert, Awake, Oriented x3 - Psychiatric Exam Psychiatric exam: Normal Affect, Normal Mood - Skin Skin Exam: Dry, Intact, Normal Color, Warm Assessment and Plan - Assessment and Plan (Free Text) Assessment: 57 year old female with a PMHx which includes laryngeal cancer s/p tracheostomy, alcohol abuse, COPD, HTN, HLD, DM, seizures who was admitted for evaluation and treatment of altered mental status secondary to seizure like activity. Patient found to have L-acute/subacute MCA stroke involving bilateral temporal lobes. Patient also had hypernatremia, which has resolved. Plan: AMS 2/2 seizure-like activity, hx of seizures - EEG: no seizure activity noted - CT Head without contrast (07/23): no acute findings - Repeat CT Head without contrast (07/24) : no acute findings - MRI without contrast (07/25): late acute/early subacute MCA territory infarctions involving bilateral temporal lobes and to a lesser extent frontal and parietal cortex - CT Head and Neck (07/26): Calcified intra cavernous segments of the internal carotid arteries - f/u echo with bubble study - Neurology recs (Dr. Duckworth) appreciated -continue depacon 100mg IVP q8h changed to q12h -keppra changed to 500mg daily on 07/29/18, discontinue on 07/29/2018 -continue with secondary stroke prevention: aspirin 81mg po daily, plavix 75mg PO daily, atorvastatin 40mg QHS - echocardiogram with bubble study ordered and pending NSTEMI - Echo: EF 62%. Mitral leaflets are thickened but normal valve opening. Mild L- ventricular diastolic dysfunction. Trace TR. Minimal pulm HTN. - Cardio recs (Dr. Acharya) - c/w ASA, plavix, statin - heparin drip was d/c'd due to risk of hemorrhagic conversion UTI -spiked fever 100.4 (07/28) -UA positive, f/u UCx -repeat CXR (07/29): minor vascular congestion -c/w rocephin Hyponatremia - resolved - IVF d/c by ICU - Na 141 (07/29) - Na 115 on admission - Nephro recs appreciated -added losartan and lopressor for bp control HTN -c/w losartan, lopressor, hydralazine prn Hx DM - ISS high ACHS - Fingersticks ACHS - HA1C: 7.5 HLD - Lipitor 40mg PO - lipid panel: [id number], TC209, XNC091, HDL68 Anemia - Hb/Hct: 9.6/27.8 (07/29) - stable, continue to monitor PPx, Diet, Disposition -GI ppx: protonix -DVT ppx: heparin sc -PT on board recommending MORENITA at this time; discussed with pt and significant other their recommendations and possible need for morenita Case discussed with Dr. Eligio Riggs DO, PGY-1 <Razia Del Valle - Last Filed: 07/29/18 16:16> Objective - Vital Signs/Intake and Output Vital Signs (last 24 hours): Temp Pulse Resp BP Pulse Ox 98.8 F 111 H 20 140/85 100 07/29/18 12:00 07/29/18 14:00 07/29/18 12:00 07/29/18 12:20 07/29/18 06:00 Intake and Output: 07/29/18 07/29/18 06:59 18:59 Intake Total 1220 Balance 1220 - Medications Medications: Current Medications Albuterol/Ipratropium (Duoneb 3 Mg/0.5 Mg (3 Ml) Ud) 3 ml IH TIDRESP [facility] Last Admin: 07/29/18 13:12 Dose: 3 ml Aspirin (Ecotrin) 81 mg PO DAILY [facility] Last Admin: 07/29/18 09:34 Dose: 81 mg Atorvastatin Calcium (Lipitor) 40 mg PO DIN [facility] Last Admin: 07/28/18 16:37 Dose: 40 mg Clopidogrel Bisulfate (Plavix) 75 mg NG DAILY [facility] Last Admin: 07/29/18 09:34 Dose: 75 mg Heparin Sodium (Porcine) (Heparin) 5,000 units SC Q8 [facility]; Protocol Last Admin: 07/29/18 14:53 Dose: 5,000 units Hydralazine HCl (Apresoline) 10 mg IVP ONCE PRN PRN Reason: hypertension Last Admin: 07/28/18 20:28 Dose: 10 mg Thiamine HCl 100 mg/ Sodium (Chloride) 51 mls @ 102 mls/hr IV DAILY [facility] Stop: 07/31/18 10:01 Last Admin: 07/29/18 14:53 Dose: 102 mls/hr Valproate Sodium 1,000 mg/ (Sodium Chloride) 110 mls @ 100 mls/hr IVPB Q12 [facility] Last Admin: 07/29/18 10:37 Dose: 100 mls/hr Ceftriaxone Sodium (Rocephin 1 Gram Ivpb) 1 gm in 100 mls @ 100 mls/hr IVPB DAILY [facility]; Protocol Last Admin: 07/29/18 12:06 Dose: 100 mls/hr Levetiracetam (Keppra 500mg Ivpb) 500 mg in 100 mls @ 460 mls/hr IV DAILY [facility] Last Admin: 07/29/18 09:17 Dose: 460 mls/hr Insulin Human Regular (Humulin R Med) 0 units SC ACHS [facility]; Protocol Last Admin: 07/29/18 12:19 Dose: 3 u Lorazepam (Ativan) 2 mg IVP Q6H PRN; Protocol PRN Reason: Anxiety Last Admin: 07/29/18 08:18 Dose: 2 mg Losartan Potassium (Cozaar) 50 mg PO DAILY [facility] Last Admin: 07/29/18 12:20 Dose: 50 mg Metoprolol Tartrate (Lopressor) 25 mg PO BRKDIN [facility] Last Admin: 07/29/18 12:20 Dose: 25 mg Pantoprazole Sodium (Protonix Inj) 40 mg IVP DAILY [facility] Last Admin: 07/29/18 09:21 Dose: 40 mg - Labs Labs: 07/29/18 05:35 07/29/18 05:35 PT 10.5 SECONDS (9.4-12.5) 07/23/18 21:34 INR 0.92 07/23/18 21:34 APTT 21.8 Seconds (25.1-36.5) L 07/27/18 14:00 Attending/Attestation - Attestation I have personally seen and examined this patient.: Yes I have fully participated in the care of the patient.: Yes I have reviewed all pertinent clinical information, including history, physical exam and plan: Yes Notes (Text): 07/29/18 16:14 57 year old female with past medical history of laryngeal cancer s/p tracheostomy, alcohol abuse, COPD, hypertension, diabetes and seizures who presented with seizures; found to have significant hyponatremia, NSTEMI and CVA. MRI brain showed large acute / early subacute MCA infarct involving bilateral temporal lobes. Neurology is following. Patient is on aspirin, plavix and statin. Video EEG was also done. Patient is currently on valproic acid, keppra and ativan. Dilantin was discontinued. Hypercoagulable workup and echocardiogram with bubble study is ordered. Will follow up with neurology recommendations. PT evaluation was appreciated; recommended MORENITA or acute rehab. Cardiology is following as well for possible NSTEMI. Continue with aspirin, plavix and statin as above. Patient is started on losartan and lopressor for hypertension. She is also started on ceftriaxone for UTI. Will follow up on UCx. Sodium level has improved and hyponatremia has resolved. Patient is DNR. Palliative care evaluation was appreciated. Prognosis is guarded. Razia Del Valle MD Hospitalist.
[2018-07-29] MEDS: Albuterol-Ipratrop 3 mg / 0.5 (3 ml) UD IH SCH ×3 (08:00→21:08)
[2018-07-29 08:25] LABS: LYMPHOCYTE 3 % (22.0-35.0); MONOCYTE 4 % (1.0-6.0); NEUTROPHIL 93 % (50.0-70.0); NUCLEATED RED BLOOD CELL 1 %
[2018-07-29 08:26] LABS: ANISOCYTOSIS SLIGHT; MICROCYTOSIS SLIGHT
[2018-07-29 08:27] LABS: PLATELET ESTIMATE NORMAL (NORMAL); TARGET CELLS SLIGHT
[2018-07-29] MEDS: levETIRAcetam 500mg IVPB 500 MG/100 ML BAG IV SCH (09:17)
[2018-07-29] MEDS: Insulin Reg-MEDIUM-Coverage SC SCH ×4 (09:34→22:34)
--- NOTE | 2018-07-29 10:29 | PCM.STROKE ---
<Ever Sanchez - Last Filed: 07/29/18 17:35> Interval History - Treatment DVT Prophylaxis: Sequential compression device in place bilaterally - Education Written Stroke Education provided regarding: personal risk factors, stroke warning sign/symptoms, how to activate emergency medical services, need to follow up after discharge NIHSS Stroke Scale - Date/Time Evaluation Performed Date Performed: 07/27/18 Time Performed: 15:48 - How Severe is the Stroke Level of Consciousness: 0=Alert LOC to Questions: 0=Both comments correct LOC to commands: 0=Obeys both correctly Best Gaze: 0=Normal Visual: 0=No visual loss Facial: 0=Normal Motor Arm - Left: 0=No drift Motor Arm - Right: 0=No drift Motor Leg - Left: 0=No drift Motor Leg - Right: 0=No drift Limb Ataxia: 0=Absent Sensory: 0=Normal Best Language: 1=Mild to moderate aphasia Dysarthia: 2=Severe, near unintelligible or worse Extinction & Inattention (Neglect): 1=Partial neglect (mild [place]-attention) Score: 4 Exam - Vital Sign Vital Signs: Temp Pulse Resp BP Pulse Ox 99.3 F 127 H 20 167/99 H 100 07/29/18 06:00 07/29/18 06:00 07/29/18 06:00 07/29/18 06:00 07/29/18 06:00 Constitutional: No distress Right Pupil: Reactive Left Pupil: Reactive Cardiovascular: Regular rate & rhythm Neuro motor strength exam: Left Upper Extremity: 5, Right Upper Extremity: 5, Left Lower Extremity: 5, Right Lower Extremity: 5 Vascular Risk: Hypertension, Diabetes Mellitus, Lipids - Data reviewed Laboratory results: 07/29/18 05:35 07/29/18 05:35 Triglycerides 195 mg/dL (35-160) H 07/27/18 16:30 Cholesterol 214 mg/dL (130-200) H 07/27/18 16:30 LDL Cholesterol Direct 124 mg/dL (0-129) 07/27/18 16:30 HDL Cholesterol 72 mg/dL (29-60) H 07/27/18 16:30 Hemoglobin A1c 7.5 % (4.2-6.5) H 07/23/18 21:34 Assessment and Plan - Assessment and Plan (Free Text) Assessment: Assessment and Plan: Patient is a 57 year old female with a PMHx which includes laryngeal cancer s/p tracheostomy, alcohol abuse, COPD, HTN, HLD, DM, seizures who was admitted for evaluation and treatment of altered mental status secondary to seizure like activity. Seizures - EEG- no seizure like activity noted - 07/23/2018 CT Head without contrast- No acute findings - 07/24/2018 CT Head without contrast- No acute findings - 07/25/2018 MRI without contrast- Late acute/early subacute MCA territory infarctions involving bilateral temporal lobes and to a lesser extent frontal and parietal cortex - 07/26/2018 CT Head and Neck- Calcified intra cavernous segments of the internal carotid arteries - echocardiogram with bubble study ordered and pending - continue depacon 100mg IVP q8h changed to q12h - keppra changed to 500mg daily on 07/29/18, discontinue on 07/30/2018 - continue with secondary stroke prevention: aspirin 81mg po daily, plavix 75mg PO daily, atorvastatin 40mg QHS Patient seen, case discussed with, and plan approved by attending physician, Dr. Arita <Irving Arita - Last Filed: 07/30/18 17:46> Interval History - Education Written Stroke Education provided regarding: personal risk factors, stroke warn ing sign/symptoms, how to activate emergency medical services, need to follow up after discharge Exam - Vital Sign Vital Signs: Temp Pulse Resp BP Pulse Ox 99.1 F 112 H 18 132/88 100 07/30/18 12:00 07/30/18 16:30 07/30/18 12:00 07/30/18 16:30 07/30/18 06:00 - Data reviewed Laboratory results: 07/30/18 08:30 07/30/18 06:15 Triglycerides 195 mg/dL (35-160) H 07/27/18 16:30 Cholesterol 214 mg/dL (130-200) H 07/27/18 16:30 LDL Cholesterol Direct 124 mg/dL (0-129) 07/27/18 16:30 HDL Cholesterol 72 mg/dL (29-60) H 07/27/18 16:30 Hemoglobin A1c 7.5 % (4.2-6.5) H 07/23/18 21:34 Attending/Attestation - Attestation I have personally seen and examined this patient.: Yes I have fully participated in the care of the patient.: Yes I have reviewed all pertinent clinical information, including history, physical exam and plan: Yes Notes (Text): 07/30/18 17:45 I agree with the assessment and plan: continue with secondary stroke prevention: aspirin 81mg po daily, plavix 75mg PO daily, atorvastatin 40mg QHS
[2018-07-29] MEDS: Valproate 1,000 MG in Sodium Chloride 0.9% 100 ML IVPB SCH ×2 (10:37→22:26)
[2018-07-29] MEDS: cefTRIAXone 1 gm 1 GM/100 ML BAG IVPB SCH (12:06)
[2018-07-29] MEDS: Thiamine 100 MG in Sodium Chloride 0.9% 50 ML IV SCH (14:53)
--- NOTE | 2018-07-29 14:59 | RAD ---
Date of service: 07/29/2018 HISTORY: fever COMPARISON: 07/26/2018 FINDINGS: LUNGS: No active pulmonary disease. PLEURA: No significant pleural effusion identified, no pneumothorax apparent. CARDIOVASCULAR: Aortic calcification Mild cardiomegaly minimal vascular congestion. OSSEOUS STRUCTURES: No significant abnormalities. VISUALIZED UPPER ABDOMEN: Normal. OTHER FINDINGS: Right-sided central line terminates in the SVC IMPRESSION: Minimal vascular congestion
--- NOTE | 2018-07-29 15:01 | CP.PCM.PN ---
Subjective - Date & Time of Evaluation Date of Evaluation: 07/29/18 Time of Evaluation: 14:59 - Subjective Subjective: Nephrology Consultation Note: Assessment: critical Hyponatremia hypo-osmolar ? etiology, likely pre-renal/hypovolemia as better with NS: resolved seizure, AMS HAGMA due to starvation ketoacidosis acute respi and metabolic acidosis HTN emergency CA throat, DM, anemia NSTEMI CKD 2 acute CVA Plan No acute need for renal replacement therapy at this time. . Hypertension control with meds as ordered. Maintain hemodynamics stable. Avoid hypotension. added losartan and lopressor Monitor Input/Output, daily weights and renal function with basic metabolic panel supplements lytes as needed respi support as per pulmonary continue with thiamine supplements Dose meds/antibiotics for improved GFR. Glycemic control Further work up/management as per primary team Thanks for allowing me to participate in care of your patient. Will sign off and follow patient with you further PRN basis. Please call if any Qs. had d/w team Dr Jong Dennis Office: [phone] Chief Complaint; seizure Reason for consult: hyponatremia HPI: Pt is a 57 F with hx of diabetes Mellitus ( years), hypertension (years) CA throat, seizure presented with complaints of seizure and AMS. pt was admitted to ICU and renal consult for hyponatremia. she received hypertonic saline overnight no known OTC/herbal meds or NSAIDs No recent iodinated contrast exposure. No obvious episodes of low BP. baseline cr 1.1-1.2 suggestive of CKD 2 ROS: unable to obtain from pt. she was awake Physical Examination: General Appearance: better appearing Vitals reviewed and noted as below Head; Atraumatic, normocephalic ENT: unable. has trach/collar EYES: Pupils are equal, round and reactive to light accommodation. Eye muscles and extraocular movement intact. Sclera is anicteric. Neck; had trach, no thyromegaly or bruit Lungs: normal respiratory rate/effort. Breath sounds bilateral diminished at bases Heart: normal rate. s1s2 normal. No rub or gallop. Extremities: no edema. No varicose veins Neurological: Patient is awake but not much communicative Skin: Warm and dry. Normal turgor. No rash. Palpitation: Normal elasticity for age Abdomen: Abdomen is soft. Bowel sounds +. There is no abdominal tenderness, no guarding/rigidity no organomegaly Psych: unable MSK: no joint tenderness or swelling. Digits and nails normal, no deformity : kidney or bladder not palpable Labs/imaging reviewed. Past medical history, past surgical history, family history, social history, allergy reviewed and noted as below Family hx: no hx of CKD. Rest non-contributory Objective - Vital Signs/Intake and Output Vital Signs (last 24 hours): Temp Pulse Resp BP Pulse Ox 98.8 F 111 H 20 140/85 100 07/29/18 12:00 07/29/18 14:00 07/29/18 12:00 07/29/18 12:20 07/29/18 06:00 Intake and Output: 07/29/18 07/29/18 06:59 18:59 Intake Total 1220 Balance 1220 - Medications Medications: Current Medications Albuterol/Ipratropium (Duoneb 3 Mg/0.5 Mg (3 Ml) Ud) 3 ml IH TIDRESP [facility] Last Admin: 07/29/18 13:12 Dose: 3 ml Aspirin (Ecotrin) 81 mg PO DAILY [facility] Last Admin: 07/29/18 09:34 Dose: 81 mg Atorvastatin Calcium (Lipitor) 40 mg PO DIN [facility] Last Admin: 07/28/18 16:37 Dose: 40 mg Clopidogrel Bisulfate (Plavix) 75 mg NG DAILY [facility] Last Admin: 07/29/18 09:34 Dose: 75 mg Heparin Sodium (Porcine) (Heparin) 5,000 units SC Q8 [facility]; Protocol Last Admin: 07/29/18 06:02 Dose: 5,000 units Hydralazine HCl (Apresoline) 10 mg IVP ONCE PRN PRN Reason: hypertension Last Admin: 07/28/18 20:28 Dose: 10 mg Thiamine HCl 100 mg/ Sodium (Chloride) 51 mls @ 102 mls/hr IV DAILY [facility] Stop: 07/31/18 10:01 Last Admin: 07/29/18 14:53 Dose: 102 mls/hr Valproate Sodium 1,000 mg/ (Sodium Chloride) 110 mls @ 100 mls/hr IVPB Q12 [facility] Last Admin: 07/29/18 10:37 Dose: 100 mls/hr Ceftriaxone Sodium (Rocephin 1 Gram Ivpb) 1 gm in 100 mls @ 100 mls/hr IVPB DAILY [facility]; Protocol Last Admin: 07/29/18 12:06 Dose: 100 mls/hr Levetiracetam (Keppra 500mg Ivpb) 500 mg in 100 mls @ 460 mls/hr IV DAILY [facility] Last Admin: 07/29/18 09:17 Dose: 460 mls/hr Insulin Human Regular (Humulin R Med) 0 units SC ACHS [facility]; Protocol Last Admin: 07/29/18 12:19 Dose: 3 u Lorazepam (Ativan) 2 mg IVP Q6H PRN; Protocol PRN Reason: Anxiety Last Admin: 07/29/18 08:18 Dose: 2 mg Losartan Potassium (Cozaar) 50 mg PO DAILY [facility] Last Admin: 07/29/18 12:20 Dose: 50 mg Metoprolol Tartrate (Lopressor) 25 mg PO BRKDIN [facility] Last Admin: 07/29/18 12:20 Dose: 25 mg Pantoprazole Sodium (Protonix Inj) 40 mg IVP DAILY [facility] Last Admin: 07/29/18 09:21 Dose: 40 mg - Labs Labs: 07/29/18 05:35 07/29/18 05:35 PT 10.5 SECONDS (9.4-12.5) 07/23/18 21:34 INR 0.92 07/23/18 21:34 APTT 21.8 Seconds (25.1-36.5) L 07/27/18 14:00
[2018-07-30] MEDS: Albuterol-Ipratrop 3 mg / 0.5 (3 ml) UD IH SCH ×3 (07:59→20:06)
[2018-07-30] MEDS: Insulin Reg-MEDIUM-Coverage SC SCH ×4 (08:40→21:40)
[2018-07-30 08:51] LABS: HEMOGLOBIN 9.1 g/dL (12.0-16.0); MEAN CELL VOLUME 75.5 fl (80.0-105.0); MEAN CORPUSCULAR HEMOGLOBIN 25.9 pg (25.0-35.0); MEAN CORPUSCULAR HGB CONC 34.3 g/dl (31.0-37.0); RBC 3.51 10^6/uL (3.5-6.1); WHITE BLOOD COUNT 6.3 10^3/uL (4.5-11.0)
[2018-07-30] MEDS: levETIRAcetam 500mg IVPB 500 MG/100 ML BAG IV SCH (09:07)
[2018-07-30] MEDS: cefTRIAXone 1 gm 1 GM/100 ML BAG IVPB SCH (09:07)
--- NOTE | 2018-07-30 09:08 | CP.PCM.PN ---
<Ronal Riggs - Last Filed: 07/30/18 15:27> Subjective - Date & Time of Evaluation Date of Evaluation: 07/30/18 Time of Evaluation: 09:06 - Subjective Subjective: PGY-1 Medicine Progress Note for Dr. Del Valle Patient seen and examined at bedside this AM. She continued to pull on her trach collar and IV lines overnight, b/l soft wrist restraints in place. No other acute events reported. Patient is much more alert and oriented, continues to respond to questions appropriately with head gestures, makes attempts to speak and have lips read, remains non-verbal. Objective - Vital Signs/Intake and Output Vital Signs (last 24 hours): Temp Pulse Resp BP Pulse Ox 99.7 F H 120 H 19 142/92 H 100 07/30/18 06:00 07/30/18 08:24 07/30/18 06:00 07/30/18 08:24 07/30/18 06:00 Intake and Output: 07/30/18 07/30/18 06:59 18:59 Intake Total 120 Balance 120 - Medications Medications: Current Medications Albuterol/Ipratropium (Duoneb 3 Mg/0.5 Mg (3 Ml) Ud) 3 ml IH TIDRESP [facility] Last Admin: 07/30/18 07:59 Dose: 3 ml Aspirin (Ecotrin) 81 mg PO DAILY [facility] Last Admin: 07/29/18 09:34 Dose: 81 mg Atorvastatin Calcium (Lipitor) 40 mg PO DIN [facility] Last Admin: 07/29/18 18:17 Dose: 40 mg Clopidogrel Bisulfate (Plavix) 75 mg NG DAILY [facility] Last Admin: 07/29/18 09:34 Dose: 75 mg Heparin Sodium (Porcine) (Heparin) 5,000 units SC Q8 [facility]; Protocol Last Admin: 07/30/18 05:32 Dose: 5,000 units Hydralazine HCl (Apresoline) 10 mg IVP ONCE PRN PRN Reason: hypertension Last Admin: 07/28/18 20:28 Dose: 10 mg Thiamine HCl 100 mg/ Sodium (Chloride) 51 mls @ 102 mls/hr IV DAILY [facility] Stop: 07/31/18 10:01 Last Admin: 07/29/18 14:53 Dose: 102 mls/hr Valproate Sodium 1,000 mg/ (Sodium Chloride) 110 mls @ 100 mls/hr IVPB Q12 [facility] Last Admin: 07/29/18 22:26 Dose: 100 mls/hr Ceftriaxone Sodium (Rocephin 1 Gram Ivpb) 1 gm in 100 mls @ 100 mls/hr IVPB DAILY [facility]; Protocol Last Admin: 07/29/18 12:06 Dose: 100 mls/hr Levetiracetam (Keppra 500mg Ivpb) 500 mg in 100 mls @ 460 mls/hr IV DAILY [facility] Last Admin: 07/29/18 09:17 Dose: 460 mls/hr Insulin Human Regular (Humulin R Med) 0 units SC ACHS [facility]; Protocol Last Admin: 07/30/18 08:40 Dose: Not Given Lorazepam (Ativan) 2 mg IVP Q6H PRN; Protocol PRN Reason: Anxiety Last Admin: 07/29/18 23:09 Dose: 2 mg Losartan Potassium (Cozaar) 50 mg PO DAILY [facility] Last Admin: 07/29/18 12:20 Dose: 50 mg Metoprolol Tartrate (Lopressor) 25 mg PO BRKDIN [facility] Last Admin: 07/30/18 08:24 Dose: 25 mg Pantoprazole Sodium (Protonix Inj) 40 mg IVP DAILY [facility] Last Admin: 07/29/18 09:21 Dose: 40 mg - Labs Labs: 07/29/18 05:35 07/30/18 06:15 PT 10.5 SECONDS (9.4-12.5) 07/23/18 21:34 INR 0.92 07/23/18 21:34 APTT 21.8 Seconds (25.1-36.5) L 07/27/18 14:00 - Constitutional Appears: Non-toxic, No Acute Distress, Chronically Ill - Head Exam Head Exam: ATRAUMATIC, NORMAL INSPECTION, NORMOCEPHALIC - Eye Exam Eye Exam: EOMI, Normal appearance - Neck Exam Additional comments: trach collar in place, patent and functional, blood tinged sputum production noted in collar - Respiratory Exam Respiratory Exam: Clear to Ausculation Bilateral, NORMAL BREATHING PATTERN. absent: Accessory Muscle Use, Rales, Rhonchi, Wheezes, Respiratory Distress, Stridor - Cardiovascular Exam Cardiovascular Exam: REGULAR RHYTHM, +S1, +S2 - GI/Abdominal Exam GI & Abdominal Exam: Soft, Normal Bowel Sounds. absent: Distended, Firm, Guarding, Rigid, Tenderness, Rebound - Extremities Exam Extremities Exam: Normal Capillary Refill, Normal Inspection. absent: Calf Tenderness, Joint Swelling - Back Exam Back Exam: NORMAL INSPECTION - Neurological Exam Neurological Exam: Alert, Awake, Oriented x3 - Psychiatric Exam Psychiatric exam: Normal Affect, Normal Mood - Skin Skin Exam: Dry, Intact, Normal Color, Warm Assessment and Plan - Assessment and Plan (Free Text) Assessment: 57 year old female with a PMHx which includes laryngeal cancer s/p tracheostomy, alcohol abuse, COPD, HTN, HLD, DM, seizures who was admitted for evaluation and treatment of altered mental status secondary to seizure like activity. Patient found to have L-acute/subacute MCA stroke involving bilateral temporal lobes. Patient also had hypernatremia, which has resolved. Plan: AMS 2/2 seizure-like activity, hx of seizures - EEG: no seizure activity noted - CT Head without contrast (07/23): no acute findings - Repeat CT Head without contrast (07/24) : no acute findings - MRI without contrast (07/25): late acute/early subacute MCA territory infarctions involving bilateral temporal lobes and to a lesser extent frontal and parietal cortex - CT Head and Neck (07/26): Calcified intra cavernous segments of the internal carotid arteries - f/u echo with bubble study - Neurology recs (Dr. Duckworth) appreciated -continue depacon 100mg IVP q8h changed to q12h -keppra d/c'd -continue with secondary stroke prevention: aspirin 81mg po daily, plavix 75mg PO daily, atorvastatin 40mg QHS -echocardiogram with bubble study ordered and pending NSTEMI - Echo: EF 62%. Mitral leaflets are thickened but normal valve opening. Mild L- ventricular diastolic dysfunction. Trace TR. Minimal pulm HTN. - Cardio recs (Dr. Acharya) - c/w ASA, plavix, statin - heparin drip was d/c'd due to risk of hemorrhagic conversion UTI -spiked fever 100.4 (07/28) -UA positive, f/u UCx -repeat CXR (07/29): minor vascular congestion -c/w rocephin Hyponatremia - resolved - IVF d/c by ICU - Na 142 (07/30) - Na 115 on admission - Nephro recs appreciated -added losartan and lopressor for bp control Hx laryngeal cancer s/p tracheostomy -trach collar patient, functional -blood tinged sputum noted in trach collar, new finding -f/u sputum cx -ENT (Dr. Rock) on board -[employer] on board HTN -c/w losartan, lopressor, hydralazine prn Hx DM - ISS high ACHS - Fingersticks ACHS - HA1C: 7.5 HLD - Lipitor 40mg PO - lipid panel: [id number], TC209, [id number], HDL68 Anemia - Hb/Hct: 9.1/26.5 (07/30) - stable, continue to monitor - hypercoagulable workup -low protein C and S - Heme/Onc (Dr. Ariza) on board PPx, Diet, Disposition -GI ppx: protonix -DVT ppx: heparin sc -PT on board recommending MORENITA at this time; discussed with pt and significant other their recommendations and possible need for morenita Case discussed with Dr. Eligio Riggs DO, PGY-1 <Razia Del Valle - Last Filed: 07/30/18 15:55> Objective - Vital Signs/Intake and Output Vital Signs (last 24 hours): Temp Pulse Resp BP Pulse Ox 99.1 F 107 H 18 149/90 100 07/30/18 12:00 07/30/18 12:00 07/30/18 12:00 07/30/18 12:00 07/30/18 06:00 Intake and Output: 07/30/18 07/30/18 06:59 18:59 Intake Total 120 Balance 120 - Medications Medications: Current Medications Albuterol/Ipratropium (Duoneb 3 Mg/0.5 Mg (3 Ml) Ud) 3 ml IH TIDRESP [facility] Last Admin: 07/30/18 13:36 Dose: 3 ml Aspirin (Ecotrin) 81 mg PO DAILY [facility] Last Admin: 07/30/18 09:02 Dose: 81 mg Atorvastatin Calcium (Lipitor) 40 mg PO DIN [facility] Last Admin: 07/29/18 18:17 Dose: 40 mg Clopidogrel Bisulfate (Plavix) 75 mg NG DAILY [facility] Last Admin: 07/30/18 09:01 Dose: 75 mg Heparin Sodium (Porcine) (Heparin) 5,000 units SC Q8 [facility]; Protocol Last Admin: 07/30/18 13:36 Dose: 5,000 units Hydralazine HCl (Apresoline) 10 mg IVP ONCE PRN PRN Reason: hypertension Last Admin: 07/28/18 20:28 Dose: 10 mg Thiamine HCl 100 mg/ Sodium (Chloride) 51 mls @ 102 mls/hr IV DAILY [facility] Stop: 07/31/18 10:01 Last Admin: 07/30/18 10:05 Dose: 102 mls/hr Valproate Sodium 1,000 mg/ (Sodium Chloride) 110 mls @ 100 mls/hr IVPB Q12 [facility] Last Admin: 07/30/18 10:50 Dose: 100 mls/hr Ceftriaxone Sodium (Rocephin 1 Gram Ivpb) 1 gm in 100 mls @ 100 mls/hr IVPB DAILY [facility]; Protocol Last Admin: 07/30/18 09:07 Dose: 100 mls/hr Insulin Human Regular (Humulin R Med) 0 units SC ACHS [facility]; Protocol Last Admin: 07/30/18 13:38 Dose: Not Given Lorazepam (Ativan) 2 mg IVP Q6H PRN; Protocol PRN Reason: Anxiety Last Admin: 07/30/18 09:03 Dose: 2 mg Losartan Potassium (Cozaar) 50 mg PO DAILY [facility] Last Admin: 07/30/18 09:02 Dose: 50 mg Metoprolol Tartrate (Lopressor) 50 mg PO BRKDIN [facility] Pantoprazole Sodium (Protonix Inj) 40 mg IVP DAILY [facility] Last Admin: 07/30/18 09:04 Dose: 40 mg - Labs Labs: 07/30/18 08:30 07/30/18 06:15 PT 10.5 SECONDS (9.4-12.5) 07/23/18 21:34 INR 0.92 07/23/18 21:34 APTT 21.8 Seconds (25.1-36.5) L 07/27/18 14:00 Attending/Attestation - Attestation I have personally seen and examined this patient.: Yes I have fully participated in the care of the patient.: Yes I have reviewed all pertinent clinical information, including history, physical exam and plan: Yes Notes (Text): 07/30/18 15:52 57 year old female with past medical history of laryngeal cancer s/p tracheostomy, alcohol abuse, COPD, hypertension, diabetes and seizures who presented with seizures; found to have significant hyponatremia, NSTEMI and CVA. MRI brain showed large acute / early subacute MCA infarct involving bilateral temporal lobes. Neurology is following. Patient is on aspirin, plavix and statin. Hypercoagulable workup so far shows low protein C and protein S levels. Hematology evaluation is requested. Will need to discuss with cardiology as neurology is requested echocardiogram with bubble study. Video EEG was also done. Patient is currently on valproic acid, keppra and ativan. PT evaluation was appreciated; recommended MORENITA or acute rehab. Cardiology is following as well for possible NSTEMI. Continue with aspirin, plavix and statin as above. Patient is on losartan and lopressor for hypertension. She is also started on ceftriaxone for UTI. Will follow up on UCx. Today noted to have blood secretions from trach site. Repeat CXR was reviewed. Sputum culture is ordered and ENT evaluation is requested. Sodium level has improved and hyponatremia has resolved. Patient is DNR. Palliative care evaluation was appreciated. Prognosis is guarded. Razia Del Valle MD Hospitalist.
[2018-07-30] MEDS: Thiamine 100 MG in Sodium Chloride 0.9% 50 ML IV SCH (10:05)
--- NOTE | 2018-07-30 10:32 | PCM.STROKE ---
Interval History - Education Written Stroke Education provided regarding: personal risk factors, stroke warning sign/symptoms, how to activate emergency medical services, need to follow up after discharge NIHSS Stroke Scale - Date/Time Evaluation Performed Date Performed: 07/27/18 Time Performed: 15:48 - How Severe is the Stroke Level of Consciousness: 0=Alert LOC to Questions: 0=Both comments correct LOC to commands: 0=Obeys both correctly Best Gaze: 0=Normal Visual: 0=No visual loss Facial: 0=Normal Motor Arm - Left: 0=No drift Motor Arm - Right: 0=No drift Motor Leg - Left: 0=No drift Motor Leg - Right: 0=No drift Limb Ataxia: 0=Absent Sensory: 0=Normal Best Language: 1=Mild to moderate aphasia Dysarthia: 2=Severe, near unintelligible or worse Extinction & Inattention (Neglect): 1=Partial neglect (mild [place]-attention) Score: 4 Exam - Vital Sign Vital Signs: Temp Pulse Resp BP Pulse Ox 99.7 F H 120 H 19 142/92 H 100 07/30/18 06:00 07/30/18 08:24 07/30/18 06:00 07/30/18 08:24 07/30/18 06:00 - Data reviewed Laboratory results: 07/30/18 08:30 07/30/18 06:15 Triglycerides 195 mg/dL (35-160) H 07/27/18 16:30 Cholesterol 214 mg/dL (130-200) H 07/27/18 16:30 LDL Cholesterol Direct 124 mg/dL (0-129) 07/27/18 16:30 HDL Cholesterol 72 mg/dL (29-60) H 07/27/18 16:30 Hemoglobin A1c 7.5 % (4.2-6.5) H 07/23/18 21:34
[2018-07-30] MEDS: Valproate 1,000 MG in Sodium Chloride 0.9% 100 ML IVPB SCH ×2 (10:50→21:12)
--- NOTE | 2018-07-30 12:18 | CP.PCM.PN ---
Subjective - Date & Time of Evaluation Date of Evaluation: 07/30/18 Time of Evaluation: 12:17 - Subjective Subjective: Nephrology Consultation Note: Assessment: critical Hyponatremia hypo-osmolar ? etiology, likely pre-renal/hypovolemia as better with NS: resolved seizure, AMS HAGMA due to starvation ketoacidosis acute respi and metabolic acidosis HTN emergency CA throat, DM, anemia NSTEMI CKD 2 acute CVA Plan No acute need for renal replacement therapy at this time. . Hypertension control with meds as ordered. Maintain hemodynamics stable. Avoid hypotension. added losartan and lopressor Monitor Input/Output, daily weights and renal function with basic metabolic panel supplements lytes as needed respi support as per pulmonary continue with thiamine supplements Dose meds/antibiotics for improved GFR. Glycemic control Further work up/management as per primary team Thanks for allowing me to participate in care of your patient. Will sign off and follow patient with you further PRN basis. Please call if any Qs. had d/w team Dr Jong Dennis Office: [phone] Chief Complaint; seizure Reason for consult: hyponatremia HPI: Pt is a 57 F with hx of diabetes Mellitus ( years), hypertension (years) CA throat, seizure presented with complaints of seizure and AMS. pt was admitted to ICU and renal consult for hyponatremia. she received hypertonic saline overnight no known OTC/herbal meds or NSAIDs No recent iodinated contrast exposure. No obvious episodes of low BP. baseline cr 1.1-1.2 suggestive of CKD 2 ROS: unable to obtain from pt. Physical Examination: General Appearance: better appearing Vitals reviewed and noted as below Head; Atraumatic, normocephalic ENT: unable. has trach/collar EYES: Pupils are equal, round and reactive to light accommodation. Eye muscles and extraocular movement intact. Sclera is anicteric. Neck; had trach, no thyromegaly or bruit Lungs: normal respiratory rate/effort. Breath sounds bilateral diminished at bases Heart: normal rate. s1s2 normal. No rub or gallop. Extremities: no edema. No varicose veins Neurological: Patient is awake but not much communicative Skin: Warm and dry. Normal turgor. No rash. Palpitation: Normal elasticity for a ge Abdomen: Abdomen is soft. Bowel sounds +. There is no abdominal tenderness, no guarding/rigidity no organomegaly Psych: unable MSK: no joint tenderness or swelling. Digits and nails normal, no deformity : kidney or bladder not palpable Labs/imaging reviewed. Past medical history, past surgical history, family history, social history, allergy reviewed and noted as below Family hx: no hx of CKD. Rest non-contributory Objective - Vital Signs/Intake and Output Vital Signs (last 24 hours): Temp Pulse Resp BP Pulse Ox 99.7 F H 120 H 19 142/92 H 100 07/30/18 06:00 07/30/18 08:24 07/30/18 06:00 07/30/18 08:24 07/30/18 06:00 Intake and Output: 07/30/18 07/30/18 06:59 18:59 Intake Total 120 Balance 120 - Medications Medications: Current Medications Albuterol/Ipratropium (Duoneb 3 Mg/0.5 Mg (3 Ml) Ud) 3 ml IH TIDRESP [facility] Last Admin: 07/30/18 07:59 Dose: 3 ml Aspirin (Ecotrin) 81 mg PO DAILY [facility] Last Admin: 07/30/18 09:02 Dose: 81 mg Atorvastatin Calcium (Lipitor) 40 mg PO DIN [facility] Last Admin: 07/29/18 18:17 Dose: 40 mg Clopidogrel Bisulfate (Plavix) 75 mg NG DAILY [facility] Last Admin: 07/30/18 09:01 Dose: 75 mg Heparin Sodium (Porcine) (Heparin) 5,000 units SC Q8 [facility]; Protocol Last Admin: 07/30/18 05:32 Dose: 5,000 units Hydralazine HCl (Apresoline) 10 mg IVP ONCE PRN PRN Reason: hypertension Last Admin: 07/28/18 20:28 Dose: 10 mg Thiamine HCl 100 mg/ Sodium (Chloride) 51 mls @ 102 mls/hr IV DAILY [facility] Stop: 07/31/18 10:01 Last Admin: 07/30/18 10:05 Dose: 102 mls/hr Valproate Sodium 1,000 mg/ (Sodium Chloride) 110 mls @ 100 mls/hr IVPB Q12 [facility] Last Admin: 07/30/18 10:50 Dose: 100 mls/hr Ceftriaxone Sodium (Rocephin 1 Gram Ivpb) 1 gm in 100 mls @ 100 mls/hr IVPB DAILY [facility]; Protocol Last Admin: 07/30/18 09:07 Dose: 100 mls/hr Insulin Human Regular (Humulin R Med) 0 units SC ACHS [facility]; Protocol Last Admin: 07/30/18 08:40 Dose: Not Given Lorazepam (Ativan) 2 mg IVP Q6H PRN; Protocol PRN Reason: Anxiety Last Admin: 07/30/18 09:03 Dose: 2 mg Losartan Potassium (Cozaar) 50 mg PO DAILY [facility] Last Admin: 07/30/18 09:02 Dose: 50 mg Metoprolol Tartrate (Lopressor) 25 mg PO BRKDIN [facility] Last Admin: 07/30/18 08:24 Dose: 25 mg Pantoprazole Sodium (Protonix Inj) 40 mg IVP DAILY [facility] Last Admin: 07/30/18 09:04 Dose: 40 mg - Labs Labs: 07/30/18 08:30 07/30/18 06:15 PT 10.5 SECONDS (9.4-12.5) 07/23/18 21:34 INR 0.92 07/23/18 21:34 APTT 21.8 Seconds (25.1-36.5) L 07/27/18 14:00
--- NOTE | 2018-07-30 15:17 | PCM.STROKE ---
<Sanchez,Ever - Last Filed: 07/30/18 15:12> Interval History - Treatment DVT Prophylaxis: Sequential compression device in place bilaterally - Education Written Stroke Education provided regarding: personal risk factors, stroke warning sign/symptoms, how to activate emergency medical services, need to follow up after discharge NIHSS Stroke Scale - Date/Time Evaluation Performed Date Performed: 07/27/18 Time Performed: 15:48 - How Severe is the Stroke Level of Consciousness: 0=Alert LOC to Questions: 0=Both comments correct LOC to commands: 0=Obeys both correctly Best Gaze: 0=Normal Visual: 0=No visual loss Facial: 0=Normal Motor Arm - Left: 0=No drift Motor Arm - Right: 0=No drift Motor Leg - Left: 0=No drift Motor Leg - Right: 0=No drift Limb Ataxia: 0=Absent Sensory: 0=Normal Best Language: 1=Mild to moderate aphasia Dysarthia: 2=Severe, near unintelligible or worse Extinction & Inattention (Neglect): 0=Normal, no object Score: 3 Exam - Vital Sign Vital Signs: Temp Pulse Resp BP Pulse Ox 99.1 F 107 H 18 149/90 100 07/30/18 12:00 07/30/18 12:00 07/30/18 12:00 07/30/18 12:00 07/30/18 06:00 Constitutional: No distress Right Pupil: Reactive Left Pupil: Reactive Cardiovascular: Regular rate & rhythm Mental Status: Normal: Orientation, Memory, Attention Neuro motor strength exam: Left Upper Extremity: 5, Right Upper Extremity: 5, Left Lower Extremity: 5, Right Lower Extremity: 5 Vascular Risk: Hypertension, Diabetes Mellitus, Lipids - Data reviewed Laboratory results: 07/30/18 08:30 07/30/18 06:15 Triglycerides 195 mg/dL (35-160) H 07/27/18 16:30 Cholesterol 214 mg/dL (130-200) H 07/27/18 16:30 LDL Cholesterol Direct 124 mg/dL (0-129) 07/27/18 16:30 HDL Cholesterol 72 mg/dL (29-60) H 07/27/18 16:30 Hemoglobin A1c 7.5 % (4.2-6.5) H 07/23/18 21:34 Assessment and Plan - Assessment and Plan (Free Text) Plan: Assessment and Plan: Patient is a 57 year old female with a PMHx which includes laryngeal cancer s/p tracheostomy, alcohol abuse, COPD, HTN, HLD, DM, seizures who was admitted for evaluation and treatment of altered mental status secondary to seizure like activity. Seizures - EEG- no seizure like activity noted - 07/23/2018 CT Head without contrast- No acute findings - 07/24/2018 CT Head without contrast- No acute findings - 07/25/2018 MRI without contrast- Late acute/early subacute MCA territory infarctions involving bilateral temporal lobes and to a lesser extent frontal and parietal cortex - 07/26/2018 CT Head and Neck- Calcified intra cavernous segments of the internal carotid arteries - echocardiogram with bubble study ordered and pending - continue depacon 100mg IVP q8h changed to q12h - keppra discontinued on 07/30/2018 - continue with secondary stroke prevention: aspirin 81mg po daily, plavix 75mg PO daily, atorvastatin 40mg QHS Patient seen, case discussed with, and plan approved by attending physician, Dr. Arita <Irving Arita - Last Filed: 07/30/18 17:41> Interval History - Education Written Stroke Education provided regarding: personal risk factors, stroke warning sign/symptoms, how to activate emergency medical services, need to follow up after discharge Exam - Vital Sign Vital Signs: Temp Pulse Resp BP Pulse Ox 99.1 F 112 H 18 132/88 100 07/30/18 12:00 07/30/18 16:30 07/30/18 12:00 07/30/18 16:30 07/30/18 06:00 - Data reviewed Laboratory results: 07/30/18 08:30 07/30/18 06:15 Triglycerides 195 mg/dL (35-160) H 07/27/18 16:30 Cholesterol 214 mg/dL (130-200) H 07/27/18 16:30 LDL Cholesterol Direct 124 mg/dL (0-129) 07/27/18 16:30 HDL Cholesterol 72 mg/dL (29-60) H 07/27/18 16:30 Hemoglobin A1c 7.5 % (4.2-6.5) H 07/23/18 21:34 Attending/Attestation - Attestation I have personally seen and examined this patient.: Yes I have fully participated in the care of the patient.: Yes I have reviewed all pertinent clinical information, including history, physical exam and plan: Yes Notes (Text): 07/30/18 17:41 I agree with the assessment and plan. Will continue work-up and current therapy.
--- NOTE | 2018-07-30 20:00 | PN ---
DATE: 07/30/2018 CARDIOLOGY FOLLOWUP SUBJECTIVE: The patient is in bed. No chest pain noted. PHYSICAL EXAMINATION: VITAL SIGNS: Blood pressure is , heart rate is 110. NECK: Negative JVD. LUNGS: Without rales. HEART: S1 and S2. EXTREMITIES: Without edema. LABORATORY DATA: BUN and creatinine are unremarkable. The hemoglobin is 9.1. IMPRESSION: 1. Status post non-ST elevation myocardial infarction. 2. Anemia. 3. History of throat cancer. 4. Coronary artery disease. 5. Diabetes mellitus. PLAN: Given these findings, we will increase her beta-blockers to 50 b.i.d. Avel Pettit MD
--- NOTE | 2018-07-30 22:45 | CON ---
DATE: 07/30/2018 A 57-year-old female seen in room 263 bed 1 as a request for consultation for a tracheostomy. The patient's nurse called in Gloria, and throughout the procedure, Gloria assisted. This patient with laryngeal cancer, had a tracheostomy placed over 2 months ago at a different facility, has been recently admitted because of seizure, has been treated for laryngeal carcinoma with a long medical history of hypertension, insulin diabetic, COPD, nonobstructive coronary artery disease, previous catheterization, presented to the ED on 07/23/2018 with a witnessed seizure by ambulatory or expenditure requisition clerk en route to the ER. The patient began seizing for 5-6 minutes. As per family, the patient was complaining of headaches all day prior to noted seizure on admission. Gloria, the station nurse, called in consultation after examining her tracheostomy tube which was noted to be sutured down and has not been changed in over 2-month period. A #8 Shiley with balloon was noted and a #8 Shiley without fenestration and balloon was then replaced, this was done at bedside with the assistance of Gloria and a suction catheter. Granulation tissue noted throughout easily, well-formed stoma without complication after suture removal. Secretions were then cleared which much improved and the patient far more comfortable was discussed for a future possible change with a fenestrated tube after 1-2 weeks after granulation and better clearing of secretions noted. This patient is being treated by Radiation Oncology as well for laryngeal stage tumor. I do not see the actual stage of the laryngeal tumor. Treatment can continue after the patient has improved the medical treatment. A non-complicated trach change at bedside. Jared Rock DO
[2018-07-31 06:41] LABS: CALCIUM 8.8 mg/dL (8.4-10.5)
[2018-07-31] MEDS: Albuterol-Ipratrop 3 mg / 0.5 (3 ml) UD IH SCH ×3 (07:12→20:15)
--- NOTE | 2018-07-31 08:36 | CP.PCM.PN ---
<Ronal Riggs - Last Filed: 07/31/18 16:21> Subjective - Date & Time of Evaluation Date of Evaluation: 07/31/18 Time of Evaluation: 08:36 - Subjective Subjective: PGY-1 Medicine Progress Note for Dr. Talley Patient seen and examined at bedside this AM. No acute overnight events reported. Patient is in no acute distress, non-complicated trach change done at bedside earlier this AM per ENT. Wrist restraints remained on due to patient continuing to pull at trach tube. No acute complaints at this time. Objective - Vital Signs/Intake and Output Vital Signs (last 24 hours): Temp Pulse Resp BP Pulse Ox 98.5 F 68 18 118/64 97 07/31/18 06:00 07/31/18 06:00 07/31/18 06:00 07/31/18 06:00 07/31/18 06:00 Intake and Output: 07/31/18 07/31/18 06:59 18:59 Intake Total 60 Balance 60 - Medications Medications: Current Medications Albuterol/Ipratropium (Duoneb 3 Mg/0.5 Mg (3 Ml) Ud) 3 ml IH TIDRESP [facility] Last Admin: 07/31/18 07:12 Dose: 3 ml Aspirin (Ecotrin) 81 mg PO DAILY [facility] Last Admin: 07/30/18 09:02 Dose: 81 mg Atorvastatin Calcium (Lipitor) 40 mg PO DIN [facility] Last Admin: 07/30/18 16:32 Dose: 40 mg Clopidogrel Bisulfate (Plavix) 75 mg NG DAILY [facility] Last Admin: 07/30/18 09:01 Dose: 75 mg Heparin Sodium (Porcine) (Heparin) 5,000 units SC Q8 [facility]; Protocol Last Admin: 07/31/18 05:17 Dose: 5,000 units Hydralazine HCl (Apresoline) 10 mg IVP ONCE PRN PRN Reason: hypertension Last Admin: 07/28/18 20:28 Dose: 10 mg Thiamine HCl 100 mg/ Sodium (Chloride) 51 mls @ 102 mls/hr IV DAILY [facility] Stop: 07/31/18 10:01 Last Admin: 07/30/18 10:05 Dose: 102 mls/hr Valproate Sodium 1,000 mg/ (Sodium Chloride) 110 mls @ 100 mls/hr IVPB Q12 [facility] Last Admin: 07/30/18 21:12 Dose: 100 mls/hr Ceftriaxone Sodium (Rocephin 1 Gram Ivpb) 1 gm in 100 mls @ 100 mls/hr IVPB DAILY [facility]; Protocol Last Admin: 07/30/18 09:07 Dose: 100 mls/hr Insulin Human Regular (Humulin R Med) 0 units SC ACHS [facility]; Protocol Last Admin: 07/30/18 21:40 Dose: Not Given Lorazepam (Ativan) 2 mg IVP Q6H PRN; Protocol PRN Reason: Anxiety Last Admin: 07/30/18 20:46 Dose: 2 mg Losartan Potassium (Cozaar) 50 mg PO DAILY [facility] Last Admin: 07/30/18 09:02 Dose: 50 mg Metoprolol Tartrate (Lopressor) 50 mg PO BRKDIN [facility] Last Admin: 07/30/18 16:30 Dose: 50 mg Pantoprazole Sodium (Protonix Inj) 40 mg IVP DAILY [facility] Last Admin: 07/30/18 09:04 Dose: 40 mg - Labs Labs: 07/30/18 08:30 07/31/18 04:35 PT 10.5 SECONDS (9.4-12.5) 07/23/18 21:34 INR 0.92 07/23/18 21:34 APTT 21.8 Seconds (25.1-36.5) L 07/27/18 14:00 - Constitutional Appears: Non-toxic, No Acute Distress, Chronically Ill - Head Exam Head Exam: ATRAUMATIC, NORMAL INSPECTION, NORMOCEPHALIC - Eye Exam Eye Exam: EOMI, Normal appearance - ENT Exam ENT Exam: Mucous Membranes Moist, Normal Exam - Neck Exam Additional comments: trach collar in place, patent and functional - Respiratory Exam Respiratory Exam: Clear to Ausculation Bilateral, NORMAL BREATHING PATTERN. absent: Accessory Muscle Use, Rales, Rhonchi, Wheezes, Respiratory Distress, Stridor - Cardiovascular Exam Cardiovascular Exam: REGULAR RHYTHM, +S1, +S2 - GI/Abdominal Exam GI & Abdominal Exam: Soft, Normal Bowel Sounds. absent: Distended, Firm, Guarding, Rigid, Tenderness, Rebound - Extremities Exam Extremities Exam: Full ROM, Normal Capillary Refill, Normal Inspection. absent: Calf Tenderness, Pedal Edema - Back Exam Back Exam: NORMAL INSPECTION - Neurological Exam Neurological Exam: Alert, Awake, Oriented x3 - Psychiatric Exam Psychiatric exam: Normal Affect, Normal Mood - Skin Skin Exam: Dry, Intact, Normal Color, Warm Assessment and Plan - Assessment and Plan (Free Text) Assessment: 57 year old female with a PMHx which includes laryngeal cancer s/p tracheostomy, alcohol abuse, COPD, HTN, HLD, DM, seizures who was admitted for evaluation and treatment of altered mental status secondary to seizure like activity. Patient found to have L-acute/subacute MCA stroke involving bilateral temporal lobes. Patient also had hypernatremia, which has resolved. Plan: AMS 2/2 seizure-like activity, hx of seizures - EEG: no seizure activity noted - CT Head without contrast (07/23): no acute findings - Repeat CT Head without contrast (07/24) : no acute findings - MRI without contrast (07/25): late acute/early subacute MCA territory infarctions involving bilateral temporal lobes and to a lesser extent frontal and parietal cortex - CT Head and Neck (07/26): Calcified intra cavernous segments of the internal carotid arteries - Neurology recs (Dr. Duckworth) appreciated -continue depacon 100mg IVP q8h changed to q12h -continue with secondary stroke prevention: aspirin 81mg po daily, plavix 75mg PO daily, atorvastatin 40mg QHS NSTEMI - Echo: EF 62%. Mitral leaflets are thickened but normal valve opening. Mild L-ventricular diastolic dysfunction. Trace TR. Minimal pulm HTN. - Cardio recs (Dr. Pettit) - c/w ASA, plavix, statin - heparin drip was d/c'd due to risk of hemorrhagic conversion - echo with bubble study not recommended, per Dr. Pettit UTI -spiked fever 100.4 (07/28) -UA positive -Ucx: klebsiella -repeat CXR (07/29): minor vascular congestion -c/w rocephin Hyponatremia - resolved - IVF d/c by ICU - Na 145 (07/31) - Na 115 on admission - Nephro recs appreciated -added losartan and lopressor for bp control Hx laryngeal cancer s/p tracheostomy -trach collar patient, functional -blood tinged sputum noted in trach collar, new finding -f/u sputum cx -ENT (Dr. Rock) on board -noncomplicated trach collar changed -[employer] on board HTN -c/w losartan, lopressor, hydralazine prn Hx DM - ISS high ACHS - Fingersticks ACHS - HA1C: 7.5 HLD - Lipitor 40mg PO - lipid panel: [id number], TC209, WVP362, HDL68 Anemia - Hb/Hct: 8.0/23.3 (07/30) - stable, continue to monitor - hypercoagulable workup -low protein C and S - Heme/Onc (Dr. Tillman) on board PPx, Diet, Disposition -GI ppx: protonix -DVT ppx: heparin sc -PT on board -Dispo: Subacute pending treatment of radiation and chemo Case discussed with Dr. Gerri Riggs DO, PGY-1 <Darrel Talley - Last Filed: 08/01/18 15:54> Objective - Vital Signs/Intake and Output Vital Signs (last 24 hours): Temp Pulse Resp BP Pulse Ox 98.5 F 105 H 20 129/86 99 08/01/18 11:39 08/01/18 11:39 08/01/18 11:39 08/01/18 11:39 08/01/18 06:00 Intake and Output: 08/01/18 08/01/18 06:59 18:59 Intake Total 220 Balance 220 - Medications Medications: Current Medications Acetaminophen (Tylenol 325mg Tab) 650 mg PO Q6H PRN PRN Reason: Headache Last Admin: 08/01/18 10:26 Dose: 650 mg Albuterol/Ipratropium (Duoneb 3 Mg/0.5 Mg (3 Ml) Ud) 3 ml IH TIDRESP [facility] Last Admin: 08/01/18 13:10 Dose: 3 ml Aspirin (Ecotrin) 81 mg PO DAILY [facility] Last Admin: 08/01/18 10:26 Dose: 81 mg Atorvastatin Calcium (Lipitor) 40 mg PO DIN [facility] Last Admin: 07/31/18 17:15 Dose: 40 mg Cefpodoxime Proxetil (Vantin) 200 mg PO Q12 [facility] Stop: 08/03/18 07:10 Last Admin: 08/01/18 10:25 Dose: 200 mg Clopidogrel Bisulfate (Plavix) 75 mg NG DAILY [facility] Last Admin: 08/01/18 10:26 Dose: 75 mg Heparin Sodium (Porcine) (Heparin) 5,000 units SC Q8 [facility]; Protocol Last Admin: 08/01/18 15:21 Dose: 5,000 units Hydralazine HCl (Apresoline) 10 mg IVP ONCE PRN PRN Reason: hypertension Last Admin: 07/28/18 20:28 Dose: 10 mg Valproate Sodium 1,000 mg/ (Sodium Chloride) 110 mls @ 100 mls/hr IVPB Q12 [facility] Last Admin: 08/01/18 10:25 Dose: 100 mls/hr Insulin Human Regular (Humulin R Med) 0 units SC ACHS [facility]; Protocol Last Admin: 08/01/18 11:41 Dose: 3 u Lorazepam (Ativan) 2 mg IVP Q6H PRN; Protocol PRN Reason: Anxiety Last Admin: 07/31/18 17:19 Dose: 2 mg Losartan Potassium (Cozaar) 50 mg PO DAILY [facility] Last Admin: 08/01/18 10:26 Dose: 50 mg Metoprolol Tartrate (Lopressor) 50 mg PO BRKDIN [facility] Last Admin: 08/01/18 10:26 Dose: 50 mg Pantoprazole Sodium (Protonix Susp) 40 mg PO DAILY [facility] Last Admin: 08/01/18 10:25 Dose: 40 mg - Labs Labs: 08/01/18 06:45 08/01/18 06:45 PT 10.5 SECONDS (9.4-12.5) 07/23/18 21:34 INR 0.92 07/23/18 21:34 APTT 21.8 Seconds (25.1-36.5) L 07/27/18 14:00 Attending/Attestation - Attestation I have personally seen and examined this patient.: Yes I have fully participated in the care of the patient.: Yes I have reviewed all pertinent clinical information, including history, physical exam and plan: Yes Notes (Text): 08/01/18 15:53 Medical record note made by the resident after discussion with my direction and input after the patient was personally seen and examined by me. I have reviewed the chart and agree that the record accurately reflects by personal performance of the history, physical exam, data review, and medical decision-making, in the course for the patient. I have also personally directed the plan of care.
--- NOTE | 2018-07-31 08:42 | PN ---
DATE: 07/31/2018 CARDIOLOGY FOLLOWUP SUBJECTIVE: The patient is comfortable after trach change. PHYSICAL EXAMINATION: VITAL SIGNS: Blood pressure is 118/64, heart rates in the 60s. NECK: Negative JVD. LUNGS: Decreased breath sounds. HEART: S1 and S2. EXTREMITIES: Without edema. LABORATORY DATA: Hemoglobin is 9.1. Chemistries, BUN and creatinine are unremarkable. IMPRESSION 1. Status post [id number] myocardial infarction treated medically. 2. Anemia. 3. History of throat cancer 3. 4. Coronary artery disease. 5. Diabetes mellitus. PLAN: Given these findings, the patient is hemodynamically stable. We will continue her aspirin 81 mg. The patient is currently on cholesterol medications. Avel Pettit MD
[2018-07-31] MEDS: Valproate 1,000 MG in Sodium Chloride 0.9% 100 ML IVPB SCH ×2 (10:29→21:46)
[2018-07-31] MEDS ORDERED: Magnesium Sulfate 1 gm in D5W 1 GM/100 ML BAG IVPB ONE (10:29)
[2018-07-31] MEDS: cefTRIAXone 1 gm 1 GM/100 ML BAG IVPB SCH (10:31)
[2018-07-31 11:10] LABS: BASO # 0.01 K/mm3 (0.0-2.0); BASO % 0.2 % (0.0-3.0); EOS % 0.4 % (1.5-5.0); GRAN # 3.67 (1.4-6.5); GRAN % 74.5 % (50.0-68.0); LYMPH # 0.8 (1.2-3.4); LYMPH % 16.4 % (22.0-35.0); MEAN CELL VOLUME 75.4 fl (80.0-105.0); MEAN CORPUSCULAR HEMOGLOBIN 25.9 pg (25.0-35.0); MEAN CORPUSCULAR HGB CONC 34.3 g/dl (31.0-37.0); MEAN PLATELET VOLUME 8.8 fl (7.0-11.0); MONO # 0.4 (0.1-0.6); MONO % 8.5 % (1.0-6.0); RBC 3.09 10^6/uL (3.5-6.1); RED CELL DISTRIBUTION WIDTH 18.5 % (11.5-14.5); WHITE BLOOD COUNT 4.9 10^3/uL (4.5-11.0)
[2018-07-31 11:33] LABS: ALB/GLOB RATIO 0.8 (1.1-1.8); ALBUMIN 2.5 g/dL (3.0-4.8); ALT/SGPT 37 U/L (7-56); AST/SGOT 47 U/L (14-36); BLOOD UREA NITROGEN 15 mg/dL (7-21); CALCIUM 7.7 mg/dL (8.4-10.5); GFR NON-AFRICAN AMERICAN 51
[2018-07-31] MEDS: Insulin Reg-MEDIUM-Coverage SC SCH ×4 (12:53→21:49)
--- NOTE | 2018-07-31 13:07 | RAD ---
Date of service: 07/31/2018 HISTORY: trach placement COMPARISON: 07/29/2018 FINDINGS: LUNGS: No active pulmonary disease. PLEURA: No significant pleural effusion identified, no pneumothorax apparent. CARDIOVASCULAR: No aortic atherosclerotic calcification present. Mild cardiomegaly no pulmonary vascular congestion. OSSEOUS STRUCTURES: No significant abnormalities. VISUALIZED UPPER ABDOMEN: Normal. OTHER FINDINGS: Tracheostomy and right central line unchanged IMPRESSION: No active disease.
[2018-07-31] MEDS: Thiamine 100 MG in Sodium Chloride 0.9% 50 ML IV SCH (13:08)
--- NOTE | 2018-07-31 13:15 | CP.PCM.CON ---
History of Present Illness - History of Present Illness History of Present Illness: 57 year old female with a history of DM, HTN, HL, CAD s/p MANUEL, vocal cord squamous cell carcinoma dx 04/2018, s/p tracheostomy, receiving definitive chemoradiation, admitted after witnessed seizure, found to have CVA. The patient was seen by me during her initial diagnosis but elected to receive her chemotherapy at [place]. I am unaware of the specifics of her treatment but she does receive radiation with Dr. Carmichael at [facility]. She notes to feeling better since coming to the hospital. Past medical history: DM, HTN, HL, CAD, head and neck cancer Past surgical history: Tracheostomy Family history: Denies hematologic and oncologic problems Social history: Former tobacco and former alcohol abuse [place]es: Hydromorphone, peanut Review of systems: All remaining review of systems including HEENT, cardiovas cular, respiratory, gastrointestinal, genitourinary, musculoskeletal, dermatologic, neurologic, and psychiatric are negative unless mentioned in the HPI. Past Patient History - Past Medical History & Family History Past Medical History?: Yes - Past Social History Smoking Status: Former Smoker - CARDIAC Hx Cardiac Disorders: Yes Hx Hypercholesterolemia: Yes Hx Hypertension: Yes - PULMONARY Hx Chronic Obstructive Pulmonary Disease (COPD): Yes - NEUROLOGICAL Hx Neurological Disorder: No - HEENT Hx HEENT Problems: Yes (hoarseness) Hx Cataracts: Yes Other/Comment: HX: VOVAL CORD LESION - RENAL Hx Chronic Kidney Disease: No - ENDOCRINE/METABOLIC Hx Diabetes Mellitus Type 2: Yes - HEMATOLOGICAL/ONCOLOGICAL Hx Blood Disorders: Yes Hx Anemia: Yes Hx Blood Transfusions: Yes Hx Blood Transfusion Reaction: No - INTEGUMENTARY Hx Dermatological Problems: No - MUSCULOSKELETAL/RHEUMATOLOGICAL Hx Musculoskeletal Disorders: Yes Hx Osteoporosis: Yes - GASTROINTESTINAL Hx Gastrointestinal Disorders: Yes Hx Gastroesophageal Reflux: Yes HX Swallowing Problems: Yes - GENITOURINARY/GYNECOLOGICAL Hx Genitourinary Disorders: No - PSYCHIATRIC Hx Psychophysiologic Disorder: No Hx Substance Use: No - SURGICAL HISTORY Hx Cardiac Catheterization: Yes - ANESTHESIA Hx Anesthesia: Yes Hx Anesthesia Reactions: No Hx Malignant Hyperthermia: No Meds Allergies/Adverse Reactions: Allergies Allergy/AdvReac Type Severity Reaction Status Date / Time peanut Allergy Severe SWELLING Verified 07/23/18 20:49 hydromorphone [From Dilaudid] Allergy Mild ITCHING Verified 07/23/18 20:49 - Medications Medications: Current Medications Albuterol/Ipratropium (Duoneb 3 Mg/0.5 Mg (3 Ml) Ud) 3 ml IH TIDRESP [facility] Last Admin: 07/31/18 13:11 Dose: 3 ml Aspirin (Ecotrin) 81 mg PO DAILY [facility] Last Admin: 07/31/18 10:30 Dose: 81 mg Atorvastatin Calcium (Lipitor) 40 mg PO DIN [facility] Last Admin: 07/30/18 16:32 Dose: 40 mg Clopidogrel Bisulfate (Plavix) 75 mg NG DAILY [facility] Last Admin: 07/31/18 10:30 Dose: 75 mg Heparin Sodium (Porcine) (Heparin) 5,000 units SC Q8 [facility]; Protocol Last Admin: 07/31/18 13:10 Dose: 5,000 units Hydralazine HCl (Apresoline) 10 mg IVP ONCE PRN PRN Reason: hypertension Last Admin: 07/28/18 20:28 Dose: 10 mg Valproate Sodium 1,000 mg/ (Sodium Chloride) 110 mls @ 100 mls/hr IVPB Q12 [facility] Last Admin: 07/31/18 10:29 Dose: 100 mls/hr Ceftriaxone Sodium (Rocephin 1 Gram Ivpb) 1 gm in 100 mls @ 100 mls/hr IVPB DAILY [facility]; Protocol Last Admin: 07/31/18 10:31 Dose: 100 mls/hr Insulin Human Regular (Humulin R Med) 0 units SC ACHS [facility]; Protocol Last Admin: 07/31/18 12:55 Dose: 7 u Lorazepam (Ativan) 2 mg IVP Q6H PRN; Protocol PRN Reason: Anxiety Last Admin: 07/30/18 20:46 Dose: 2 mg Losartan Potassium (Cozaar) 50 mg PO DAILY [facility] Last Admin: 07/31/18 10:30 Dose: 50 mg Metoprolol Tartrate (Lopressor) 50 mg PO BRKDIN [facility] Last Admin: 07/31/18 08:38 Dose: 50 mg Pantoprazole Sodium (Protonix Inj) 40 mg IVP DAILY [facility] Last Admin: 07/31/18 10:31 Dose: 40 mg Physical Exam - Constitutional Appears: Cachectic - Head Exam Head Exam: ATRAUMATIC - ENT Exam ENT Exam: Mucous Membranes Dry - Respiratory Exam Respiratory Exam: NORMAL BREATHING PATTERN - Cardiovascular Exam Cardiovascular Exam: +S1, +S2 - GI/Abdominal Exam GI & Abdominal Exam: Normal Bowel Sounds - Back Exam Back exam: NORMAL INSPECTION - Neurological Exam Neurological exam: Oriented x3 - Psychiatric Exam Psychiatric exam: Normal Affect, Normal Mood - Skin Skin Exam: Warm Results - Vital Signs Recent Vital Signs: Last Vital Signs Temp 97.1 F L 07/31/18 12:00 Pulse 104 H 07/31/18 12:00 Resp 20 07/31/18 12:00 BP 114/71 07/31/18 12:00 Pulse Ox 97 07/31/18 06:00 - Labs Result Diagrams: 07/31/18 11:00 07/31/18 11:00 Labs: Laboratory Results - last 24 hr 07/30/18 07/30/18 07/30/18 06:15 15:56 21:37 WBC RBC Hgb Hct MCV MCH MCHC RDW Plt Count MPV Gran % Lymph % (Auto) [place] % (Auto) Eos % (Auto) Baso % (Auto) Gran # Lymph # (Auto) [place] # (Auto) Eos # (Auto) Baso # (Auto) Sodium Potassium Chloride Carbon Dioxide Anion Gap BUN Creatinine Est GFR ( Amer) Est GFR (Non-Af Amer) POC Glucose (mg/dL) 293 H 131 H Random Glucose Calcium Phosphorus 4.0 Magnesium 1.2 L Total Bilirubin AST ALT Alkaline Phosphatase Total Protein Albumin Globulin Albumin/Globulin Ratio 07/31/18 07/31/18 07/31/18 04:35 07:15 10:48 WBC RBC Hgb Hct MCV MCH MCHC RDW Plt Count MPV Gran % Lymph % (Auto) [place] % (Auto) Eos % (Auto) Baso % (Auto) Gran # Lymph # (Auto) [place] # (Auto) Eos # (Auto) Baso # (Auto) Sodium 142 Potassium 4.0 Chloride 108 H Carbon Dioxide 28 Anion Gap 11 BUN 16 Creatinine 1.3 H Est GFR ( Amer) 51 Est GFR (Non-Af Amer) 42 POC Glucose (mg/dL) 121 H 309 H Random Glucose 144 H Calcium 8.8 Phosphorus Magnesium Total Bilirubin AST ALT Alkaline Phosphatase Total Protein Albumin Globulin Albumin/Globulin Ratio 07/31/18 07/31/18 11:00 11:00 WBC 4.9 D RBC 3.09 L Hgb 8.0 L Hct 23.3 L MCV 75.4 L MCH 25.9 MCHC 34.3 RDW 18.5 H Plt Count 118 L MPV 8.8 Gran % 74.5 H Lymph % (Auto) 16.4 L [place] % (Auto) 8.5 H Eos % (Auto) 0.4 L Baso % (Auto) 0.2 Gran # 3.67 Lymph # (Auto) 0.8 L [place] # (Auto) 0.4 Eos # (Auto) 0.0 Baso # (Auto) 0.01 Sodium 145 Potassium 3.8 Chloride 109 H Carbon Dioxide 26 Anion Gap 14 BUN 15 Creatinine 1.1 Est GFR ( Amer) > 60 Est GFR (Non-Af Amer) 51 POC Glucose (mg/dL) Random Glucose 274 H Calcium 7.7 L Phosphorus Magnesium Total Bilirubin 0.2 AST 47 H D ALT 37 Alkaline Phosphatase 53 Total Protein 5.6 L Albumin 2.5 L Globulin 3.1 Albumin/Globulin Ratio 0.8 L Assessment & Plan (1) CVA (cerebral vascular accident) Assessment and Plan: low protein C+S may be low as were checked during acute clotting (consumed during clotting/bleeding) can repeat in 3 months per neuro Status: Acute (2) Anemia Assessment and Plan: will check retic count, b12, folate, ferritin anemia of chemotherapy and radiation transfusion support PRN Status: Acute (3) Thrombocytopenia Assessment and Plan: mild likely related to chemotherapy/radiation Status: Acute (4) Vocal cord cancer Assessment and Plan: per outpatient treatment team Thank you for this interesting consult. Status: Acute
--- NOTE | 2018-07-31 15:57 | CP.PCM.PN ---
Subjective - Date & Time of Evaluation Date of Evaluation: 07/31/18 Time of Evaluation: 15:56 - Subjective Subjective: Nephrology Consultation Note: Assessment: critical Hyponatremia hypo-osmolar ? etiology, likely pre-renal/hypovolemia as better with NS: resolved seizure, AMS HAGMA due to starvation ketoacidosis acute respi and metabolic acidosis HTN emergency CA throat, DM, anemia NSTEMI CKD 2 acute CVA Plan No acute need for renal replacement therapy at this time. . Hypertension control with meds as ordered. Maintain hemodynamics stable. Avoid hypotension. added losartan and lopressor Monitor Input/Output, daily weights and renal function with basic metabolic panel supplements lytes as needed respi support as per pulmonary continue with thiamine supplements Dose meds/antibiotics for improved GFR. Glycemic control Further work up/management as per primary team Thanks for allowing me to participate in care of your patient. Will sign off and follow patient with you further PRN basis. Please call if any Qs. had d/w team Dr Jong Dennis Office: [phone] Chief Complaint; seizure Reason for consult: hyponatremia HPI: Pt is a 57 F with hx of diabetes Mellitus ( years), hypertension (years) CA throat, seizure presented with complaints of seizure and AMS. pt was admitted to ICU and renal consult for hyponatremia. she received hypertonic saline overnight no known OTC/herbal meds or NSAIDs No recent iodinated contrast exposure. No obvious episodes of low BP. baseline cr 1.1-1.2 suggestive of CKD 2 ROS: pt feels better. no new complaints. no CP/SOB. Physical Examination: General Appearance: better appearing Vitals reviewed and noted as below Head; Atraumatic, normocephalic ENT: unable. has trach/collar EYES: Pupils are equal, round and reactive to light accommodation. Eye muscles and extraocular movement intact. Sclera is anicteric. Neck; had trach, no thyromegaly or bruit Lungs: normal respiratory rate/effort. Breath sounds bilateral diminished at bases Heart: normal rate. s1s2 normal. No rub or gallop. Extremities: no edema. No varicose veins Neurological: Patient is awake and communicative Skin: Warm and dry. Normal turgor. No rash. Palpitation: Normal elasticity for age Abdomen: Abdomen is soft. Bowel sounds +. There is no abdominal tenderness, no guarding/rigidity no organomegaly Psych: deferred MSK: no joint tenderness or swelling. Digits and nails normal, no deformity : kidney or bladder not palpable Labs/imaging reviewed. Past medical history, past surgical history, family history, social history, allergy reviewed and noted as below Family hx: no hx of CKD. Rest non-contributory Objective - Vital Signs/Intake and Output Vital Signs (last 24 hours): Temp Pulse Resp BP Pulse Ox 97.1 F L 104 H 20 114/71 97 07/31/18 12:00 07/31/18 12:00 07/31/18 12:00 07/31/18 12:00 07/31/18 06:00 Intake and Output: 07/31/18 07/31/18 06:59 18:59 Intake Total 60 Balance 60 - Medications Medications: Current Medications Albuterol/Ipratropium (Duoneb 3 Mg/0.5 Mg (3 Ml) Ud) 3 ml IH TIDRESP [facility] Last Admin: 07/31/18 13:11 Dose: 3 ml Aspirin (Ecotrin) 81 mg PO DAILY [facility] Last Admin: 07/31/18 10:30 Dose: 81 mg Atorvastatin Calcium (Lipitor) 40 mg PO DIN [facility] Last Admin: 07/30/18 16:32 Dose: 40 mg Clopidogrel Bisulfate (Plavix) 75 mg NG DAILY [facility] Last Admin: 07/31/18 10:30 Dose: 75 mg Heparin Sodium (Porcine) (Heparin) 5,000 units SC Q8 [facility]; Protocol Last Admin: 07/31/18 13:10 Dose: 5,000 units Hydralazine HCl (Apresoline) 10 mg IVP ONCE PRN PRN Reason: hypertension Last Admin: 07/28/18 20:28 Dose: 10 mg Valproate Sodium 1,000 mg/ (Sodium Chloride) 110 mls @ 100 mls/hr IVPB Q12 [facility] Last Admin: 07/31/18 10:29 Dose: 100 mls/hr Ceftriaxone Sodium (Rocephin 1 Gram Ivpb) 1 gm in 100 mls @ 100 mls/hr IVPB DAILY [facility]; Protocol Last Admin: 07/31/18 10:31 Dose: 100 mls/hr Insulin Human Regular (Humulin R Med) 0 units SC ACHS [facility]; Protocol Last Admin: 07/31/18 12:55 Dose: 7 u Lorazepam (Ativan) 2 mg IVP Q6H PRN; Protocol PRN Reason: Anxiety Last Admin: 07/30/18 20:46 Dose: 2 mg Losartan Potassium (Cozaar) 50 mg PO DAILY [facility] Last Admin: 07/31/18 10:30 Dose: 50 mg Metoprolol Tartrate (Lopressor) 50 mg PO BRKDIN [facility] Last Admin: 07/31/18 08:38 Dose: 50 mg Pantoprazole Sodium (Protonix Susp) 40 mg PO DAILY [facility] - Labs Labs: 07/31/18 11:00 07/31/18 11:00 PT 10.5 SECONDS (9.4-12.5) 07/23/18 21:34 INR 0.92 07/23/18 21:34 APTT 21.8 Seconds (25.1-36.5) L 07/27/18 14:00
[2018-08-01 07:02] LABS: BASO # 0.01 K/mm3 (0.0-2.0); BASO % 0.2 % (0.0-3.0); EOS % 0.4 % (1.5-5.0); GRAN # 2.59 (1.4-6.5); GRAN % 56.6 % (50.0-68.0); HEMOGLOBIN 8.2 g/dL (12.0-16.0); LYMPH # 1.5 (1.2-3.4); LYMPH % 31.7 % (22.0-35.0); MEAN CELL VOLUME 75.5 fl (80.0-105.0); MEAN CORPUSCULAR HEMOGLOBIN 25.7 pg (25.0-35.0); MEAN PLATELET VOLUME 9.3 fl (7.0-11.0); MONO # 0.5 (0.1-0.6); MONO % 11.1 % (1.0-6.0); RBC 3.19 10^6/uL (3.5-6.1); RED CELL DISTRIBUTION WIDTH 18.5 % (11.5-14.5); WHITE BLOOD COUNT 4.6 10^3/uL (4.5-11.0)
[2018-08-01] MEDS: Albuterol-Ipratrop 3 mg / 0.5 (3 ml) UD IH SCH ×3 (07:03→19:51)
--- NOTE | 2018-08-01 07:52 | CP.PCM.PN ---
<Ronal Riggs - Last Filed: 08/01/18 15:23> Subjective - Date & Time of Evaluation Date of Evaluation: 08/01/18 Time of Evaluation: 07:51 - Subjective Subjective: PGY-1 Medicine Progress Note for Dr. Talley Patient was seen and examined at bedside this AM. No acute events reported overnight. Denies fevers/chills, headaches, dizziness, chest pain, palpitations, sob, cough, abdominal pain, n/v/d/c, dysuria, or changes in stool. Patient was talked to at length about hospital course and discharge plans going forward. She no longer agrees to REY echo testing, per Cardiology, scheduled for tomorrow and wishes to go home today. She does not wish to go to subacute rehabilitation, per physical therapy recommendations. She understands that doing so puts her at high medical risk and is against medical advice. The patient was told why remaining in the hospital is necessary and explanation of the reasons why were discussed. The risks of leaving were explained to the patient and sister at bedside. Patient's daughter was called on the phone and made aware of our discussions as well. The patient was seen by Psychiatry during hospital course and has the capacity to make this informed decision. She understands our current e xplanations of the current medical problems and risks of leaving. Family is currently not willing to transport patient home and patient does not have means currently on getting home on her own. The patient voluntarily accepts these risks and will sign out AMA once she has means of getting home. She was encouraged to return to the ED at any time for further care. Objective - Vital Signs/Intake and Output Vital Signs (last 24 hours): Temp Pulse Resp BP Pulse Ox 98.0 F 108 H 20 136/74 99 08/01/18 06:00 08/01/18 06:00 08/01/18 06:00 08/01/18 06:00 08/01/18 06:00 Intake and Output: 08/01/18 08/01/18 06:59 18:59 Intake Total 220 Balance 220 - Medications Medications: Current Medications Albuterol/Ipratropium (Duoneb 3 Mg/0.5 Mg (3 Ml) Ud) 3 ml IH TIDRESP [facility] Last Admin: 08/01/18 07:03 Dose: 3 ml Aspirin (Ecotrin) 81 mg PO DAILY [facility] Last Admin: 07/31/18 10:30 Dose: 81 mg Atorvastatin Calcium (Lipitor) 40 mg PO DIN [facility] Last Admin: 07/31/18 17:15 Dose: 40 mg Clopidogrel Bisulfate (Plavix) 75 mg NG DAILY [facility] Last Admin: 07/31/18 10:30 Dose: 75 mg Heparin Sodium (Porcine) (Heparin) 5,000 units SC Q8 [facility]; Protocol Last Admin: 08/01/18 05:27 Dose: 5,000 units Hydralazine HCl (Apresoline) 10 mg IVP ONCE PRN PRN Reason: hypertension Last Admin: 07/28/18 20:28 Dose: 10 mg Valproate Sodium 1,000 mg/ (Sodium Chloride) 110 mls @ 100 mls/hr IVPB Q12 [facility] Last Admin: 07/31/18 21:46 Dose: 100 mls/hr Ceftriaxone Sodium (Rocephin 1 Gram Ivpb) 1 gm in 100 mls @ 100 mls/hr IVPB DAILY [facility]; Protocol Last Admin: 07/31/18 10:31 Dose: 100 mls/hr Insulin Human Regular (Humulin R Med) 0 units SC ACHS [facility]; Protocol Last Admin: 07/31/18 21:49 Dose: Not Given Lorazepam (Ativan) 2 mg IVP Q6H PRN; Protocol PRN Reason: Anxiety Last Admin: 07/31/18 17:19 Dose: 2 mg Losartan Potassium (Cozaar) 50 mg PO DAILY [facility] Last Admin: 07/31/18 10:30 Dose: 50 mg Metoprolol Tartrate (Lopressor) 50 mg PO BRKDIN [facility] Last Admin: 07/31/18 17:18 Dose: 50 mg Pantoprazole Sodium (Protonix Susp) 40 mg PO DAILY [facility] - Labs Labs: 08/01/18 06:45 07/31/18 11:00 PT 10.5 SECONDS (9.4-12.5) 07/23/18 21:34 INR 0.92 07/23/18 21:34 APTT 21.8 Seconds (25.1-36.5) L 07/27/18 14:00 - Constitutional Appears: Non-toxic, No Acute Distress, Chronically Ill - Head Exam Head Exam: ATRAUMATIC, NORMAL INSPECTION, NORMOCEPHALIC - Eye Exam Eye Exam: EOMI, Normal appearance Pupil Exam: NORMAL ACCOMODATION - ENT Exam ENT Exam: Mucous Membranes Moist, Normal Exam - Neck Exam Neck Exam: Full ROM Additional comments: trach collar in place, patent and functional, blood tinged sputum production noted in collar - Respiratory Exam Respiratory Exam: Clear to Ausculation Bilateral, NORMAL BREATHING PATTERN. absent: Accessory Muscle Use, Rales, Rhonchi, Wheezes, Respiratory Distress, Stridor - Cardiovascular Exam Cardiovascular Exam: REGULAR RHYTHM, +S1, +S2 - GI/Abdominal Exam GI & Abdominal Exam: Soft, Normal Bowel Sounds. absent: Distended, Firm, Guarding, Rigid, Tenderness, Organomegaly, Rebound - Extremities Exam Extremities Exam: Full ROM, Normal Capillary Refill, Normal Inspection. absent: Calf Tenderness, Joint Swelling - Back Exam Back Exam: NORMAL INSPECTION - Neurological Exam Neurological Exam: Alert, Awake, Oriented x3 - Psychiatric Exam Psychiatric exam: Normal Affect, Normal Mood - Skin Skin Exam: Dry, Intact, Normal Color, Warm Assessment and Plan - Assessment and Plan (Free Text) Assessment: 57 year old female with a PMHx which includes laryngeal cancer s/p tracheostomy, alcohol abuse, COPD, HTN, HLD, DM, seizures who was admitted for evaluation and treatment of altered mental status secondary to seizure like activity. Patient found to have L-acute/subacute MCA stroke involving bilateral temporal lobes. Patient also had hypernatremia, which has resolved. Patient scheduled for REY echo tomorrow, now refusing procedure and wishing to go home. Family refusing to pick her up currently and patient has no means of getting home. Intends to sign out AMA once she has a means of getting home. Plan: AMS 2/2 seizure-like activity, hx of seizures - EEG: no seizure activity noted - CT Head without contrast (07/23): no acute findings - Repeat CT Head without contrast (07/24) : no acute findings - MRI without contrast (07/25): late acute/early subacute MCA territory infarctions involving bilateral temporal lobes and to a lesser extent frontal and parietal cortex - CT Head and Neck (07/26): Calcified intra cavernous segments of the internal carotid arteries - Neurology recs (Dr. Duckworth) appreciated -continue depacon 100mg IVP q12h -continue with secondary stroke prevention: aspirin 81mg po daily, plavix 75mg PO daily, atorvastatin 40mg QHS -echocardiogram with bubble study reordered and pending- coordinated with cardiology Dr. Pettit for completion NSTEMI - Echo: EF 62%. Mitral leaflets are thickened but normal valve opening. Mild L- ventricular diastolic dysfunction. Trace TR. Minimal pulm HTN. - Cardio recs (Dr. Pettit) - c/w ASA, plavix, statin - heparin drip was d/c'd due to risk of hemorrhagic conversion - echo with bubble study not recommended, per Dr. Pettit UTI -spiked fever 100.4 (07/28) -UA positive -Ucx: klebsiella -repeat CXR (07/29): minor vascular congestion -Vantin 200 mg PO q12 Hyponatremia - resolved - IVF d/c by ICU - Na 139 (08/01) - Na 115 on admission - Nephro recs appreciated -added losartan and lopressor for bp control Hx laryngeal cancer s/p tracheostomy -trach collar patient, functional -blood tinged sputum noted in trach collar, new finding -sputum cx prelim: gram negative horacio -ENT (Dr. Rock) on board -noncomplicated trach collar changed -UNIT AIDE on board HTN -c/w losartan, lopressor, hydralazine prn Hx DM - ISS high ACHS - Fingersticks ACHS - HA1C: 7.5 HLD - Lipitor 40mg PO - lipid panel: [id number], TC209, PQK693, HDL68 Anemia - Hb/Hct: 8.2/24.1 (08/01) - stable, continue to monitor - hypercoagulable workup -low protein C and S - Heme/Onc (Dr. Tillman) recs appreciated: low protein c and s may be low as they were checked during acute clotting; can repeat in 3 months outpatient PPx, Diet, Disposition -GI ppx: protonix -DVT ppx: heparin sc -PT on board -Dispo: Patient scheduled for REY echo tomorrow, now refusing procedure and wishing to go home. Family refusing to pick her up currently and patient has no means of getting home. Intends to sign out AMA once she has a means of getting home. Case discussed with Dr. Gerri Riggs DO, PGY-1 <Darrel Talley - Last Filed: 08/01/18 15:33> Objective - Vital Signs/Intake and Output Vital Signs (last 24 hours): Temp Pulse Resp BP Pulse Ox 98.5 F 105 H 20 129/86 99 08/01/18 11:39 08/01/18 11:39 08/01/18 11:39 08/01/18 11:39 08/01/18 06:00 Intake and Output: 08/01/18 08/01/18 06:59 18:59 Intake Total 220 Balance 220 - Medications Medications: Current Medications Acetaminophen (Tylenol 325mg Tab) 650 mg PO Q6H PRN PRN Reason: Headache Last Admin: 08/01/18 10:26 Dose: 650 mg Albuterol/Ipratropium (Duoneb 3 Mg/0.5 Mg (3 Ml) Ud) 3 ml IH TIDRESP [facility] Last Admin: 08/01/18 13:10 Dose: 3 ml Aspirin (Ecotrin) 81 mg PO DAILY [facility] Last Admin: 08/01/18 10:26 Dose: 81 mg Atorvastatin Calcium (Lipitor) 40 mg PO DIN [facility] Last Admin: 07/31/18 17:15 Dose: 40 mg Cefpodoxime Proxetil (Vantin) 200 mg PO Q12 [facility] Stop: 08/03/18 07:10 Last Admin: 08/01/18 10:25 Dose: 200 mg Clopidogrel Bisulfate (Plavix) 75 mg NG DAILY [facility] Last Admin: 08/01/18 10:26 Dose: 75 mg Heparin Sodium (Porcine) (Heparin) 5,000 units SC Q8 [facility]; Protocol Last Admin: 08/01/18 15:21 Dose: 5,000 units Hydralazine HCl (Apresoline) 10 mg IVP ONCE PRN PRN Reason: hypertension Last Admin: 07/28/18 20:28 Dose: 10 mg Valproate Sodium 1,000 mg/ (Sodium Chloride) 110 mls @ 100 mls/hr IVPB Q12 [facility] Last Admin: 08/01/18 10:25 Dose: 100 mls/hr Insulin Human Regular (Humulin R Med) 0 units SC ACHS [facility]; Protocol Last Admin: 08/01/18 11:41 Dose: 3 u Lorazepam (Ativan) 2 mg IVP Q6H PRN; Protocol PRN Reason: Anxiety Last Admin: 07/31/18 17:19 Dose: 2 mg Losartan Potassium (Cozaar) 50 mg PO DAILY [facility] Last Admin: 08/01/18 10:26 Dose: 50 mg Metoprolol Tartrate (Lopressor) 50 mg PO BRKDIN [facility] Last Admin: 08/01/18 10:26 Dose: 50 mg Pantoprazole Sodium (Protonix Susp) 40 mg PO DAILY [facility] Last Admin: 08/01/18 10:25 Dose: 40 mg - Labs Labs: 08/01/18 06:45 08/01/18 06:45 PT 10.5 SECONDS (9.4-12.5) 07/23/18 21:34 INR 0.92 07/23/18 21:34 APTT 21.8 Seconds (25.1-36.5) L 07/27/18 14:00 Attending/Attestation - Attestation I have personally seen and examined this patient.: Yes I have fully participated in the care of the patient.: Yes I have reviewed all pertinent clinical information, including history, physical exam and plan: Yes Notes (Text): 08/01/18 15:31 57 year old female with past medical history of laryngeal cancer s/p tracheostomy, alcohol abuse, COPD, hypertension, diabetes and seizures who presented with seizures; found to have significant hyponatremia, NSTEMI and CVA. MRI brain showed large acute / early subacute MCA infarct involving bilateral temporal lobes. Neurology is following. Patient is on aspirin, plavix and statin. Video EEG was also done. Patient is currently on valproic acid, keppra and ativan. Dilantin was discontinued. . Cardiology is planning for REY tomorrow. Patient does not want to stay, comp etenet to sign out AMA but family has refused to PICK her up. Sodium level has improved and hyponatremia has resolved. K Pneumonia UTI on oral antibiotics.. Patient is DNR. Palliative care evaluation was appreciated. PT recommended [facility] or acute rehab. Patient has refused to go to rehab, Plan to DC home with home services. Prognosis is guarded.
[2018-08-01 08:16] LABS: CALCIUM 8.7 mg/dL (8.4-10.5)
[2018-08-01] MEDS: Valproate 1,000 MG in Sodium Chloride 0.9% 100 ML IVPB SCH ×2 (10:25→21:40)
[2018-08-01] MEDS: Pantoprazole 40 mg Susp UD PO SCH (10:25)
[2018-08-01] MEDS: Cefpodoxime (Vantin) 200 mg Tab PO SCH ×2 (10:25→21:40)
[2018-08-01] MEDS: Insulin Reg-MEDIUM-Coverage SC SCH ×4 (11:40→22:00)
[2018-08-01 13:32] LABS: FOLATE 8.4 ng/mL
--- NOTE | 2018-08-01 14:12 | PCM.STROKE ---
<Ever Sanchez - Last Filed: 08/01/18 14:10> Interval History - Treatment DVT Prophylaxis: Sequential compression device in place bilaterally Antiplatelet: Acetylsalicylic acid (ASA), Plavix - Education Written Stroke Education provided regarding: personal risk factors, stroke warning sign/symptoms, how to activate emergency medical services, need to follow up after discharge NIHSS Stroke Scale - Date/Time Evaluation Performed Date Performed: 07/27/18 Time Performed: 15:48 - How Severe is the Stroke Level of Consciousness: 0=Alert LOC to Questions: 0=Both comments correct LOC to commands: 0=Obeys both correctly Best Gaze: 0=Normal Visual: 0=No visual loss Facial: 0=Normal Motor Arm - Left: 0=No drift Motor Arm - Right: 0=No drift Motor Leg - Left: 0=No drift Motor Leg - Right: 0=No drift Limb Ataxia: 0=Absent Sensory: 0=Normal Best Language: 1=Mild to moderate aphasia Dysarthia: 2=Severe, near unintelligible or worse Extinction & Inattention (Neglect): 0=Normal, no object Score: 3 Exam - Vital Sign Vital Signs: Temp Pulse Resp BP Pulse Ox 98.5 F 105 H 20 129/86 99 08/01/18 11:39 08/01/18 11:39 08/01/18 11:39 08/01/18 11:39 08/01/18 06:00 Constitutional: No distress Right Pupil: Reactive Left Pupil: Reactive Cardiovascular: Regular rate & rhythm Neuro motor strength exam: Left Upper Extremity: 5, Right Upper Extremity: 5, Left Lower Extremity: 5, Right Lower Extremity: 5 Coordination: Finger/nose Vascular Risk: Hypertension, Diabetes Mellitus, Lipids - Data reviewed Laboratory results: 08/01/18 06:45 08/01/18 06:45 Triglycerides 195 mg/dL (35-160) H 07/27/18 16:30 Cholesterol 214 mg/dL (130-200) H 07/27/18 16:30 LDL Cholesterol Direct 124 mg/dL (0-129) 07/27/18 16:30 HDL Cholesterol 72 mg/dL (29-60) H 07/27/18 16:30 Hemoglobin A1c 7.5 % (4.2-6.5) H 07/23/18 21:34 Assessment and Plan - Assessment and Plan (Free Text) Plan: Assessment and Plan: Patient is a 57 year old female with a PMHx which includes laryngeal cancer s/p tracheostomy, alcohol abuse, COPD, HTN, HLD, DM, seizures who was admitted for evaluation and treatment of altered mental status secondary to seizure like activity. Seizures - EEG- no seizure like activity noted - 07/23/2018 CT Head without contrast- No acute findings - 07/24/2018 CT Head without contrast- No acute findings - 07/25/2018 MRI without contrast- Late acute/early subacute MCA territory infarctions involving bilateral temporal lobes and to a lesser extent frontal and parietal cortex - 07/26/2018 CT Head and Neck- Calcified intra cavernous segments of the internal carotid arteries - echocardiogram with bubble study reordered and pending- coordinated with cardiology Dr. Pettit for completion - continue depacon 100mg IVP q12h - continue with secondary stroke prevention: aspirin 81mg po daily, plavix 75mg PO daily, atorvastatin 40mg QHS Patient seen, case discussed with, and plan approved by attending physician, Dr. Arita <Irving Arita - Last Filed: 08/01/18 17:43> Interval History - Education Written Stroke Education provided regarding: personal risk factors, stroke warning sign/symptoms, how to activate emergency medical services, need to follow up after discharge Exam - Vital Sign Vital Signs: Temp Pulse Resp BP Pulse Ox 98.5 F 107 H 20 129/86 99 08/01/18 11:39 08/01/18 14:00 08/01/18 11:39 08/01/18 11:39 08/01/18 06:00 - Data reviewed Laboratory results: 08/01/18 06:45 08/01/18 06:45 Triglycerides 195 mg/dL (35-160) H 07/27/18 16:30 Cholesterol 214 mg/dL (130-200) H 07/27/18 16:30 LDL Cholesterol Direct 124 mg/dL (0-129) 07/27/18 16:30 HDL Cholesterol 72 mg/dL (29-60) H 07/27/18 16:30 Hemoglobin A1c 7.5 % (4.2-6.5) H 07/23/18 21:34 Attending/Attestation - Attestation I have personally seen and examined this patient.: Yes I have fully participated in the care of the patient.: Yes I have reviewed all pertinent clinical information, including history, physical exam and plan: Yes Notes (Text): 08/01/18 17:42 I agree with the assessment and plan. Will continue current management and follow up on REY to rule out possible cardio-embolic etiology. 08/01/18 17:43
--- NOTE | 2018-08-01 15:07 | PN ---
DATE: 08/01/2018 CARDIOLOGY FOLLOWUP SUBJECTIVE: The patient is sitting in bed, awake, alert without shortness of breath. PHYSICAL EXAMINATION: VITAL SIGNS: Blood pressure is 129/86, heart rate is in the 90s. NECK: Negative JVD. LUNGS: Decreased breath sounds. HEART: Reveal S1, S2. EXTREMITIES: Without edema. LABORATORY DATA: Hemoglobin is 8.2. Chemistries: BUN and creatinine are unremarkable. Glucose is 120. IMPRESSION: 1. Recent non-ST elevation myocardial infarction. 2. Anemia. 3. History of throat carcinoma. 4. Coronary artery disease. 5. Diabetes mellitus. 6. Questionable cerebrovascular accident. Given these findings, I had an extensive discussion with neuro. After discussion of risks and benefits, Neurology feels it is important that the patient get a REY. After evaluating risks and benefits, neuro still feels a REY is warranted to rule out intraatrial thrombus. Her echo reveals normal LA and RA sizes, which makes thrombus less likely. However, I have discussed the procedure with the patient in detail, she is willing. We will arrange for the REY. Avel Pettit MD
--- NOTE | 2018-08-01 15:08 | CP.PCM.PN ---
Subjective - Date & Time of Evaluation Date of Evaluation: 08/01/18 Time of Evaluation: 15:08 - Subjective Subjective: Nephrology Consultation Note: Assessment: critical Hyponatremia hypo-osmolar ? etiology, likely pre-renal/hypovolemia as better with NS: resolved seizure, AMS HAGMA due to starvation ketoacidosis acute respi and metabolic acidosis HTN emergency CA throat, DM, anemia NSTEMI CKD 2 acute CVA Plan No acute need for renal replacement therapy at this time. . Hypertension control with meds as ordered. Maintain hemodynamics stable. Avoid hypotension. added losartan and lopressor Monitor Input/Output, daily weights and renal function with basic metabolic panel supplements lytes as needed respi support as per pulmonary continue with thiamine supplements Dose meds/antibiotics for improved GFR. Glycemic control Further work up/management as per primary team Thanks for allowing me to participate in care of your patient. Will sign off and follow patient with you further PRN basis. Please call if any Qs. had d/w team Dr Jong Dennis Office: [phone] Chief Complaint; seizure Reason for consult: hyponatremia HPI: Pt is a 57 F with hx of diabetes Mellitus ( years), hypertension (years) CA throat, seizure presented with complaints of seizure and AMS. pt was admitted to ICU and renal consult for hyponatremia. she received hypertonic saline overnight no known OTC/herbal meds or NSAIDs No recent iodinated contrast exposure. No obvious episodes of low BP. baseline cr 1.1-1.2 suggestive of CKD 2 ROS: pt upset that not going home Physical Examination: General Appearance: better appearing Vitals reviewed and noted as below Head; Atraumatic, normocephalic ENT: unable. has trach/collar EYES: Pupils are equal, round and reactive to light accommodation. Eye muscles and extraocular movement intact. Sclera is anicteric. Neck; had trach, no thyromegaly or bruit Lungs: normal respiratory rate/effort. Breath sounds bilateral diminished at bases Heart: normal rate. s1s2 normal. No rub or gallop. Extremities: no edema. No varicose veins Neurological: Patient is awake but not communicative Skin: Warm and dry. Normal turgor. No rash. Palpitation: Normal elasticity for age Abdomen: Abdomen is soft. Bowel sounds +. There is no abdominal tenderness, no guarding/rigidity no organomegaly Psych: deferred MSK: no joint tenderness or swelling. Digits and nails normal, no deformity : kidney or bladder not palpable Labs/imaging reviewed. Past medical history, past surgical history, family history, social history, allergy reviewed and noted as below Family hx: no hx of CKD. Rest non-contributory Objective - Vital Signs/Intake and Output Vital Signs (last 24 hours): Temp Pulse Resp BP Pulse Ox 98.5 F 105 H 20 129/86 99 08/01/18 11:39 08/01/18 11:39 08/01/18 11:39 08/01/18 11:39 08/01/18 06:00 Intake and Output: 08/01/18 08/01/18 06:59 18:59 Intake Total 220 Balance 220 - Medications Medications: Current Medications Acetaminophen (Tylenol 325mg Tab) 650 mg PO Q6H PRN PRN Reason: Headache Last Admin: 08/01/18 10:26 Dose: 650 mg Albuterol/Ipratropium (Duoneb 3 Mg/0.5 Mg (3 Ml) Ud) 3 ml IH TIDRESP [facility] Last Admin: 08/01/18 13:10 Dose: 3 ml Aspirin (Ecotrin) 81 mg PO DAILY [facility] Last Admin: 08/01/18 10:26 Dose: 81 mg Atorvastatin Calcium (Lipitor) 40 mg PO DIN [facility] Last Admin: 07/31/18 17:15 Dose: 40 mg Cefpodoxime Proxetil (Vantin) 200 mg PO Q12 [facility] Stop: 08/03/18 07:10 Last Admin: 08/01/18 10:25 Dose: 200 mg Clopidogrel Bisulfate (Plavix) 75 mg NG DAILY [facility] Last Admin: 08/01/18 10:26 Dose: 75 mg Heparin Sodium (Porcine) (Heparin) 5,000 units SC Q8 [facility]; Protocol Last Admin: 08/01/18 05:27 Dose: 5,000 units Hydralazine HCl (Apresoline) 10 mg IVP ONCE PRN PRN Reason: hypertension Last Admin: 07/28/18 20:28 Dose: 10 mg Valproate Sodium 1,000 mg/ (Sodium Chloride) 110 mls @ 100 mls/hr IVPB Q12 [facility] Last Admin: 08/01/18 10:25 Dose: 100 mls/hr Insulin Human Regular (Humulin R Med) 0 units SC ACHS [facility]; Protocol Last Admin: 08/01/18 11:41 Dose: 3 u Lorazepam (Ativan) 2 mg IVP Q6H PRN; Protocol PRN Reason: Anxiety Last Admin: 07/31/18 17:19 Dose: 2 mg Losartan Potassium (Cozaar) 50 mg PO DAILY [facility] Last Admin: 08/01/18 10:26 Dose: 50 mg Metoprolol Tartrate (Lopressor) 50 mg PO BRKDIN [facility] Last Admin: 08/01/18 10:26 Dose: 50 mg Pantoprazole Sodium (Protonix Susp) 40 mg PO DAILY [facility] Last Admin: 08/01/18 10:25 Dose: 40 mg - Labs Labs: 08/01/18 06:45 08/01/18 06:45 PT 10.5 SECONDS (9.4-12.5) 07/23/18 21:34 INR 0.92 07/23/18 21:34 APTT 21.8 Seconds (25.1-36.5) L 07/27/18 14:00
--- NOTE | 2018-08-01 23:16 | CON ---
DATE: 08/01/2018 HISTORY OF PRESENT ILLNESS: The patient is a 57-year-old female with multiple medical issues including throat cancer, hypertension, insulin-dependent diabetes, hypercholesterolemia, COPD, nonobstructive CAD by cath, presented to the Emergency Room for witnessed seizure. The patient was diagnosed with stroke. Psych consult was called because the patient does not want to go to subacute rehab, and medical team is wondering if the patient has capacity to make decision about disposition plan. The patient was seen and examined together with Dr. Talley. Dr. Talley explained the patient about the risk and consequences of being discharged back home and not to subacute rehab. The patient verbalized understanding. The patient was able to indicate her preferences. The patient does not want to go to rehab, the patient wants to go back home. The patient reports that she lives with a boyfriend as well as her sister is involved into the patient care. The patient reported that she is getting radiation therapy. The patient has multiple medical appointments which she needs to attend. The patient reported that her family is supportive. Dr. Talley suggested case management to be involved and arrange all proper followup appointments if the patient chose to go back home and the patient's family needs to be in agreement with that plan. The patient denied feeling depressed. The patient denied any thoughts of harming herself or others. The patient denied that she is hearing voices or seeing things. The patient presented relatively well. In regard of agitation overnight, the patient said that she was frustrated and she was tired and that is why she was feeling restless. VITAL SIGNS: In regard of the vital signs, vital signs seem to be stable. Temperature 98, pulse is 89, blood pressure 120/74, respirations 20, oxygen saturation is 99. MEDICATIONS: Reviewed. The patient is on Tylenol, DuoNeb, aspirin, Lipitor, Vantin, Plavix, heparin, hydralazine, Humulin, Ativan, Cozaar, Protonix and valproic acid. LABORATORY DATA: Reviewed. Most recent was from today. Blood gas reviewed. Chemistry reviewed. Urinalysis reviewed and toxicology reviewed. PAST PSYCHIATRIC HISTORY: The patient denied history of mental illness. The patient denied history of suicidal attempts and denied any intent or plan to harm herself at present moment. MENTAL STATUS EXAMINATION: The patient presented to be alert. The patient knows that she is in the hospital but was not aware what is the date. The patient described her mood as "okay." Affect was reactive, mood congruent. Thought process seems to be somewhat concrete. The patient's speech, the patient was not able to speak because of the tracheostomy but was able to express herself and this lyric writer was able to understand the patient because her facial expression and reading by lips, it is very informative. Thought content, the patient denied hearing voices, denied seeing things, denied paranoid ideation. The patient adamantly denied thoughts of harming herself or others, denied intent or plan. The patient has fair insight, judgment seems to be fair as well. Impulses are well controlled as of now. IMPRESSION: Rule out adjustment disorder but the patient seems to be very comfortable at present moment. PLAN: Based on the patient's presentation, the patient has basic understanding of her diagnosis. The patient knows that she has throat cancer and she needs to have treatment. In regard of her refusal to go to subacute rehab or acute rehab, the patient was able to indicate her preferences that she wants to go back home. The patient reported that her family is very supportive and this lyric writer recommended family to be contacted by primary team and discuss what the options are. The patient has insight and appreciation, and the patient has reasoning ability, the patient was able to indicate her preferences. At the present moment, the patient has capacity to make decision about discharge planning, but the patient has extra support in the community and all proper followup appointment needs to be provided for the patient. Physical therapy also recommended and gait assessment also recommended. At present moment, the patient is not psychotic, the patient is not agitated, the patient posed no imminent danger to self or others, the patient has capacity to make her disposition plan. Thank you very much for letting me participate in care of your patient. Should you have any questions, give me a call back. Ariana Obando MD
[2018-08-02 06:38] LABS: EOS % 0.6 % (1.5-5.0); GRAN # 1.5 (1.4-6.5); GRAN % 47.7 % (50.0-68.0); HEMOGLOBIN 8.3 g/dL (12.0-16.0); LYMPH # 1.2 (1.2-3.4); LYMPH % 36.8 % (22.0-35.0); MEAN CORPUSCULAR HEMOGLOBIN 25.9 pg (25.0-35.0); MEAN PLATELET VOLUME 8.7 fl (7.0-11.0); MONO # 0.5 (0.1-0.6); MONO % 14.9 % (1.0-6.0); RBC 3.21 10^6/uL (3.5-6.1); RED CELL DISTRIBUTION WIDTH 18.6 % (11.5-14.5); WHITE BLOOD COUNT 3.2 10^3/uL (4.5-11.0)
[2018-08-02] MEDS ORDERED: Midazolam 2 MG/2 ML VIAL ONE (07:00)
[2018-08-02] MEDS ORDERED: Naloxone 0.4 mg/ml Inj (Adult) ONE (07:01)
[2018-08-02] MEDS ORDERED: Flumazenil 0.1 mg/ml Inj (5ml) IVP ONE (07:01)
[2018-08-02] MEDS: Albuterol-Ipratrop 3 mg / 0.5 (3 ml) UD IH SCH ×3 (07:22→19:45)
[2018-08-02] MEDS ORDERED: Midazolam 2 MG/2 ML VIAL IV ONE ×3 (07:33→07:40)
[2018-08-02] MEDS ORDERED: Sodium Chloride 0.9% 1,000 ML IV SCH (08:15)
[2018-08-02] MEDS: Insulin Reg-MEDIUM-Coverage SC SCH ×4 (08:47→22:02)
[2018-08-02] MEDS: Cefpodoxime (Vantin) 200 mg Tab PO SCH ×2 (10:45→22:19)
[2018-08-02] MEDS: Valproate 1,000 MG in Sodium Chloride 0.9% 100 ML IVPB SCH ×2 (10:46→21:59)
[2018-08-02] MEDS: Pantoprazole 40 mg Susp UD PO SCH (10:46)
--- NOTE | 2018-08-02 12:29 | PN ---
DATE: 08/02/2018 CARDIOLOGY FOLLOWUP SUBJECTIVE: The patient tolerated the REY well. PHYSICAL EXAMINATION: VITAL SIGNS: Blood pressure 142/78, heart rate is in the 90s. NECK: Negative JVD. LUNGS: No rales noted. HEART: Revealed S1 and S2. EXTREMITIES: Without edema. LABORATORY DATA: Hemoglobin is 8.3. Chemistry is unchanged. IMPRESSION: 1. No vegetation noted on transesophageal echocardiography. 2. History of throat carcinoma. 3. Recent non-ST elevation myocardial infarction. 4. Diabetes mellitus. Given these findings, the patient's cardiac status is stable. Her non-STEMI is treated medically. We will discontinue telemetry today. Avel Pettit MD
--- NOTE | 2018-08-02 12:32 | PCM.STROKE ---
<Ever Sanchez - Last Filed: 08/02/18 12:28> Interval History - Treatment DVT Prophylaxis: Sequential compression device in place bilaterally Antiplatelet: Acetylsalicylic acid (ASA), Plavix - Education Written Stroke Education provided regarding: personal risk factors, stroke warning sign/symptoms, how to activate emergency medical services, need to follow up after discharge NIHSS Stroke Scale - Date/Time Evaluation Performed Date Performed: 07/27/18 Time Performed: 15:48 - How Severe is the Stroke Level of Consciousness: 0=Alert LOC to Questions: 0=Both comments correct LOC to commands: 0=Obeys both correctly Best Gaze: 0=Normal Visual: 0=No visual loss Facial: 0=Normal Motor Arm - Left: 0=No drift Motor Arm - Right: 0=No drift Motor Leg - Left: 0=No drift Motor Leg - Right: 0=No drift Limb Ataxia: 0=Absent Sensory: 0=Normal Best Language: 1=Mild to moderate aphasia Dysarthia: 2=Severe, near unintelligible or worse Extinction & Inattention (Neglect): 0=Normal, no object Score: 3 Exam - Vital Sign Vital Signs: Temp Pulse Resp BP Pulse Ox 98.3 F 109 H 20 122/71 100 08/02/18 12:09 08/02/18 12:09 08/02/18 12:09 08/02/18 12:09 08/02/18 08:33 Constitutional: No distress Right Pupil: Reactive Left Pupil: Reactive Mental Status: Normal: Orientation, Memory Neuro motor strength exam: Left Upper Extremity: 5, Right Upper Extremity: 5, Left Lower Extremity: 5, Right Lower Extremity: 5 Coordination: Finger/nose Vascular Risk: Hypertension, Diabetes Mellitus, Lipids - Data reviewed Laboratory results: 08/02/18 06:29 08/02/18 06:29 Triglycerides 195 mg/dL (35-160) H 07/27/18 16:30 Cholesterol 214 mg/dL (130-200) H 07/27/18 16:30 LDL Cholesterol Direct 124 mg/dL (0-129) 07/27/18 16:30 HDL Cholesterol 72 mg/dL (29-60) H 07/27/18 16:30 Hemoglobin A1c 7.5 % (4.2-6.5) H 07/23/18 21:34 Assessment and Plan - Assessment and Plan (Free Text) Plan: Assessment and Plan: Patient is a 57 year old female with a PMHx which includes laryngeal cancer s/p tracheostomy, alcohol abuse, COPD, HTN, HLD, DM, seizures who was admitted for evaluation and treatment of altered mental status secondary to seizure like activity. Seizures - EEG- no seizure like activity noted - 07/23/2018 CT Head without contrast- No acute findings - 07/24/2018 CT Head without contrast- No acute findings - 07/25/2018 MRI without contrast- Late acute/early subacute MCA territory infarctions involving bilateral temporal lobes and to a lesser extent frontal and parietal cortex - 07/26/2018 CT Head and Neck- Calcified intra cavernous segments of the internal carotid arteries - echocardiogram with bubble study reordered and pending- coordinated with cardiology Dr. Pettit for completion- awaiting result - continue depacon 100mg IVP q12h - continue with secondary stroke prevention: aspirin 81mg po daily, plavix 75mg PO daily, atorvastatin 40mg QHS - ok to discharge from neuro perspective if REY with bubble study is normal Patient seen, case discussed with, and plan approved by attending physician, Dr. Arita <Irving Arita - Last Filed: 08/02/18 19:08> Interval History - Education Written Stroke Education provided regarding: personal risk factors, stroke warning sign/symptoms, how to activate emergency medical services, need to follow up after discharge Exam - Vital Sign Vital Signs: Temp Pulse Resp BP Pulse Ox 98.1 F 101 H 18 119/75 100 08/02/18 18:21 08/02/18 18:31 08/02/18 18:21 08/02/18 18:21 08/02/18 08:33 - Data reviewed Laboratory results: 08/02/18 06:29 08/02/18 06:29 Triglycerides 195 mg/dL (35-160) H 07/27/18 16:30 Cholesterol 214 mg/dL (130-200) H 07/27/18 16:30 LDL Cholesterol Direct 124 mg/dL (0-129) 07/27/18 16:30 HDL Cholesterol 72 mg/dL (29-60) H 07/27/18 16:30 Hemoglobin A1c 7.5 % (4.2-6.5) H 07/23/18 21:34 Attending/Attestation - Attestation I have personally seen and examined this patient.: Yes I have fully participated in the care of the patient.: Yes I have reviewed all pertinent clinical information, including history, physical exam and plan: Yes Notes (Text): 08/02/18 19:07 I agree with the assessment and plan. Will continue current medication for secondary stroke prevention.
--- NOTE | 2018-08-02 13:19 | CP.PCM.PN ---
Subjective - Date & Time of Evaluation Date of Evaluation: 08/02/18 Time of Evaluation: 13:18 - Subjective Subjective: Nephrology Consultation Note: Assessment: stable Hyponatremia hypo-osmolar ? etiology, likely pre-renal/hypovolemia as better with NS: resolved seizure, AMS HAGMA due to starvation ketoacidosis acute respi and metabolic acidosis HTN emergency CA throat, DM, anemia NSTEMI CKD 2 acute CVA Plan No acute need for renal replacement therapy at this time. . Hypertension control with meds as ordered. Maintain hemodynamics stable. Avoid hypotension. added losartan and lopressor Monitor Input/Output, daily weights and renal function with basic metabolic panel supplements lytes as needed respi support as per pulmonary continue with thiamine supplements Dose meds/antibiotics for improved GFR. Glycemic control Further work up/management as per primary team. overall stable from renal perspective Thanks for allowing me to participate in care of your patient. Please call if any Qs. had d/w team Dr Jong Dennis Office: [phone] Chief Complaint; seizure Reason for consult: hyponatremia HPI: Pt is a 57 F with hx of diabetes Mellitus ( years), hypertension (years) CA throat, seizure presented with complaints of seizure and AMS. pt was admitted to ICU and renal consult for hyponatremia. she received hypertonic saline overnight no known OTC/herbal meds or NSAIDs No recent iodinated contrast exposure. No obvious episodes of low BP. baseline cr 1.1-1.2 suggestive of CKD 2 ROS: pt denies complaints. no CP/SON Physical Examination: General Appearance: better appearing Vitals reviewed and noted as below Head; Atraumatic, normocephalic ENT: unable. has trach/collar EYES: Pupils are equal, round and reactive to light accommodation. Eye muscles and extraocular movement intact. Sclera is anicteric. Neck; had trach, no thyromegaly or bruit Lungs: normal respiratory rate/effort. Breath sounds bilateral diminished at bases Heart: normal rate. s1s2 normal. No rub or gallop. Extremities: no edema. No varicose veins Neurological: Patient is awake and limited communicative Skin: Warm and dry. Normal turgor. No rash. Palpitation: Normal elasticity for age Abdomen: Abdomen is soft. Bowel sounds +. There is no abdominal tenderness, no guarding/rigidity no organomegaly Psych: deferred MSK: no joint tenderness or swelling. Digits and nails normal, no deformity : kidney or bladder not palpable Labs/imaging reviewed. Past medical history, past surgical history, family history, social history, allergy reviewed and noted as below Family hx: no hx of CKD. Rest non-contributory Objective - Vital Signs/Intake and Output Vital Signs (last 24 hours): Temp Pulse Resp BP Pulse Ox 98.3 F 109 H 20 122/71 100 08/02/18 12:09 08/02/18 12:09 08/02/18 12:09 08/02/18 12:09 08/02/18 08:33 Intake and Output: 08/02/18 08/02/18 06:59 18:59 Intake Total 120 50 Balance 120 50 - Medications Medications: Current Medications Acetaminophen (Tylenol 325mg Tab) 650 mg PO Q6H PRN PRN Reason: Headache Last Admin: 08/01/18 10:26 Dose: 650 mg Albuterol/Ipratropium (Duoneb 3 Mg/0.5 Mg (3 Ml) Ud) 3 ml IH TIDRESP [facility] Last Admin: 08/02/18 07:22 Dose: Not Given Aspirin (Ecotrin) 81 mg PO DAILY [facility] Last Admin: 08/02/18 10:46 Dose: 81 mg Atorvastatin Calcium (Lipitor) 40 mg PO DIN [facility] Last Admin: 08/01/18 20:00 Dose: 40 mg Cefpodoxime Proxetil (Vantin) 200 mg PO Q12 [facility] Stop: 08/03/18 07:10 Last Admin: 08/02/18 10:45 Dose: 200 mg Clopidogrel Bisulfate (Plavix) 75 mg NG DAILY [facility] Last Admin: 08/02/18 10:46 Dose: 75 mg Heparin Sodium (Porcine) (Heparin) 5,000 units SC Q8 [facility]; Protocol Last Admin: 08/02/18 08:47 Dose: Not Given Hydralazine HCl (Apresoline) 10 mg IVP ONCE PRN PRN Reason: hypertension Last Admin: 07/28/18 20:28 Dose: 10 mg Valproate Sodium 1,000 mg/ (Sodium Chloride) 110 mls @ 100 mls/hr IVPB Q12 [facility] Last Admin: 08/02/18 10:46 Dose: 100 mls/hr Insulin Human Regular (Humulin R Med) 0 units SC ACHS [facility]; Protocol Last Admin: 08/02/18 13:05 Dose: 3 u Lorazepam (Ativan) 2 mg IVP Q6H PRN; Protocol PRN Reason: Anxiety Last Admin: 08/02/18 00:08 Dose: 2 mg Losartan Potassium (Cozaar) 50 mg PO DAILY [facility] Last Admin: 08/02/18 10:45 Dose: 50 mg Metoprolol Tartrate (Lopressor) 50 mg PO BRKDIN [facility] Last Admin: 08/02/18 10:46 Dose: 50 mg Pantoprazole Sodium (Protonix Susp) 40 mg PO DAILY [facility] Last Admin: 08/02/18 10:46 Dose: 40 mg - Labs Labs: 08/02/18 06:29 08/02/18 06:29 PT 10.5 SECONDS (9.4-12.5) 07/23/18 21:34 INR 0.92 07/23/18 21:34 APTT 21.8 Seconds (25.1-36.5) L 07/27/18 14:00
--- NOTE | 2018-08-02 15:51 | CARD ---
APPROVED REPORT Date of service: 08/02/2018 EXAM: Transesophageal echocardiogram with color flow Doppler. INDICATION R/O PFO Reason For Test : r/o PFO PROCEDURE After obtaining informed consent, patient underwent transesophageal echo in the ICU. Type of Sedation : Conscious Sedation Sedation was administered by Dr. francis. Sedation was achieved with Versed and fentanyl 2 mg and 50 mcg intravenously. Echo enhancement indication: R/O Septal defect. Echo enhancement agent administered: Agitated Saline The ERY was performed without complications. Throughout the procedure, the blood pressure, pulse oximetry, cardiac rhythm, and rate were monitored. The patient tolerated the procedure without adverse effects. Recovery from conscious sedation was uneventful and vital signs were stable. LEFT VENTRICLE The left ventricle is normal size. There is mild left ventricular hypertrophy. The left ventricular function is normal.EF-60-65% There is normal LV segmental wall motion. No left ventricle thrombus noted on this study. There is no ventricular septal defect visualized. There is no left ventricular aneurysm. There is no mass noted in the left ventricle. RIGHT VENTRICLE The right ventricle is normal size. There is normal right ventricular wall thickness. The right ventricular systolic function is normal. ATRIA The left atrium size is normal. The right atrium size is normal. The interatrial septum is intact with no evidence for an atrial septal defect, by Color flow or Bubble study. AORTIC VALVE The aortic valve is normal in structure. Trivial AR There is no aortic valvular stenosis. There is no aortic valvular vegetation. MITRAL VALVE The mitral valve leaflets are thickened. There is no evidence of mitral valve prolapse. There is no mitral valve stenosis. Mitral regurgitation is trace to mild. TRICUSPID VALVE The tricuspid valve is normal in structure. There is trace tricuspid regurgitation. There is no tricuspid valve prolapse or vegetation. There is no tricuspid valve stenosis. PULMONIC VALVE The pulmonary valve is normal in structure. There is Trivial pulmonic valvular regurgitation. There is no pulmonic valvular stenosis. GREAT VESSELS The aortic root is normal in size. The ascending aorta is normal in size. The pulmonary artery is normal. The IVC is normal in size and collapses >50% with inspiration. PERICARDIAL EFFUSION There is no pericardial effusion. There is no pleural effusion. <Conclusion> Normal Chjamber Size.Mild LVH. EF-60-65% Trivial AR Mitral regurgitation is trace to mild. There is trace tricuspid regurgitation. There is Trivial pulmonic valvular regurgitation. The IVC is normal in size and collapses >50% with inspiration. There is no pleural effusion. No thrombus or Vegetation noted., No Mobile Plaque in aorta noted. The interatrial septum is intact with no evidence for an atrial septal defect, by Color flow or Bubble study. Velocity in MARILY more than 0.4 m/s. Minimal flat plaque in arch and ascending aorta noted.
--- NOTE | 2018-08-02 16:50 | CP.PCM.PN ---
<Ronal Riggs - Last Filed: 08/02/18 17:05> Subjective - Date & Time of Evaluation Date of Evaluation: 08/02/18 Time of Evaluation: 16:35 - Subjective Subjective: PGY-1 Medicine Progress Note for Dr. Del Valle Patient was seen and examined at bedside s/p REY echo procedure with no complications. 12 point ROS unchanged at this time. Patient continues to refuse subacute rehabilitation, as per PT recommendations. She continues to pull on her trach collar and tube, per nursing, after repeated instruction and education provided. She states that it irritates her, she denies having done it in the past even though it has been noted. Patient's sister was called and informed us during our discussion that the patient does not have home oxygen at this time. At this point, patient would be leaving the hospital against medical advice. She does not have means of getting home on her own nor does she have support at home currently as she lives alone. Patient would require family support at all times and family would be fully responsible for all means of care. This was made aware to patient, to nephew present at bedside, and to patient's sister on the phone. At this time,family will not take the patient home. Objective - Vital Signs/Intake and Output Vital Signs (last 24 hours): Temp Pulse Resp BP Pulse Ox 98.3 F 109 H 20 122/71 100 08/02/18 12:09 08/02/18 12:09 08/02/18 12:09 08/02/18 12:09 08/02/18 08:33 Intake and Output: 08/02/18 08/02/18 06:59 18:59 Intake Total 120 650 Balance 120 650 - Medications Medications: Current Medications Acetaminophen (Tylenol 325mg Tab) 650 mg PO Q6H PRN PRN Reason: Headache Last Admin: 08/01/18 10:26 Dose: 650 mg Albuterol/Ipratropium (Duoneb 3 Mg/0.5 Mg (3 Ml) Ud) 3 ml IH TIDRESP [facility] Last Admin: 08/02/18 13:26 Dose: 3 ml Aspirin (Ecotrin) 81 mg PO DAILY [facility] Last Admin: 08/02/18 10:46 Dose: 81 mg Atorvastatin Calcium (Lipitor) 40 mg PO DIN [facility] Last Admin: 08/01/18 20:00 Dose: 40 mg Cefpodoxime Proxetil (Vantin) 200 mg PO Q12 [facility] Stop: 08/03/18 07:10 Last Admin: 08/02/18 10:45 Dose: 200 mg Clopidogrel Bisulfate (Plavix) 75 mg NG DAILY [facility] Last Admin: 08/02/18 10:46 Dose: 75 mg Heparin Sodium (Porcine) (Heparin) 5,000 units SC Q8 [facility]; Protocol Last Admin: 08/02/18 15:15 Dose: 5,000 units Hydralazine HCl (Apresoline) 10 mg IVP ONCE PRN PRN Reason: hypertension Last Admin: 07/28/18 20:28 Dose: 10 mg Valproate Sodium 1,000 mg/ (Sodium Chloride) 110 mls @ 100 mls/hr IVPB Q12 [facility] Last Admin: 08/02/18 10:46 Dose: 100 mls/hr Insulin Human Regular (Humulin R Med) 0 units SC ACHS [facility]; Protocol Last Admin: 08/02/18 13:05 Dose: 3 u Lorazepam (Ativan) 2 mg IVP Q6H PRN; Protocol PRN Reason: Anxiety Last Admin: 08/02/18 00:08 Dose: 2 mg Losartan Potassium (Cozaar) 50 mg PO DAILY [facility] Last Admin: 08/02/18 10:45 Dose: 50 mg Metoprolol Tartrate (Lopressor) 50 mg PO BRKDIN [facility] Last Admin: 08/02/18 10:46 Dose: 50 mg Pantoprazole Sodium (Protonix Susp) 40 mg PO DAILY [facility] Last Admin: 08/02/18 10:46 Dose: 40 mg - Labs Labs: 08/02/18 06:29 08/02/18 06:29 PT 10.5 SECONDS (9.4-12.5) 07/23/18 21:34 INR 0.92 07/23/18 21:34 APTT 21.8 Seconds (25.1-36.5) L 07/27/18 14:00 - Constitutional Appears: Combative, Agitated, Chronically Ill - Head Exam Head Exam: ATRAUMATIC, NORMAL INSPECTION, NORMOCEPHALIC - Eye Exam Eye Exam: EOMI, Normal appearance Pupil Exam: NORMAL ACCOMODATION - ENT Exam ENT Exam: Mucous Membranes Moist, Normal Exam - Neck Exam Neck Exam: Full ROM Additional comments: Patient trach shiley out, notified respiratory therapist and made aware at bedside. Respiratory therapist attempt to place trach but unsuccessful, notified surgical garment assembler container finisher and made aware patient hugo tiwari is out, lungs sound with stridor with oxygen 88%, went to ICU and cotton picker trach shiley #6 inserted by RT. O2 sat increase to 95%. - Respiratory Exam Respiratory Exam: Clear to Ausculation Bilateral, NORMAL BREATHING PATTERN. absent: Accessory Muscle Use, Rales, Rhonchi, Wheezes, Respiratory Distress, Stridor - Cardiovascular Exam Cardiovascular Exam: REGULAR RHYTHM, +S1, +S2 - GI/Abdominal Exam GI & Abdominal Exam: Soft, Normal Bowel Sounds. absent: Distended, Firm, Guarding, Rigid, Tenderness, Rebound - Extremities Exam Extremities Exam: Full ROM, Normal Capillary Refill, Normal Inspection. absent: Calf Tenderness, Joint Swelling - Back Exam Back Exam: NORMAL INSPECTION - Neurological Exam Neurological Exam: Alert, Awake, Oriented x3 - Psychiatric Exam Psychiatric exam: Normal Affect, Normal Mood - Skin Skin Exam: Dry, Intact, Normal Color, Warm Assessment and Plan - Assessment and Plan (Free Text) Assessment: 57 year old female with a PMHx which includes laryngeal cancer s/p tracheostomy, alcohol abuse, COPD, HTN, HLD, DM, seizures who was admitted for evaluation and treatment of altered mental status secondary to seizure like activity. Patient found to have L-acute/subacute MCA stroke involving bilateral temporal lobes. Patient also had hypernatremia, which has resolved. S/P REY echo with no complications. Patient continues to refuse subacute rehabilitation, wishes to go home. Does not have home oxygen currently set up. Family refusing to pick her up currently and patient has no means of getting home. Plan: AMS 2/2 seizure-like activity, hx of seizures - EEG: no seizure activity noted - CT Head without contrast (07/23): no acute findings - Repeat CT Head without contrast (07/24) : no acute findings - MRI without contrast (07/25): late acute/early subacute MCA territory infarctions involving bilateral temporal lobes and to a lesser extent frontal and parietal cortex - CT Head and Neck (07/26): Calcified intra cavernous segments of the internal carotid arteries - Neurology recs (Dr. Duckworth) appreciated -continue depacon 100mg IVP q12h -continue with secondary stroke prevention: aspirin 81mg po daily, plavix 75mg PO daily, atorvastatin 40mg QHS -echocardiogram with bubble study reordered and pending- coordinated with cardiology Dr. Pettit for completion NSTEMI - Echo: EF 62%. Mitral leaflets are thickened but normal valve opening. Mild L- ventricular diastolic dysfunction. Trace TR. Minimal pulm HTN. -REY Echo (08/02): mild LVH, EF 60-65%, trivial AR, mitral regurgitation is trace to mild, trace tricuspid regurgitation, no pleural effusion; no thrombus or vegetation noted; no mobile plaque in aorta noted; interatrial septum is in tact with no evidence for an atrial septal defect, by color flow or bubble study - Cardio recs (Dr. Pettit) -patient cardiac status is stable, NSTEMI is treated medically. -d/c telemetry today (08/02) UTI -spiked fever 100.4 (07/28) -UA positive -Ucx: klebsiella -repeat CXR (07/29): minor vascular congestion -Vantin 200 mg PO q12 Hyponatremia - resolved - IVF d/c by ICU - Na 139 (08/02) - Na 115 on admission - Nephro recs appreciated -added losartan and lopressor for bp control Hx laryngeal cancer s/p tracheostomy -trach collar patient, functional -blood tinged sputum noted in trach collar, new finding -sputum cx prelim: gram negative horacio -ENT (Dr. Rock) on board -noncomplicated trach collar changed -BUCKLE STRINGER on board HTN -c/w losartan, lopressor, hydralazine prn Hx DM - ISS high ACHS - Fingersticks ACHS - HA1C: 7.5 HLD - Lipitor 40mg PO - lipid panel: [id number], TC209, [id number], HDL68 Anemia - Hb/Hct: 8.3/24.4 (08/02) - stable, continue to monitor - hypercoagulable workup -low protein C and S - Heme/Onc (Dr. Tillman) recs appreciated: low protein c and s may be low as they were checked during acute clotting; can repeat in 3 months outpatient PPx, Diet, Disposition -GI ppx: protonix -DVT ppx: heparin sc -PT on board -Dispo: Patient continues to refuse subacute rehab per PT recs, does not have home oxygen set up, has been noncompliant with ENT outpatient f/u for trach collar. Patient and family were made aware she would be signing out against medical advice and bear responsibility for all means of caring for patient. Patient currently lives home alone, does not have means of getting home alone, and family does not wish to take her home at this point. Case discussed with Dr. Eligio Riggs DO, PGY-1 <Razia Del Valle - Last Filed: 08/03/18 07:00> Objective - Vital Signs/Intake and Output Vital Signs (last 24 hours): Temp Pulse Resp BP Pulse Ox 98.1 F 91 H 18 119/75 100 08/02/18 18:21 08/03/18 06:00 08/02/18 18:21 08/02/18 18:21 08/02/18 08:33 Intake and Output: 08/02/18 08/03/18 18:59 06:59 Intake Total 650 120 Balance 650 120 - Medications Medications: Current Medications Acetaminophen (Tylenol 325mg Tab) 650 mg PO Q6H PRN PRN Reason: Headache Last Admin: 08/03/18 03:05 Dose: 650 mg Albuterol/Ipratropium (Duoneb 3 Mg/0.5 Mg (3 Ml) Ud) 3 ml IH TIDRESP [facility] Last Admin: 08/02/18 19:45 Dose: 3 ml Aspirin (Ecotrin) 81 mg PO DAILY [facility] Last Admin: 08/02/18 10:46 Dose: 81 mg Atorvastatin Calcium (Lipitor) 40 mg PO DIN [facility] Last Admin: 08/02/18 18:31 Dose: 40 mg Cefpodoxime Proxetil (Vantin) 200 mg PO Q12 [facility] Stop: 08/03/18 07:10 Last Admin: 08/02/18 22:19 Dose: 200 mg Clopidogrel Bisulfate (Plavix) 75 mg NG DAILY [facility] Last Admin: 08/02/18 10:46 Dose: 75 mg Heparin Sodium (Porcine) (Heparin) 5,000 units SC Q8 [facility]; Protocol Last Admin: 08/03/18 05:18 Dose: 5,000 units Hydralazine HCl (Apresoline) 10 mg IVP ONCE PRN PRN Reason: hypertension Last Admin: 07/28/18 20:28 Dose: 10 mg Valproate Sodium 1,000 mg/ (Sodium Chloride) 110 mls @ 100 mls/hr IVPB Q12 [facility] Last Admin: 08/02/18 21:59 Dose: 100 mls/hr Insulin Human Regular (Humulin R Med) 0 units SC ACHS [facility]; Protocol Last Admin: 08/02/18 22:02 Dose: 2 u Lorazepam (Ativan) 2 mg IVP Q6H PRN; Protocol PRN Reason: Anxiety Last Admin: 08/02/18 00:08 Dose: 2 mg Losartan Potassium (Cozaar) 50 mg PO DAILY [facility] Last Admin: 08/02/18 10:45 Dose: 50 mg Metoprolol Tartrate (Lopressor) 50 mg PO BRKDIN [facility] Last Admin: 08/02/18 18:31 Dose: 50 mg Pantoprazole Sodium (Protonix Susp) 40 mg PO DAILY [facility] Last Admin: 08/02/18 10:46 Dose: 40 mg - Labs Labs: 08/03/18 05:45 08/03/18 05:45 PT 10.5 SECONDS (9.4-12.5) 07/23/18 21:34 INR 0.92 07/23/18 21:34 APTT 21.8 Seconds (25.1-36.5) L 07/27/18 14:00 Attending/Attestation - Attestation I have personally seen and examined this patient.: Yes I have fully participated in the care of the patient.: Yes I have reviewed all pertinent clinical information, including history, physical exam and plan: Yes Notes (Text): 08/02/18 57 year old female with past medical history of seizure, laryngeal cancer s/p tracheostomy, COPD, hypertension, diabetes and alcohol abuse who presented with seizures. She was found to have hyponatremia (resolved) NSTEMI and CVA. MRI brain showed large acute / subacute MCA infarct involving bilateral temporal lobes. She is being followed by neurology and cardiology. She is on aspirin, plavix and statin. She is also on keppra, valproic acid and ativan. Dilantin was discontinued. REY was performed today; no evidence of ASD. Protein C/S levels were low; hematology recommended to repeat levels in 3 months. She is on antibiotics for Klebsiella UTI. Sputum culture also grew Pseudomonas Aeruginosa. PT recommended GINO which patient is refusing. Patient wishes to sign out AMA. She is competent to make decision however she requires family support at home. Case was discussed with the family today (nephew and sister). At this time patient does not have home oxygen set up at home and will stay. Overall prognosis is guarded. Razia Del Valle MD Hospitalist.
--- NOTE | 2018-08-02 22:54 | CP.PCM.PN ---
Subjective - Date & Time of Evaluation Date of Evaluation: 08/01/18 Time of Evaluation: 11:00 - Subjective Subjective: No complaints. Objective - Vital Signs/Intake and Output Vital Signs (last 24 hours): Temp Pulse Resp BP Pulse Ox 98.1 F 101 H 18 119/75 100 08/02/18 18:21 08/02/18 18:31 08/02/18 18:21 08/02/18 18:21 08/02/18 08:33 Intake and Output: 08/02/18 08/03/18 18:59 06:59 Intake Total 650 Balance 650 - Medications Medications: Current Medications Acetaminophen (Tylenol 325mg Tab) 650 mg PO Q6H PRN PRN Reason: Headache Last Admin: 08/01/18 10:26 Dose: 650 mg Albuterol/Ipratropium (Duoneb 3 Mg/0.5 Mg (3 Ml) Ud) 3 ml IH TIDRESP [facility] Last Admin: 08/02/18 19:45 Dose: 3 ml Aspirin (Ecotrin) 81 mg PO DAILY [facility] Last Admin: 08/02/18 10:46 Dose: 81 mg Atorvastatin Calcium (Lipitor) 40 mg PO DIN [facility] Last Admin: 08/02/18 18:31 Dose: 40 mg Cefpodoxime Proxetil (Vantin) 200 mg PO Q12 [facility] Stop: 08/03/18 07:10 Last Admin: 08/02/18 22:19 Dose: 200 mg Clopidogrel Bisulfate (Plavix) 75 mg NG DAILY [facility] Last Admin: 08/02/18 10:46 Dose: 75 mg Heparin Sodium (Porcine) (Heparin) 5,000 units SC Q8 [facility]; Protocol Last Admin: 08/02/18 21:51 Dose: 5,000 units Hydralazine HCl (Apresoline) 10 mg IVP ONCE PRN PRN Reason: hypertension Last Admin: 07/28/18 20:28 Dose: 10 mg Valproate Sodium 1,000 mg/ (Sodium Chloride) 110 mls @ 100 mls/hr IVPB Q12 [facility] Last Admin: 08/02/18 21:59 Dose: 100 mls/hr Insulin Human Regular (Humulin R Med) 0 units SC ACHS [facility]; Protocol Last Admin: 08/02/18 22:02 Dose: 2 u Lorazepam (Ativan) 2 mg IVP Q6H PRN; Protocol PRN Reason: Anxiety Last Admin: 08/02/18 00:08 Dose: 2 mg Losartan Potassium (Cozaar) 50 mg PO DAILY [facility] Last Admin: 08/02/18 10:45 Dose: 50 mg Metoprolol Tartrate (Lopressor) 50 mg PO BRKDIN [facility] Last Admin: 08/02/18 18:31 Dose: 50 mg Pantoprazole Sodium (Protonix Susp) 40 mg PO DAILY [facility] Last Admin: 08/02/18 10:46 Dose: 40 mg - Labs Labs: 08/02/18 06:29 08/02/18 06:29 PT 10.5 SECONDS (9.4-12.5) 07/23/18 21:34 INR 0.92 07/23/18 21:34 APTT 21.8 Seconds (25.1-36.5) L 07/27/18 14:00 - Head Exam Head Exam: ATRAUMATIC - Eye Exam Eye Exam: Normal appearance - ENT Exam ENT Exam: Mucous Membranes Dry - Respiratory Exam Respiratory Exam: NORMAL BREATHING PATTERN - Cardiovascular Exam Cardiovascular Exam: +S1, +S2 - GI/Abdominal Exam GI & Abdominal Exam: Normal Bowel Sounds Assessment and Plan (1) CVA (cerebral vascular accident) Assessment & Plan: low protein C+S may be low as were checked during acute clotting (consumed during clotting/bleeding) can repeat in 3 months per neuro Status: Acute (2) Anemia Assessment & Plan: chronic disease chemo and radiation effect Status: Acute (3) Thrombocytopenia Assessment & Plan: lmild likely related to chemotherapy/radiation Status: Acute (4) Vocal cord cancer Assessment & Plan: per outpatient treatment team Status: Acute
--- NOTE | 2018-08-02 22:56 | CP.PCM.PN ---
Subjective - Date & Time of Evaluation Date of Evaluation: 08/02/18 Time of Evaluation: 12:00 - Subjective Subjective: No complaints. Objective - Vital Signs/Intake and Output Vital Signs (last 24 hours): Temp Pulse Resp BP Pulse Ox 98.1 F 101 H 18 119/75 100 08/02/18 18:21 08/02/18 18:31 08/02/18 18:21 08/02/18 18:21 08/02/18 08:33 Intake and Output: 08/02/18 08/03/18 18:59 06:59 Intake Total 650 Balance 650 - Medications Medications: Current Medications Acetaminophen (Tylenol 325mg Tab) 650 mg PO Q6H PRN PRN Reason: Headache Last Admin: 08/01/18 10:26 Dose: 650 mg Albuterol/Ipratropium (Duoneb 3 Mg/0.5 Mg (3 Ml) Ud) 3 ml IH TIDRESP [facility] Last Admin: 08/02/18 19:45 Dose: 3 ml Aspirin (Ecotrin) 81 mg PO DAILY [facility] Last Admin: 08/02/18 10:46 Dose: 81 mg Atorvastatin Calcium (Lipitor) 40 mg PO DIN [facility] Last Admin: 08/02/18 18:31 Dose: 40 mg Cefpodoxime Proxetil (Vantin) 200 mg PO Q12 [facility] Stop: 08/03/18 07:10 Last Admin: 08/02/18 22:19 Dose: 200 mg Clopidogrel Bisulfate (Plavix) 75 mg NG DAILY [facility] Last Admin: 08/02/18 10:46 Dose: 75 mg Heparin Sodium (Porcine) (Heparin) 5,000 units SC Q8 [facility]; Protocol Last Admin: 08/02/18 21:51 Dose: 5,000 units Hydralazine HCl (Apresoline) 10 mg IVP ONCE PRN PRN Reason: hypertension Last Admin: 07/28/18 20:28 Dose: 10 mg Valproate Sodium 1,000 mg/ (Sodium Chloride) 110 mls @ 100 mls/hr IVPB Q12 [facility] Last Admin: 08/02/18 21:59 Dose: 100 mls/hr Insulin Human Regular (Humulin R Med) 0 units SC ACHS [facility]; Protocol Last Admin: 08/02/18 22:02 Dose: 2 u Lorazepam (Ativan) 2 mg IVP Q6H PRN; Protocol PRN Reason: Anxiety Last Admin: 08/02/18 00:08 Dose: 2 mg Losartan Potassium (Cozaar) 50 mg PO DAILY [facility] Last Admin: 08/02/18 10:45 Dose: 50 mg Metoprolol Tartrate (Lopressor) 50 mg PO BRKDIN [facility] Last Admin: 08/02/18 18:31 Dose: 50 mg Pantoprazole Sodium (Protonix Susp) 40 mg PO DAILY [facility] Last Admin: 08/02/18 10:46 Dose: 40 mg - Labs Labs: 08/02/18 06:29 08/02/18 06:29 PT 10.5 SECONDS (9.4-12.5) 07/23/18 21:34 INR 0.92 07/23/18 21:34 APTT 21.8 Seconds (25.1-36.5) L 07/27/18 14:00 - Head Exam Head Exam: ATRAUMATIC - Eye Exam Eye Exam: Normal appearance - ENT Exam ENT Exam: Mucous Membranes Dry - Respiratory Exam Respiratory Exam: NORMAL BREATHING PATTERN - Cardiovascular Exam Cardiovascular Exam: +S1, +S2 - GI/Abdominal Exam GI & Abdominal Exam: Normal Bowel Sounds Assessment and Plan (1) CVA (cerebral vascular accident) Assessment & Plan: low protein C+S may be low as were checked during acute clotting (consumed during clotting/bleeding) can repeat in 3 months per neuro Status: Acute (2) Anemia Assessment & Plan: chronic disease chemo and radiation effect Status: Acute (3) Thrombocytopenia Assessment & Plan: lmild likely related to chemotherapy/radiation Status: Acute (4) Vocal cord cancer Assessment & Plan: per outpatient treatment team Status: Acute
[2018-08-03 06:02] LABS: BASO # 0.01 K/mm3 (0.0-2.0); BASO % 0.2 % (0.0-3.0); EOS % 0.2 % (1.5-5.0); GRAN # 2.27 (1.4-6.5); HEMOGLOBIN 8.2 g/dL (12.0-16.0); LYMPH # 1.3 (1.2-3.4); LYMPH % 30.5 % (22.0-35.0); MEAN CELL VOLUME 77.2 fl (80.0-105.0); MEAN CORPUSCULAR HEMOGLOBIN 25.6 pg (25.0-35.0); MEAN CORPUSCULAR HGB CONC 33.2 g/dl (31.0-37.0); MEAN PLATELET VOLUME 9.3 fl (7.0-11.0); MONO # 0.7 (0.1-0.6); MONO % 16.1 % (1.0-6.0); RBC 3.2 10^6/uL (3.5-6.1); RED CELL DISTRIBUTION WIDTH 18.7 % (11.5-14.5); WHITE BLOOD COUNT 4.3 10^3/uL (4.5-11.0)
--- NOTE | 2018-08-03 07:03 | CP.PCM.PN ---
<Ronal Riggs - Last Filed: 08/03/18 14:31> Subjective - Date & Time of Evaluation Date of Evaluation: 08/03/18 Time of Evaluation: 07:03 - Subjective Subjective: PGY-1 Medicine Progress Note for Dr. Del Valle's service Patient seen and examined at bedside this AM. No acute overnight events reported. Patient upset with family, wishes to go home. Patient does not have home oxygen set up at home currently, does not have means of safely getting home. Family not willing to pick patient up yet. 12 pt ROS negative at this time. Patient refusing physical exam this AM. Objective - Vital Signs/Intake and Output Vital Signs (last 24 hours): Temp Pulse Resp BP Pulse Ox 98.1 F 91 H 18 119/75 100 08/02/18 18:21 08/03/18 06:00 08/02/18 18:21 08/02/18 18:21 08/02/18 08:33 Intake and Output: 08/03/18 08/03/18 06:59 18:59 Intake Total 120 Balance 120 - Medications Medications: Current Medications Acetaminophen (Tylenol 325mg Tab) 650 mg PO Q6H PRN PRN Reason: Headache Last Admin: 08/03/18 03:05 Dose: 650 mg Albuterol/Ipratropium (Duoneb 3 Mg/0.5 Mg (3 Ml) Ud) 3 ml IH TIDRESP [facility] Last Admin: 08/02/18 19:45 Dose: 3 ml Aspirin (Ecotrin) 81 mg PO DAILY [facility] Last Admin: 08/02/18 10:46 Dose: 81 mg Atorvastatin Calcium (Lipitor) 40 mg PO DIN [facility] Last Admin: 08/02/18 18:31 Dose: 40 mg Cefpodoxime Proxetil (Vantin) 200 mg PO Q12 [facility] Stop: 08/03/18 07:10 Last Admin: 08/02/18 22:19 Dose: 200 mg Clopidogrel Bisulfate (Plavix) 75 mg NG DAILY [facility] Last Admin: 08/02/18 10:46 Dose: 75 mg Heparin Sodium (Porcine) (Heparin) 5,000 units SC Q8 [facility]; Protocol Last Admin: 08/03/18 05:18 Dose: 5,000 units Hydralazine HCl (Apresoline) 10 mg IVP ONCE PRN PRN Reason: hypertension Last Admin: 07/28/18 20:28 Dose: 10 mg Valproate Sodium 1,000 mg/ (Sodium Chloride) 110 mls @ 100 mls/hr IVPB Q12 [facility] Last Admin: 08/02/18 21:59 Dose: 100 mls/hr Insulin Human Regular (Humulin R Med) 0 units SC ACHS [facility]; Protocol Last Admin: 08/02/18 22:02 Dose: 2 u Lorazepam (Ativan) 2 mg IVP Q6H PRN; Protocol PRN Reason: Anxiety Last Admin: 08/02/18 00:08 Dose: 2 mg Losartan Potassium (Cozaar) 50 mg PO DAILY [facility] Last Admin: 08/02/18 10:45 Dose: 50 mg Metoprolol Tartrate (Lopressor) 50 mg PO BRKDIN [facility] Last Admin: 08/02/18 18:31 Dose: 50 mg Pantoprazole Sodium (Protonix Susp) 40 mg PO DAILY [facility] Last Admin: 08/02/18 10:46 Dose: 40 mg - Labs Labs: 08/03/18 05:45 08/03/18 05:45 PT 10.5 SECONDS (9.4-12.5) 07/23/18 21:34 INR 0.92 07/23/18 21:34 APTT 21.8 Seconds (25.1-36.5) L 07/27/18 14:00 - Constitutional Appears: Non-toxic, No Acute Distress, Chronically Ill, Other (Physical exam limited due to patient refusing us to examine her this AM) - Head Exam Head Exam: NORMAL INSPECTION - Neck Exam Additional comments: trach collar in place, patent and functional - Neurological Exam Neurological Exam: Alert, Awake, Oriented x3 - Psychiatric Exam Psychiatric exam: Normal Affect, Normal Mood - Skin Skin Exam: Dry, Intact, Normal Color, Warm Assessment and Plan - Assessment and Plan (Free Text) Assessment: 57 year old female with a PMHx which includes laryngeal cancer s/p tracheostomy, alcohol abuse, COPD, HTN, HLD, DM, seizures who was admitted for evaluation and treatment of altered mental status secondary to seizure like activity. Patient found to have L-acute/subacute MCA stroke involving bilateral temporal lobes. Patient also had hyponatremia, which has resolved. S/P REY echo with no complications. Patient continues to refuse subacute rehabilitation, wishes to go home. Does not have home oxygen currently set up. Family refusing to pick her up currently and patient has no means of getting home. Plan: AMS 2/2 seizure-like activity, hx of seizures - EEG: no seizure activity noted - CT Head without contrast (07/23): no acute findings - Repeat CT Head without contrast (07/24) : no acute findings - MRI without contrast (07/25): late acute/early subacute MCA territory infarctions involving bilateral temporal lobes and to a lesser extent frontal and parietal cortex - CT Head and Neck (07/26): Calcified intra cavernous segments of the internal carotid arteries - Neurology recs (Dr. Duckworth) appreciated -continue depacon 100mg IVP q12h -continue with secondary stroke prevention: aspirin 81mg po daily, plavix 75mg PO daily, atorvastatin 40mg QHS NSTEMI - Echo: EF 62%. Mitral leaflets are thickened but normal valve opening. Mild L- ventricular diastolic dysfunction. Trace TR. Minimal pulm HTN. -RYE Echo (08/02): mild LVH, EF 60-65%, trivial AR, mitral regurgitation is trace to mild, trace tricuspid regurgitation, no pleural effusion; no thrombus or vegetation noted; no mobile plaque in aorta noted; interatrial septum is intact with no evidence for an atrial septal defect, by color flow or bubble study - Cardio recs (Dr. Pettit) -patient cardiac status is stable, NSTEMI is treated medically. -d/c telemetry today (08/02) UTI -spiked fever 100.4 (07/28) -UA positive -Ucx: klebsiella -repeat CXR (07/29): minor vascular congestion -Cipro 500 BID Hyponatremia - resolved - IVF d/c by ICU - Na 139 (08/03) - Na 115 on admission - Nephro recs appreciated -added losartan and lopressor for bp control Hx laryngeal cancer s/p tracheostomy -trach collar patient, functional -blood tinged sputum noted in trach collar, new finding -sputum cx: pseudomonas -ENT (Dr. Rock) on board -noncomplicated trach collar changed -[employer] on board HTN -c/w losartan, lopressor, hydralazine prn Hx DM - ISS high ACHS - Fingersticks ACHS - HA1C: 7.5 HLD - Lipitor 40mg PO - lipid panel: [id number], TC209, RQI136, HDL68 Anemia - Hb/Hct: 8.2/24.7 (08/03) - stable, continue to monitor - hypercoagulable workup -low protein C and S - Heme/Onc (Dr. Tillman) recs appreciated: low protein c and s may be low as they were checked during acute clotting; can repeat in 3 months outpatient PPx, Diet, Disposition -GI ppx: protonix -DVT ppx: heparin sc -PT on board -Dispo: Patient continues to refuse subacute rehab per PT recs, does not have home oxygen set up, has been noncompliant with ENT outpatient f/u for trach collar. Patient and family were made aware she would be signing out against medical advice and bear responsibility for all means of caring for patient. Patient currently lives home alone, does not have means of getting home alone, and family does not wish to take her home at this point. Case discussed with Dr. Eligio Riggs DO, PGY-1 <Razia Del Valle - Last Filed: 08/03/18 14:51> Objective - Vital Signs/Intake and Output Vital Signs (last 24 hours): Temp Pulse Resp BP Pulse Ox 98 F 95 H 19 116/55 L 100 08/03/18 12:26 08/03/18 12:26 08/03/18 12:26 08/03/18 12:26 08/02/18 08:33 Intake and Output: 08/03/18 08/03/18 06:59 18:59 Intake Total 120 Balance 120 - Medications Medications: Current Medications Acetaminophen (Tylenol 325mg Tab) 650 mg PO Q6H PRN PRN Reason: Headache Last Admin: 08/03/18 11:14 Dose: 650 mg Albuterol/Ipratropium (Duoneb 3 Mg/0.5 Mg (3 Ml) Ud) 3 ml IH TIDRESP [facility] Last Admin: 08/03/18 13:23 Dose: 3 ml Aspirin (Ecotrin) 81 mg PO DAILY [facility] Last Admin: 08/03/18 10:43 Dose: 81 mg Atorvastatin Calcium (Lipitor) 40 mg PO DIN [facility] Last Admin: 08/02/18 18:31 Dose: 40 mg Ciprofloxacin (Cipro) 500 mg PO Q12 [facility]; Protocol Clopidogrel Bisulfate (Plavix) 75 mg NG DAILY [facility] Last Admin: 08/03/18 10:41 Dose: 75 mg Heparin Sodium (Porcine) (Heparin) 5,000 units SC Q8 [facility]; Protocol Last Admin: 08/03/18 13:52 Dose: 5,000 units Hydralazine HCl (Apresoline) 10 mg IVP ONCE PRN PRN Reason: hypertension Last Admin: 07/28/18 20:28 Dose: 10 mg Valproate Sodium 1,000 mg/ (Sodium Chloride) 110 mls @ 100 mls/hr IVPB Q12 [facility] Last Admin: 08/03/18 10:43 Dose: 100 mls/hr Insulin Human Regular (Humulin R Med) 0 units SC ACHS [facility]; Protocol Last Admin: 08/03/18 12:24 Dose: 5 u Lorazepam (Ativan) 2 mg IVP Q6H PRN; Protocol PRN Reason: Anxiety Last Admin: 08/02/18 00:08 Dose: 2 mg Losartan Potassium (Cozaar) 50 mg PO DAILY [facility] Last Admin: 08/03/18 10:41 Dose: 50 mg Metoprolol Tartrate (Lopressor) 50 mg PO BRKDIN [facility] Last Admin: 08/03/18 08:39 Dose: 50 mg Pantoprazole Sodium (Protonix Susp) 40 mg PO DAILY [facility] Last Admin: 08/03/18 10:43 Dose: 40 mg - Labs Labs: 08/03/18 05:45 08/03/18 05:45 PT 10.5 SECONDS (9.4-12.5) 07/23/18 21:34 INR 0.92 07/23/18 21:34 APTT 21.8 Seconds (25.1-36.5) L 07/27/18 14:00 Attending/Attestation - Attestation I have personally seen and examined this patient.: Yes I have fully participated in the care of the patient.: Yes I have reviewed all pertinent clinical information, including history, physical exam and plan: Yes Notes (Text): 08/03/18 14:48 57 year old female with past medical history of seizure, laryngeal cancer s/p tracheostomy, COPD, hypertension, diabetes and alcohol abuse who presented with seizures. She was found to have hyponatremia (resolved), NSTEMI and CVA. MRI brain showed large acute / subacute MCA infarct involving bilateral temporal lobes. She is being followed by neurology and cardiology. She is on aspirin, plavix and statin. She is also on keppra, valproic acid and ativan. Dilantin was discontinued. REY showed no evidence of ASD. Protein C/S levels were low; hematology recommended to repeat levels in 3 months. She is on antibiotics for Klebsiella UTI. Sputum culture also grew Pseudomonas Aeruginosa. PT recommended GINO which patient has been refusing. She wishes to go home however lives alone. Case was discussed with family (sister and nephew) yesterday regarding providing assistance and support at home. They were will to take her home yesterday evening but realized home oxygen was not set up. Overall prognosis is guarded. Razia Del Valle MD Hospitalist.
[2018-08-03] MEDS: Albuterol-Ipratrop 3 mg / 0.5 (3 ml) UD IH SCH ×3 (08:12→19:56)
[2018-08-03] MEDS: Insulin Reg-MEDIUM-Coverage SC SCH ×4 (08:34→23:18)
[2018-08-03] MEDS: Pantoprazole 40 mg Susp UD PO SCH (10:43)
[2018-08-03] MEDS: Valproate 1,000 MG in Sodium Chloride 0.9% 100 ML IVPB SCH ×2 (10:43→22:02)
[2018-08-03 19:36] VITALS: RESP 20
[2018-08-04 06:44] LABS: BASO # 0.01 K/mm3 (0.0-2.0); BASO % 0.2 % (0.0-3.0); EOS % 0.2 % (1.5-5.0); GRAN % 43.4 % (50.0-68.0); HEMOGLOBIN 8.3 g/dL (12.0-16.0); LYMPH # 1.8 (1.2-3.4); LYMPH % 38.7 % (22.0-35.0); MEAN CELL VOLUME 77.6 fl (80.0-105.0); MEAN CORPUSCULAR HEMOGLOBIN 25.9 pg (25.0-35.0); MEAN CORPUSCULAR HGB CONC 33.3 g/dl (31.0-37.0); MEAN PLATELET VOLUME 9.1 fl (7.0-11.0); MONO # 0.8 (0.1-0.6); MONO % 17.5 % (1.0-6.0); RBC 3.21 10^6/uL (3.5-6.1); WHITE BLOOD COUNT 4.6 10^3/uL (4.5-11.0)
[2018-08-04] MEDS: Albuterol-Ipratrop 3 mg / 0.5 (3 ml) UD IH SCH ×3 (07:14→20:16)
--- NOTE | 2018-08-04 07:15 | CP.PCM.PN ---
<Ronal Riggs - Last Filed: 08/04/18 18:44> Subjective - Date & Time of Evaluation Date of Evaluation: 08/04/18 Time of Evaluation: 07:15 - Subjective Subjective: PGY-1 Medicine Progress Note for Dr. Sanchez's service Patient seen and examined at bedside this AM. No acute overnight events reported. Patient continues to be upset about being in hospital, uncooperative with physical exam. Does not wish to talk. Family was willing to take her home Sunday but patient did not have home oxygen set up. 12 pt ROS negative at this time. Objective - Vital Signs/Intake and Output Vital Signs (last 24 hours): Temp Pulse Resp BP Pulse Ox 98.3 F 96 H 20 117/73 100 08/03/18 18:00 08/03/18 18:00 08/03/18 18:00 08/03/18 18:00 08/03/18 18:00 Intake and Output: 08/04/18 08/04/18 06:59 18:59 Intake Total 180 Balance 180 - Medications Medications: Current Medications Acetaminophen (Tylenol 325mg Tab) 650 mg PO Q6H PRN PRN Reason: Headache Last Admin: 08/03/18 11:14 Dose: 650 mg Albuterol/Ipratropium (Duoneb 3 Mg/0.5 Mg (3 Ml) Ud) 3 ml IH TIDRESP [facility] Last Admin: 08/04/18 07:14 Dose: 3 ml Aspirin (Ecotrin) 81 mg PO DAILY [facility] Last Admin: 08/03/18 10:43 Dose: 81 mg Atorvastatin Calcium (Lipitor) 40 mg PO DIN [facility] Last Admin: 08/03/18 17:48 Dose: 40 mg Ciprofloxacin (Cipro) 500 mg PO Q12 [facility]; Protocol Last Admin: 08/03/18 22:00 Dose: 500 mg Clopidogrel Bisulfate (Plavix) 75 mg NG DAILY [facility] Last Admin: 08/03/18 10:41 Dose: 75 mg Heparin Sodium (Porcine) (Heparin) 5,000 units SC Q8 [facility]; Protocol Last Admin: 08/04/18 05:52 Dose: 5,000 units Hydralazine HCl (Apresoline) 10 mg IVP ONCE PRN PRN Reason: hypertension Last Admin: 07/28/18 20:28 Dose: 10 mg Valproate Sodium 1,000 mg/ (Sodium Chloride) 110 mls @ 100 mls/hr IVPB Q12 [facility] Last Admin: 08/03/18 22:02 Dose: 100 mls/hr Insulin Human Regular (Humulin R Med) 0 units SC ACHS [facility]; Protocol Last Admin: 08/03/18 23:18 Dose: Not Given Lorazepam (Ativan) 2 mg IVP Q6H PRN; Protocol PRN Reason: Anxiety Last Admin: 08/02/18 00:08 Dose: 2 mg Losartan Potassium (Cozaar) 50 mg PO DAILY [facility] Last Admin: 08/03/18 10:41 Dose: 50 mg Metoprolol Tartrate (Lopressor) 50 mg PO BRKDIN [facility] Last Admin: 08/03/18 17:48 Dose: 50 mg Pantoprazole Sodium (Protonix Susp) 40 mg PO DAILY [facility] Last Admin: 08/03/18 10:43 Dose: 40 mg - Labs Labs: 08/03/18 05:45 08/04/18 06:30 PT 10.5 SECONDS (9.4-12.5) 07/23/18 21:34 INR 0.92 07/23/18 21:34 APTT 21.8 Seconds (25.1-36.5) L 07/27/18 14:00 - Constitutional Appears: Non-toxic, No Acute Distress - Head Exam Head Exam: ATRAUMATIC, NORMAL INSPECTION, NORMOCEPHALIC - Eye Exam Eye Exam: EOMI, Normal appearance - ENT Exam Additional comments: trach collar in place - Neck Exam Neck Exam: Full ROM, Normal Inspection - Respiratory Exam Respiratory Exam: NORMAL BREATHING PATTERN. absent: Accessory Muscle Use, Rales, Rhonchi, Wheezes, Respiratory Distress, Stridor - Extremities Exam Extremities Exam: Normal Inspection - Back Exam Back Exam: NORMAL INSPECTION - Neurological Exam Neurological Exam: Alert, Awake, Oriented x3 - Psychiatric Exam Psychiatric exam: Normal Affect, Normal Mood - Skin Skin Exam: Dry, Intact, Normal Color, Warm Assessment and Plan - Assessment and Plan (Free Text) Assessment: 57 year old female with a PMHx which includes laryngeal cancer s/p tracheostomy, alcohol abuse, COPD, HTN, HLD, DM, seizures who was admitted for evaluation and treatment of altered mental status secondary to seizure like activity. Patient found to have L-acute/subacute MCA stroke involving bilateral temporal lobes. Patient also had hyponatremia, which has resolved. S/P REY echo with no complications. Patient continues to refuse subacute rehabilitation, wishes to go home. Family was willing to pick patient up on Sunday but does not have home oxygen set up. Family decided to keep patient in hospital over weekend until it could be set up. Patient has no other means of safely getting home. Plan: AMS 2/2 seizure-like activity, hx of seizures - EEG: no seizure activity noted - CT Head without contrast (07/23): no acute findings - Repeat CT Head without contrast (07/24) : no acute findings - MRI without contrast (07/25): late acute/early subacute MCA territory infarctions involving bilateral temporal lobes and to a lesser extent frontal and parietal cortex - CT Head and Neck (07/26): Calcified intra cavernous segments of the internal carotid arteries - Neurology recs (Dr. Duckworth) appreciated -depacon 100mg IVP q12h -aspirin 81mg po daily, plavix 75mg PO daily, atorvastatin 40mg QHS for secondary stroke prevention NSTEMI - Echo: EF 62%. Mitral leaflets are thickened but normal valve opening. Mild L-ventricular diastolic dysfunction. Trace TR. Minimal pulm HTN. -REY Echo (08/02): mild LVH, EF 60-65%, trivial AR, mitral regurgitation is trace to mild, trace tricuspid regurgitation, no pleural effusion; no thrombus or vegetation noted; no mobile plaque in aorta noted; interatrial septum is intact with no evidence for an atrial septal defect, by color flow or bubble study - Cardio recs (Dr. Pettit) -patient cardiac status is stable, NSTEMI is treated medically. -telemetry d/c'd (08/02) UTI -spiked fever 100.4 (07/28) -UA positive -Ucx: klebsiella -repeat CXR (07/29): minor vascular congestion -Cipro 500 BID Hyponatremia - resolved - IVF d/c by ICU - Na 115 on admission - Nephro recs appreciated -added losartan and lopressor for bp control Hx laryngeal cancer s/p tracheostomy -trach collar patient, functional -blood tinged sputum noted in trach collar, new finding -sputum cx: pseudomonas -ENT (Dr. Rock) on board -noncomplicated trach collar changed -RADIOLOGIC TECHNOLOGIST on board HTN -c/w losartan, lopressor, hydralazine prn Hx DM - ISS high ACHS - Fingersticks ACHS - HA1C: 7.5 HLD - Lipitor 40mg PO - lipid panel: [id number], TC209, [id number], HDL68 Anemia - Hb/Hct stable, continue to monitor - hypercoagulable workup -low protein C and S - Heme/Onc (Dr. Tillman) recs appreciated: low protein c and s may be low as they were checked during acute clotting; can repeat in 3 months outpatient PPx, Diet, Disposition -GI ppx: protonix -DVT ppx: heparin sc -PT on board -Dispo: Patient continues to refuse subacute rehab per PT recs, does not have home oxygen set up, has been noncompliant with ENT outpatient f/u for trach collar. Patient and family were made aware she would be signing out against medical advice and bear responsibility for all means of caring for patient. Patient currently lives home alone, does not have means of getting home alone, and family does not wish to take her home at this point. Case discussed with Dr. Daniel Riggs DO, PGY-1 <Spring Sanchez R - Last Filed: 08/05/18 14:31> Objective - Vital Signs/Intake and Output Vital Signs (last 24 hours): Temp Pulse Resp BP Pulse Ox 98.2 F 97 H 20 129/71 99 08/05/18 08:29 08/05/18 09:23 08/05/18 08:29 08/05/18 09:23 08/05/18 08:29 Intake and Output: 08/05/18 08/05/18 06:59 18:59 Intake Total 1060 Balance 1060 - Medications Medications: Current Medications Acetaminophen (Tylenol 325mg Tab) 650 mg PO Q6H PRN PRN Reason: Headache Last Admin: 08/05/18 09:14 Dose: 650 mg Acetylcysteine (Acetylcysteine 20%) 4 ml IH [id number] [facility] Last Admin: 08/05/18 13:25 Dose: 4 ml Albuterol/Ipratropium (Duoneb 3 Mg/0.5 Mg (3 Ml) Ud) 3 ml IH TIDRESP [facility] Last Admin: 08/05/18 13:25 Dose: 3 ml Aspirin (Ecotrin) 81 mg PO DAILY [facility] Last Admin: 08/05/18 09:22 Dose: 81 mg Atorvastatin Calcium (Lipitor) 40 mg PO DIN [facility] Last Admin: 08/04/18 17:37 Dose: 40 mg Ciprofloxacin (Cipro) 500 mg PO Q12 [facility]; Protocol Last Admin: 08/05/18 09:23 Dose: 500 mg Heparin Sodium (Porcine) (Heparin) 5,000 units SC Q8 [facility]; Protocol Last Admin: 08/05/18 05:51 Dose: 5,000 units Hydralazine HCl (Apresoline) 10 mg IVP ONCE PRN PRN Reason: hypertension Last Admin: 07/28/18 20:28 Dose: 10 mg Sodium Chloride (Sodium Chloride 0.9%) 1,000 mls @ 100 mls/hr IV .Q10H [facility] Stop: 08/06/18 14:01 Insulin Human Regular (Humulin R Med) 0 units SC ACHS [facility]; Protocol Last Admin: 08/05/18 13:14 Dose: Not Given Lorazepam (Ativan) 2 mg IVP Q6H PRN; Protocol PRN Reason: Anxiety Last Admin: 08/02/18 00:08 Dose: 2 mg Losartan Potassium (Cozaar) 50 mg PO DAILY [facility] Last Admin: 08/05/18 09:22 Dose: 50 mg Metoprolol Tartrate (Lopressor) 50 mg PO BRKDIN [facility] Last Admin: 08/05/18 09:23 Dose: 50 mg Pantoprazole Sodium (Protonix Susp) 40 mg PO DAILY [facility] Last Admin: 08/05/18 09:22 Dose: 40 mg Valproate Sodium (Depakene Oral Soln) 1,000 mg PO Q12 [facility] Last Admin: 08/04/18 22:33 Dose: 1,000 mg - Labs Labs: 08/05/18 05:30 08/05/18 05:30 PT 10.5 SECONDS (9.4-12.5) 07/23/18 21:34 INR 0.92 07/23/18 21:34 APTT 21.8 Seconds (25.1-36.5) L 07/27/18 14:00 Attending/Attestation - Attestation I have personally seen and examined this patient.: Yes I have fully participated in the care of the patient.: Yes I have reviewed all pertinent clinical information, including history, physical exam and plan: Yes Notes (Text): Patient seen and examined by me with resident at 8:25AM on 08/04/18. Case including HPI, physical exam, and assessment and plan discussed with resident. Agree with above with following additions/corrections. Patient is a 57-year-old female past medical history significant for laryngeal cancer status post tracheostomy, alcohol abuse, hypertension, hyperlipidemia, anemia, COPD, coronary artery disease, and type 2 diabetes that presented to the emergency room after a witnessed seizure. Patient states that she is feeling fine and wants to go home. Patient states she does have a cough and its productive. Patient denies any chest pain or shortness of breath. No headaches or dizziness. No fevers or chills. No dysuria. Physical exam: General: Awake and alert sitting up in bed in no acute distress. HEENT: Normocephalic, atraumatic. Extraocular muscles intact, pupils equal and reactive, no scleral icterus. Oropharynx is pink and moist. Tracheostomy in place. Cardiovascular: Regular rhythm. Normal S1 and S2. No murmurs, rubs, or gallops appreciated Pulmonary: Normal respiratory effort. Decreased breath sounds. Course breath sounds with coughing. No rales or wheezing appreciated. Gastrointestinal: Soft, nondistended. Nontender. Positive bowel sounds all 4 q uadrants. No guarding. Musculoskeletal: Moves all extremities. No calf tenderness. no edema apprec iated. Central nervous system: AAOx3 Dermatologic: Skin warm and dry. Assessment and plan: Patient is a 57-year-old female past medical history significant for laryngeal cancer status post tracheostomy, alcohol abuse, hypertension, hyperlipidemia, anemia, COPD, coronary artery disease, and type 2 diabetes that presented to the emergency room after a witnessed seizure. 1. Seizure in a patient with seizure disorder. Neurology following, recommendations appreciated. Continue valproate sodium 100 mLs/ hour IVPB every 12 hours. Continue seizure precautions. 2. CVA. Brain MRI 07/25/2018 per radiologist showed a late acute/early subacute MCA territory infarctions involving bilateral temporal lobes and to a lesser extent frontal parietal cortex. Neurology following, recommendations appreciated. Continue aspirin, Plavix, and Lipitor. Patient refusing GINO. 3. NSTEMI patient with coronary artery disease. Cardiology following, recommendations appreciated. Continue aspirin, Plavix, Lipitor, Cozaar, and metoprolol. REY per risk engineer showed normal chamber size, mild LVH, EF 60- 65%, no thrombus or vegetation noted, interatrial septum intact, no evidence of atrial septal defect. Patient is chest pain-free 4. Klebsiella pneumoniae UTI. Continue Cipro. 5. Pseudomonas positive sputum culture. Sensitive to Cipro. Continue with Cipro. 6. Laryngeal cancer status post tracheostomy. ENT following, recommendations appreciated. Status post noncomplicated trach change at bedside. Continue nebulizer treatments. Continue oxygen. 7. Hypertension. Continue Cozaar and metoprolol. 8. Hyperlipidemia. Continue Lipitor 9. Type 2 diabetes. Continue insulin sliding scale. Monitor Accu-Cheks. 10. Anemia. H&H stable. Continue to monitor CBC. 11. Hyponatremia. Resolved. Continue to monitor. 12. GI/DVT prophylaxis. Protonix/heparin 13. Patient is a DNR Patient is refusing GINO. Per PT, patient needs GINO. Will need to be re-evaluated by PT> Case discussed in detail with the patient regarding current diagnosis and treatment plan. All questions answered.
[2018-08-04] MEDS: Insulin Reg-MEDIUM-Coverage SC SCH ×4 (07:49→22:34)
[2018-08-04] MEDS: Pantoprazole 40 mg Susp UD PO SCH (10:32)
[2018-08-04] MEDS: Valproate 1,000 MG in Sodium Chloride 0.9% 100 ML IVPB SCH (16:27)
[2018-08-04] MEDS ORDERED: Valproic Acid 250 mg/5 ml UD Cup PO SCH (22:00)
[2018-08-05] MEDS: Albuterol-Ipratrop 3 mg / 0.5 (3 ml) UD IH SCH ×3 (06:12→13:25)
[2018-08-05 07:13] LABS: BASO # 0.01 K/mm3 (0.0-2.0); BASO % 0.2 % (0.0-3.0); EOS % 0.2 % (1.5-5.0); GRAN # 1.66 (1.4-6.5); GRAN % 36.9 % (50.0-68.0); HEMOGLOBIN 8.4 g/dL (12.0-16.0); LYMPH # 1.9 (1.2-3.4); LYMPH % 41.9 % (22.0-35.0); MEAN CELL VOLUME 77.6 fl (80.0-105.0); MEAN CORPUSCULAR HEMOGLOBIN 25.5 pg (25.0-35.0); MEAN CORPUSCULAR HGB CONC 32.8 g/dl (31.0-37.0); MEAN PLATELET VOLUME 9.7 fl (7.0-11.0); MONO # 0.9 (0.1-0.6); MONO % 20.8 % (1.0-6.0); PLATELET COUNT 184 10^3/uL (120.0-450.0); RED CELL DISTRIBUTION WIDTH 19.1 % (11.5-14.5); WHITE BLOOD COUNT 4.5 10^3/uL (4.5-11.0)
[2018-08-05 07:23] LABS: CALCIUM 9.1 mg/dL (8.4-10.5)
[2018-08-05 08:02] LABS: BAND 2 % (0-2); EOSINOPHIL 1 % (0.0-3.0); LYMPHOCYTE 42 % (22.0-35.0); MONOCYTE 14 % (1.0-6.0); NEUTROPHIL 41 % (50.0-70.0)
[2018-08-05 08:03] LABS: ANISOCYTOSIS SLIGHT; HYPOCHROMIA SLIGHT; PLATELET ESTIMATE NORMAL (NORMAL); POIKILOCYTOSIS SLIGHT; TARGET CELLS SLIGHT
[2018-08-05] MEDS: Insulin Reg-MEDIUM-Coverage SC SCH ×3 (08:45→13:14)
[2018-08-05] MEDS: Pantoprazole 40 mg Susp UD PO SCH (09:22)
--- NOTE | 2018-08-05 11:07 | PN ---
DATE: 08/05/2018 CARDIOLOGY FOLLOWUP SUBJECTIVE: The patient is chest pain free. The patient wants to go home. PHYSICAL EXAMINATION: VITAL SIGNS: On physical exam, blood pressure is 129/71, heart rates in the 90s. NECK: Negative JVD. LUNGS: Without rales. HEART: Reveals S1, S2. EXTREMITIES: Without edema. LABORATORY DATA: Hemoglobin is 8.4. Chemistries: BUN and creatinine are 9 and 1.4, glucose is 145. IMPRESSION: 1. Yjv-FI-wrubgjkyg myocardial infarction, which is treated medically. 2. No evidence for vegetation on REY. 3. History of throat cancer. 4. Diabetes mellitus. PLAN: Given these findings, the patient's oop-TL-[id number] myocardial infarction is stable on her current medications. She should continue her aspirin. We will continue her aspirin. We will discontinue her clopidogrel and continue treatment for her hypertension. Avel Pettit MD
[2018-08-05] MEDS: Acetylcysteine 20% Inhal Soln (4ml) IH SCH ×2 (13:21→13:25)
[2018-08-05] MEDS ORDERED: Sodium Chloride 0.9% 1,000 ML IV SCH (14:00)
--- NOTE | 2018-08-05 14:16 | CP.PCM.PN ---
Objective - Vital Signs/Intake and Output Vital Signs (last 24 hours): Temp Pulse Resp BP Pulse Ox 98.2 F 97 H 20 129/71 99 08/05/18 08:29 08/05/18 09:23 08/05/18 08:29 08/05/18 09:23 08/05/18 08:29 Intake and Output: 08/05/18 08/05/18 06:59 18:59 Intake Total 1060 Balance 1060 - Medications Medications: Current Medications Acetaminophen (Tylenol 325mg Tab) 650 mg PO Q6H PRN PRN Reason: Headache Last Admin: 08/05/18 09:14 Dose: 650 mg Acetylcysteine (Acetylcysteine 20%) 4 ml IH [id number] RENATO Last Admin: 08/05/18 13:25 Dose: 4 ml Albuterol/Ipratropium (Duoneb 3 Mg/0.5 Mg (3 Ml) Ud) 3 ml IH TIDRESP RENATO Last Admin: 08/05/18 13:25 Dose: 3 ml Aspirin (Ecotrin) 81 mg PO DAILY [facility] Last Admin: 08/05/18 09:22 Dose: 81 mg Atorvastatin Calcium (Lipitor) 40 mg PO DIN [facility] Last Admin: 08/04/18 17:37 Dose: 40 mg Ciprofloxacin (Cipro) 500 mg PO Q12 [facility]; Protocol Last Admin: 08/05/18 09:23 Dose: 500 mg Heparin Sodium (Porcine) (Heparin) 5,000 units SC Q8 [facility]; Protocol Last Admin: 08/05/18 05:51 Dose: 5,000 units Hydralazine HCl (Apresoline) 10 mg IVP ONCE PRN PRN Reason: hypertension Last Admin: 07/28/18 20:28 Dose: 10 mg Sodium Chloride (Sodium Chloride 0.9%) 1,000 mls @ 100 mls/hr IV .Q10H [facility] Stop: 08/06/18 14:01 Insulin Human Regular (Humulin R Med) 0 units SC ACHS [facility]; Protocol Last Admin: 08/05/18 13:14 Dose: Not Given Lorazepam (Ativan) 2 mg IVP Q6H PRN; Protocol PRN Reason: Anxiety Last Admin: 08/02/18 00:08 Dose: 2 mg Losartan Potassium (Cozaar) 50 mg PO DAILY [facility] Last Admin: 08/05/18 09:22 Dose: 50 mg Metoprolol Tartrate (Lopressor) 50 mg PO BRKDIN [facility] Last Admin: 08/05/18 09:23 Dose: 50 mg Pantoprazole Sodium (Protonix Susp) 40 mg PO DAILY [facility] Last Admin: 08/05/18 09:22 Dose: 40 mg Valproate Sodium (Depakene Oral Soln) 1,000 mg PO Q12 [facility] Last Admin: 08/04/18 22:33 Dose: 1,000 mg - Labs Labs: 08/05/18 05:30 08/05/18 05:30 PT 10.5 SECONDS (9.4-12.5) 07/23/18 21:34 INR 0.92 07/23/18 21:34 APTT 21.8 Seconds (25.1-36.5) L 07/27/18 14:00
--- NOTE | 2018-08-05 14:56 | CP.PCM.DIS ---
Provider - Provider Date of Admission: 07/23/18 22:10 Attending physician: Spring Sanchez DO Primary care physician: Dr. Navarrete Consults: Dr. Wilver Obando Time Spent in preparation of Discharge (in minutes): 45 Diagnosis - Discharge Diagnosis (1) CVA (cerebral vascular accident) Status: Acute (2) Hyponatremia Status: Resolved (3) Seizure Status: Resolved (4) Vocal cord cancer Status: Chronic Hospital Course - Lab Results Lab Results: Micro Results 07/29/18 08:00 Blood-Venous Blood Culture - Final NO GROWTH AFTER 5 DAYS 07/29/18 08:00 Blood-Venous Gram Stain - Final TEST NOT PERFORMED 07/29/18 07:30 Blood-Venous Blood Culture - Final NO GROWTH AFTER 5 DAYS 07/29/18 07:30 Blood-Venous Gram Stain - Final TEST NOT PERFORMED 07/30/18 11:03 Trachasp Gram Stain - Final 07/30/18 11:03 Trachasp Sputum Culture - Final Pseudomonas Aeruginosa 07/28/18 21:32 Urine Urine Culture - Final Klebsiella Pneumoniae Ssp Pneu 07/24/18 00:00 Blood Blood Culture - Final NO GROWTH AFTER 5 DAYS 07/24/18 00:00 Blood Gram Stain - Final TEST NOT PERFORMED 07/23/18 23:45 Blood Blood Culture - Final NO GROWTH AFTER 5 DAYS 07/23/18 23:45 Blood Gram Stain - Final TEST NOT PERFORMED 07/24/18 01:30 Nose MRSA Culture (Admit) - Final MRSA NOT DETECTED Most Recent Lab Values WBC 4.5 10^3/uL (4.5-11.0) 08/05/18 05:30 RBC 3.30 10^6/uL (3.5-6.1) L 08/05/18 05:30 Hgb 8.4 g/dL (12.0-16.0) L 08/05/18 05:30 Hct 25.6 % (36.0-48.0) L 08/05/18 05:30 MCV 77.6 fl (80.0-105.0) L 08/05/18 05:30 MCH 25.5 pg (25.0-35.0) 08/05/18 05:30 MCHC 32.8 g/dl (31.0-37.0) 08/05/18 05:30 RDW 19.1 % (11.5-14.5) H 08/05/18 05:30 Plt Count 184 10^3/uL (120.0-450.0) 08/05/18 05:30 MPV 9.7 fl (7.0-11.0) 08/05/18 05:30 Gran % 36.9 % (50.0-68.0) L 08/05/18 05:30 Lymph % (Auto) 41.9 % (22.0-35.0) H 08/05/18 05:30 [place] % (Auto) 20.8 % (1.0-6.0) H 08/05/18 05:30 Eos % (Auto) 0.2 % (1.5-5.0) L 08/05/18 05:30 Baso % (Auto) 0.2 % (0.0-3.0) 08/05/18 05:30 Gran # 1.66 (1.4-6.5) 08/05/18 05:30 Lymph # (Auto) 1.9 (1.2-3.4) 08/05/18 05:30 [place] # (Auto) 0.9 (0.1-0.6) H 08/05/18 05:30 Eos # (Auto) 0.0 (0.0-0.7) 08/05/18 05:30 Baso # (Auto) 0.01 K/mm3 (0.0-2.0) 08/05/18 05:30 Neutrophils % (Manual) 41 % (50.0-70.0) L 08/05/18 05:30 Band Neutrophils % 2 % (0-2) 08/05/18 05:30 Lymphocytes % (Manual) 42 % (22.0-35.0) H 08/05/18 05:30 Monocytes % (Manual) 14 % (1.0-6.0) H 08/05/18 05:30 Eosinophils % (Manual) 1 % (0.0-3.0) 08/05/18 05:30 Nucleated RBC % 1 % 07/29/18 05:35 Platelet Evaluation Normal (NORMAL) 08/05/18 05:30 Hypochromasia Slight 08/05/18 05:30 Poikilocytosis (manual Slight 08/05/18 05:30 Anisocytosis (manual) Slight 08/05/18 05:30 Microcytosis (manual) Slight 07/29/18 05:35 Target Cells Slight 08/05/18 05:30 Retic Count 0.47 % (0.5-1.5) L 08/01/18 06:45 PT 10.5 SECONDS (9.4-12.5) 07/23/18 21:34 INR 0.92 07/23/18 21:34 APTT 21.8 Seconds (25.1-36.5) L 07/27/18 14:00 Lupus Anticoagulant see note 07/26/18 20:45 LA PTT Screen 30 sec (<=40) 07/26/18 20:45 dRVVT Mixing Study 28 sec (<=45) 07/26/18 20:45 dRVVT Mix Interpret Not indicated 07/26/18 20:45 Protein C Activity 38 % (70-180) L 07/26/18 20:45 Protein S Activity 28 % (60-140) L 07/26/18 22:22 Antithrombin III Activ 84 % activity (80-120) 07/26/18 20:45 Factor V see note 07/26/18 20:45 pCO2 26 mm/Hg (35-45) L 07/24/18 21:36 pO2 115.0 mm/Hg (80-100) H 07/24/18 21:36 HCO3 18.5 mmol/L (21-28) L 07/24/18 21:36 ABG pH 7.46 (7.35-7.45) H 07/24/18 21:36 ABG Total CO2 19.3 mmol.L (22-28) L 07/24/18 21:36 ABG O2 Saturation 100.0 % (95-98) H 07/24/18 21:36 ABG O2 Content 13.4 ML/dl (15-23) L 07/24/18 00:50 ABG Base Excess -3.8 mmol/L (-2.0-3.0) L 07/24/18 21:36 ABG Hemoglobin 9.3 g/dL (11.7-17.4) L 07/24/18 00:50 ABG Carboxyhemoglobin 1.4 % (0.5-1.5) 07/24/18 00:50 POC ABG HHb (Measured) -0.1 % (0-5) L 07/24/18 00:50 ABG Methemoglobin 1.1 % (0.0-3.0) 07/24/18 00:50 ABG O2 Capacity 13.4 mL/dl (16-24) L 07/24/18 00:50 ABG Potassium 3.9 mmol/L (3.6-5.2) 07/24/18 21:36 Hgb O2 Saturation 97.6 % (95.0-98.0) 07/24/18 00:50 Sodium 124.0 mmol/L (132-148) L 07/24/18 21:36 Chloride 95.0 mmol/L (98-107) L 07/24/18 21:36 Glucose 221 mg/dl (65-105) H 07/24/18 21:36 Lactate 1.9 mmol/L (0.7-2.1) 07/24/18 21:36 FiO2 28.0 % 07/24/18 21:36 Sodium 137 mmol/L (132-148) 08/05/18 05:30 Potassium 4.7 mmol/L (3.6-5.0) 08/05/18 05:30 Chloride 102 mmol/L (98-107) 08/05/18 05:30 Carbon Dioxide 29 mmol/L (21-33) 08/05/18 05:30 Anion Gap 10 (10-20) 08/05/18 05:30 BUN 9 mg/dL (7-21) 08/05/18 05:30 Creatinine 1.4 mg/dl (0.7-1.2) H 08/05/18 05:30 Est GFR ( Amer) 47 08/05/18 05:30 Est GFR (Non-Af Amer) 39 08/05/18 05:30 POC Glucose (mg/dL) 269 mg/dL (65-110) H 08/05/18 11:28 Random Glucose 145 mg/dL (70-110) H 08/05/18 05:30 Hemoglobin A1c 7.5 % (4.2-6.5) H 07/23/18 21:34 Serum Osmolality 260 mosm/kg (272-300) L 07/24/18 21:14 Lactic Acid 2.4 mmol/L (0.7-2.1) H 07/24/18 12:45 Uric Acid 8.1 mg/dL (2.5-6.2) H 07/24/18 12:30 Calcium 9.1 mg/dL (8.4-10.5) 08/05/18 05:30 Phosphorus 4.0 mg/dL (2.5-4.5) 07/30/18 06:15 Magnesium 1.2 mg/dL (1.7-2.2) L 07/30/18 06:15 Ferritin 148.0 ng/mL 08/01/18 06:45 Total Bilirubin 0.2 mg/dL (0.2-1.3) 07/31/18 11:00 AST 47 U/L (14-36) H D 07/31/18 11:00 ALT 37 U/L (7-56) 07/31/18 11:00 Alkaline Phosphatase 53 U/L (38-126) 07/31/18 11:00 Total Creatine Kinase 2249 U/L (35-230) H 07/24/18 12:30 CK-MB (CK-2) 27.3 ng/mL (0.0-3.6) H 07/24/18 12:30 CK-MB (CK-2) % 1.2 % (2.5-3.0) L 07/24/18 12:30 Troponin I 3.00 ng/mL H* D 07/25/18 04:00 NT-Pro-B Natriuret Pep 246 pg/mL (0-450) 07/23/18 21:34 Total Protein 5.6 g/dL (5.8-8.3) L 07/31/18 11:00 Albumin 2.5 g/dL (3.0-4.8) L 07/31/18 11:00 Globulin 3.1 gm/dL 07/31/18 11:00 Albumin/Globulin Ratio 0.8 (1.1-1.8) L 07/31/18 11:00 Triglycerides 195 mg/dL (35-160) H 07/27/18 16:30 Cholesterol 214 mg/dL (130-200) H 07/27/18 16:30 LDL Cholesterol Direct 124 mg/dL (0-129) 07/27/18 16:30 HDL Cholesterol 72 mg/dL (29-60) H 07/27/18 16:30 Vitamin B12 945 pg/mL (239-931) H 08/01/18 06:45 Folate 8.4 ng/mL 08/01/18 06:45 Homocysteine 12.2 umol/L (4.7-12.6) 07/26/18 12:20 Procalcitonin 1.98 NG/ML (0.19-0.49) H 07/25/18 04:00 TSH 3rd Generation 0.15 mIU/mL (0.46-4.68) L 07/25/18 13:23 Prolactin 8.4 ng/mL (3.0-18.9) 07/24/18 12:45 Arterial Blood Potassium 3.9 mmol/L (3.6-5.2) 07/24/18 21:36 Urine Color Yellow (YELLOW) 07/28/18 21:32 Urine Appearance Cloudy (CLEAR) 07/28/18 21:32 Urine pH 6.0 (4.7-8.0) 07/28/18 21:32 Ur Specific [place] 1.020 (1.005-1.035) 07/28/18 21:32 Urine Protein Trace mg/dL (<30 mg/dL) H 07/28/18 21:32 Urine Glucose (UA) 100 mg/dL (NEGATIVE) H 07/28/18 21:32 Urine Ketones Negative mg/dL (NEGATIVE) 07/28/18 21:32 Urine Blood Moderate (NEGATIVE) H 07/28/18 21:32 Urine Nitrate Positive (NEGATIVE) H 07/28/18 21:32 Urine Bilirubin Negative (NEGATIVE) 07/28/18 21:32 Urine Urobilinogen 1.0 E.U./dL (<1 E.U./dL) H 07/28/18 21:32 Ur Leukocyte Esterase Moderate [place]/uL (NEGATIVE) H 07/28/18 21:32 Urine RBC 5 - 10 /hpf (0-2) 07/28/18 21:32 Urine WBC 15 - 20 /hpf (0-6) 07/28/18 21:32 Ur Epithelial Cells 6 - 8 /hpf (0-5) 07/28/18 21:32 Urine Bacteria Many (NEG) 07/28/18 21:32 Urine Osmolality 327 mosm/kg (300-1000) 07/24/18 10:45 Ur Random Sodium 90 meq/L 07/24/18 10:45 Digoxin 0.8 ng/mL (0.8-2.0) 07/26/18 20:45 Salicylates < 1 mg/dL (2.0-20.0) L 07/24/18 11:00 Valproic Acid 60 ug/mL (50.0-100.0) 07/25/18 13:23 Alcohol, Quantitative < 10 mg/dL (0-10) 07/24/18 12:45 Blood Type AB POSITIVE 07/27/18 19:25 Blood Type Confirm AB POSITIVE 07/23/18 23:00 Antibody Screen Negative 07/27/18 19:25 Crossmatch See Detail 07/27/18 19:25 BBK History Checked Patient has bt 07/27/18 19:25 - Hospital Course Hospital Course: On admission: Pt is a 57 yo female, with a PMH which includes throat cancer, HTN, DM, HLD, COPD, CAD, presents to the emergency department via EMS after a witnessed seizure. On route to the ER, patient began seizing for 5-6 minutes and was administered 5mg of Versed. Pt has had a history of seizures. Pt unresponsive during the history and physical, most of the information was obtained from the pt sister and nephew. Pt reportedly started shaking, feel off of the bed and hit the side of her face. As per family, patient was complaining of a headache all day. HPI and ROS limited due to patient's acuity of condition. Hospital course: Patient was admitted for management for altered mental status secondary to seizure like activity. On EEG no seizure activity noted. CT head without contrast and repeat CT head showed no acute findings. MRI showed late acute/early subacute MCA territory infarctions involving bilateral temporal lobes and to a lesser extent frontal and parietal cortex. CT head and neck showed calcified intra cavernous segments of the internal carotid arteries. Neurology recs (Dr. Duckworth) appreciated. Patient was given depacon 100mg IVP q12h in adddition to aspirin 81mg po daily, plavix 75mg PO daily, atorvastatin 40mg QHS for secondary stroke prevention. Patient also had ECHO which showed EF 62%. Mitral leaflets are thickened but normal valve opening. Mild L-ventricular diastolic dysfunction. Trace TR. Minimal pulm HTN. REY Echo (08/02) showed mild LVH, EF 60-65%, trivial AR, mitral regurgitation is trace to mild, trace tricuspid regurgitation, no pleural effusion; no thrombus or vegetation noted; no mobile plaque in aorta noted; interatrial septum is intact with no evidence for an atrial septal defect, by color flow or bubble study. Dr. Pettit photostat operator helper was consulted, recommended medical management for NSTEMI. Patient was also found to have UTI. Urine culture was positive for klebsiella. Patient was given ciprofloxacin 500 mg BID. Patient was also found to have hyponatremia on admission, was given IVF. ENT Dr. Rock was consulted for blood tinged sputum in trach collar. Sputum culture grew pseudomonas. Noncomplicated trach collar was changed. Patient was also found to have anemia on admission. Hypercoagulable work showed low protein C and S. Heme/onc Dr. Tillman was consulted. Low protein c and s may be low as they were checked during acute clotting; can repeat in 3 months outpatient. Patient was medically optimized for discharge and was instructed to follow up with primary care doctor. Patient was discharged with medications and instructed to take them as prescribed. Patient was instructed to return to ED if symptoms return or wrosen. - Date & Time of H&P Date of H&P: 07/24/18 Time of H&P: 00:03 Discharge Exam - Head Exam Head Exam: ATRAUMATIC, NORMAL INSPECTION, NORMOCEPHALIC - Eye Exam Eye Exam: EOMI, Normal appearance - ENT Exam ENT Exam: Mucous Membranes Moist, Normal Exam - Respiratory Exam Respiratory Exam: NORMAL BREATHING PATTERN, UNREMARKABLE. absent: Respiratory Distress - Cardiovascular Exam Cardiovascular Exam: REGULAR RHYTHM, +S1 - GI/Abdominal Exam GI & Abdominal Exam: Normal Bowel Sounds, Soft, Unremarkable. absent: Tenderness - Extremities Exam Extremities exam: full ROM - Neurological Exam Neurological exam: Alert, Oriented x3 - Psychiatric Exam Psychiatric exam: Normal Affect, Normal Mood - Skin Skin Exam: Dry, Intact, Warm Discharge Plan - Discharge Medications Prescriptions: Albuterol 0.083% [Albuterol 0.083% Inhal Gracy (2.5 mg/3 ml) UD] 3 ml INH RQ6 #50 neb Alendronate [Fosamax] 70 mg PO QWK 30 Days tab Aspirin [Aspirin Chewable] 81 mg PO DAILY 30 Days chew Atorvastatin [Lipitor] 40 mg PO DIN 30 Days tab Calcium Carbonate/Vitamin D3 [Calcium 600 + Vit D Tablet] 1 each PO DAILY #30 tablet Ciprofloxacin [Cipro] 500 mg PO Q12 8 Days tab Fluticasone Furoate [Arnuity Ellipta] 50 mcg IH TID 30 Days blst.w.dev Losartan [Cozaar] 50 mg PO DAILY 30 Days tab Metoprolol Tartrate [Lopressor] 50 mg PO BRKDIN 30 Days tab Multivitamin [Daily Anthony] 1 tab PO DAILY #30 tablet traMADol [Ultram] 50 mg PO Q8H PRN #20 tab PRN Reason: Pain, Severe (8-10) Valproic Acid Oral Soln [Depakene Oral Soln] 1,000 mg PO Q12 30 Days cup - Follow Up Plan Condition: FAIR Disposition: HOME/ ROUTINE Instructions: Stroke (DC), Seizures, Adult (DC), Quitting Smoking Additional Instructions: Patient is medically optimized for discharge. Please follow up with your primary care doctor within 1-2 weeks. Please also follow up with Dr. Pettit the photostat operator helper, Dr. Duckworth the neurologist, and Dr. Rock within 1-2 weeks. Take your medications as prescribed. Return to ED if symptoms return or worsen. TRANSPORT ARRANGED FOR TRANSPORT TOMORROW AT 6:45AM FOR RADIATION Referrals: Blair Tillman MD [Staff Provider] - Jennifer Duckworth MD [Staff Provider] - Avel Pettit MD [Staff Provider] -
--- NOTE | 2018-08-05 15:55 | CP.PCM.PN ---
Subjective - Date & Time of Evaluation Date of Evaluation: 08/05/18 Time of Evaluation: 15:54 - Subjective Subjective: Nephrology Consultation Note: Assessment: stable Hyponatremia hypo-osmolar ? etiology, likely pre-renal/hypovolemia as better with NS: resolved seizure, AMS HAGMA due to starvation ketoacidosis acute respi and metabolic acidosis HTN emergency CA throat, DM, anemia NSTEMI CKD 2 acute CVA Plan No acute need for renal replacement therapy at this time. . Hypertension control with meds as ordered. Maintain hemodynamics stable. Avoid hypotension. added losartan and lopressor Monitor Input/Output, daily weights and renal function with basic metabolic panel supplements lytes as needed respi support as per pulmonary continue with thiamine supplements added IVF while in hospital as noted mild rise in serum Cr. encourage more oral intake Dose meds/antibiotics for improved GFR. Glycemic control Further work up/management as per primary team. overall stable from renal perspective Thanks for allowing me to participate in care of your patient. Please call if any Qs. had d/w team Dr Jong Dennis Office: [phone] Chief Complaint; seizure Reason for consult: hyponatremia HPI: Pt is a 57 F with hx of diabetes Mellitus ( years), hypertension (years) CA throat, seizure presented with complaints of seizure and AMS. pt was admitted to ICU and renal consult for hyponatremia. she received hypertonic saline overnight no known OTC/herbal meds or NSAIDs No recent iodinated contrast exposure. No obvious episodes of low BP. baseline cr 1.1-1.2 suggestive of CKD 2 ROS: pt denies complaints. no CP/SOB but limited due to her trach status Physical Examination: General Appearance: better appearing Vitals reviewed and noted as below Head; Atraumatic, normocephalic ENT: unable. has trach/collar EYES: Pupils are equal, round and reactive to light accommodation. Eye muscles and extraocular movement intact. Sclera is anicteric. Neck; had trach, no thyromegaly or bruit Lungs: normal respiratory rate/effort. Breath sounds bilateral diminished at bases Heart: normal rate. s1s2 normal. No rub or gallop. Extremities: no edema. No varicose veins Neurological: Patient is awake and limited communicative Skin: Warm and dry. Normal turgor. No rash. Palpitation: Normal elasticity for age Abdomen: Abdomen is soft. Bowel sounds +. There is no abdominal tenderness, no g uarding/rigidity no organomegaly Psych: deferred MSK: no joint tenderness or swelling. Digits and nails normal, no deformity : kidney or bladder not palpable Labs/imaging reviewed. Past medical history, past surgical history, family history, social history, allergy reviewed and noted as below Family hx: no hx of CKD. Rest non-contributory Objective - Vital Signs/Intake and Output Vital Signs (last 24 hours): Temp Pulse Resp BP Pulse Ox 98.2 F 97 H 20 129/71 99 08/05/18 08:29 08/05/18 09:23 08/05/18 08:29 08/05/18 09:23 08/05/18 08:29 Intake and Output: 08/05/18 08/05/18 06:59 18:59 Intake Total 1060 Balance 1060 - Medications Medications: Current Medications Acetaminophen (Tylenol 325mg Tab) 650 mg PO Q6H PRN PRN Reason: Headache Last Admin: 08/05/18 09:14 Dose: 650 mg Acetylcysteine (Acetylcysteine 20%) 4 ml IH [id number] [facility] Last Admin: 08/05/18 13:25 Dose: 4 ml Albuterol/Ipratropium (Duoneb 3 Mg/0.5 Mg (3 Ml) Ud) 3 ml IH TIDRESP [facility] Last Admin: 08/05/18 13:25 Dose: 3 ml Aspirin (Ecotrin) 81 mg PO DAILY [facility] Last Admin: 08/05/18 09:22 Dose: 81 mg Atorvastatin Calcium (Lipitor) 40 mg PO DIN [facility] Last Admin: 08/04/18 17:37 Dose: 40 mg Ciprofloxacin (Cipro) 500 mg PO Q12 [facility]; Protocol Last Admin: 08/05/18 09:23 Dose: 500 mg Heparin Sodium (Porcine) (Heparin) 5,000 units SC Q8 [facility]; Protocol Last Admin: 08/05/18 05:51 Dose: 5,000 units Hydralazine HCl (Apresoline) 10 mg IVP ONCE PRN PRN Reason: hypertension Last Admin: 07/28/18 20:28 Dose: 10 mg Sodium Chloride (Sodium Chloride 0.9%) 1,000 mls @ 100 mls/hr IV .Q10H [facility] Stop: 08/06/18 14:01 Insulin Human Regular (Humulin R Med) 0 units SC ACHS [facility]; Protocol Last Admin: 08/05/18 13:14 Dose: Not Given Lorazepam (Ativan) 2 mg IVP Q6H PRN; Protocol PRN Reason: Anxiety Last Admin: 08/02/18 00:08 Dose: 2 mg Losartan Potassium (Cozaar) 50 mg PO DAILY [facility] Last Admin: 08/05/18 09:22 Dose: 50 mg Metoprolol Tartrate (Lopressor) 50 mg PO BRKDIN [facility] Last Admin: 08/05/18 09:23 Dose: 50 mg Pantoprazole Sodium (Protonix Susp) 40 mg PO DAILY [facility] Last Admin: 08/05/18 09:22 Dose: 40 mg Valproate Sodium (Depakene Oral Soln) 1,000 mg PO Q12 [facility] Last Admin: 08/04/18 22:33 Dose: 1,000 mg - Labs Labs: 08/05/18 05:30 08/05/18 05:30 PT 10.5 SECONDS (9.4-12.5) 07/23/18 21:34 INR 0.92 07/23/18 21:34 APTT 21.8 Seconds (25.1-36.5) L 07/27/18 14:00
--- NOTE | 2018-08-05 23:12 | CP.PCM.PN ---
Subjective - Date & Time of Evaluation Date of Evaluation: 08/03/18 Time of Evaluation: 16:00 - Subjective Subjective: No complaints. Objective - Vital Signs/Intake and Output Vital Signs (last 24 hours): Temp Pulse Resp BP Pulse Ox 98.6 F 101 H 20 120/75 100 08/05/18 16:37 08/05/18 16:37 08/05/18 16:37 08/05/18 16:37 08/05/18 16:37 - Labs Labs: 08/05/18 05:30 08/05/18 05:30 PT 10.5 SECONDS (9.4-12.5) 07/23/18 21:34 INR 0.92 07/23/18 21:34 APTT 21.8 Seconds (25.1-36.5) L 07/27/18 14:00 - Head Exam Head Exam: ATRAUMATIC - Eye Exam Eye Exam: Normal appearance - ENT Exam ENT Exam: Mucous Membranes Dry - Respiratory Exam Respiratory Exam: NORMAL BREATHING PATTERN - Cardiovascular Exam Cardiovascular Exam: +S1, +S2 - GI/Abdominal Exam GI & Abdominal Exam: Normal Bowel Sounds Assessment and Plan (1) CVA (cerebral vascular accident) Assessment & Plan: low protein C+S may be low as were checked during acute clotting (consumed du ring clotting/bleeding) can repeat in 3 months per neuro Status: Acute (2) Anemia Assessment & Plan: chronic disease chemo and radiation effect Status: Acute (3) Thrombocytopenia Assessment & Plan: mild likely related to chemotherapy/radiation Status: Acute (4) Vocal cord cancer Assessment & Plan: per outpatient treatment team Status: Chronic
[2018-08-06 00:47] VITALS: BP 120/75; PULSE 101; TEMP 98.6; O2SAT 100
== END 2018-08-05 18:42 | disposition home health service (06) ==
LOC: ED 20:44 → ERH 22:10 → ICU 07-24 01:26 → 2RNO 07-28 17:16 → 3RSO 08-04 08:09
PROVIDERS: ADMIT Internal Medicine; ATTEND Hospitalist
PROC: 02HV33Z Insertion of Infusion Device into Superior Vena Cava, Percutaneous Approach (ICD-10-PCS; 2018-07-24)
PROC: 3E0F7GC Introduction of Other Therapeutic Substance into Respiratory Tract, Via Natural or Artificial Opening (ICD-10-PCS; 2018-07-24)
PROC: D90B1ZZ Beam Radiation of Larynx using Photons 1 - 10 MeV (ICD-10-PCS; 2018-08-01)
PROC: B24BZZ4 Ultrasonography of Heart with Aorta, Transesophageal (ICD-10-PCS; principal; 2018-08-02 07:30)
DX: E87.1 Hypo-osmolality and hyponatremia (principal); I63.513 Cerebral infarction due to unspecified occlusion or stenosis of bilateral middle cerebral arteries; I21.4 Non-ST elevation (NSTEMI) myocardial infarction; N18.2 Chronic kidney disease, stage 2 (mild); N39.0 Urinary tract infection, site not specified; B96.1 Klebsiella pneumoniae [K. pneumoniae] as the cause of diseases classified elsewhere; E11.22 Type 2 diabetes mellitus with diabetic chronic kidney disease; D69.6 Thrombocytopenia, unspecified; J44.9 Chronic obstructive pulmonary disease, unspecified; E87.4 Mixed disorder of acid-base balance; C32.0 Malignant neoplasm of glottis; I25.10 Atherosclerotic heart disease of native coronary artery without angina pectoris; I12.9 Hypertensive chronic kidney disease with stage 1 through stage 4 chronic kidney disease, or unspecified chronic kidney disease; I16.1 Hypertensive emergency; D64.81 Anemia due to antineoplastic chemotherapy; T45.1X5A Adverse effect of antineoplastic and immunosuppressive drugs, initial encounter; Z66 Do not resuscitate; G40.909 Epilepsy, unspecified, not intractable, without status epilepticus; E78.00 Pure hypercholesterolemia, unspecified; K21.9 Gastro-esophageal reflux disease without esophagitis; M81.0 Age-related osteoporosis without current pathological fracture; E78.5 Hyperlipidemia, unspecified; Z93.0 Tracheostomy status; Z79.4 Long term (current) use of insulin; Z78.1 Physical restraint status; Z95.5 Presence of coronary angioplasty implant and graft; Z87.891 Personal history of nicotine dependence